=== PATIENT | female | born 1985 | race Caucasian/White ===

== ENCOUNTER 2018-09-11 19:58 | Observation (INO) | payer BC, OTHER ==
[~2018-09-11] VITALS: Ht 147.3 cm; Wt 121.7 kg
--- OUTSIDE RECORDS SUMMARY | 2018-09-11 20:04 | XMS REPORT | Referral Summary ---
Author Author [facility] Organization [facility] Address Unknown Phone Unavailable Care Team Providers Care Estate Planning Attorney Name Role Phone Dieter Goldstein PCP Encounter [facility] [id number] Date(s): 12/30/15 - 12/30/15 [facility] [address] [facility] [address] [place], [place] [address] Discharge Diagnosis: exam Discharge Disposition: 01-Home or Self Care Attending Physician: Bhupendra Nichols MD Admitting Physician: Bhupendra Nichols MD Vital Signs Most recent to 1 oldest [Reference Range]: Blood Pressure 116/70 mmHg [90-140/60-90 mmHg] (12/30/15 9:15 AM) Problem List Condition Effective Dates Status Health Status Informant Acute Active patient pain(Confirmed) Amenorrhea(Confirmed Active ) Anemia Active (disorder)(Confirmed ) Asthma(Confirmed) Active Complex partial Active seizures(Confirmed) Depression(Confirmed Active ) 22 wk SAB(Confirmed) 2005 Active Dizzy(Confirmed) Active Family history of Active open neural tube defect(Confirmed) History of chicken Active pox(Confirmed) H/O Active hypoglycemia(Confirm ed) H/O spina Active bifida(Confirmed) History of Active PROM in previous , currently (Confirmed) Irregular Active menses(Confirmed) Migraine Active headache(Confirmed) Spontaneous Active patient (Confirmed) Obesity Active (disorder)(Confirmed ) 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(Confirm ed)1 (Confirmed) < 2 Resolved (Confirmed) 06/03/05 - 2005 Resolved Relative BMI greater Active than 30(Confirmed) Other Active convulsions(Confirme d) Sinus Active headache(Confirmed) 1Problem added by Discern Expert Allergies, Adverse Reactions, Alerts Substance Reaction Severity Status topiramate burning,itching and closed airwa Active Medications albuterol 2.5 mg/3 mL (0.083%) inhalation solution See Instructions, 1 VIALS INHALATION Q4HR,PRN: NEEDED FOR WHEEZING, # 75 unknown unit, 2 Refill(s), eRx: [facility] [id number], 1 VIALS INHALATION Q4HR,PRN: NEEDED FOR WHEEZING Start Date: 03/10/15 Status: Ordered Mary-D 12 Hour 60 mg-120 mg oral tablet, extended release 1 tabs, Oral, q12hr, 0 Refill(s) Start Date: 04/28/14 Status: Ordered Calcium Carbonate 500MG + D3 (1250 MG) 400 Unit Calcium Carbonate 500MG + D3 (1250 MG) 400 Unit, Take 1 Tablet by oral route every day, 0 Refill(s) Start Date: 04/28/14 Status: Ordered Colace 50 mg oral capsule 50 mg 1 caps, Oral, BID, as needed for constipation, # 60 caps, 0 Refill(s) Start Date: 11/11/15 Status: Ordered ferrous sulfate 325 mg (65 mg elemental iron) oral delayed release tablet 325 mg 1 tabs, Oral, Daily, # 30 tabs, 0 Refill(s) Start Date: 11/14/15 Status: Ordered Fioricet oral tablet 1 tabs, Oral, q4hr, as needed for pain, # 30 tabs, 0 Refill(s), Pharmacy: [facility] [id number] Start Date: 10/05/15 Status: Ordered Flonase 50 mcg/inh nasal spray 2 sprays, Nasal, BID, # 16 g, 11 Refill(s), Pharmacy: [facility] [id number] Start Date: 01/17/15 Status: Ordered folic acid 1 mg oral tablet See Instructions, TAKE TWO TABS TWICE A DAY, # 120 unknown unit, 5 Refill(s), eRx: [facility] [id number], TAKE TWO TABS TWICE A DAY Start Date: 08/22/15 Status: Ordered ibuprofen 800 mg oral tablet 800 mg 1 tabs, Oral, q8hr (scheduled), # 90 tabs, 0 Refill(s) Start Date: 11/14/15 Status: Ordered labetalol 100 mg oral tablet 100 mg 1 tabs, Oral, BID, # 60 tabs, 1 Refill(s), Pharmacy: [facility] [id number], 1 tabs Oral BID Start Date: 11/25/15 Status: Ordered levETIRAcetam 1000 mg oral tablet 1,000 mg 1 tabs, Oral, BID, # 60 tabs, 5 Refill(s), Pharmacy: [facility] [id number], 1 tabs Oral BID,x30 days Start Date: 12/21/15 Stop Date: 06/18/16 Status: Ordered lisinopril Oral, Daily, 0 Refill(s) Start Date: 12/16/15 Status: Ordered metFORMIN 500 mg oral tablet See Instructions, TAKE 1 TABLET (500MG) BY ORAL ROUTE 2 TIMES EVERY DAY WITH MORNING AND EVENING MEALS, # 60 unknown unit, 1 Refill(s), eRx: [facility] [id number], TAKE 1 TABLET (500MG) BY ORAL ROUTE 2 TIMES EVERY DAY WITH MORNING AND EVENING MEALS Start Date: 12/23/15 Status: Ordered One-A-Day Women 1 tabs, Oral, Daily, 0 Refill(s) Start Date: 04/28/14 Status: Ordered OXcarbazepine 600 mg oral tablet 600 mg 1 tabs, Oral, BID, # 60 tabs, 0 Refill(s), other reason (Rx) Start Date: 12/21/15 Stop Date: 01/20/16 Status: Ordered oxyCODONE-acetaminophen 5 mg-325 mg oral tablet 1 tabs, Oral, q6hr, Pain Severe (7-10), Can take 1-2 tabs, # 30 tabs, 0 Refill(s ) Start Date: 11/24/15 Status: Ordered Procardia XL 60 mg oral tablet, extended release 60 mg 1 tabs, Oral, Daily, # 30 tabs, 0 Refill(s), Pharmacy: [facility] [id number], 1 tabs Oral Daily Start Date: 11/17/15 Status: Ordered Pulmicort Flexhaler 180 mcg/inh inhalation powder 1 puffs, Inhalation, BID, 0 Refill(s) Start Date: 04/28/14 Status: Ordered Singulair 10 mg oral tablet 1 tabs, Oral, qPM, # 30 tabs, 11 Refill(s), Pharmacy: [facility] [id number] , 1 tabs Oral qPM Start Date: 01/17/15 Status: Ordered Sprintec 0.25 mg-35 mcg oral tablet 1 tabs, Oral, Daily, # 28 tabs, 11 Refill(s), Pharmacy: [facility] [id number] Start Date: 12/30/15 Status: Ordered Ventolin HFA 90 mcg/inh inhalation aerosol 2 puffs, Inhalation, q4hr, as needed for wheezing, # 18 g, 3 Refill(s), Pharmacy : [facility] [address], 2 puffs Inhalation q4hr,PRN:as needed for wheezing Start Date: 03/10/15 Status: Ordered Vitamin C 100 mg, Oral, Daily, 0 Refill(s) Start Date: 04/28/14 Status: Ordered Results No data available for this section Immunizations Vaccine Date Refusal Reason tetanus/diphth/pertuss (Tdap) adult/adol 09/30/15 influenza virus vaccine, inactivated 09/09/15 influenza virus vaccine, inactivated1 08/26/14 1Result Comment: [09/10/2014] See Scanned Document Procedures Procedure Date Related Diagnosis Body Site delivery only; 11/12/15 Section1 11/12/15 Dilatation and Curettage (Suction)2 12/29/14 wisdom teeth removed 1auto-populated from documented surgical case 2auto-populated from documented surgical case Social History Social History Type Response Smoking Status Never smoker Assessment and Plan No data available for this section
--- OUTSIDE RECORDS SUMMARY | 2018-09-11 20:04 | XMS REPORT | Referral Summary ---
Author Author [facility] Organization [facility] Address Unknown Phone Unavailable Care Team Providers Care Process Control Engineer Name Role Phone Dieter Goldstein PCP Encounter [facility] Date(s): 08/04/15 - 08/04/15 [facility] [address] [place], [place] [address] Discharge Diagnosis: GERD (gastroesophageal reflux disease) Discharge Diagnosis: Chest wall pain Discharge Disposition: -Home or Self Care Attending Physician: Dieter Goldstein MD Admitting Physician: Dieter Goldstein MD Vital Signs Most recent to 1 oldest [Reference Range]: Temperature Oral 37 degC [35.8-37.3 degC] (08/04/15 10:46 AM) Blood Pressure 110/86 mmHg [90-140/60-90 mmHg] (08/04/15 10:46 AM) Problem List Condition Effective Dates Status Health Status Informant Acute Active patient pain(Confirmed) Amenorrhea(Confirmed Active ) Anemia Active (disorder)(Confirmed ) Asthma(Confirmed) Active Complex partial Active seizures(Confirmed) Depression(Confirmed Active ) 22 wk SAB(Confirmed) 2006 Active Dizzy(Confirmed) Active Family history of Active open neural tube defect(Confirmed) History of chicken Active pox(Confirmed) H/O Active hypoglycemia(Confirm ed) H/O spina Active bifida(Confirmed) History of Active PROM in previous , currently (Confirmed) Irregular Active menses(Confirmed) Migraine Active headache(Confirmed) Spontaneous Active patient (Confirmed) Obesity Active (disorder)(Confirmed ) 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(Confirm ed)1 (Confirmed) < 12/29/14 Resolved (Confirmed) 06/03/05 - 2005 Resolved Relative BMI greater Active than 30(Confirmed) Other Active convulsions(Confirme d) Sinus Active headache(Confirmed) 1Problem added by Discern Expert Allergies, Adverse Reactions, Alerts Substance Reaction Severity Status topiramate burning,itching and closed airwa Active Medications albuterol 2.5 mg/3 mL (0.083%) inhalation solution See Instructions, 1 VIALS INHALATION Q4HR,PRN: NEEDED FOR WHEEZING, # 75 unknown unit, 2 Refill(s), eRx: [facility] [id number], 1 VIALS INHALATION Q4HR,PRN: NEEDED FOR WHEEZING [...] pain, # 30 tabs, 0 Refill(s), Pharmacy: [facility] [id number] Start Date: 10/05/15 Status: Ordered Flonase 50 mcg/inh nasal spray 2 sprays, Nasal, BID, # 16 g, 11 Refill(s), Pharmacy: [facility] 12818 Start Date: 01/17/15 Status: Ordered folic acid 1 mg oral tablet See Instructions, TAKE TWO TABS TWICE A DAY, # 120 unknown unit, 5 Refill(s), eRx: [facility] [id number], TAKE TWO TABS TWICE A DAY Start Date: 9/28/15 Status: Ordered ibuprofen 800 mg oral tablet 800 mg 1 tabs, Oral, q8hr (scheduled), # 90 tabs, 0 Refill(s) Start Date: 11/14/15 Status: Ordered labetalol 100 mg oral tablet 100 mg 1 tabs, Oral, BID, # 60 tabs, 1 Refill(s), Pharmacy: [facility] 10626, 1 tabs Oral BID Start Date: 11/25/15 Status: Ordered levETIRAcetam 1000 mg oral tablet 1,000 mg 1 tabs, Oral, BID, # 60 tabs, 5 Refill(s), Pharmacy: [facility] 46136, 1 tabs Oral BID,x30 days Start Date: 12/21/15 Stop Date: 06/18/16 Status: Ordered metFORMIN 500 mg oral tablet See Instructions, TAKE 1 TABLET (500MG) BY ORAL ROUTE 2 TIMES EVERY DAY WITH MORNING AND EVENING MEALS, # 60 unknown unit, 1 Refill(s), eRx: [facility] [id number], TAKE 1 TABLET (500MG) BY ORAL ROUTE 2 TIMES EVERY DAY WITH MORNING AND EVENING MEALS Start Date: 12/23/15 Status: Ordered One-A-Day Women 1 tabs, Oral, Daily, 0 Refill(s) Start Date: 04/28/14 Status: Ordered OXcarbazepine 600 mg oral tablet 600 mg 1 tabs, Oral, BID, # 60 tabs, 11 Refill(s), Pharmacy: [facility] 53499, 1 tabs Oral BID Start Date: 01/13/16 Status: Ordered pantoprazole 40 mg oral delayed release tablet 40 mg 1 tabs, Oral, Daily, Take at least 1 hour after other medications., # 30 tabs, 5 Refill(s), Pharmacy: [facility] 38399, 1 tabs Oral Daily,x30 days,Instr:Take at least 1 hour after other medications. Start Date: 01/20/16 Stop Date: 07/18/16 Status: Ordered Pulmicort Flexhaler 180 mcg/inh inhalation powder 1 puffs, Inhalation, BID, 0 Refill(s) Start Date: 04/28/14 Status: Ordered ranitidine 150 mg oral capsule 150 mg 1 caps, Oral, Bedtime (once a day), # 30 caps, 5 Refill(s), Pharmacy: [facility] [address], 1 caps Oral Bedtime (once a day),x30 days Start Date: 01/20/16 Stop Date: 07/18/16 Status: Ordered Singulair 10 mg oral tablet 10 mg 1 tabs, Oral, qPM, # 30 tabs, 11 Refill(s), Pharmacy: [facility] [address]3457, 1 tabs Oral qPM Start Date: 01/25/16 Status: Ordered Sprintec 0.25 mg-35 mcg oral tablet 1 tabs, Oral, Daily, # 28 tabs, 11 Refill(s), Pharmacy: [facility] 00181 Start Date: 12/30/15 Status: Ordered Ventolin HFA 90 mcg/inh inhalation aerosol 2 puffs, Inhalation, q4hr, as needed for wheezing, # 18 g, 3 Refill(s), Pharmacy : [facility] 37785, 2 puffs Inhalation q4hr,PRN:as needed for wheezing [...] Smoking Status Never smoker Assessment and Plan Extracted from: Title: Office Visit Note Author: Dieter Goldstein MD Date: 08/05/15 Assessment/Plan 1.Chest wall pain Prednisone 20mg po daily x 5 days and rest and apply ice to the sore area prn. Let me know if not improving. 2.GERD (gastroesophageal reflux disease) I recommended zantac 150mg pobid ( category B) to help her reflux and hopefully decrease the amount of TUMS needed in the day. Orders: predniSONE, 20 mg 1 tabs, Oral, Daily, X 5 days, # 5 tabs, 0 Refill(s) , Pharmacy: [facility] [address], 1 tabs Oral Daily,x5 days
--- OUTSIDE RECORDS SUMMARY | 2018-09-11 20:04 | XMS REPORT | Referral Summary ---
Author Author [facility] Organization [facility] Address Unknown Phone Unavailable Care Team Providers Care Area Director Of Home Health Sales Name Role Phone Dieter Goldstein PCP Encounter [facility] [id number] Date(s): 05/19/15 - 05/19/15 [facility] [address] [facility] [address] [place], [place] [address] Discharge Disposition: 01-Home or Self Care Attending Physician: Bhupendra Nichols MD Admitting Physician: Bhupendra Nichols MD Vital Signs No data available for this section Problem List Condition Effective Dates Status Health [...] # 75 unknown unit, 2 Refill(s), eRx: [facility] [id number], 1 VIALS INHALATION Q4HR,PRN: NEEDED FOR WHEEZING [...] pain, # 30 tabs, 0 Refill(s), Pharmacy: [facility] [id number] Start Date: 10/05/15 Status: Ordered Flonase 50 mcg/inh nasal spray 2 sprays, Nasal, BID, # 16 g, 11 Refill(s), Pharmacy: [facility] [id number] Start Date: 01/17/15 Status: Ordered folic acid 1 mg oral tablet See Instructions, TAKE TWO TABS TWICE A DAY, # 120 unknown unit, 5 Refill(s), eRx: [facility] [id number], TAKE TWO TABS TWICE A DAY Start Date: 08/22/15 Status: Ordered ibuprofen 800 mg oral tablet 800 mg 1 tabs, Oral, q8hr (scheduled), # 90 tabs, 0 Refill(s) Start Date: 11/14/15 Status: Ordered Keflex 500 mg oral capsule 500 mg 1 caps, Oral, q8hr, X 14 days, # 42 caps, 0 Refill(s), Pharmacy: [facility] 65278, 1 caps Oral q8hr,x14 days Start Date: 11/17/15 Stop Date: 12/01/15 Status: Ordered labetalol 100 mg oral tablet 100 mg 1 tabs, Oral, BID, # 60 tabs, 1 Refill(s), Pharmacy: [facility] 61547, 1 tabs Oral BID Start Date: 11/25/15 Status: Ordered levETIRAcetam 1000 mg oral tablet 1,000 mg 1 tabs, Oral, BID, # 60 tabs, 5 Refill(s), Pharmacy: [facility] 47897, 1 tabs Oral BID Start Date: 06/29/15 Status: Ordered metFORMIN 500 mg oral tablet See Instructions, TAKE 1 TABLET (500MG) BY ORAL ROUTE 2 TIMES EVERY DAY WITH MORNING AND EVENING MEALS, # 60 unknown unit, eRx: [facility] [id number], TAKE 1 TABLET (500MG) BY ORAL ROUTE 2 TIMES EVERY DAY WITH MORNING AND EVENING MEALS Start Date: 11/28/15 Status: Ordered nystatin 100,000 units/g topical powder 1 jose elias, Topical, TID, X 7 days, # 30 g, 1 Refill(s), Pharmacy: [facility] [id number] Start Date: 11/17/15 Stop Date: 12/01/15 Status: Ordered One-A-Day Women 1 tabs, Oral, Daily, 0 Refill(s) Start Date: 04/28/14 Status: Ordered oxyCODONE-acetaminophen 5 mg-325 mg oral tablet 1 tabs, Oral, q6hr, Pain Severe (7-10), Can take 1-2 tabs, # 30 tabs, 0 Refill(s ) Start Date: 11/24/15 Status: Ordered Procardia XL 60 mg oral tablet, extended release 60 mg 1 tabs, Oral, Daily, # 30 tabs, 0 Refill(s), Pharmacy: [facility] [address]661, 1 tabs Oral Daily Start Date: 11/17/15 Status: Ordered Pulmicort Flexhaler 180 mcg/inh inhalation powder 1 puffs, Inhalation, BID, 0 Refill(s) Start Date: 04/28/14 Status: Ordered Singulair 10 mg oral tablet 1 tabs, Oral, qPM, # 30 tabs, 11 Refill(s), Pharmacy: [facility] [address] , 1 tabs Oral qPM Start Date: 01/17/15 Status: Ordered Ventolin HFA 90 mcg/inh inhalation aerosol 2 puffs, Inhalation, q4hr, as needed for wheezing, # 18 g, 3 Refill(s), Pharmacy : [facility] [address], 2 puffs Inhalation q4hr,PRN:as needed for wheezing [...]
--- OUTSIDE RECORDS SUMMARY | 2018-09-11 20:04 | XMS REPORT | Referral Summary ---
Author Author [facility] Organization [facility] Address Unknown Phone Unavailable Care Team Providers Care Access Services Assistant Name Role Phone Dieter Goldstein PCP Encounter [facility] Date(s): 10/09/17 - 10/09/17 [facility] [address] [place], [place] [address] Discharge Diagnosis: Acute costochondritis Discharge Diagnosis: Hypertension Discharge Diagnosis: Sinus headache Discharge Disposition: 01-Home or Self Care Attending Physician: Rosendo Jones DO Admitting Physician: Rosendo Jones DO Vital Signs Most recent to 1 oldest [Reference Range]: Temperature Oral 37.4 degC [35.8-37.3 degC] *HI* (10/09/17 12:26 PM) Peripheral Pulse 74 bpm Rate [60-100 bpm] (10/09/17 1:25 PM) Heart Rate Monitored 75 bpm [60-100 bpm] (10/09/17 3:15 PM) Respiratory Rate 20 br/min [14-20 br/min] (10/09/17 3:15 PM) Blood Pressure 150/89 mmHg [90-140/60-90 mmHg] *HI* (10/09/17 3:15 PM) SpO2 100 % (10/09/17 12:26 PM) Problem List Condition Effective Dates Status Health Status Informant Moderate persistent Active asthma with exacerbation(Confirm ed) Acute Active patient pain(Confirmed) Allergic Active rhinitis(Confirmed) Amenorrhea(Confirmed Active ) Anemia Active (disorder)(Confirmed ) Asthma(Confirmed) Active Complex partial Active seizures(Confirmed) Depression(Confirmed Active ) 22 wk SAB(Confirmed) 2006 Active Dizzy(Confirmed) Active Essential Active hypertension(Confirm ed) Family history of Active open neural tube defect(Confirmed) Fluid Active imbalance(Confirmed) 1 Generalized anxiety Active disorder(Confirmed) History of chicken Active pox(Confirmed) H/O Active hypoglycemia(Confirm ed) H/O spina Active bifida(Confirmed) History of Resolved PROM in previous , currently (Confirmed) Hyperglycemia(Confir Active patient med) Hypertension(Confirm < 02/12/17 Resolved ed) Irregular Active menses(Confirmed) Migraine Active headache(Confirmed) Spontaneous Active patient (Confirmed) Obesity Active (disorder)(Confirmed ) 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(Confirm ed)2 (Confirmed) < 12/29/14 Resolved (Confirmed) 03/18/15 - 11/12/15 Resolved (Confirmed) 06/03/05 - 2005 Resolved Relative BMI greater < 11/11/15 Resolved than 30(Confirmed) Other Active convulsions(Confirme d) Sinus Active headache(Confirmed) 1Problem added automatically by system based on initiation of Fluid Volume Imbalance Plan of Care 2Problem added by Discern Expert Allergies, Adverse Reactions, Alerts Substance Reaction Severity Status topiramate burning,itching and closed airwa Active Medications albuterol 2.5 mg/3 mL (0.083%) inhalation solution 2.5 mg 3 mL, Inhalation, q6hr, as needed for wheezing, 0 Refill(s) Start Date: 02/12/17 Status: Ordered amLODIPine 10 mg oral tablet See Instructions, TAKE 1 TABLET BY MOUTH DAILY, # 30 tabs, eRx: [facility] [id number] Start Date: 09/24/17 Status: Ordered diazePAM 5 mg oral tablet 5 mg 1 tabs, Oral, BID, as needed for anxiety, # 15 tabs, 0 Refill(s), called to pharmacy (Rx) Start Date: 04/02/17 Status: Ordered escitalopram 10 mg oral tablet See Instructions, TAKE 1 TABLET BY MOUTH DAILY, # 30 tabs, 5 Refill(s), eRx: [facility] [id number] Start Date: 08/12/17 Status: Ordered ferrous sulfate 325 mg (65 mg elemental iron) oral delayed release tablet 325 mg 1 tabs, Oral, Daily, # 30 tabs, 0 Refill(s) Start Date: 02/14/17 Status: Ordered Fioricet 1 tabs, Oral, q4hr, 0 Refill(s) Start Date: 02/12/17 Status: Ordered fluticasone 50 mcg/inh nasal spray See Instructions, INSTILL 2 SPRAYS IN EACH NOSTRIL TWICE DAILY, # 16 mL, eRx: [facility] [id number], INSTILL 2 SPRAYS IN EACH NOSTRIL TWICE DAILY Start Date: 09/09/17 Status: Ordered folic acid 1 mg oral tablet See Instructions, TAKE 2 TABLETS BY MOUTH TWICE DAILY, # 120 tabs, 4 Refill(s), eRx: [facility] [id number], TAKE 2 TABLETS BY MOUTH TWICE DAILY Start Date: 05/02/17 Status: Ordered metFORMIN 500 mg oral tablet 500 mg 1 tabs, Oral, BID, # 60 tabs, 4 Refill(s), Pharmacy: [facility], 1 tabs Oral BID Start Date: 08/26/17 Status: Ordered OXcarbazepine 600 mg oral tablet 600 mg 1 tabs, Oral, BID, # 60 tabs, 11 Refill(s), Pharmacy: [facility], 1 tabs Oral BID Start Date: 12/31/16 Status: Ordered pantoprazole 40 mg oral delayed release tablet See Instructions, TAKE 1 TABLET BY MOUTH ONCE DAILY AT LEAST 1 HOUR AFTER OTHER MEDICATIONS., # 30 tabs, 5 Refill(s), eRx: [facility] [id number], TAKE 1 TABLET BY MOUTH ONCE DAILY AT LEAST 1 HOUR AFTER OTHER MEDICATIONS. Start Date: 06/28/17 Status: Ordered raNITIdine 150 mg oral capsule See Instructions, TAKE 1 CAPSULE BY MOUTH EVERY DAY AT BEDTIME FOR 30 DAYS, # 30 caps, 5 Refill(s), eRx: [facility] [id number], TAKE 1 CAPSULE BY MOUTH EVERY DAY AT BEDTIME FOR 30 DAYS Start Date: 06/28/17 Status: Ordered Singulair 10 mg, Oral, Daily, 0 Refill(s) Start Date: 02/12/17 Status: Ordered Symbicort 160 mcg-4.5 mcg/inh inhalation aerosol 2 puffs, Inhalation, BID, rinse mouth and throat after use, # 1 Each, 11 Refill( s) Start Date: 04/02/17 Stop Date: 03/28/18 Status: Ordered Ventolin HFA 90 mcg/inh inhalation aerosol 2 puffs, Inhalation, q4hr, as needed for wheezing, # 18 g, 6 Refill(s), Pharmacy : [facility] [address], 2 puffs Inhalation q4hr,PRN:as needed for wheezing Start Date: 12/12/16 Status: Ordered Results Hematology Most recent to 1 oldest [Reference Range]: Hgb [12.0-16.0 12.0 gm/dL gm/dL] (10/09/17 1:19 PM) Hct [37.0-47.0 %] 37.1 % (10/09/17 1:19 PM) Chemistry Most recent to 1 oldest [Reference Range]: Sodium Lvl [136-144 130 mEq/L mEq/L] *LOW* (10/09/17 1:20 PM) Potassium Lvl 3.9 mEq/L [3.6-5.1 mEq/L] (10/09/17 1:20 PM) Chloride [99-109 98 mEq/L mEq/L] *LOW* (10/09/17 1:20 PM) CO2 [22-32 mEq/L] 22 mEq/L (10/09/17 1:20 PM) AGAP [3-20 mEq/L] 10 mEq/L (10/09/17 1:20 PM) BUN [4-20 mg/dL] 9 mg/dL (10/09/17 1:20 PM) Glucose Lvl [70-100 81 mg/dL mg/dL] (10/09/17 1:20 PM) Creatinine Lvl 0.58 mg/dL [0.44-1.03 mg/dL] (10/09/17 1:20 PM) eGFR [>60 mL/min] >60 mL/min 1 (10/09/17 1:20 PM) Calcium Lvl 9.2 mg/dL [8.6-10.0 mg/dL] (10/09/17 1:20 PM) U Beta hCG Ql Negative (10/09/17 12:39 PM) 1Result Comment: Multiply eGFR results by 1.21 for race. Urinalysis Most recent to 1 oldest [Reference Range]: UA Color Yellow (10/09/17 12:39 PM) UA Appear Sl Cloudy (10/09/17 12:39 PM) UA pH [5.0-8.0] 5.0 (10/09/17 12:39 PM) UA Leuk Est Negative [Negative] (10/09/17 12:39 PM) UA Nitrite Negative [Negative] (10/09/17 12:39 PM) UA Protein Negative [Negative] (10/09/17 12:39 PM) UA Glucose Negative [Negative] (10/09/17 12:39 PM) UA Ketones Negative [Negative] (10/09/17 12:39 PM) UA Urobilinogen Negative [<1.0] (10/09/17 12:39 PM) UA Bili [Negative] Negative (10/09/17 12:39 PM) UA Blood [Negative] Negative (10/09/17 12:39 PM) UA Spec Grav 1.025 [1.003-1.030] (10/09/17 12:39 PM) Type Venous (10/09/17 1:24 PM) Immunizations Given and Recorded Vaccine Date Status Refusal Reason influenza virus vaccine, inactivated 09/23/17 Given influenza virus vaccine, inactivated 08/20/16 Given influenza virus vaccine, inactivated 09/09/15 Given influenza virus vaccine, inactivated1 08/26/14 Recorded tetanus/diphth/pertuss (Tdap) adult/adol 09/30/15 Given 1Result Comment: [09/10/2014] See Scanned Document Procedures Procedure Date Related Diagnosis Body Site delivery only; 11/12/15 Section1 11/12/15 Dilatation and Curettage (Suction)2 12/29/14 wisdom teeth removed 1auto-populated from documented surgical case 2auto-populated from documented surgical case Social History Social History Type Response Smoking Status Never smoker entered on: 05/24/14 Assessment and Plan No data available for this section
--- OUTSIDE RECORDS SUMMARY | 2018-09-11 20:05 | XMS REPORT | Referral Summary ---
Author Author [facility] Organization [facility] Address Unknown Phone Unavailable Care Team Providers Care Guest Laundry Attendant Name Role Phone Dieter Goldstein PCP Encounter [facility] Date(s): 06/05/16 - 06/05/16 [facility] [address] [place], [place] [address] Discharge Diagnosis: Lightheadedness Discharge Diagnosis: Essential hypertension Discharge Disposition: 01-Home or Self Care Attending Physician: Dieter Goldstein MD Admitting Physician: Dieter Goldstein MD Vital Signs Most recent to 1 oldest [Reference Range]: Blood Pressure 120/70 mmHg [90-140/60-90 mmHg] (06/05/16 9:49 AM) Problem List Condition Effective Dates Status Health Status Informant Acute Active patient pain(Confirmed) Amenorrhea(Confirmed Active ) Anemia Active (disorder)(Confirmed ) Asthma(Confirmed) Active Complex partial Active seizures(Confirmed) Depression(Confirmed Active ) 22 wk SAB(Confirmed) 2005 Active Dizzy(Confirmed) Active Essential Active hypertension(Confirm ed) [...] hypertension(Confirm ed)1 (Confirmed) < 12/29/14 Resolved (Confirmed) 03/18/15 - [...] VIALS INHALATION Q4HR,PRN: NEEDED FOR WHEEZING, # 60 Each , 11 Refill(s), Pharmacy: [facility] [id number], 1 VIALS INHALATION Q4HR, PRN: NEEDED FOR WHEEZING Start Date: 05/22/16 Status: Ordered Mary-D 12 Hour 60 mg-120 mg oral tablet, extended release 1 tabs, Oral, q12hr, 0 Refill(s) Start Date: 04/28/14 Status: Ordered amLODIPine 5 mg oral tablet 5 mg 1 tabs, Oral, Daily, # 30 tabs, 11 Refill(s), Pharmacy: [facility] [id number], 1 tabs Oral Daily,x30 days Start Date: 04/20/16 Stop Date: 04/15/17 Status: Ordered Calcium Carbonate 500MG + D3 (1250 MG) 400 Unit Calcium Carbonate 500MG + D3 (1250 MG) 400 Unit, Take 1 Tablet by oral route every day, 0 Refill(s) Start Date: 04/28/14 Status: Ordered Flonase 50 mcg/inh nasal spray See Instructions, 2 SPRAYS NASAL BID, # 16 g, 5 Refill(s), eRx: [facility] [id number], 2 SPRAYS NASAL BID Start Date: 02/24/16 Status: Ordered folic acid 1 mg oral tablet 2 mg 2 tabs, Oral, BID, X 30 days, # 120 tabs, 11 Refill(s), Pharmacy: [facility] [id number], 2 tabs Oral BID,x30 days Start Date: 04/20/16 Stop Date: 04/15/17 Status: Ordered metFORMIN 500 mg oral tablet See Instructions, TAKE 1 TABLET (500MG) BY ORAL ROUTE 2 TIMES EVERY DAY WITH MORNING AND EVENING MEALS, # 60 unknown unit, 5 Refill(s), eRx: [facility] [id number], TAKE 1 TABLET (500MG) BY ORAL ROUTE 2 TIMES EVERY DAY WITH MORNING AND EVENING MEALS Start Date: 02/24/16 Status: Ordered OXcarbazepine 600 mg oral tablet 600 mg 1 tabs, Oral, BID, # 60 tabs, 11 Refill(s), Pharmacy: [facility] [id number], 1 tabs Oral BID Start Date: 01/13/16 Status: Ordered pantoprazole 40 mg oral delayed release tablet 40 mg 1 tabs, Oral, Daily, Take at least 1 hour after other medications., # 30 tabs, 5 Refill(s), Pharmacy: [facility] [id number], 1 tabs Oral Daily,x30 days,Instr:Take at least 1 hour after other medications. Start Date: 01/20/16 Stop Date: 07/18/16 Status: Ordered Pulmicort Flexhaler 180 mcg/inh inhalation powder 1 puffs, Inhalation, BID, 0 Refill(s) Start Date: 04/28/14 Status: Ordered ranitidine 150 mg oral capsule 150 mg 1 caps, Oral, Bedtime (once a day), # 30 caps, 5 Refill(s), Pharmacy: [facility] [id number], 1 caps Oral Bedtime (once a day),x30 days Start Date: 01/20/16 Stop Date: 07/18/16 Status: Ordered Singulair 10 mg oral tablet 10 mg 1 tabs, Oral, qPM, # 30 tabs, 11 Refill(s), Pharmacy: [facility] [id number], 1 tabs Oral qPM Start Date: 01/25/16 Status: Ordered Sprintec 0.25 mg-35 mcg oral tablet 1 tabs, Oral, Daily, # 28 tabs, 11 Refill(s), Pharmacy: [facility] [id number] Start Date: 12/30/15 Status: Ordered Ventolin HFA 90 mcg/inh inhalation aerosol 2 puffs, Inhalation, q4hr, as needed for wheezing, # 18 g, 3 Refill(s), Pharmacy : [facility] [id number], 2 puffs Inhalation q4hr,PRN:as needed for wheezing [...] smoker Assessment and Plan Extracted from: Title: Ambulatory Patient Education Author: Dieter Goldstein MD Date: 11/09 Family Medicine Hypertension Hypertension, commonly called high blood pressure, is when the force of blood pumping through your arteries is too strong. Your arteries are the blood vessels that carry blood from your heart throughout your body. A blood pressure reading consists of a higher number over a lower number, such as 110/72. The higher number (systolic) is the pressure inside your arteries when your heart pumps. The lower number (diastolic) is the pressure inside your arteries when your heart relaxes. Ideally you want your blood pressure below 120/80. Hypertension forces your heart to work harder to pump blood. Your arteries may become narrow or stiff. Having hypertension puts you at risk for heart disease, stroke, and other problems. RISK FACTORS Some risk factors for high blood pressure are controllable. Others are not. Risk factors you cannot control include: Race. You may be at higher risk if you are . Age. Risk increases with age. Gender. Men are at higher risk than women before age 45 years. After age 65 , women are at higher risk than men. Risk factors you can control include: Not getting enough exercise or physical activity. Being overweight. Getting too much fat, sugar, calories, or salt in your diet. Drinking too much alcohol. SIGNS AND SYMPTOMS Hypertension does not usually cause signs or symptoms. Extremely high blood pressure (hypertensive crisis) may cause headache, anxiety, shortness of breath , and nosebleed. DIAGNOSIS To check if you have hypertension, your health care provider will measure your blood pressure while you are seated, with your arm held at the level of your heart. It should be measured at least twice using the same arm. Certain conditions can cause a difference in blood pressure between your right and left arms. A blood pressure reading that is higher than normal on one occasion does not mean that you need treatment. If it is not clear whether you have high blood pressure, you may be asked to return on a different day to have your blood pressure checked again. Or, you may be asked to monitor your blood pressure at home for 1 or more weeks. TREATMENT Treating high blood pressure includes making lifestyle changes and possibly taking medicine. Living a healthy lifestyle can help lower high blood pressure. You may need to change some of your habits. Lifestyle changes may include: Following the DASH diet. This diet is high in fruits, vegetables, and whole grains. It is low in salt, red meat, and added sugars. Keep your sodium intake below 2,300 mg per day. Getting at least 30 45 minutes of aerobic exercise at least 4 times per week. Losing weight if necessary. Not smoking. Limiting alcoholic beverages. Learning ways to reduce stress. Your health care provider may prescribe medicine if lifestyle changes are not enough to get your blood pressure under control, and if one of the following is true: Your systolic blood pressure is above 150. Your diastolic blood pressure is above 90. You have diabetes, and your systolic blood pressure is over 140 or your diastolic blood pressure is over 85. You have heart disease or have had a stroke or heart attack, and your blood pressure is above 130 over 80, which is written as 130/80. HOME CARE INSTRUCTIONS Have your blood pressure rechecked as directed by your health care provider. Take medicines only as directed by your health care provider. Follow the directions carefully. Blood pressure medicines must be taken as prescribed. The medicine does not work as well when you skip doses. Skipping doses also puts you at risk for problems. Do not smoke. Monitor your blood pressure at home as directed by your health care provider. SEEK MEDICAL CARE IF: You think you are having a reaction to medicines taken. You have recurrent headaches or feel dizzy. You have swelling in your ankles. You have trouble with your vision. SEEK IMMEDIATE MEDICAL CARE IF: You develop a severe headache or confusion. You have unusual weakness, numbness, or feel faint. You have severe chest or abdominal pain. You vomit repeatedly. You have trouble breathing. MAKE SURE YOU: Understand these instructions. Will watch your condition. Will get help right away if you are not doing well or get worse. This information is not intended to replace advice given to you by your health care provider. Make sure you discuss any questions you have with your health care provider. Document Released: 11/11/2006 Document Revised: 12/02/2015 Document Reviewed: ExitCare Patient Information 2016 [employer] [facility]. No follow up information was provided. Extracted from: Title: Office Visit Note Author: Dieter Goldstein MD Date: 06/05/16 Assessment/Plan 1.Essential hypertension Continue amlodipine 2.5mg daily and if you start having more lightheaded episodes with weight loss we can stop this. Recheck appt in 3 months or sooner as needed. Ordered: Office Visit Level 3 Est 88248 2.Lightheadedness Improved and related to orthostatic hypotension. Ordered: Office Visit Level 3 Est 64129
--- OUTSIDE RECORDS SUMMARY | 2018-09-11 20:05 | XMS REPORT | Referral Summary ---
Author Author [facility] Organization [facility] Address Unknown Phone Unavailable Care Team Providers Care Alcohol Law Enforcement Agent Name Role Phone Dieter Goldstein PCP Encounter [facility] Date(s): 04/02/17 - 04/02/17 [facility] [address], [facility] [address] [place], [place] [address] Discharge Diagnosis: Generalized anxiety disorder Discharge Diagnosis: Asthma Discharge Diagnosis: H/O hypoglycemia Discharge Diagnosis: Essential hypertension Discharge Diagnosis: Obesity Discharge Disposition: 01-Home or Self Care Attending Physician: Dieter Goldstein MD Vital Signs Most recent to 1 oldest [Reference Range]: Blood Pressure 130/86 mmHg [90-140/60-90 mmHg] (04/02/17 10:05 AM) Problem List Condition Effective Dates Status [...] Status: Ordered amLODIPine 10 mg oral tablet 10 mg 1 tabs, Oral, Daily, # 30 tabs, 11 Refill(s), Pharmacy: [facility] [id number], 1 tabs Oral Daily,x30 days Start Date: 08/20/16 Stop Date: 08/15/17 Status: Ordered diazePAM 5 mg oral tablet 5 mg 1 tabs, Oral, BID, as needed for anxiety, # 15 tabs, 0 Refill(s), called to pharmacy (Rx) Start Date: 04/02/17 Status: Ordered escitalopram 10 mg oral tablet 10 mg 1 tabs, Oral, Daily, # 30 tabs, 5 Refill(s), Pharmacy: [facility] [id number], 1 tabs Oral Daily,x30 days Start Date: 02/20/17 Stop Date: 08/19/17 Status: Ordered ferrous sulfate 325 mg (65 mg elemental iron) oral delayed release tablet 325 mg 1 tabs, Oral, Daily, # 30 tabs, 0 Refill(s) Start Date: 02/14/17 Status: Ordered Fioricet 1 tabs, Oral, q4hr, 0 Refill(s) Start Date: 02/12/17 Status: Ordered Flonase 50 mcg/inh nasal spray 2 sprays, Nasal, BID, 0 Refill(s) Start Date: 02/12/17 Status: Ordered folic acid 1 mg oral tablet 2 mg 2 tabs, Oral, BID, X 30 days, # 120 tabs, 11 Refill(s), Pharmacy: [facility] [id number], 2 tabs Oral BID,x30 days Start Date: 04/20/16 Stop Date: 04/15/17 Status: Ordered metFORMIN 500 mg oral tablet 500 mg 1 tabs, Oral, BID, X 30 days, # 60 tabs, 11 Refill(s), Pharmacy: [facility] [id number], 1 tabs Oral BID,x30 days Start Date: 08/20/16 Stop Date: 08/15/17 Status: Ordered OXcarbazepine 600 mg oral tablet 600 mg 1 tabs, Oral, BID, # 60 tabs, 11 Refill(s), Pharmacy: [facility] [id number], 1 tabs Oral BID Start Date: 12/31/16 Status: Ordered pantoprazole 40 mg, Oral, Daily, 0 Refill(s) Start Date: 02/12/17 Status: Ordered ranitidine 150 mg, Oral, Bedtime (once a day), 0 Refill(s) Start Date: 02/12/17 Status: Ordered Singulair 10 mg, Oral, Daily, 0 Refill(s) Start Date: 02/12/17 Status: Ordered Sprintec 0.25 mg-35 mcg oral tablet 1 tabs, Oral, Daily, # 28 tabs, 3 Refill(s), Pharmacy: [facility] [id number] Start Date: 12/20/16 Status: Ordered Symbicort 160 mcg-4.5 mcg/inh inhalation aerosol 2 puffs, Inhalation, BID, rinse mouth and throat after use, # 1 Each, 11 Refill( s) Start Date: 04/02/17 Stop Date: 03/28/18 Status: Ordered Ventolin HFA 90 mcg/inh inhalation aerosol 2 puffs, Inhalation, q4hr, as needed for wheezing, # 18 g, 6 Refill(s), Pharmacy : [facility] [id number], 2 puffs Inhalation q4hr,PRN:as needed for wheezing Start Date: 12/12/16 Status: Ordered Results No data available for this section Immunizations Given and Recorded Vaccine Date Status Refusal Reason tetanus/diphth/pertuss (Tdap) adult/adol 09/30/15 Given influenza virus vaccine, inactivated 08/20/16 Given influenza virus vaccine, inactivated 09/09/15 Given influenza virus vaccine, inactivated1 08/26/14 Recorded 1Result Comment: [09/10/2014] See Scanned Document Procedures Procedure Date Related Diagnosis Body Site delivery only; 11/12/15 Section1 11/12/15 Dilatation and Curettage (Suction)2 12/29/14 wisdom teeth removed 1auto-populated from documented surgical case 2auto-populated from documented surgical case Social History Social History Type Response Smoking Status Never smoker Assessment and Plan Extracted from: Title: Office Visit Note Author: Dieter Goldstein MD Date: 04/02/17 Assessment/Plan 1.Generalized anxiety disorder Continue lexapro 10mg daily and valium 5mg po prn. Recheck appt. in 3 months. Ordered: Office Visit Level 4 Est 42328 2.Asthma New rx/sample of symbicort 160/4.5 2 puffs bid and rinse mouth after use given today. Ordered: Office Visit Level 4 Est 60520 3.Essential hypertension Continue current regimen. Low salt diet and weight loss encouraged. Recheck in 3 months. Ordered: Office Visit Level 4 Est 57037 4.H/O hypoglycemia Will refer to efficiency miner for counseling for both hypoglycemia and weight loss. Continue metformin. Ordered: Internal Referral to Nutrition Office Visit Level 4 Est 80966 5.Obesity As above. Recheck appt. in 3 months. Ordered: Internal Referral to Nutrition Office Visit Level 4 Est 65123 Referrals to Other Providers obesity and hypoglycemia Referred by: Dieter Goldstein MD
--- OUTSIDE RECORDS SUMMARY | 2018-09-11 20:05 | XMS REPORT | Referral Summary ---
Author Author [facility] Organization [facility] Address Unknown Phone Unavailable Care Team Providers Care Skid Strapper Name Role Phone Dieter Goldstein PCP Encounter [facility] Date(s): 06/29/15 - 06/29/[address] [facility] [address] [facility] [address] [place], [place] [address] Discharge Diagnosis: Epilepsy Discharge Disposition: 01-Home or Self Care Attending Physician: Jennifer Hull MD Admitting Physician: Jennifer Hull MD Vital Signs Most recent to 1 oldest [Reference Range]: Peripheral Pulse 76 bpm Rate [60-100 bpm] (06/29/15 2:31 PM) Blood Pressure 145/96 mmHg [90-140/60-90 mmHg] *HI* (06/29/15 2:31 PM) Problem List Condition Effective Dates Status Health Status Informant Amenorrhea(Confirmed Active ) Anemia Active (disorder)(Confirmed ) [...] 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 (disorder)(Confirmed ) (Confirmed) < 12/29/14 Resolved (Confirmed) 06/03/05 - 2005 Resolved Other Active convulsions(Confirme d) Sinus Active headache(Confirmed) Allergies, Adverse Reactions, Alerts Substance Reaction Severity Status topiramate burning,itching and closed airwa Active Medications albuterol 2.5 mg/3 mL (0.083%) inhalation solution See Instructions, 1 VIALS INHALATION Q4HR,PRN: NEEDED FOR WHEEZING, # 75 unknown unit, 2 Refill(s), eRx: [facility] [id number], 1 VIALS INHALATION Q4HR,PRN: NEEDED FOR WHEEZING [...] 0 Refill(s) Start Date: 04/28/14 Status: Ordered Fioricet oral tablet 1 tabs, Oral, q4hr, as needed for pain, # 30 tabs, 0 Refill(s), Pharmacy: [facility] [id number] Start Date: 08/21/15 Status: Ordered Flonase 50 mcg/inh nasal spray 2 sprays, Nasal, BID, # 16 g, 11 Refill(s), Pharmacy: [facility] [id number] Start Date: 01/17/15 Status: Ordered folic acid 1 mg oral tablet See Instructions, TAKE TWO TABS TWICE A DAY, # 120 unknown unit, 5 Refill(s), eRx: [facility] [id number], TAKE TWO TABS TWICE A DAY Start Date: 08/22/15 Status: Ordered levETIRAcetam 1000 mg oral tablet 1,000 mg 1 tabs, Oral, BID, # 60 tabs, 5 Refill(s), Pharmacy: [facility] [id number], 1 tabs Oral BID Start Date: 06/29/15 Status: Ordered metFORMIN 500 mg oral tablet See Instructions, TAKE 1 TABLET (500MG) BY ORAL ROUTE 2 TIMES EVERY DAY WITH MORNING AND EVENING MEALS, # 60 unknown unit, eRx: [facility] [id number], TAKE 1 TABLET (500MG) BY ORAL ROUTE 2 TIMES EVERY DAY WITH MORNING AND EVENING MEALS Start Date: 09/21/15 Status: Ordered One-A-Day Women 1 tabs, Oral, Daily, 0 Refill(s) Start Date: 04/28/14 Status: Ordered Pulmicort Flexhaler 180 mcg/inh inhalation powder 1 puffs, Inhalation, BID, 0 Refill(s) Start Date: 04/28/14 Status: Ordered Singulair 10 mg oral tablet 1 tabs, Oral, qPM, # 30 tabs, 11 Refill(s), Pharmacy: [facility] [id number] , 1 tabs Oral qPM Start Date: 01/17/15 Status: Ordered Ventolin HFA 90 mcg/inh inhalation aerosol 2 puffs, Inhalation, q4hr, as needed for wheezing, # 18 g, 3 Refill(s), Pharmacy : [facility] [id number], 2 puffs Inhalation q4hr,PRN:as needed for wheezing [...] Procedures Procedure Date Related Diagnosis Body Site Dilatation and Curettage (Suction)1 12/29/14 wisdom teeth removed 1auto-populated from documented surgical case Social History Social History Type Response Smoking Status Never smoker Assessment and Plan No data available for this section
--- OUTSIDE RECORDS SUMMARY | 2018-09-11 20:05 | XMS REPORT | Referral Summary ---
Author Author [facility] Organization [facility] Address Unknown Phone Unavailable Care Team Providers Care Route Aide Name Role Phone Dieter Goldstein PCP Encounter [facility] Date(s): 06/29/15 - 06/29/[address] [facility] [address] [facility] [[email or web address] [address] [place], [place] [address] Discharge Diagnosis: Epilepsy Discharge Disposition: 01-Home or [...] # 75 unknown unit, 2 Refill(s), eRx: [facility] 10235, 1 VIALS INHALATION Q4HR,PRN: NEEDED FOR WHEEZING [...] pain, # 30 tabs, 0 Refill(s), Pharmacy: [facility] 14485 Start Date: 10/05/15 Status: Ordered Flonase 50 mcg/inh nasal spray 2 sprays, Nasal, BID, # 16 g, 11 Refill(s), Pharmacy: [facility] 18932 Start Date: 01/17/15 Status: Ordered folic acid 1 mg oral tablet See Instructions, TAKE TWO TABS TWICE A DAY, # 120 unknown unit, 5 Refill(s), eRx: [facility] [id number], TAKE TWO TABS TWICE A DAY Start Date: 08/22/15 Status: Ordered ibuprofen 800 mg oral tablet 800 mg 1 tabs, Oral, q8hr (scheduled), # 90 tabs, 0 Refill(s) Start Date: 11/14/15 Status: Ordered labetalol 100 mg oral tablet 100 mg 1 tabs, Oral, BID, # 60 tabs, 1 Refill(s), Pharmacy: [facility] 86784, 1 tabs Oral BID Start Date: 11/25/15 Status: Ordered levETIRAcetam 1000 mg oral tablet 1,000 mg 1 tabs, Oral, BID, # 60 tabs, 5 Refill(s), Pharmacy: [facility] 01366, 1 tabs Oral BID,x30 days Start Date: 12/21/15 Stop Date: 06/18/16 Status: Ordered lisinopril Oral, Daily, 0 Refill(s) Start Date: 12/16/15 Status: Ordered metFORMIN 500 mg oral tablet See Instructions, TAKE 1 TABLET (500MG) BY ORAL ROUTE 2 TIMES EVERY DAY WITH MORNING AND EVENING MEALS, # 60 unknown unit, 1 Refill(s), eRx: [facility] [id number], TAKE 1 TABLET (500MG) BY ORAL ROUTE [...] Daily, # 30 tabs, 0 Refill(s), Pharmacy: [facility] 03574, 1 tabs Oral Daily Start Date: 11/17/15 Status: Ordered Pulmicort Flexhaler 180 mcg/inh inhalation powder 1 puffs, Inhalation, BID, 0 Refill(s) Start Date: 04/28/14 Status: Ordered Singulair 10 mg oral tablet 1 tabs, Oral, qPM, # 30 tabs, 11 Refill(s), Pharmacy: [facility] 43799 , 1 tabs Oral qPM Start Date: 01/17/15 Status: Ordered Sprintec 0.25 mg-35 mcg oral tablet 1 tabs, Oral, Daily, # 28 tabs, 11 Refill(s), Pharmacy: [facility] 34897 Start Date: 12/30/15 Status: Ordered Ventolin HFA 90 mcg/inh inhalation aerosol 2 puffs, Inhalation, q4hr, as needed for wheezing, # 18 g, 3 Refill(s), Pharmacy : [facility] 16822, 2 puffs Inhalation q4hr,PRN:as needed for wheezing [...]
--- OUTSIDE RECORDS SUMMARY | 2018-09-11 20:05 | XMS REPORT | Referral Summary ---
Author Author [facility] Organization [facility] Address Unknown Phone Unavailable Care Team Providers Care Bank Vault Attendant Name Role Phone Dieter Goldstein PCP Encounter [facility] Date(s): 10/23/16 - 10/23/16 [facility] [address] [place], [place] [address] Discharge Diagnosis: Moderate persistent asthma with exacerbation Discharge Diagnosis: Acute bacterial bronchitis Discharge Diagnosis: Cough Discharge Disposition: 01-Home or Self Care Attending Physician: Dieter Goldstein MD Admitting Physician: Dieter Goldstein MD Vital Signs Most recent to 1 oldest [Reference Range]: Temperature Oral 36.7 degC [35.8-37.3 degC] (10/23/16 9:02 AM) Blood Pressure 146/90 mmHg [90-140/60-90 mmHg] *HI* (10/23/16 9:02 AM) Problem List Condition Effective Dates Status [...] Resolved PROM in previous , currently (Confirmed) Irregular [...] # 60 Each , 11 Refill(s), Pharmacy: [facility] [id number], 1 VIALS INHALATION Q4HR, PRN: NEEDED FOR WHEEZING Start Date: 05/22/16 Status: Ordered amLODIPine 10 mg oral tablet 10 mg 1 tabs, Oral, Daily, # 30 tabs, 11 Refill(s), Pharmacy: [facility] [id number], 1 tabs Oral Daily,x30 days Start Date: 08/20/16 Stop Date: 08/15/17 Status: Ordered butalbital/acetaminophen/caffeine 50 mg-325 mg-40 mg oral tablet See Instructions, TAKE 1 TABLET BY MOUTH FOUR TIMES DAILY NEEDED FOR HEADACHE , # 20 tabs, 2 Refill(s), eRx: [facility] [id number], TAKE 1 TABLET BY MOUTH FOUR TIMES DAILY NEEDED FOR HEADACHE Start Date: 09/28/16 Status: Ordered Calcium Carbonate 500MG + D3 (1250 MG) 400 Unit Calcium Carbonate 500MG + D3 (1250 MG) 400 Unit, Take 1 Tablet by oral route every day, 0 Refill(s) Start Date: 04/28/14 Status: Ordered Cheratussin AC 10 mg-100 mg/5 mL oral syrup 10 mL, Oral, q4hr, as needed for cough, # 180 mL, 0 Refill(s), called to pharmacy (Rx) Start Date: 10/23/16 Stop Date: 10/30/16 Status: Ordered Diflucan 150 mg oral tablet 150 mg 1 tabs, Oral, qWeek, # 2 tabs, 0 Refill(s), Pharmacy: [facility] [id number], 1 tabs Oral qWeek Start Date: 10/23/16 Stop Date: 10/31/16 Status: Ordered fluticasone 50 mcg/inh nasal spray See Instructions, INSTILL 2 SPRAYS IN EACH NOSTRIL TWICE DAILY, # 16 mL, 10 Refill(s), eRx: [facility] [id number], INSTILL 2 SPRAYS IN EACH NOSTRIL TWICE DAILY Start Date: 10/22/16 Status: Ordered folic acid 1 mg oral tablet 2 mg 2 tabs, Oral, BID, X 30 days, # 120 tabs, 11 Refill(s), Pharmacy: [facility] [id number], 2 tabs Oral BID,x30 days Start Date: 04/20/16 Stop Date: 04/15/17 Status: Ordered hydrochlorothiazide 25 mg oral tablet 25 mg 1 tabs, Oral, Daily, In AM, # 30 tabs, 11 Refill(s), Pharmacy: [facility] [id number], 1 tabs Oral Daily,Instr:In AM Start Date: 07/20/16 Status: Ordered Levaquin 750 mg oral tablet 750 mg 1 tabs, Oral, q24hr, X 7 days, # 7 tabs, 0 Refill(s), Pharmacy: [facility] [id number], 1 tabs Oral q24hr,x7 days Start Date: 10/23/16 Stop Date: 10/30/16 Status: Ordered metFORMIN 500 mg oral tablet 500 mg 1 tabs, Oral, BID, X 30 days, # 60 tabs, 11 Refill(s), Pharmacy: [facility] [id number], 1 tabs Oral BID,x30 days Start Date: 08/20/16 Stop Date: 08/15/17 Status: Ordered OXcarbazepine 600 mg oral tablet 600 mg 1 tabs, Oral, BID, # 60 tabs, 11 Refill(s), Pharmacy: [facility] [id number], 1 tabs Oral BID Start Date: 01/13/16 Status: Ordered pantoprazole 40 mg oral delayed release tablet See Instructions, TAKE 1 TABLET BY MOUTH ONCE DAILY AT LEAST 1 HOUR AFTER OTHER MEDICATIONS., # 30 tabs, 11 Refill(s), eRx: [facility] [id number], TAKE 1 TABLET BY MOUTH ONCE DAILY AT LEAST 1 HOUR AFTER OTHER MEDICATIONS. Start Date: 07/10/16 Status: Ordered Pulmicort Flexhaler 180 mcg/inh inhalation powder 1 puffs, Inhalation, BID, 0 Refill(s) Start Date: 04/28/14 Status: Ordered ranitidine 150 mg oral capsule See Instructions, TAKE 1 CAPSULE BY MOUTH EVERY DAY AT BEDTIME FOR 30 DAYS, # 30 caps, 11 Refill(s), eRx: [facility] [id number], TAKE 1 CAPSULE BY MOUTH EVERY DAY AT BEDTIME FOR 30 DAYS Start Date: 07/10/16 Status: Ordered Singulair 10 mg oral tablet 10 mg 1 tabs, Oral, qPM, # 30 tabs, 11 Refill(s), Pharmacy: [facility] 80576, 1 tabs Oral qPM Start Date: 01/25/16 Status: Ordered Sprintec 0.25 mg-35 mcg oral tablet 1 tabs, Oral, Daily, # 28 tabs, 11 Refill(s), Pharmacy: [facility] [id number] Start Date: 12/30/15 Status: Ordered Valium 5 mg oral tablet See Instructions, 1 tab tonight and ok to repeat up to TID prn anxiety for a couple of days, # 10 tabs, 0 Refill(s), called to pharmacy (Rx) Start Date: 10/11/16 Status: Ordered Ventolin HFA 90 mcg/inh inhalation aerosol 2 puffs, Inhalation, q4hr, as needed for wheezing, # 18 g, 3 Refill(s), Pharmacy : [facility] [id number], 2 puffs Inhalation q4hr,PRN:as needed for wheezing Start Date: 03/10/15 Status: Ordered Vitamin C 100 mg, Oral, Daily, 0 Refill(s) Start Date: 04/28/14 Status: Ordered Results No data available for this section Immunizations Vaccine Date Refusal Reason tetanus/diphth/pertuss (Tdap) adult/adol 09/30/15 influenza virus vaccine, inactivated 08/20/16 influenza virus vaccine, inactivated 09/09/15 influenza virus [...]
--- OUTSIDE RECORDS SUMMARY | 2018-09-11 20:05 | XMS REPORT | Referral Summary ---
Author Author [facility] Organization [facility] Address Unknown Phone Unavailable Care Team Providers Care Top And Seat Cover Fitter Name Role Phone Dieter Goldstein PCP Encounter [facility] [id number] Date(s): 12/16/15 - 12/16/15 [facility] [address] [facility] [address] [place], [place] [address] Discharge Disposition: 01-Home or Self Care Attending [...] # 75 unknown unit, 2 Refill(s), eRx: [facility] [id number], 1 VIALS INHALATION Q4HR,PRN: NEEDED FOR WHEEZING Start Date: 03/10/15 Status: Ordered Mary-D 12 Hour 60 mg-120 mg oral tablet, extended release 1 tabs, Oral, q12hr, 0 Refill(s) Start Date: 04/28/14 Status: Ordered amoxicillin 500 mg oral tablet 500 mg 1 tabs, Oral, TID, X 10 days, # 30 tabs, 0 Refill(s), Pharmacy: [facility] [id number], 1 tabs Oral TID,x10 days Start Date: 12/07/15 Stop Date: 12/17/15 Status: Ordered Calcium Carbonate 500MG + D3 [...] pain, # 30 tabs, 0 Refill(s), Pharmacy: [facility] 52458 Start Date: 10/05/15 Status: Ordered Flonase 50 mcg/inh nasal spray 2 sprays, Nasal, BID, # 16 g, 11 Refill(s), Pharmacy: [facility] [id number] Start Date: 01/17/15 Status: Ordered folic acid 1 mg oral tablet See Instructions, TAKE TWO TABS TWICE A DAY, # 120 unknown unit, 5 Refill(s), eRx: [facility] [id number], TAKE TWO TABS TWICE A DAY Start Date: 08/22/15 Status: Ordered ibuprofen 800 mg oral tablet 800 mg 1 tabs, Oral, q8hr (scheduled), # 90 tabs, 0 Refill(s) Start Date: 11/14/15 Status: Ordered labetalol 100 mg oral tablet 100 mg 1 tabs, Oral, BID, # 60 tabs, 1 Refill(s), Pharmacy: [facility] 88913, 1 tabs Oral BID Start Date: 11/25/15 Status: Ordered levETIRAcetam 1000 mg oral tablet 1,000 mg 1 tabs, Oral, BID, # 60 tabs, 5 Refill(s), Pharmacy: [facility] 76824, 1 tabs Oral BID Start Date: 06/29/15 Status: Ordered lisinopril Oral, Daily, 0 Refill(s) Start Date: 12/16/15 Status: Ordered metFORMIN 500 mg oral tablet See Instructions, TAKE 1 TABLET (500MG) BY ORAL ROUTE 2 TIMES EVERY DAY WITH MORNING AND EVENING MEALS, # 60 unknown unit, eRx: [facility] [id number], TAKE 1 TABLET (500MG) BY ORAL ROUTE 2 TIMES EVERY DAY WITH MORNING AND EVENING MEALS Start Date: 11/28/15 Status: Ordered One-A-Day Women 1 tabs, Oral, Daily, 0 Refill(s) Start Date: 04/28/14 Status: Ordered oxyCODONE-acetaminophen 5 mg-325 mg oral tablet 1 tabs, Oral, q6hr, Pain Severe (7-10), Can take 1-2 tabs, # 30 tabs, 0 Refill(s ) Start Date: 11/24/15 Status: Ordered Procardia XL 60 mg oral tablet, extended release 60 mg 1 tabs, Oral, Daily, # 30 tabs, 0 Refill(s), Pharmacy: [facility] [id number], 1 tabs Oral Daily Start Date: 11/17/15 Status: Ordered Pulmicort Flexhaler 180 mcg/inh inhalation powder 1 puffs, Inhalation, BID, 0 Refill(s) Start Date: 04/28/14 Status: Ordered Singulair 10 mg oral tablet 1 tabs, Oral, qPM, # 30 tabs, 11 Refill(s), Pharmacy: [facility] 47475 , 1 tabs Oral qPM Start Date: 01/17/15 Status: Ordered Ventolin HFA 90 mcg/inh inhalation aerosol 2 puffs, Inhalation, q4hr, as needed for wheezing, # 18 g, 3 Refill(s), Pharmacy : [facility] 53680, 2 puffs Inhalation q4hr,PRN:as needed for wheezing [...]
--- OUTSIDE RECORDS SUMMARY | 2018-09-11 20:06 | XMS REPORT | Referral Summary ---
Author Author [facility] Organization [facility] Address Unknown Phone Unavailable Care Team Providers Care Psychologist Counseling Name Role Phone Dieter Goldstein PCP Encounter [facility] Date(s): 10/09/16 - 10/09/16 [facility] [address] [place], [place] [address] Discharge Diagnosis: History of asthma Discharge Diagnosis: Tracheitis Discharge Disposition: 01-Home or Self Care Attending Physician: Clark Jacobs MD Vital Signs Most recent to 1 oldest [Reference Range]: Temperature Oral 36.9 degC [35.8-37.3 degC] (10/09/16 8:56 AM) Peripheral Pulse 92 bpm Rate [60-100 bpm] (10/09/16 8:56 AM) Blood Pressure 118/80 mmHg [90-140/60-90 mmHg] (10/09/16 8:56 AM) SpO2 99 % (10/09/16 8:56 AM) Problem List Condition Effective Dates Status Health Status Informant Acute Active patient pain(Confirmed) Allergic Active rhinitis(Confirmed) [...] # 60 Each , 11 Refill(s), Pharmacy: [facility] [id number], 1 VIALS INHALATION Q4HR, PRN: NEEDED FOR WHEEZING Start Date: 05/22/16 Status: Ordered amLODIPine 10 mg oral tablet 10 mg 1 tabs, Oral, Daily, # 30 tabs, 11 Refill(s), Pharmacy: [facility] 07881, 1 tabs Oral Daily,x30 days Start Date: 08/20/16 Stop Date: 08/15/17 Status: Ordered butalbital/acetaminophen/caffeine 50 mg-325 mg-40 mg oral tablet See Instructions, TAKE 1 TABLET BY MOUTH FOUR TIMES DAILY NEEDED FOR HEADACHE , # 20 tabs, 2 Refill(s), eRx: [facility] [id number], TAKE 1 TABLET BY MOUTH FOUR TIMES [...] BID, # 16 g, 5 Refill(s), eRx: [facility] [id number], 2 SPRAYS NASAL BID Start Date: 02/24/16 Status: Ordered folic acid 1 mg oral tablet 2 mg 2 tabs, Oral, BID, X 30 days, # 120 tabs, 11 Refill(s), Pharmacy: [facility] 35700, 2 tabs Oral BID,x30 days Start Date: 04/20/16 Stop Date: 04/15/17 Status: Ordered hydrochlorothiazide 25 mg oral tablet 25 mg 1 tabs, Oral, Daily, In AM, # 30 tabs, 11 Refill(s), Pharmacy: [facility] 22620, 1 tabs Oral Daily,Instr:In AM Start Date: 07/20/16 Status: Ordered metFORMIN 500 mg oral tablet 500 mg 1 tabs, Oral, BID, X 30 days, # 60 tabs, 11 Refill(s), Pharmacy: [facility] 74834, 1 tabs Oral BID,x30 days Start Date: 08/20/16 Stop Date: 08/15/17 Status: Ordered OXcarbazepine 600 mg oral tablet 600 mg 1 tabs, Oral, BID, # 60 tabs, 11 Refill(s), Pharmacy: [facility] 11241, 1 tabs Oral BID Start Date: 01/13/16 Status: Ordered pantoprazole 40 mg oral delayed release tablet See Instructions, TAKE 1 TABLET BY MOUTH ONCE DAILY AT LEAST 1 HOUR AFTER OTHER MEDICATIONS., # 30 tabs, 11 Refill(s), eRx: [facility] 36059, TAKE 1 TABLET BY MOUTH ONCE DAILY AT LEAST 1 HOUR AFTER OTHER MEDICATIONS. Start Date: 07/10/16 Status: Ordered Pulmicort Flexhaler 180 mcg/inh inhalation powder 1 puffs, Inhalation, BID, 0 Refill(s) Start Date: 04/28/14 Status: Ordered ranitidine 150 mg oral capsule See Instructions, TAKE 1 CAPSULE BY MOUTH EVERY DAY AT BEDTIME FOR 30 DAYS, # 30 caps, 11 Refill(s), eRx: [facility] 24210, TAKE 1 CAPSULE BY MOUTH EVERY DAY AT BEDTIME FOR 30 DAYS Start Date: 07/10/16 Status: Ordered Singulair 10 mg oral tablet 10 mg 1 tabs, Oral, qPM, # 30 tabs, 11 Refill(s), Pharmacy: [facility] 15381, 1 tabs Oral qPM Start Date: 01/25/16 Status: Ordered Sprintec 0.25 mg-35 mcg oral tablet 1 tabs, Oral, Daily, # 28 tabs, 11 Refill(s), Pharmacy: [facility] 22706 Start Date: 12/30/15 Status: Ordered Ventolin HFA 90 mcg/inh inhalation aerosol 2 puffs, Inhalation, q4hr, as needed for wheezing, # 18 g, 3 Refill(s), Pharmacy : [facility] 17168, 2 puffs Inhalation q4hr,PRN:as needed for wheezing [...] Extracted from: Title: Office Visit Note Author: Clark Jacobs MD Date: 10/09/16 Assessment/Plan 1.Tracheitis We will treat with Zithromax and Medrol Dosepak. She can use albuterol as needed but this doesn't sound as much like an asthma problem. With use of the steroids I cautioned her about her blood sugars being higher. 2.History of asthma
--- OUTSIDE RECORDS SUMMARY | 2018-09-11 20:06 | XMS REPORT | Referral Summary ---
Author Author [facility] Organization [facility] Address Unknown Phone Unavailable Care Team Providers Care Insurance Producer Name Role Phone Dieter Goldstein PCP Encounter [facility] [id number] Date(s): 11/11/15 - 11/11/15 [facility] [address] [facility] [address] [place], [place] [address] Discharge Diagnosis: Discharge Disposition: 01-Home or Self Care Attending Physician: Bhupendra Nichols MD Admitting Physician: Bhupendra Nichols MD Vital Signs Most recent to 1 oldest [Reference Range]: Blood Pressure 140/74 mmHg [90-140/60-90 mmHg] (11/11/15 9:39 AM) Problem List Condition Effective Dates Status Health Status Informant Acute Active pain(Confirmed) Amenorrhea(Confirmed Active ) Anemia Active (disorder)(Confirmed ) Asthma(Confirmed) Active At risk of pressure Active sore(Confirmed) Complex partial Active seizures(Confirmed) Depression(Confirmed Active ) [...] # 75 unknown unit, 2 Refill(s), eRx: [facility] 43561, 1 VIALS INHALATION Q4HR,PRN: NEEDED FOR WHEEZING [...] 0 Refill(s) Start Date: 11/11/15 Status: Ordered Fioricet oral tablet 1 tabs, Oral, q4hr, as needed for pain, # 30 tabs, 0 Refill(s), Pharmacy: [facility] 91835 Start Date: 10/05/15 Status: Ordered Flonase 50 mcg/inh nasal spray 2 sprays, Nasal, BID, # 16 g, 11 Refill(s), Pharmacy: [facility] 80909 Start Date: 01/17/15 Status: Ordered folic acid 1 mg oral tablet See Instructions, TAKE TWO TABS TWICE A DAY, # 120 unknown unit, 5 Refill(s), eRx: [facility] [id number], TAKE TWO TABS TWICE A DAY Start Date: 08/22/15 Status: Ordered Glucometer (DME) DME Item Test QID DX: GDM #1, See Instructions, # 1 Each, 0 Refill(s), Pharmacy: [facility] 41087, Test QID; DX: GDM; #1, Supply Start Date: 10/28/15 Status: Ordered Glucometer Lancets (DME) DME Item Test QID #100 DX: GDM, See Instructions, # 100 Each, 3 Refill(s), Pharmacy: [facility] 99536, Test QID ; #100; DX: GDM, Supply Start Date: 10/28/15 Status: Ordered Glucometer strips (DME) DME Item Test QID DX: GDM #100, See Instructions, # 100 Each, 3 Refill(s), Pharmacy: [facility] 23106, Test QID ; DX: GDM ; #100, Supply Start Date: 10/28/15 Status: Ordered levETIRAcetam 1000 mg oral tablet 1,000 mg 1 tabs, Oral, BID, # 60 tabs, 5 Refill(s), Pharmacy: [facility] 95335, 1 tabs Oral BID Start Date: 06/29/15 Status: Ordered metFORMIN 500 mg oral tablet See Instructions, TAKE 1 TABLET (500MG) BY ORAL ROUTE 2 TIMES EVERY DAY WITH MORNING AND EVENING MEALS, # 60 unknown unit, eRx: [facility] 61397, TAKE 1 TABLET (500MG) BY ORAL ROUTE 2 TIMES EVERY DAY WITH MORNING AND EVENING MEALS Start Date: 10/17/15 Status: Ordered One-A-Day Women 1 tabs, Oral, Daily, 0 Refill(s) Start Date: 04/28/14 Status: Ordered Pulmicort Flexhaler 180 mcg/inh inhalation powder 1 puffs, Inhalation, BID, 0 Refill(s) Start Date: 04/28/14 Status: Ordered Singulair 10 mg oral tablet 1 tabs, Oral, qPM, # 30 tabs, 11 Refill(s), Pharmacy: [facility] 88790 , 1 tabs Oral qPM Start Date: 01/17/15 Status: Ordered Ventolin HFA 90 mcg/inh inhalation aerosol 2 puffs, Inhalation, q4hr, as needed for wheezing, # 18 g, 3 Refill(s), Pharmacy : [facility] 09952, 2 puffs Inhalation q4hr,PRN:as needed for wheezing [...]
--- OUTSIDE RECORDS SUMMARY | 2018-09-11 20:06 | XMS REPORT | Referral Summary ---
Author Author [facility] Organization [facility] Address Unknown Phone Unavailable Care Team Providers Care Block Bolter Mule Operator Name Role Phone Dieter Goldstein PCP Encounter [facility] Date(s): 12/03/17 - 12/03/17 [facility] [address] [place], [place] [address] Discharge Disposition: Left Without Being Seen Attending Physician: Rosendo Jones DO Admitting Physician: Rosendo Jones DO Vital Signs Most recent to 1 oldest [Reference Range]: Temperature Oral 37.0 degC [35.8-37.3 degC] (12/03/17 4:47 PM) Peripheral Pulse 77 bpm Rate [60-100 bpm] (12/03/17 4:47 PM) Respiratory Rate 18 br/min [14-20 br/min] (12/03/17 4:47 PM) Blood Pressure 172/102 mmHg [90-140/60-90 mmHg] *HI* (12/03/17 4:47 PM) SpO2 99 % (12/03/17 4:47 PM) Problem List Condition Effective Dates Status [...] mg/3 mL (0.083%) inhalation solution See Instructions, INHALE THE CONTENTS OF 1 VIAL PER NEBULIZER EVERY 4 HOURS NEEDED FOR WHEEZING, # 180 mL, 3 Refill(s), eRx: [facility] 25834 Start Date: 10/29/17 Status: Ordered amLODIPine 10 mg oral tablet See Instructions, TAKE 1 TABLET BY MOUTH DAILY, # 30 tabs, 11 Refill(s), eRx: [facility] 75070 Start Date: 11/19/17 Status: Ordered Augmentin 875 mg-125 mg oral tablet 1 tabs, Oral, q12hr, X 10 days, # 20 tabs, 0 Refill(s), Pharmacy: [facility] 39233 Start Date: 11/29/17 Stop Date: 12/09/17 Status: Ordered butalbital/acetaminophen/caffeine 50 mg-325 mg-40 mg oral tablet See Instructions, TAKE 1 TABLET BY MOUTH FOUR TIMES DAILY NEEDED FOR HEADACHE , # 20 tabs, 2 Refill(s), eRx: [facility] 48015 Start Date: 12/02/17 Status: Ordered diazePAM 5 mg oral tablet 5 mg 1 tabs, Oral, BID, as needed for anxiety, # 15 tabs, 0 Refill(s), called to pharmacy (Rx) Start Date: 04/02/17 Status: Ordered escitalopram 10 mg oral tablet See Instructions, TAKE 1 TABLET BY MOUTH DAILY, # 30 tabs, 5 Refill(s), eRx: [facility] 08725 Start Date: 08/12/17 Status: Ordered ferrous sulfate 325 mg (65 mg elemental iron) oral delayed release tablet 325 mg 1 tabs, Oral, Daily, # 30 tabs, 0 Refill(s) Start Date: 02/14/17 Status: Ordered fluticasone 50 mcg/inh nasal spray See Instructions, INSTILL 2 SPRAYS IN EACH NOSTRIL TWICE DAILY, # 16 mL, 11 Refill(s), eRx: [facility] 56161 Start Date: 10/16/17 Status: Ordered folic acid 1 mg oral tablet See Instructions, TAKE 2 TABLETS BY MOUTH TWICE DAILY, # 120 tabs, 4 Refill(s), eRx: [facility] 19937, TAKE 2 TABLETS BY MOUTH TWICE DAILY Start Date: 05/02/17 Status: Ordered metFORMIN 500 mg oral tablet 500 mg 1 tabs, Oral, BID, # 60 tabs, 4 Refill(s), Pharmacy: [facility] 31829, 1 tabs Oral BID Start Date: 08/26/17 Status: Ordered OXcarbazepine 600 mg oral tablet 600 mg 1 tabs, Oral, BID, # 60 tabs, 11 Refill(s), Pharmacy: [facility] 03524, 1 tabs Oral BID Start Date: 12/31/16 Status: Ordered pantoprazole 40 mg oral delayed release tablet See Instructions, TAKE 1 TABLET BY MOUTH ONCE DAILY AT LEAST 1 HOUR AFTER OTHER MEDICATIONS., # 30 tabs, 5 Refill(s), eRx: [facility] 15882, TAKE 1 TABLET BY MOUTH ONCE DAILY AT LEAST 1 HOUR AFTER OTHER MEDICATIONS. Start Date: 06/28/17 Status: Ordered raNITIdine 150 mg oral capsule See Instructions, TAKE 1 CAPSULE BY MOUTH EVERY DAY AT BEDTIME FOR 30 DAYS, # 30 caps, 5 Refill(s), eRx: [facility] 34094, TAKE 1 CAPSULE BY MOUTH EVERY DAY AT BEDTIME FOR 30 DAYS Start Date: 06/28/17 Status: Ordered Singulair 10 mg, Oral, Daily, 0 Refill(s) Start Date: 02/12/17 Status: Ordered Symbicort 160 mcg-4.5 mcg/inh inhalation aerosol 2 puffs, Inhalation, BID, rinse mouth and throat after use, # 1 Each, 11 Refill( s) Start Date: 04/02/17 Stop Date: 03/28/18 Status: Ordered Results No data available for [...]
--- OUTSIDE RECORDS SUMMARY | 2018-09-11 20:06 | XMS REPORT | Referral Summary ---
Author Author [facility] Organization [facility] Address Unknown Phone Unavailable Care Team Providers Care Design And Sales Consultant Name Role Phone Dieter Goldstein PCP Encounter [facility] [id number] Date(s): 09/09/15 - 09/09/15 [facility] [address] [facility] [address] [place], [place] [address] Discharge Diagnosis: Discharge Disposition: 01-Home or Self Care Attending Physician: Bhupendra Nichols MD Admitting Physician: Bhupendra Nichols MD Vital Signs Most recent to 1 oldest [Reference Range]: Blood Pressure 114/82 mmHg [90-140/60-90 mmHg] (09/09/15 11:47 AM) Problem List Condition Effective Dates Status [...] # 75 unknown unit, 2 Refill(s), eRx: [facility] 53915, 1 VIALS INHALATION Q4HR,PRN: NEEDED FOR WHEEZING [...] pain, # 30 tabs, 0 Refill(s), Pharmacy: [facility] [address] Start Date: 08/21/15 Status: Ordered Flonase 50 mcg/inh nasal spray 2 sprays, Nasal, BID, # 16 g, 11 Refill(s), Pharmacy: [facility] [address] Start Date: 01/17/15 Status: Ordered folic acid 1 mg oral tablet See Instructions, TAKE TWO TABS TWICE A DAY, # 120 unknown unit, 5 Refill(s), eRx: [facility] 24231, TAKE TWO TABS TWICE A DAY Start Date: 08/22/15 Status: Ordered levETIRAcetam 1000 mg oral tablet 1,000 mg 1 tabs, Oral, BID, # 60 tabs, 5 Refill(s), Pharmacy: [facility] [address]504, 1 tabs Oral BID Start Date: 06/29/15 Status: Ordered metFORMIN 500 mg oral tablet See Instructions, TAKE 1 TABLET (500MG) BY ORAL ROUTE 2 TIMES EVERY DAY WITH MORNING AND EVENING MEALS, # 60 unknown unit, eRx: [facility] 16418, TAKE 1 TABLET (500MG) BY ORAL ROUTE 2 TIMES EVERY DAY WITH MORNING AND EVENING MEALS Start Date: 08/22/15 Status: Ordered One-A-Day Women 1 tabs, Oral, Daily, 0 Refill(s) Start Date: 04/28/14 Status: Ordered Pulmicort Flexhaler 180 mcg/inh inhalation powder 1 puffs, Inhalation, BID, 0 Refill(s) Start Date: 04/28/14 Status: Ordered Singulair 10 mg oral tablet 1 tabs, Oral, qPM, # 30 tabs, 11 Refill(s), Pharmacy: [facility] 90319 , 1 tabs Oral qPM Start Date: 01/17/15 Status: Ordered Ventolin HFA 90 mcg/inh inhalation aerosol 2 puffs, Inhalation, q4hr, as needed for wheezing, # 18 g, 3 Refill(s), Pharmacy : [facility] [address]5915, 2 puffs Inhalation q4hr,PRN:as needed for wheezing Start Date: 03/10/15 Status: Ordered Vitamin C 100 mg, Oral, Daily, 0 Refill(s) Start Date: 04/28/14 Status: Ordered Results No data available for this section Immunizations Vaccine Date Refusal Reason influenza virus vaccine, inactivated 09/09/15 influenza virus vaccine, inactivated1 08/26/14 1Result Comment: [09/10/2014] See Scanned Document Procedures Procedure Date Related Diagnosis Body Site Dilatation and Curettage (Suction)1 12/29/14 wisdom teeth removed 1auto-populated from documented surgical case Social History Social History Type Response Smoking Status Never smoker Assessment and Plan No data available for this section
--- OUTSIDE RECORDS SUMMARY | 2018-09-11 20:06 | XMS REPORT | Referral Summary ---
Author Author [facility] Organization [facility] Address Unknown Phone Unavailable Care Team Providers Care Center Director Lead Teacher Name Role Phone Dieter Goldstein PCP Encounter [facility] [id number] Date(s): 11/24/15 - 11/24/15 [facility] [address] [facility] [address] [place], [place] [address] [place] Discharge Disposition: 01-Home or Self Care Attending [...] # 75 unknown unit, 2 Refill(s), eRx: [facility] [id number], 1 VIALS INHALATION Q4HR,PRN: NEEDED FOR WHEEZING [...] pain, # 30 tabs, 0 Refill(s), Pharmacy: [facility] [id number] Start Date: 10/05/15 Status: Ordered Flonase 50 mcg/inh nasal spray 2 sprays, Nasal, BID, # 16 g, 11 Refill(s), Pharmacy: [facility] [id number] Start Date: 01/17/15 Status: Ordered folic acid 1 mg oral tablet See Instructions, TAKE TWO TABS TWICE A DAY, # 120 unknown unit, 5 Refill(s), eRx: [facility] [id number], TAKE TWO TABS TWICE A DAY Start Date: 08/22/15 Status: Ordered ibuprofen 800 mg oral tablet 800 mg 1 tabs, Oral, q8hr (scheduled), # 90 tabs, 0 Refill(s) Start Date: 11/14/15 Status: Ordered Keflex 500 mg oral capsule 500 mg 1 caps, Oral, q8hr, X 14 days, # 42 caps, 0 Refill(s), Pharmacy: [facility] [id number], 1 caps Oral q8hr,x14 days Start Date: 11/17/15 Stop Date: 12/01/15 Status: Ordered levETIRAcetam 1000 mg oral tablet 1,000 mg 1 tabs, Oral, BID, # 60 tabs, 5 Refill(s), Pharmacy: [facility] 31196, 1 tabs Oral BID Start Date: 06/29/15 Status: Ordered metFORMIN 500 mg oral tablet See Instructions, TAKE 1 TABLET (500MG) BY ORAL ROUTE 2 TIMES EVERY DAY WITH MORNING AND EVENING MEALS, # 60 unknown unit, eRx: [facility] [id number], TAKE 1 TABLET (500MG) BY ORAL ROUTE 2 TIMES EVERY DAY WITH MORNING AND EVENING MEALS Start Date: 10/17/15 Status: Ordered nystatin 100,000 units/g topical powder 1 jose elias, Topical, TID, X 7 days, # 30 g, 1 Refill(s), Pharmacy: [facility] [id number] Start Date: 11/17/15 Stop Date: 12/01/15 Status: [...] Daily, # 30 tabs, 0 Refill(s), Pharmacy: [facility] [id number], 1 tabs Oral Daily Start Date: 11/17/15 Status: Ordered Pulmicort Flexhaler 180 mcg/inh inhalation powder 1 puffs, Inhalation, BID, 0 Refill(s) Start Date: 04/28/14 Status: Ordered Singulair 10 mg oral tablet 1 tabs, Oral, qPM, # 30 tabs, 11 Refill(s), Pharmacy: [facility] 25169 , 1 tabs Oral qPM Start Date: 01/17/15 Status: Ordered Ventolin HFA 90 mcg/inh inhalation aerosol 2 puffs, Inhalation, q4hr, as needed for wheezing, # 18 g, 3 Refill(s), Pharmacy : [facility] [id number], 2 puffs Inhalation q4hr,PRN:as needed for wheezing [...]
--- OUTSIDE RECORDS SUMMARY | 2018-09-11 20:06 | XMS REPORT | Referral Summary ---
Author Author [facility] Organization [facility] Address Unknown Phone Unavailable Care Team Providers Care Relay Repairer Name Role Phone Dieter Goldstein PCP Encounter [facility] [id number] Date(s): 05/29/18 - 05/29/18 [facility] [address], [facility] [address] [place] [address]- Discharge Disposition: 01-Home or Self Care Attending Physician: Lucrecia Oliva Vital Signs No data available for this section Problem List Condition Effective Dates Status Health Status Informant Moderate persistent Active asthma with exacerbation(Confirm ed) Acute Active patient pain(Confirmed) Allergic Active rhinitis(Confirmed) Amenorrhea(Confirmed Active ) Anemia Active (disorder)(Confirmed ) Asthma(Confirmed) Active Complex partial Active seizures(Confirmed) Depression(Confirmed Active ) 22 wk SAB(Confirmed) 2005 Active Dizzy(Confirmed) < 08/23/14 Resolved Essential Active hypertension(Confirm ed) Family history of [...] topiramate burning,itching and closed airwa Active Medications amLODIPine 10 mg oral tablet See Instructions, TAKE 1 TABLET BY MOUTH DAILY, # 30 tabs, 11 Refill(s), eRx: [facility] [id number] Start Date: 11/19/17 Status: Ordered butalbital/acetaminophen/caffeine 50 mg-325 mg-40 mg oral tablet See Instructions, TAKE 1 TABLET BY MOUTH FOUR TIMES DAILY NEEDED FOR HEADACHE , # 20 tabs, 3 Refill(s) Start Date: 05/13/18 Status: Ordered diazePAM 5 mg oral tablet 5 mg 1 tabs, Oral, BID, as needed for anxiety, # 15 tabs, 0 Refill(s), called to pharmacy (Rx) Start Date: 04/02/17 Status: Ordered escitalopram 10 mg oral tablet See Instructions, TAKE 1 TABLET BY MOUTH DAILY, # 30 tabs, 11 Refill(s), called to pharmacy (Rx) Start Date: 02/10/18 Status: Ordered ferrous sulfate 325 mg (65 mg elemental iron) oral delayed release tablet 325 mg 1 tabs, Oral, Daily, # 30 tabs, 0 Refill(s) Start Date: 02/14/17 Status: Ordered fluticasone 50 mcg/inh nasal spray See Instructions, INSTILL 2 SPRAYS IN EACH NOSTRIL TWICE DAILY, # 16 mL, 11 Refill(s), eRx: [facility] [id number] Start Date: 10/16/17 Status: Ordered folic acid 1 mg oral tablet See Instructions, TAKE 2 TABLETS BY MOUTH TWICE DAILY, # 120 tabs, 4 Refill(s), eRx: [facility] [id number], TAKE 2 TABLETS BY MOUTH TWICE DAILY Start Date: 05/02/17 Status: Ordered metFORMIN 500 mg oral tablet See Instructions, TAKE 1 TABLET BY MOUTH TWICE DAILY, # 60 tabs, 5 Refill(s), eRx: [facility] [id number] Start Date: 02/07/18 Status: Ordered montelukast 10 mg oral tablet See Instructions, TAKE 1 TABLET BY MOUTH EVERY EVENING, # 30 tabs, 5 Refill(s), eRx: [facility] [id number], TAKE 1 TABLET BY MOUTH EVERY EVENING Start Date: 12/12/17 Status: Ordered Oxtellar XR 600 mg oral tablet, extended release 1,200 mg 2 tabs, Oral, Daily, # 60 tabs, 11 Refill(s), Pharmacy: [facility] [id number], 2 tabs Oral Daily Start Date: 04/29/18 Status: Ordered pantoprazole 40 mg oral delayed release tablet See Instructions, TAKE 1 TABLET BY MOUTH ONCE DAILY AT LEAST 1 HOUR AFTER OTHER MEDICATIONS., # 30 tabs, 6 Refill(s), eRx: [facility] [id number] Start Date: 01/29/18 Status: Ordered raNITIdine 150 mg oral capsule See Instructions, TAKE 1 CAPSULE BY MOUTH EVERY DAY AT BEDTIME FOR 30 DAYS, # 30 caps, 4 Refill(s), eRx: [facility] [id number] Start Date: 02/28/18 Status: Ordered Symbicort 160 mcg-4.5 mcg/inh inhalation aerosol 2 puffs, Inhalation, BID, rinse mouth and throat after use, # 1 Each, 11 Refill( s) Start Date: 04/02/17 Stop Date: 03/28/18 Status: Ordered Ventolin HFA 90 mcg/inh inhalation aerosol See Instructions, INHALE 2 PUFFS BY MOUTH EVERY 4 HOURS NEEDED FOR WHEEZING, # 18 g, 5 Refill(s), eRx: [facility] [id number] Start Date: 01/28/18 Status: Ordered Results Chemistry Most recent to 1 oldest [Reference Range]: Sodium Lvl [135-144 138 mEq/L mEq/L] (05/29/18 12:22 PM) Potassium Lvl 4.7 mEq/L [3.5-5.2 mEq/L] (05/29/18 12:22 PM) Chloride [99-111 104 mEq/L mEq/L] (05/29/18 12:22 PM) CO2 [22-31 mEq/L] 25 mEq/L (05/29/18 12:22 PM) AGAP [3-20 mEq/L] 9 mEq/L (05/29/18 12:22 PM) BUN [7-19 mg/dL] 10 mg/dL (05/29/18 12:22 PM) Glucose Lvl [70-99 101 mg/dL mg/dL] *HI* (05/29/18 12:22 PM) Creatinine Lvl 0.70 mg/dL [0.57-1.11 mg/dL] (05/29/18 12:22 PM) eGFR [>60 mL/min] >60 mL/min 1 (05/29/18 12:22 PM) Calcium Lvl 9.3 mg/dL [8.4-10.2 mg/dL] (05/29/18 12:22 PM) 1Result Comment: Multiply eGFR results by 1.21 for race. Immunizations Given and Recorded Vaccine Date Status Refusal Reason influenza virus vaccine, inactivated 09/23/17 Given influenza virus vaccine, inactivated 08/20/16 Given influenza virus vaccine, inactivated 09/09/15 Given influenza virus vaccine, inactivated1 08/26/14 Recorded tetanus/diphth/pertuss (Tdap) adult/adol 09/30/15 Given 1Result Comment: [09/10/2014] See Scanned Document Procedures Procedure Date Related Diagnosis Body Site Status Collection of venous blood by venipuncture 05/29/18 Completed delivery only; 11/12/15 Completed Section1 11/12/15 Completed Dilatation and Curettage (Suction)2 12/29/14 Completed wisdom teeth removed Completed 1auto-populated from documented surgical case 2auto-populated from documented surgical case Social History Social History Type Response Smoking Status Never smoker entered on: 05/24/14 Assessment and Plan No data available for this section
--- OUTSIDE RECORDS SUMMARY | 2018-09-11 20:07 | XMS REPORT | Referral Summary ---
Author Author [facility] Organization [facility] Address Unknown Phone Unavailable Care Team Providers Care Reconstructive Surgeon Name Role Phone Dieter Goldstein PCP Encounter [facility] [id number] Date(s): 09/09/15 - 09/09/15 [facility] [address] [facility] [address] [place], [place] [address] Discharge Diagnosis: Discharge Disposition: 01-Home or Self [...] hypertension(Confirm ed)1 (Confirmed) < 2 Resolved (Confirmed) 03/18/15 - 11/12/15 Resolved (Confirmed) [...] # 75 unknown unit, 2 Refill(s), eRx: [facility] [id number], 1 VIALS INHALATION Q4HR,PRN: NEEDED FOR WHEEZING [...] BID, # 16 g, 5 Refill(s), eRx: [facility] [id number], 2 SPRAYS NASAL BID Start Date: 02/24/16 Status: Ordered folic acid 1 mg oral tablet See Instructions, TAKE TWO TABS TWICE A DAY, # 120 unknown unit, eRx: [facility] [id number], TAKE TWO TABS TWICE A DAY Start Date: 02/24/16 Status: Ordered lisinopril 5 mg oral tablet 5 mg 1 tabs, Oral, Daily, # 30 tabs, 11 Refill(s), Pharmacy: [facility] [id number], 1 tabs Oral Daily,x30 days Start Date: 03/20/16 Stop Date: 03/15/17 Status: Ordered metFORMIN 500 mg oral tablet See Instructions, TAKE 1 TABLET (500MG) BY ORAL ROUTE 2 TIMES EVERY DAY WITH MORNING AND EVENING MEALS, # 60 unknown unit, 5 Refill(s), eRx: [facility] [id number], TAKE 1 TABLET (500MG) BY ORAL ROUTE 2 TIMES EVERY DAY WITH MORNING AND EVENING MEALS Start Date: 02/24/16 Status: Ordered OXcarbazepine 600 mg oral tablet 600 mg 1 tabs, Oral, BID, # 60 tabs, 11 Refill(s), Pharmacy: [facility] [id number], 1 tabs Oral BID Start Date: 01/13/16 Status: Ordered pantoprazole 40 mg oral delayed release tablet 40 mg 1 tabs, Oral, Daily, Take at least 1 hour after other medications., # 30 tabs, 5 Refill(s), Pharmacy: [facility] 94740, 1 tabs Oral Daily,x30 days,Instr:Take at least 1 hour after other medications. Start Date: 01/20/16 Stop Date: 07/18/16 Status: Ordered Pulmicort Flexhaler 180 mcg/inh inhalation powder 1 puffs, Inhalation, BID, 0 Refill(s) Start Date: 04/28/14 Status: Ordered ranitidine 150 mg oral capsule 150 mg 1 caps, Oral, Bedtime (once a day), # 30 caps, 5 Refill(s), Pharmacy: [facility] 73041, 1 caps Oral Bedtime (once a day),x30 days Start Date: 01/20/16 Stop Date: 07/18/16 Status: Ordered Singulair 10 mg oral tablet 10 mg 1 tabs, Oral, qPM, # 30 tabs, 11 Refill(s), Pharmacy: [facility] 30970, 1 tabs Oral qPM Start Date: 01/25/16 Status: Ordered Sprintec 0.25 mg-35 mcg oral tablet 1 tabs, Oral, Daily, # 28 tabs, 11 Refill(s), Pharmacy: [facility] 99901 Start Date: 12/30/15 Status: Ordered Ventolin HFA 90 mcg/inh inhalation aerosol 2 puffs, Inhalation, q4hr, as needed for wheezing, # 18 g, 3 Refill(s), Pharmacy : [facility] 13284, 2 puffs Inhalation q4hr,PRN:as needed for wheezing [...]
--- OUTSIDE RECORDS SUMMARY | 2018-09-11 20:07 | XMS REPORT | Referral Summary ---
Author Author [facility] Organization [facility] Address Unknown Phone Unavailable Care Team Providers Care Sizing End Bander Name Role Phone Dieter Goldstein PCP Encounter [facility] [id number] Date(s): 05/29/18 - 05/29/18 [facility] [address], [facility] [address] [place], [place] [address] Discharge Disposition: 01-Home or Self Care Attending Physician: Dieter Goldstein MD Admitting Physician: Dieter Goldstein MD Vital Signs No data available for [...] DAILY, # 30 tabs, 11 Refill(s), eRx: [facility] [id number] Start Date: 11/19/17 Status: Ordered butalbital/acetaminophen/caffeine 50 [...] DAILY, # 16 mL, 11 Refill(s), eRx: [facility] [id number] Start Date: 10/16/17 Status: Ordered folic acid 1 mg oral tablet See Instructions, TAKE 2 TABLETS BY MOUTH TWICE DAILY, # 120 tabs, 4 Refill(s), eRx: [facility] [id number], TAKE 2 TABLETS BY MOUTH TWICE DAILY Start Date: 05/02/17 Status: Ordered metFORMIN 500 mg oral tablet See Instructions, TAKE 1 TABLET BY MOUTH TWICE DAILY, # 60 tabs, 5 Refill(s), eRx: [facility] [id number] Start Date: 02/07/18 Status: Ordered montelukast 10 mg oral tablet See Instructions, TAKE 1 TABLET BY MOUTH EVERY EVENING, # 30 tabs, 5 Refill(s), eRx: [facility] [id number], TAKE 1 TABLET BY MOUTH EVERY EVENING Start Date: 12/12/17 Status: Ordered Oxtellar XR 600 mg oral tablet, extended release 1,200 mg 2 tabs, Oral, Daily, # 60 tabs, 11 Refill(s), Pharmacy: [facility] 97615, 2 tabs Oral Daily Start Date: 04/29/18 Status: Ordered pantoprazole 40 mg oral delayed release tablet See Instructions, TAKE 1 TABLET BY MOUTH ONCE DAILY AT LEAST 1 HOUR AFTER OTHER MEDICATIONS., # 30 tabs, 6 Refill(s), eRx: [facility] 17164 Start Date: 01/29/18 Status: Ordered raNITIdine 150 mg oral capsule See Instructions, TAKE 1 CAPSULE BY MOUTH EVERY DAY AT BEDTIME FOR 30 DAYS, # 30 caps, 4 Refill(s), eRx: [facility] 16145 Start Date: 02/28/18 Status: Ordered Symbicort 160 mcg-4.5 mcg/inh inhalation aerosol 2 puffs, Inhalation, BID, rinse mouth and throat after use, # 1 Each, 11 Refill( s) Start Date: 04/02/17 Stop Date: 03/28/18 Status: Ordered Ventolin HFA 90 mcg/inh inhalation aerosol See Instructions, INHALE 2 PUFFS BY MOUTH EVERY 4 HOURS NEEDED FOR WHEEZING, # 18 g, 5 Refill(s), eRx: [facility] 14733 Start Date: 01/28/18 Status: Ordered Results No data available for this section Immunizations Given and Recorded Vaccine Date Status Refusal Reason influenza virus vaccine, inactivated 09/23/17 Given influenza virus vaccine, inactivated 08/20/16 Given influenza virus vaccine, inactivated 09/09/15 Given influenza virus vaccine, inactivated1 08/26/14 Recorded tetanus/diphth/pertuss (Tdap) adult/adol 09/30/15 Given 1Result Comment: [09/10/2014] See Scanned Document Procedures Procedure Date Related Diagnosis Body Site Status delivery only; 11/12/15 Completed Section1 11/12/15 Completed Dilatation and Curettage (Suction)2 12/29/14 Completed wisdom teeth removed Completed 1auto-populated from documented surgical case 2auto-populated from documented surgical case Social History Social History Type Response Smoking Status Never smoker entered on: 05/24/14 Assessment and Plan No data available for this section
--- OUTSIDE RECORDS SUMMARY | 2018-09-11 20:07 | XMS REPORT | Referral Summary ---
Author Author [facility] Organization [facility] Address Unknown Phone Unavailable Care Team Providers Care Map Drafter Name Role Phone Dieter Goldstein PCP Encounter [facility] [id number] Date(s): 09/23/17 - 09/23/17 [facility] [address], [facility] [address] [place], [place] [address] Discharge Diagnosis: Right lateral epicondylitis Discharge Diagnosis: Acute maxillary sinusitis Discharge Diagnosis: Influenza vaccine needed Discharge Disposition: 01-Home or Self Care Attending Physician: Dieter Goldstein MD Admitting Physician: Dieter Goldstein MD Vital Signs Most recent to 1 oldest [Reference Range]: Blood Pressure 128/70 mmHg [90-140/60-90 mmHg] (09/23/17 9:50 AM) Problem List Condition Effective Dates Status [...] Daily, # 30 tabs, 11 Refill(s), Pharmacy: [facility] [id number], 1 tabs Oral Daily,x30 days Start Date: 08/20/16 Stop Date: 08/15/17 Status: Ordered Augmentin 875 mg-125 mg oral tablet 1 tabs, Oral, q12hr, X 10 days, # 20 tabs, 0 Refill(s), Pharmacy: [facility] [id number] Start Date: 09/23/17 Stop Date: 10/03/17 Status: Ordered diazePAM 5 mg oral tablet 5 mg 1 tabs, Oral, BID, as needed for anxiety, # 15 tabs, 0 Refill(s), called to pharmacy (Rx) Start Date: 04/02/17 Status: Ordered escitalopram 10 mg oral tablet See Instructions, TAKE 1 TABLET BY MOUTH DAILY, # 30 tabs, 5 Refill(s), eRx: [facility] [id number] Start Date: 08/12/17 Status: Ordered ferrous sulfate [...] NOSTRIL TWICE DAILY, # 16 mL, eRx: [facility] [id number], INSTILL 2 SPRAYS IN EACH NOSTRIL TWICE DAILY Start Date: 09/09/17 Status: Ordered folic acid 1 mg oral tablet See Instructions, TAKE 2 TABLETS BY MOUTH TWICE DAILY, # 120 tabs, 4 Refill(s), eRx: [facility] [id number], TAKE 2 TABLETS BY MOUTH TWICE DAILY Start Date: 05/02/17 Status: Ordered metFORMIN 500 mg oral tablet 500 mg 1 tabs, Oral, BID, # 60 tabs, 4 Refill(s), Pharmacy: [facility] [id number], 1 tabs Oral BID Start Date: 08/26/17 Status: Ordered OXcarbazepine 600 mg oral tablet 600 mg 1 tabs, Oral, BID, # 60 tabs, 11 Refill(s), Pharmacy: [facility] [id number], 1 tabs Oral BID Start Date: 12/31/16 Status: Ordered pantoprazole 40 mg oral delayed release tablet See Instructions, TAKE 1 TABLET BY MOUTH ONCE DAILY AT LEAST 1 HOUR AFTER OTHER MEDICATIONS., # 30 tabs, 5 Refill(s), eRx: [facility] [id number], TAKE 1 TABLET BY MOUTH ONCE DAILY AT LEAST 1 HOUR AFTER OTHER MEDICATIONS. Start Date: 06/28/17 Status: Ordered raNITIdine 150 mg oral capsule See Instructions, TAKE 1 CAPSULE BY MOUTH EVERY DAY AT BEDTIME FOR 30 DAYS, # 30 caps, 5 Refill(s), eRx: [facility] 59997, TAKE 1 CAPSULE BY MOUTH EVERY DAY [...] # 18 g, 6 Refill(s), Pharmacy : [facility] 83937, 2 puffs Inhalation q4hr,PRN:as needed for wheezing [...]
--- OUTSIDE RECORDS SUMMARY | 2018-09-11 20:07 | XMS REPORT | Referral Summary ---
Author Author [facility] Organization [facility] Address Unknown Phone Unavailable Care Team Providers Care Prefabricated Houses Trimmer Name Role Phone Dieter Goldstein PCP Encounter [facility] [id number] Date(s): 12/19/17 - 12/19/17 [facility] [address], [facility] [address] [place], [place] [address] Discharge Disposition: 01-Home or Self [...] WHEEZING, # 180 mL, 3 Refill(s), eRx: [facility] [id number] Start Date: 10/29/17 Status: Ordered amLODIPine 10 mg oral tablet See Instructions, TAKE 1 TABLET BY MOUTH DAILY, # 30 tabs, 11 Refill(s), eRx: [facility] [id number] Start Date: 11/19/17 Status: Ordered butalbital/acetaminophen/caffeine 50 mg-325 mg-40 mg oral tablet See Instructions, TAKE 1 TABLET BY MOUTH FOUR TIMES DAILY NEEDED FOR HEADACHE , # 20 tabs, 2 Refill(s), eRx: [facility] [id number] Start Date: 12/02/17 Status: Ordered diazePAM 5 mg oral tablet 5 mg 1 tabs, Oral, BID, as needed for anxiety, # 15 tabs, 0 Refill(s), called to pharmacy (Rx) Start Date: 04/02/17 Status: Ordered escitalopram 10 mg oral tablet See Instructions, TAKE 1 TABLET BY MOUTH DAILY, # 30 tabs, 5 Refill(s), eRx: [facility] [id number] Start Date: 08/12/17 Status: Ordered ferrous sulfate 325 mg (65 mg elemental iron) oral delayed release tablet 325 mg 1 tabs, Oral, Daily, # 30 tabs, 0 Refill(s) Start Date: 02/14/17 Status: Ordered fluticasone 50 mcg/inh nasal spray See Instructions, INSTILL 2 SPRAYS IN EACH NOSTRIL TWICE DAILY, # 16 mL, 11 Refill(s), eRx: [facility] [id number] Start Date: 10/16/17 Status: Ordered folic acid 1 mg oral tablet See Instructions, TAKE 2 TABLETS BY MOUTH TWICE DAILY, # 120 tabs, 4 Refill(s), eRx: [facility] [id number], TAKE 2 TABLETS BY MOUTH TWICE DAILY Start Date: 05/02/17 Status: Ordered metFORMIN 500 mg oral tablet 500 mg 1 tabs, Oral, BID, # 60 tabs, 4 Refill(s), Pharmacy: [facility] [id number], 1 tabs Oral BID Start Date: 08/26/17 Status: Ordered montelukast 10 mg oral tablet See Instructions, TAKE 1 TABLET BY MOUTH EVERY EVENING, # 30 tabs, 5 Refill(s), eRx: [facility] [id number], TAKE 1 TABLET BY MOUTH EVERY EVENING Start Date: 12/12/17 Status: Ordered OXcarbazepine 600 mg oral tablet 600 mg 1 tabs, Oral, BID, # 60 tabs, 11 Refill(s), Pharmacy: [facility] 92991, 1 tabs Oral BID Start Date: 12/31/16 Status: Ordered pantoprazole 40 mg oral delayed release tablet See Instructions, TAKE 1 TABLET BY MOUTH ONCE DAILY AT LEAST 1 HOUR AFTER OTHER MEDICATIONS., # 30 tabs, 5 Refill(s), eRx: [facility] [id number], TAKE 1 TABLET BY MOUTH ONCE DAILY AT LEAST 1 HOUR AFTER OTHER MEDICATIONS. Start Date: 06/28/17 Status: Ordered raNITIdine 150 mg oral capsule See Instructions, TAKE 1 CAPSULE BY MOUTH EVERY DAY AT BEDTIME FOR 30 DAYS, # 30 caps, 5 Refill(s), eRx: [facility] [id number], TAKE 1 CAPSULE BY MOUTH EVERY DAY AT BEDTIME FOR 30 DAYS Start Date: 06/28/17 Status: Ordered Symbicort 160 mcg-4.5 mcg/inh inhalation aerosol 2 puffs, Inhalation, BID, rinse mouth and throat after use, # 1 Each, 11 Refill( s) Start Date: 04/02/17 Stop Date: 03/28/18 Status: Ordered Results Chemistry Most recent to 1 oldest [Reference Range]: Sodium Lvl [135-144 130 mEq/L mEq/L] *LOW* (12/19/17 8:29 AM) Potassium Lvl 4.4 mEq/L [3.5-5.2 mEq/L] (12/19/17 8:29 AM) Chloride [99-111 98 mEq/L mEq/L] *LOW* (12/19/17 8:29 AM) CO2 [22-31 mEq/L] 23 mEq/L (12/19/17 8:29 AM) AGAP [3-20 mEq/L] 9 mEq/L (12/19/17 8:29 AM) BUN [7-19 mg/dL] 9 mg/dL (12/19/17 8:29 AM) Glucose Lvl [70-99 84 mg/dL mg/dL] (12/19/17 8:29 AM) Creatinine Lvl 0.66 mg/dL [0.57-1.11 mg/dL] (12/19/17 8:29 AM) eGFR [>60 mL/min] >60 mL/min 1 (12/19/17 8:29 AM) Calcium Lvl 9.3 mg/dL [8.4-10.2 mg/dL] (12/19/17 8:29 AM) 1Result Comment: Multiply eGFR results by 1.21 for race. Immunizations Given and Recorded Vaccine Date Status Refusal Reason influenza virus vaccine, inactivated 09/23/17 Given influenza virus vaccine, inactivated 08/20/16 Given influenza virus vaccine, inactivated 09/09/15 Given influenza virus vaccine, inactivated1 08/26/14 Recorded tetanus/diphth/pertuss (Tdap) adult/adol 09/30/15 Given 1Result Comment: [09/10/2014] See Scanned Document Procedures Procedure Date Related Diagnosis Body Site Collection of venous blood by venipuncture 12/19/17 delivery only; 11/12/15 Section1 11/12/15 Dilatation and Curettage (Suction)2 12/29/14 wisdom teeth removed 1auto-populated from documented surgical case 2auto-populated from documented surgical case Social History Social History Type Response Smoking Status Never smoker entered on: 05/24/14 Assessment and Plan No data available for this section
--- OUTSIDE RECORDS SUMMARY | 2018-09-11 20:08 | XMS REPORT | Referral Summary ---
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 Name Role Phone Dieter Goldstein PCP Encounter [facility] Date(s): 08/22/16 - 08/22/[address] [facility] [address] [facility] [address], [place] [address] Discharge Diagnosis: Epilepsy, partial Discharge Disposition: 01-Home or Self Care Attending Physician: Chau August II, APRN Admitting Physician: Chau August II, APRN Referring Physician: Chau August II, APRN Vital Signs Most recent to 1 oldest [Reference Range]: Peripheral Pulse 88 bpm Rate [60-100 bpm] (08/22/16 9:25 AM) Blood Pressure 126/89 mmHg [90-140/60-90 mmHg] (08/22/16 9:25 AM) Problem List Condition Effective Dates Status [...] # 60 Each , 11 Refill(s), Pharmacy: [facility] [id number], 1 VIALS INHALATION Q4HR, PRN: NEEDED FOR WHEEZING Start Date: 05/22/16 Status: Ordered amLODIPine 10 mg oral tablet 10 mg 1 tabs, Oral, Daily, # 30 tabs, 11 Refill(s), Pharmacy: [facility] [id number], 1 tabs Oral Daily,x30 days Start Date: 08/20/16 Stop Date: 08/15/17 Status: Ordered Calcium Carbonate 500MG + D3 (1250 MG) 400 Unit Calcium Carbonate 500MG + D3 (1250 MG) 400 Unit, Take 1 Tablet by oral route every day, 0 Refill(s) Start Date: 04/28/14 Status: Ordered Fioricet oral tablet See Instructions, 1 tab po QID prn Headache, # 20 tabs, 2 Refill(s), called to pharmacy (Rx) Start Date: 08/20/16 Status: Ordered Flonase 50 mcg/inh nasal spray See Instructions, 2 SPRAYS NASAL BID, # 16 g, 5 Refill(s), eRx: [facility] [id number], 2 SPRAYS NASAL BID Start Date: 02/24/16 Status: Ordered folic acid 1 mg oral tablet 2 mg 2 tabs, Oral, BID, X 30 days, # 120 tabs, 11 Refill(s), Pharmacy: [facility] [id number], 2 tabs Oral BID,x30 days Start Date: 04/20/16 Stop Date: 04/15/17 Status: Ordered hydrochlorothiazide 25 mg oral tablet 25 mg 1 tabs, Oral, Daily, In AM, # 30 tabs, 11 Refill(s), Pharmacy: [facility] [id number], 1 tabs Oral Daily,Instr:In AM Start Date: 07/20/16 Status: Ordered metFORMIN 500 mg oral tablet 500 mg 1 tabs, Oral, BID, X 30 days, # 60 tabs, 11 Refill(s), Pharmacy: [facility] [id number], 1 tabs Oral BID,x30 days Start Date: 08/20/16 Stop Date: 08/15/17 Status: Ordered OXcarbazepine 600 mg oral tablet 600 mg 1 tabs, Oral, BID, # 60 tabs, 11 Refill(s), Pharmacy: [facility] [id number], 1 tabs Oral BID Start Date: 01/13/16 Status: Ordered pantoprazole 40 mg oral delayed release tablet See Instructions, TAKE 1 TABLET BY MOUTH ONCE DAILY AT LEAST 1 HOUR AFTER OTHER MEDICATIONS., # 30 tabs, 11 Refill(s), eRx: [facility] [id number], TAKE 1 TABLET BY MOUTH ONCE DAILY AT LEAST 1 HOUR AFTER OTHER MEDICATIONS. Start Date: 07/10/16 Status: Ordered Pulmicort Flexhaler 180 mcg/inh inhalation powder 1 puffs, Inhalation, BID, 0 Refill(s) Start Date: 04/28/14 Status: Ordered ranitidine 150 mg oral capsule See Instructions, TAKE 1 CAPSULE BY MOUTH EVERY DAY AT BEDTIME FOR 30 DAYS, # 30 caps, 11 Refill(s), eRx: [facility] [id number], TAKE 1 CAPSULE BY MOUTH EVERY DAY AT BEDTIME FOR 30 DAYS Start Date: 07/10/16 Status: Ordered Singulair 10 mg oral tablet 10 mg 1 tabs, Oral, qPM, # 30 tabs, 11 Refill(s), Pharmacy: [facility] [id number], 1 tabs Oral qPM Start Date: 01/25/16 Status: Ordered Sprintec 0.25 mg-35 mcg oral tablet 1 tabs, Oral, Daily, # 28 tabs, 11 Refill(s), Pharmacy: [facility] [id number] Start Date: 12/30/15 Status: Ordered Ventolin HFA 90 mcg/inh inhalation aerosol 2 puffs, Inhalation, q4hr, as needed for wheezing, # 18 g, 3 Refill(s), Pharmacy : [facility] [id number], 2 puffs Inhalation q4hr,PRN:as needed for wheezing [...] Extracted from: Title: Ambulatory Patient Education Author: Chau August II COIL FORMER Date : 08/22/16 Family Medicine Epilepsy Epilepsy is a disorder in which a person has repeated seizures over time. A seizure is a release of abnormal electrical activity in the brain. Seizures can cause a change in attention, behavior, or the ability to remain awake and alert (altered mental status). Seizures often involve uncontrollable shaking ( convulsions). Most people with epilepsy lead normal lives. However, people with epilepsy are at an increased risk of falls, accidents, and injuries. Therefore, it is important to begin treatment right away. CAUSES Epilepsy has many possible causes. Anything that disturbs the normal pattern of brain cell activity can lead to seizures. This may include: Head injury. trauma. High fever as a child. Stroke. Bleeding into or around the brain. Certain drugs. Prolonged low oxygen, such as what occurs after CPR efforts. Abnormal brain development. Certain illnesses, such as meningitis, encephalitis (brain infection), malaria, and other infections. An imbalance of nerve signaling chemicals (neurotransmitters). SIGNS AND SYMPTOMS The symptoms of a seizure can vary greatly from one person to another. Right before a seizure, you may have a warning (aura) that a seizure is about to occur. An aura may include the following symptoms: Fear or anxiety. Nausea. Feeling like the room is spinning (vertigo). Vision changes, such as seeing flashing lights or spots. Common symptoms during a seizure include: Abnormal sensations, such as an abnormal smell or a bitter taste in the mouth. Sudden, general body stiffness. Convulsions that involve rhythmic jerking of the face, arm, or leg on one or both sides. Sudden change in consciousness. Appearing to be awake but not responding. Appearing to be asleep but cannot be awakened. Grimacing, chewing, lip smacking, drooling, tongue biting, or loss of bowel or bladder control. After a seizure, you may feel sleepy for a while. DIAGNOSIS Your health care provider will ask about your symptoms and take a medical history. Descriptions from any witnesses to your seizures will be very helpful in the diagnosis. A physical exam, including a detailed neurological exam, is necessary. Various tests may be done, such as: An electroencephalogram (EEG). This is a painless test of your brain waves. In this test, a diagram is created of your brain waves. These diagrams can be interpreted by a specialist. An MRI of the brain. A CT scan of the brain. A spinal tap (lumbar puncture, LP). Blood tests to check for signs of infection or abnormal blood chemistry. TREATMENT There is no cure for epilepsy, but it is generally treatable. Once epilepsy is diagnosed, it is important to begin treatment as soon as possible. For most people with epilepsy, seizures can be controlled with medicines. The following may also be used: A pacemaker for the brain (vagus nerve stimulator) can be used for people with seizures that are not well controlled by medicine. Surgery on the brain. For some people, epilepsy eventually goes away. HOME CARE INSTRUCTIONS Follow your health care provider's recommendations on driving and safety in normal activities. Get enough rest. Lack of sleep can cause seizures. Only take ieam-yuj-npfmexj or prescription medicines as directed by your health care provider. Take any prescribed medicine exactly as directed. Avoid any known triggers of your seizures. Keep a seizure diary. Record what you recall about any seizure, especially any possible trigger. Make sure the people you live and work with know that you are prone to seizures. They should receive instructions on how to help you. In general, a witness to a seizure should: Cushion your head and body. Turn you on your side. Avoid unnecessarily restraining you. Not place anything inside your mouth. Call for emergency medical help if there is any question about what has occurred. Follow up with your health care provider as directed. You may need regular blood tests to monitor the levels of your medicine. SEEK MEDICAL CARE IF: You develop signs of infection or other illness. This might increase the risk of a seizure. You seem to be having more frequent seizures. Your seizure pattern is changing. SEEK IMMEDIATE MEDICAL CARE IF: You have a seizure that does not stop after a few moments. You have a seizure that causes any difficulty in breathing. You have a seizure that results in a very severe headache. You have a seizure that leaves you with the inability to speak or use a part of your body. This information is not intended to replace advice given to you by your health care provider. Make sure you discuss any questions you have with your health care provider. Document Released: 11/11/2006 Document Revised: 09/01/2014 Document Reviewed: [facility] Patient Information 2016 [employer]. No follow up information was provided. Extracted from: Title: Epilepsy follow-up Author: Chau August II, APRN Date: 08/22/16 Assessment/Plan Localization-related epilepsy 1. Made no changes to her current antiepilepticmedication regimen. She remains on [id number] mg twice a day. 2. Scheduled to return to the clinic in9 monthsfor follow-up evaluation. She is in agreement with this plan.
--- OUTSIDE RECORDS SUMMARY | 2018-09-11 20:08 | XMS REPORT | Referral Summary ---
Author Author [facility] Organization [facility] Address Unknown Phone Unavailable Care Team Providers Care Spoilage Worker Name Role Phone Dieter Goldstein PCP Encounter [facility] [id number] Date(s): 10/01/17 - 10/01/17 [facility] [address] [place], [place] [address] Discharge Diagnosis: Aphthous ulcer Discharge Diagnosis: Sinusitis Discharge Disposition: -Home or Self Care Attending Physician: Dieter Goldstein MD Vital Signs Most recent to 1 oldest [Reference Range]: Temperature Oral 36.9 degC [35.8-37.3 degC] (10/01/17 11:05 AM) Peripheral Pulse 78 bpm Rate [60-100 bpm] (10/01/17 11:05 AM) Blood Pressure 126/84 mmHg [90-140/60-90 mmHg] (10/01/17 11:05 AM) SpO2 99 % (10/01/17 11:05 AM) Problem List Condition Effective Dates Status [...] BY MOUTH DAILY, # 30 tabs, eRx: [facility] [id number] Start Date: 09/24/17 Status: Ordered Augmentin 875 mg-125 mg oral tablet 1 tabs, Oral, q12hr, X 10 days, # 20 tabs, 0 Refill(s), Pharmacy: [facility] [id number] Start Date: 09/23/17 Stop Date: 10/03/17 Status: Ordered diazePAM 5 mg oral tablet 5 mg 1 tabs, Oral, BID, as needed for anxiety, # 15 tabs, 0 Refill(s), called to pharmacy (Rx) Start Date: 04/02/17 Status: Ordered escitalopram 10 mg oral tablet See Instructions, TAKE 1 TABLET BY MOUTH DAILY, # 30 tabs, 5 Refill(s), eRx: [facility] [id number] Start Date: 08/12/17 Status: Ordered ferrous sulfate [...] NOSTRIL TWICE DAILY, # 16 mL, eRx: [facility] [id number], INSTILL 2 SPRAYS IN EACH NOSTRIL TWICE DAILY Start Date: 09/09/17 Status: Ordered folic acid 1 mg oral tablet See Instructions, TAKE 2 TABLETS BY MOUTH TWICE DAILY, # 120 tabs, 4 Refill(s), eRx: [facility] [id number], TAKE 2 TABLETS BY MOUTH TWICE DAILY Start Date: 05/02/17 Status: Ordered metFORMIN 500 mg oral tablet 500 mg 1 tabs, Oral, BID, # 60 tabs, 4 Refill(s), Pharmacy: [facility] [id number], 1 tabs Oral BID Start Date: 08/26/17 Status: Ordered OXcarbazepine 600 mg oral tablet 600 mg 1 tabs, Oral, BID, # 60 tabs, 11 Refill(s), Pharmacy: [facility] [id number], 1 tabs Oral BID Start Date: 12/31/16 Status: Ordered pantoprazole 40 mg oral delayed release tablet See Instructions, TAKE 1 TABLET BY MOUTH ONCE DAILY AT LEAST 1 HOUR AFTER OTHER MEDICATIONS., # 30 tabs, 5 Refill(s), eRx: [facility] [id number], TAKE 1 TABLET BY MOUTH ONCE DAILY AT LEAST 1 HOUR AFTER OTHER MEDICATIONS. Start Date: 06/28/17 Status: Ordered raNITIdine 150 mg oral capsule See Instructions, TAKE 1 CAPSULE BY MOUTH EVERY DAY AT BEDTIME FOR 30 DAYS, # 30 caps, 5 Refill(s), eRx: [facility] [id number], TAKE 1 CAPSULE BY MOUTH EVERY DAY [...] # 18 g, 6 Refill(s), Pharmacy : [facility] [id number], 2 puffs Inhalation q4hr,PRN:as needed for wheezing [...]
--- OUTSIDE RECORDS SUMMARY | 2018-09-11 20:08 | XMS REPORT | Referral Summary ---
Author Author [facility] Organization [facility] Address Unknown Phone Unavailable Care Team Providers Care Nutrition Representative Name Role Phone Dieter Goldstein PCP Encounter [facility] Date(s): 02/28/16 - 02/28/16 [facility] [address] [place], [place] [address] Discharge Diagnosis: Esophageal reflux Discharge Disposition: 01-Home or Self Care Attending Physician: Reginaldo Wolf MD Admitting Physician: Reginaldo Wolf MD Vital Signs Most recent to 1 oldest [Reference Range]: Peripheral Pulse 89 bpm Rate [60-100 bpm] (02/28/16 8:21 AM) Blood Pressure 134/84 mmHg [90-140/60-90 mmHg] (02/28/16 8:21 AM) Problem List Condition Effective Dates Status [...] # 75 unknown unit, 2 Refill(s), eRx: [facility] [id number], 1 VIALS INHALATION Q4HR,PRN: NEEDED FOR WHEEZING [...] BID, # 16 g, 5 Refill(s), eRx: [facility] [id number], 2 SPRAYS NASAL BID Start Date: 02/24/16 Status: Ordered folic acid 1 mg oral tablet See Instructions, TAKE TWO TABS TWICE A DAY, # 120 unknown unit, eRx: [facility] [id number], TAKE TWO TABS TWICE A DAY Start Date: 02/24/16 Status: Ordered metFORMIN 500 mg oral tablet See Instructions, TAKE 1 TABLET (500MG) BY ORAL ROUTE 2 TIMES EVERY DAY WITH MORNING AND EVENING MEALS, # 60 unknown unit, 5 Refill(s), eRx: [facility] [id number], TAKE 1 TABLET (500MG) BY ORAL ROUTE 2 TIMES EVERY DAY WITH MORNING AND EVENING MEALS Start Date: 02/24/16 Status: Ordered OXcarbazepine 600 mg oral tablet 600 mg 1 tabs, Oral, BID, # 60 tabs, 11 Refill(s), Pharmacy: [facility] 66868, 1 tabs Oral BID Start Date: 01/13/16 Status: Ordered pantoprazole 40 mg oral delayed release tablet 40 mg 1 tabs, Oral, Daily, Take at least 1 hour after other medications., # 30 tabs, 5 Refill(s), Pharmacy: [facility] [id number], 1 tabs Oral Daily,x30 days,Instr:Take at least 1 hour after other medications. Start Date: 01/20/16 Stop Date: 07/18/16 Status: Ordered Pulmicort Flexhaler 180 mcg/inh inhalation powder 1 puffs, Inhalation, BID, 0 Refill(s) Start Date: 04/28/14 Status: Ordered ranitidine 150 mg oral capsule 150 mg 1 caps, Oral, Bedtime (once a day), # 30 caps, 5 Refill(s), Pharmacy: [facility] [id number], 1 caps Oral Bedtime (once a day),x30 days Start Date: 01/20/16 Stop Date: 07/18/16 Status: Ordered Singulair 10 mg oral tablet 10 mg 1 tabs, Oral, qPM, # 30 tabs, 11 Refill(s), Pharmacy: [facility] 70247, 1 tabs Oral qPM Start Date: 01/25/16 Status: Ordered Sprintec 0.25 mg-35 mcg oral tablet 1 tabs, Oral, Daily, # 28 tabs, 11 Refill(s), Pharmacy: [facility] 30712 Start Date: 12/30/15 Status: Ordered Ventolin HFA 90 mcg/inh inhalation aerosol 2 puffs, Inhalation, q4hr, as needed for wheezing, # 18 g, 3 Refill(s), Pharmacy : [facility] 69759, 2 puffs Inhalation q4hr,PRN:as needed for wheezing [...] smoker Assessment and Plan Extracted from: Title: GI Office Visit Note Author: Reginaldo Wolf MD Date: 02/28/16 Assessment/Plan Impression:Esophageal reflux Plan:I discussed the problems in general of reflux with the patient. I don' t think further testing needs to be done at this time given her good response to the medications. I did discuss with that if she's having trouble at night and she can elevate the head of her bed as well as avoiding eating late. I also discussed with her thatweight lossat times is very helpfulwith reflux as well.I don't think at this time thatendoscopy wouldchange therapy. If over time kiara paiz could start to cut down on the medications and first stop the ranitidine at night and see if just the Protonix during the day would be enoughbut we did discuss thatreflux tends to lovely chronic condition and she may need to remain on this medication long- term. We discussed the potential long-term problems with the proton pump inhibitorsand a question of whether there is an increased risk of osteoporosis. If she does remain on the medication long-term may be helpful to takesome calcium citrate on a regular basis as well. She will call if she has further problems.
--- OUTSIDE RECORDS SUMMARY | 2018-09-11 20:09 | XMS REPORT | Referral Summary ---
Author Author [facility] Organization [facility] Address Unknown Phone Unavailable Care Team Providers Care Ornamenter Hand Name Role Phone Dieter Goldstein PCP No PCP, [facility] PCP Encounter [facility] [id number] Date(s): 01/17/18 - 01/17/18 [facility] [address], [facility] [address] [place], [place] [address] Discharge Disposition: 01-Home or Self [...] ) 22 wk SAB(Confirmed) 2006 Active Dizzy(Confirmed) < 08/23/14 Resolved Essential Active [...] DAILY, # 30 tabs, 11 Refill(s), eRx: [facility] [id number] Start Date: 11/19/17 Status: Ordered Augmentin 875 mg-125 mg oral tablet 1 tabs, Oral, q12hr, X 10 days, # 20 tabs, 0 Refill(s), Pharmacy: [facility] [id number] Start Date: 01/13/18 Stop Date: 01/23/18 Status: Ordered butalbital/acetaminophen/caffeine 50 mg-325 mg-40 mg oral tablet See Instructions, TAKE 1 TABLET BY MOUTH FOUR TIMES DAILY NEEDED FOR HEADACHE , # 20 tabs, 2 Refill(s), eRx: [facility] [id number] Start Date: 12/02/17 Status: Ordered diazePAM 5 mg oral tablet 5 mg 1 tabs, Oral, BID, as needed for anxiety, # 15 tabs, 0 Refill(s), called to pharmacy (Rx) Start Date: 04/02/17 Status: Ordered escitalopram 10 mg oral tablet See Instructions, TAKE 1 TABLET BY MOUTH DAILY, # 30 tabs, 5 Refill(s), eRx: [facility] [id number] Start Date: 08/12/17 Status: Ordered ferrous sulfate 325 mg (65 mg elemental iron) oral delayed release tablet 325 mg 1 tabs, Oral, Daily, # 30 tabs, 0 Refill(s) Start Date: 02/14/17 Status: Ordered fluticasone 50 mcg/inh nasal spray See Instructions, INSTILL 2 SPRAYS IN EACH NOSTRIL TWICE DAILY, # 16 mL, 11 Refill(s), eRx: [facility] [id number] Start Date: 10/16/17 Status: Ordered folic acid 1 mg oral tablet See Instructions, TAKE 2 TABLETS BY MOUTH TWICE DAILY, # 120 tabs, 4 Refill(s), eRx: [facility] [id number], TAKE 2 TABLETS BY MOUTH TWICE DAILY Start Date: 05/02/17 Status: Ordered metFORMIN 500 mg oral tablet See Instructions, TAKE 1 TABLET BY MOUTH TWICE DAILY, # 60 tabs, 4 Refill(s), eRx: [facility] [id number] Start Date: 01/08/18 Status: Ordered montelukast 10 mg oral tablet See Instructions, TAKE 1 TABLET BY MOUTH EVERY EVENING, # 30 tabs, 5 Refill(s), eRx: [facility] [id number], TAKE 1 TABLET BY MOUTH EVERY EVENING Start Date: 12/12/17 Status: Ordered OXcarbazepine 600 mg oral tablet 600 mg 1 tabs, Oral, BID, # 60 tabs, 0 Refill(s), Pharmacy: [facility] [id number], 1 tabs Oral BID Start Date: 12/20/17 Status: Ordered pantoprazole 40 mg oral delayed release tablet See Instructions, TAKE 1 TABLET BY MOUTH ONCE DAILY AT LEAST 1 HOUR AFTER OTHER MEDICATIONS., # 30 tabs, eRx: [facility] [id number] Start Date: 12/30/17 Status: Ordered raNITIdine 150 mg oral capsule See Instructions, TAKE 1 CAPSULE BY MOUTH EVERY DAY AT BEDTIME FOR 30 DAYS, # 30 caps, 5 Refill(s), eRx: [facility] [id number], TAKE 1 CAPSULE BY MOUTH EVERY DAY [...] HOURS NEEDED FOR WHEEZING, # 18 g, eRx: [facility] [id number] Start Date: 12/30/17 Status: Ordered Results No data available for [...]
--- OUTSIDE RECORDS SUMMARY | 2018-09-11 20:09 | XMS REPORT | Referral Summary ---
Author Author [facility] Organization [facility] Address Unknown Phone Unavailable Care Team Providers Care Pe Teacher Name Role Phone Dieter Goldstein PCP Encounter [facility] Date(s): 03/20/16 - 03/20/16 [facility] [address] [place], [place] [address] Discharge Diagnosis: Hypoglycemia Discharge Diagnosis: Complex partial seizures Discharge Diagnosis: Hypertension Discharge Disposition: -Home or Self Care Attending Physician: Dieter Goldstein MD Vital Signs Most recent to 1 oldest [Reference Range]: Peripheral Pulse 103 bpm Rate [60-100 bpm] *HI* (03/20/16 9:50 AM) Blood Pressure 154/94 mmHg [90-140/60-90 mmHg] *HI* (03/20/16 9:50 AM) SpO2 99 % (03/20/16 9:50 AM) Problem List Condition Effective Dates [...] hypertension(Confirm ed)1 (Confirmed) < 12/29/14 Resolved (Confirmed) 4/24/15 - 11/12/15 Resolved (Confirmed) 06/03/05 - 2005 [...] # 75 unknown unit, 2 Refill(s), eRx: [facility] [id number], 1 VIALS INHALATION Q4HR,PRN: NEEDED FOR WHEEZING [...] BID, # 16 g, 5 Refill(s), eRx: [facility] [id number], 2 SPRAYS NASAL BID Start Date: 02/24/16 Status: Ordered folic acid 1 mg oral tablet See Instructions, TAKE TWO TABS TWICE A DAY, # 120 unknown unit, eRx: [facility] [id number], TAKE TWO TABS TWICE A DAY Start Date: 02/24/16 Status: Ordered lisinopril 5 mg oral tablet 5 mg 1 tabs, Oral, Daily, # 30 tabs, 11 Refill(s), Pharmacy: [facility] [id number], 1 tabs Oral Daily,x30 days Start Date: 03/20/16 Stop Date: 03/15/17 Status: Ordered metFORMIN 500 mg oral tablet See Instructions, TAKE 1 TABLET (500MG) BY ORAL ROUTE 2 TIMES EVERY DAY WITH MORNING AND EVENING MEALS, # 60 unknown unit, 5 Refill(s), eRx: [facility] [id number], TAKE 1 TABLET (500MG) BY ORAL ROUTE 2 TIMES EVERY DAY WITH MORNING AND EVENING MEALS Start Date: 02/24/16 Status: Ordered OXcarbazepine 600 mg oral tablet 600 mg 1 tabs, Oral, BID, # 60 tabs, 11 Refill(s), [facility], 1 tabs Oral BID Start Date: 01/13/16 Status: Ordered pantoprazole 40 mg oral delayed release tablet 40 mg 1 tabs, Oral, Daily, Take at least 1 hour after other medications., # 30 tabs, 5 Refill(s), Pharmacy: [facility], 1 tabs Oral Daily,x30 days,Instr:Take at least 1 hour after other medications. Start Date: 01/20/16 Stop Date: 07/18/16 Status: Ordered Pulmicort Flexhaler 180 mcg/inh inhalation powder 1 puffs, Inhalation, BID, 0 Refill(s) Start Date: 04/28/14 Status: Ordered ranitidine 150 mg oral capsule 150 mg 1 caps, Oral, Bedtime (once a day), # 30 caps, 5 Refill(s), Pharmacy: [facility] 68218, 1 caps Oral Bedtime (once a day),x30 days Start Date: 01/20/16 Stop Date: 07/18/16 Status: Ordered Singulair 10 mg oral tablet 10 mg 1 tabs, Oral, qPM, # 30 tabs, 11 Refill(s), Pharmacy: [facility] 10778, 1 tabs Oral qPM Start Date: 01/25/16 Status: Ordered Sprintec 0.25 mg-35 mcg oral tablet 1 tabs, Oral, Daily, # 28 tabs, 11 Refill(s), Pharmacy: [facility] [id number] Start Date: 12/30/15 Status: Ordered Ventolin HFA 90 mcg/inh inhalation aerosol 2 puffs, Inhalation, q4hr, as needed for wheezing, # 18 g, 3 Refill(s), Pharmacy : [facility] 41420, 2 puffs Inhalation q4hr,PRN:as needed for wheezing Start Date: 03/10/15 Status: Ordered Vitamin C 100 mg, Oral, Daily, 0 Refill(s) Start Date: 04/28/14 Status: Ordered Results Hematology Most recent to 1 oldest [Reference Range]: WBC [4.8-10.8 8.2 10*3/uL 10*3/uL] (03/20/16 10:32 AM) RBC [4.00-5.20] 5.61 *HI* (03/20/16 10:32 AM) Hgb [12.0-16.0 12.0 gm/dL gm/dL] (03/20/16 10:32 AM) Hct [37.0-47.0 %] 37.2 % (03/20/16 10:32 AM) MCV [82.0-99.0 fL] 66.3 fL *LOW* (03/20/16 10:32 AM) MCH [27.0-32.0 pg] 21.4 pg *LOW* (03/20/16 10:32 AM) MCHC [32.0-36.0 32.3 gm/dL gm/dL] (03/20/16 10:32 AM) RDW [11.5-14.5 %] 14.9 % *HI* (03/20/16 10:32 AM) Platelet [150-400 426 10*3/uL 10*3/uL] *HI* (03/20/16 10:32 AM) MPV [8.8-14.8 fL] 10.0 fL (03/20/16 10:32 AM) Neutrophils [51-75 87 % %] *HI* (03/20/16 10:32 AM) Band Man [0-8 %] 1 % (03/20/16 10:32 AM) Lymphocytes [20-46 9 % %] *LOW* (03/20/16 10:32 AM) Monocytes [4-11 %] 2 % *LOW* (03/20/16 10:32 AM) Eosinophils [0-4 %] 1 % (03/20/16 10:32 AM) Basophils [0-2 %] 0 % (03/20/16 10:32 AM) Neutro Absolute 7.22 10*3 [1.90-7.00 10*3] *HI* (03/20/16 10:32 AM) Lymph Absolute 0.74 10*3 [0.80-3.30 10*3] *LOW* (03/20/16 10:32 AM) [place] Absolute 0.16 10*3 [0.30-1.00 10*3] *LOW* (03/20/16 10:32 AM) Eos Absolute 0.08 10*3 [0.00-0.50 10*3] (03/20/16 10:32 AM) Baso Absolute 0.00 10*3 [0.00-0.20 10*3] (03/20/16 10:32 AM) Microcyte Present *ABN* (03/20/16 10:32 AM) Differential Manual *ABN* (03/20/16 10:32 AM) Chemistry Most recent to 1 oldest [Reference Range]: Sodium Lvl [135-144 131 mEq/L mEq/L] *LOW* (03/20/16 10:32 AM) Potassium Lvl 4.0 mEq/L [3.5-5.2 mEq/L] (03/20/16:32 AM) Chloride [99-111 98 mEq/L mEq/L] *LOW* (03/20/16:32 AM) CO2 [22-31 mEq/L] 27 mEq/L (03/20/16 10:32 AM) AGAP [3-20] 6 (03/20/16 10:32 AM) BUN [7-19 mg/dL] 12 mg/dL (03/20/16 10:32 AM) Glucose Lvl [70-99 91 mg/dL mg/dL] (03/20/16 10:32 AM) Creatinine Lvl 0.70 mg/dL [0.57-1.11 mg/dL] (03/20/16 10:32 AM) eGFR [>60 mL/min] >60 mL/min 1 (03/20/16 10:32 AM) Calcium Lvl 9.0 mg/dL [8.9-10.5 mg/dL] (03/20/16 10:32 AM) Albumin Lvl [3.5-5.0 4.4 gm/dL gm/dL] (03/20/16 10:32 AM) Total Protein 6.6 gm/dL [6.4-8.3 gm/dL] (03/20/16 10:32 AM) Globulin [1.8-4.0 2.2 gm/dL gm/dL] (03/20/16 10:32 AM) ALT [0-55 U/L] 25 U/L (03/20/16 10:32 AM) AST [5-34 U/L] 17 U/L (03/20/16 10:32 AM) Alk Phos [40-150 75 U/L U/L] (03/20/16 10:32 AM) Bili Total [0.2-1.2 0.4 mg/dL mg/dL] (03/20/16 10:32 AM) TSH with Reflex Free 0.94 T4 [0.35-4.94] (03/20/16 10:32 AM) Hgb A1c [4.1-5.6 %] 5.3 % (03/20/16 10:32 AM) eAvg Glucose 105.4 mg/dL (03/20/16 10:32 AM) 1Result Comment: Multiply eGFR results by 1.21 for race. Immunizations Vaccine Date Refusal Reason tetanus/diphth/pertuss (Tdap) adult/adol 09/30/15 influenza virus vaccine, inactivated 09/09/15 influenza virus vaccine, inactivated1 08/26/14 1Result Comment: [09/10/2014] See Scanned Document Procedures Procedure Date Related Diagnosis Body Site Collection of venous blood by venipuncture 03/20/16 delivery only; 11/12/15 Section1 11/12/15 Dilatation and Curettage (Suction)2 12/29/14 wisdom teeth removed 1auto-populated from documented surgical case 2auto-populated from documented surgical case Social History Social History Type Response Smoking Status Never smoker Assessment and Plan Extracted from: Title: Ambulatory Patient Education Author: Dieter Goldstein MD Date: Family Medicine Hypoglycemia Hypoglycemia occurs when the glucose in your blood is too low. Glucose is a type of sugar that is your body's main energy source. Hormones, such as insulin and glucagon, control the level of glucose in the blood. Insulin lowers blood glucose and glucagon increases blood glucose. Having too much insulin in your blood stream, or not eating enough food containing sugar, can result in hypoglycemia. Hypoglycemia can happen to people with or without diabetes. It can develop quickly and can be a medical emergency. CAUSES Missing or delaying meals. Not eating enough carbohydrates at meals. Taking too much diabetes medicine. Not timing your oral diabetes medicine or insulin doses with meals, snacks , and exercise. Nausea and vomiting. Certain medicines. Severe illnesses, such as hepatitis, kidney disorders, and certain eating disorders. Increased activity or exercise without eating something extra or adjusting medicines. Drinking too much alcohol. A nerve disorder that affects body functions like your heart rate, blood pressure, and digestion (autonomic neuropathy). A condition where the stomach muscles do not function properly ( gastroparesis). Therefore, medicines and food may not absorb properly. Rarely, a tumor of the pancreas can produce too much insulin. SYMPTOMS Hunger. Sweating (diaphoresis). Change in body temperature. Shakiness. Headache. Anxiety. Lightheadedness. Irritability. Difficulty concentrating. Dry mouth. Tingling or numbness in the hands or feet. Restless sleep or sleep disturbances. Altered speech and coordination. Change in mental status. Seizures or prolonged convulsions. Combativeness. Drowsiness (lethargic). Weakness. Increased heart rate or palpitations. Confusion. Pale, cervantes skin color. Blurred or double vision. Fainting. DIAGNOSIS A physical exam and medical history will be performed. Your caregiver may make a diagnosis based on your symptoms. Blood tests and other lab tests may be performed to confirm a diagnosis. Once the diagnosis is made, your caregiver will see if your signs and symptoms go away once your blood glucose is raised. TREATMENT Usually, you can easily treat your hypoglycemia when you notice symptoms. Check your blood glucose. If it is less than 70 mg/dl, take one of the followin 4 glucose tablets. cup juice. cup regular soda. 1 cup skim milk. 1 tube of glucose gel. 5 6 hard candies. Avoid high-fat drinks or food that may delay a rise in blood glucose levels. Do not take more than the recommended amount of sugary foods, drinks, gel, or tablets. Doing so will cause your blood glucose to go too high. Wait 10 15 minutes and recheck your blood glucose. If it is still less than 70 mg/dl or below your target range, repeat treatment. Eat a snack if it is more than 1 hour until your next meal. There may be a time when your blood glucose may go so low that you are unable to treat yourself at home when you start to notice symptoms. You may need someone to help you. You may even faint or be unable to swallow. If you cannot treat yourself, someone will need to bring you to the hospital. HOME CARE INSTRUCTIONS If you have diabetes, follow your diabetes management plan by: Taking your medicines as directed. Following your exercise plan. Following your meal plan. Do not skip meals. Eat on time. Testing your blood glucose regularly. Check your blood glucose before and after exercise. If you exercise longer or different than usual, be sure to check blood glucose more frequently. Wearing your medical alert jewelry that says you have diabetes. Identify the cause of your hypoglycemia. Then, develop ways to prevent the recurrence of hypoglycemia. Do not take a hot bath or shower right after an insulin shot. Always carry treatment with you. Glucose tablets are the easiest to carry. If you are going to drink alcohol, drink it only with meals. Tell friends or family members ways to keep you safe during a seizure. This may include removing hard or sharp objects from the area or turning you on your side. Maintain a healthy weight. SEEK MEDICAL CARE IF: You are having problems keeping your blood glucose in your target range. You are having frequent episodes of hypoglycemia. You feel you might be having side effects from your medicines. You are not sure why your blood glucose is dropping so low. You notice a change in vision or a new problem with your vision. SEEK IMMEDIATE MEDICAL CARE IF: Confusion develops. A change in mental status occurs. The inability to swallow develops. Fainting occurs. This information is not intended to replace advice given to you by your health care provider. Make sure you discuss any questions you have with your health care provider. Document Released: 11/11/2006 Document Revised: 11/16/2014 Document Reviewed: Exit[employer] Patient Information 2015 [employer]. No follow up information was provided.
--- OUTSIDE RECORDS SUMMARY | 2018-09-11 20:09 | XMS REPORT | Referral Summary ---
Author Author [facility] Organization [facility] Address Unknown Phone Unavailable Care Team Providers Care Site Director Name Role Phone Dieter Goldstein PCP Encounter [facility] [id number] Date(s): 04/21/15 - 04/21/15 [facility] [address] [facility] [address] [place], [place] [address] Discharge Diagnosis: with uncertain viability Discharge Disposition: 01-Home or Self Care Attending Physician: Bhupendra Nichols MD Admitting Physician: Bhupendra Nichols MD Referring Physician: Bhupendra Nichols MD Vital Signs No [...] # 75 unknown unit, 2 Refill(s), eRx: [facility] [id number], 1 VIALS INHALATION Q4HR,PRN: NEEDED FOR WHEEZING [...] pain, # 30 tabs, 0 Refill(s), Pharmacy: [facility] [id number] Start Date: 10/05/15 Status: Ordered Flonase 50 mcg/inh nasal spray 2 sprays, Nasal, BID, # 16 g, 11 Refill(s), Pharmacy: [facility] 67585 Start Date: 01/17/15 Status: Ordered folic acid 1 mg oral tablet See Instructions, TAKE TWO TABS TWICE A DAY, # 120 unknown unit, 5 Refill(s), eRx: [facility] [id number], TAKE TWO TABS TWICE A DAY Start Date: 08/22/15 Status: Ordered Glucometer (DME) DME Item Test QID DX: GDM #1, See Instructions, # 1 Each, 0 Refill(s), Pharmacy: [facility], Test QID; DX: GDM; #1, Supply Start Date: 10/28/15 Status: Ordered Glucometer Lancets (DME) DME Item Test QID #100 DX: GDM, See Instructions, # 100 Each, 3 Refill(s), Pharmacy: [facility], Test QID ; #100; DX: GDM, Supply Start Date: 10/28/15 Status: Ordered Glucometer strips (DME) DME Item Test QID DX: GDM #100, See Instructions, # 100 Each, 3 Refill(s), Pharmacy: [facility] 27135, Test QID ; DX: GDM ; #100, Supply Start Date: 10/28/15 Status: Ordered levETIRAcetam 1000 mg oral tablet 1,000 mg 1 tabs, Oral, BID, # 60 tabs, 5 Refill(s), Pharmacy: [facility] 53256, 1 tabs Oral BID Start Date: 06/29/15 Status: Ordered metFORMIN 500 mg oral tablet See Instructions, TAKE 1 TABLET (500MG) BY ORAL ROUTE 2 TIMES EVERY DAY WITH MORNING AND EVENING MEALS, # 60 unknown unit, eRx: [facility] 36990, TAKE 1 TABLET (500MG) BY ORAL ROUTE [...] qPM, # 30 tabs, 11 Refill(s), Pharmacy: [facility] 11591 , 1 tabs Oral qPM Start Date: 01/17/15 Status: Ordered Ventolin HFA 90 mcg/inh inhalation aerosol 2 puffs, Inhalation, q4hr, as needed for wheezing, # 18 g, 3 Refill(s), Pharmacy : [facility] 17347, 2 puffs Inhalation q4hr,PRN:as needed for wheezing Start Date: 03/10/15 Status: Ordered Vitamin C 100 mg, Oral, Daily, 0 Refill(s) Start Date: 04/28/14 Status: Ordered Results Chemistry Most recent to 1 oldest [Reference Range]: Beta hCG Qnt 1043 mIU/mL 1 (04/21/15 9:15 AM) 1Result Comment: Normal Ranges for Quantitative HCG are as follows: Gestation Weeks 95% Range 1 - 10 1 - 417,430 11 - 15 16,996 - 247,465 16 - 22 6,860 - 50,239 23 - 40 1,583 - 65,911 Immunizations Vaccine Date Refusal Reason tetanus/diphth/pertuss (Tdap) [...]
--- OUTSIDE RECORDS SUMMARY | 2018-09-11 20:09 | XMS REPORT | Referral Summary ---
Author Author [facility] Organization [facility] Address Unknown Phone Unavailable Care Team Providers Care Environmental Maintenance Worker Name Role Phone Dieter Goldstein PCP Encounter [facility] [id number] Date(s): 12/23/15 - 12/23/15 [facility] [address] [facility] [address] [place], [place] [address] Discharge Disposition: 01-Home or Self Care [...] # 75 unknown unit, 2 Refill(s), eRx: [facility] [id number], 1 VIALS INHALATION Q4HR,PRN: NEEDED FOR WHEEZING [...] pain, # 30 tabs, 0 Refill(s), Pharmacy: [facility] 60573 Start Date: 10/05/15 Status: Ordered Flonase 50 mcg/inh nasal spray 2 sprays, Nasal, BID, # 16 g, 11 Refill(s), Pharmacy: [facility] 70124 Start Date: 01/17/15 Status: Ordered folic acid 1 mg oral tablet See Instructions, TAKE TWO TABS TWICE A DAY, # 120 unknown unit, 5 Refill(s), eRx: [facility] [id number], TAKE TWO TABS TWICE A DAY Start Date: 08/22/15 Status: Ordered ibuprofen 800 mg oral tablet 800 mg 1 tabs, Oral, q8hr (scheduled), # 90 tabs, 0 Refill(s) Start Date: 11/14/15 Status: Ordered labetalol 100 mg oral tablet 100 mg 1 tabs, Oral, BID, # 60 tabs, 1 Refill(s), Pharmacy: [facility] 27291, 1 tabs Oral BID Start Date: 11/25/15 Status: Ordered levETIRAcetam 1000 mg oral tablet 1,000 mg 1 tabs, Oral, BID, # 60 tabs, 5 Refill(s), Pharmacy: [facility] 51934, 1 tabs Oral BID,x30 days Start Date: 12/21/15 Stop Date: 06/18/16 Status: Ordered lisinopril Oral, Daily, 0 Refill(s) Start Date: 12/16/15 Status: Ordered metFORMIN 500 mg oral tablet See Instructions, TAKE 1 TABLET (500MG) BY ORAL ROUTE 2 TIMES EVERY DAY WITH MORNING AND EVENING MEALS, # 60 unknown unit, 1 Refill(s), eRx: [facility] [id number], TAKE 1 TABLET (500MG) BY ORAL ROUTE [...] Daily, # 30 tabs, 0 Refill(s), Pharmacy: [facility] 55836, 1 tabs Oral Daily Start Date: 11/17/15 Status: Ordered Pulmicort Flexhaler 180 mcg/inh inhalation powder 1 puffs, Inhalation, BID, 0 Refill(s) Start Date: 04/28/14 Status: Ordered Singulair 10 mg oral tablet 1 tabs, Oral, qPM, # 30 tabs, 11 Refill(s), Pharmacy: [facility] 40927 , 1 tabs Oral qPM Start Date: 01/17/15 Status: Ordered Ventolin HFA 90 mcg/inh inhalation aerosol 2 puffs, Inhalation, q4hr, as needed for wheezing, # 18 g, 3 Refill(s), Pharmacy : [facility] 656[facility], 2 puffs Inhalation q4hr,PRN:as needed for wheezing [...]
--- OUTSIDE RECORDS SUMMARY | 2018-09-11 20:09 | XMS REPORT | Referral Summary ---
Author Author [facility] Organization [facility] Address Unknown Phone Unavailable Care Team Providers Care Android Framework Developer Name Role Phone Dieter Goldstein PCP Encounter Date(s): 06/16/15 - 06/16/15 [facility] [address] [facility] [address] [place], [place] [address] Discharge Disposition: 01-Home or Self Care Attending Physician: Bhupendra Nichols MD Admitting Physician: Bhupendra Nichols MD Vital Signs Most recent to 1 oldest [Reference Range]: Blood Pressure 128/60 mmHg [90-140/60-90 mmHg] (06/16/15 11:14 AM) Problem List Condition Effective Dates Status [...] -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(Confirm ed)1 (Confirmed) < 2/4/15 Resolved (Confirmed) 06/03/05 - 2005 Resolved Relative BMI greater Active than 30(Confirmed) Other Active convulsions(Confirme d) Sinus Active headache(Confirmed) 1Problem added by Discern Expert Allergies, Adverse Reactions, Alerts Substance Reaction Severity Status topiramate burning,itching and closed airwa Active Medications albuterol 2.5 mg/3 mL (0.083%) inhalation solution See Instructions, 1 VIALS INHALATION Q4HR,PRN: NEEDED FOR WHEEZING, # 75 unknown unit, 2 Refill(s), eRx: [facility] [id number], 1 VIALS INHALATION Q4HR,PRN: NEEDED FOR WHEEZING [...] pain, # 30 tabs, 0 Refill(s), Pharmacy: [facility] 92107 Start Date: 10/05/15 Status: Ordered Flonase 50 mcg/inh nasal spray 2 sprays, Nasal, BID, # 16 g, 11 Refill(s), Pharmacy: [facility] 56513 Start Date: 01/17/15 Status: Ordered folic acid 1 mg oral tablet See Instructions, TAKE TWO TABS TWICE A DAY, # 120 unknown unit, 5 Refill(s), eRx: [facility] [id number], TAKE TWO TABS TWICE A DAY Start Date: 08/22/15 Status: Ordered ibuprofen 800 mg oral tablet 800 mg 1 tabs, Oral, q8hr (scheduled), # 90 tabs, 0 Refill(s) Start Date: 11/14/15 Status: Ordered labetalol 100 mg oral tablet 100 mg 1 tabs, Oral, BID, # 60 tabs, 1 Refill(s), Pharmacy: [facility] 98549, 1 tabs Oral BID Start Date: 11/25/15 Status: Ordered levETIRAcetam 1000 mg oral tablet 1,000 mg 1 tabs, Oral, BID, # 60 tabs, 5 Refill(s), Pharmacy: [facility] 76548, 1 tabs Oral BID,x30 days Start Date: 12/21/15 Stop Date: 06/18/16 Status: Ordered lisinopril Oral, Daily, 0 Refill(s) Start Date: 12/16/15 Status: Ordered metFORMIN 500 mg oral tablet See Instructions, TAKE 1 TABLET (500MG) BY ORAL ROUTE 2 TIMES EVERY DAY WITH MORNING AND EVENING MEALS, # 60 unknown unit, 1 Refill(s), eRx: [facility] [id number], TAKE 1 TABLET (500MG) BY ORAL ROUTE [...] Daily, # 30 tabs, 0 Refill(s), Pharmacy: [facility] 05546, 1 tabs Oral Daily Start Date: 11/17/15 Status: Ordered Pulmicort Flexhaler 180 mcg/inh inhalation powder 1 puffs, Inhalation, BID, 0 Refill(s) Start Date: 04/28/14 Status: Ordered Singulair 10 mg oral tablet 1 tabs, Oral, qPM, # 30 tabs, 11 Refill(s), Pharmacy: [facility] 23662 , 1 tabs Oral qPM Start Date: 01/17/15 Status: Ordered Ventolin HFA 90 mcg/inh inhalation aerosol 2 puffs, Inhalation, q4hr, as needed for wheezing, # 18 g, 3 Refill(s), Pharmacy : [facility] 18349, 2 puffs Inhalation q4hr,PRN:as needed for wheezing Start Date: 03/10/15 Status: Ordered Vitamin C 100 mg, Oral, Daily, 0 Refill(s) Start Date: 04/28/14 Status: Ordered Results Hematology Most recent to 1 oldest [Reference Range]: WBC [4.8-10.8 8.5 10*3/uL 10*3/uL] (06/16/15 11:31 AM) RBC [4.00-5.20 4.87 10*6/uL 10*6/uL] (06/16/15 11:31 AM) Hgb [12.0-16.0 10.8 gm/dL gm/dL] *LOW* (06/16/15 11:31 AM) Hct [37.0-47.0 %] 33.4 % *LOW* (06/16/15 11:31 AM) MCV [82.0-99.0 fL] 68.6 fL *LOW* (06/16/15 11:31 AM) MCH [27.0-32.0 pg] 22.2 pg *LOW* (06/16/15 11:31 AM) MCHC [32.0-36.0 32.3 gm/dL gm/dL] (06/16/15 11:31 AM) RDW [11.5-14.5 %] 14.7 % *HI* (06/16/15 11:31 AM) Platelet [150-400 355 10*3/uL 10*3/uL] (06/16/15 11:31 AM) MPV [8.8-14.8 fL] 11.5 fL (06/16/15 11:31 AM) Immature 0.1 % Granulocytes (06/16/15 11:31 AM) [0.0-1.0 %] Neutrophils [51-75 69 % %] (06/16/15 11:31 AM) Lymphocytes [20-46 22 % %] (06/16/15 1131 AM) Monocytes [4-11 %] 9 % (06/16/15 AM) Eosinophils [0-4 %] 0 % (06/16/15 AM) Basophils [0-2 %] 0 % (06/16/15 1131 AM) Neutro Absolute 5.82 10*3 [1.90-7.00 10*3] (06/16/15:31 AM) Lymph Absolute 1.87 10*3 [0.80-3.30 10*3] (06/16/15 11:31 AM) [place] Absolute 0.75 10*3 [0.30-1.00 10*3] (06/16/15 11:31 AM) Eos Absolute 0.03 10*3 [0.00-0.50 10*3] (06/16/15 11:31 AM) Baso Absolute 0.02 10*3 [0.00-0.20 10*3] (06/16/15:31 AM) Microcyte Present *ABN* (06/16/15:31 AM) Differential Scanned Slide (06/16/15 AM) Chemistry Most recent to 1 oldest [Reference Range]: Hep Bs Ag Negative (06/16/15:31 AM) HIV 1 and 2 Abs Negative (06/16/15:31 AM) Urinalysis Most recent to 1 oldest [Reference Range]: UA Color Yellow (06/16/15:31 AM) UA Appear Cloudy *ABN* (06/16/15:31 AM) UA pH [5.0-8.0] 6.5 (06/16/15 11:31 AM) UA Leuk Est Negative [Negative] (06/16/15:31 AM) UA Nitrite Negative [Negative] (06/16/15:31 AM) UA Protein Negative [Negative] (06/16/15 11:31 AM) UA Glucose Negative [Negative] (06/16/15 11:31 AM) UA Ketones Negative [Negative] (06/16/15 11:31 AM) UA Urobilinogen 0.2 mg/dL [<1.0 mg/dL] (7/23/15 11:31 AM) UA Bili [Negative] Negative (06/16/15 11:31 AM) UA Blood [Negative] Negative (06/16/15 11:31 AM) UA Spec Grav 1.016 [1.003-1.030] (06/16/15 11:31 AM) Type Clean Catch (06/16/15 11:31 AM) UA WBC [0-4] 0-2 (06/16/15 11:31 AM) UA RBC [0-4] 0-4 (06/16/15 11:31 AM) Epithelial Cells 2-5 (06/16/15 11:31 AM) UA Bacteria Rare (06/16/15 11:31 AM) UA Hyal Cast [0-3] 4-6 *ABN* (06/16/15 11:31 AM) Blood Bank Results Most recent to 1 oldest [Reference Range]: ABO/Rh A POS (06/16/15 11:31 AM) Antibody Screen Tube NEG (06/16/15 11:31 AM) Microbiology Reports TEST: Urine Culture STATUS: Auth (Verified) BODY SITE: SOURCE: Urine, Clean Catch COLLECTED DATE/TIME: 06/16/15 11:31 AM Urine Culture Normal urogenital/skin randi present TEST: Affirm Vaginitis Panel STATUS: Auth (Verified) BODY SITE: SOURCE: Cervix/Vaginal COLLECTED DATE/TIME: 06/16/15 11:31 AM Affirm Vaginitis Panel Negative for Trichomonas vaginalis Negative for Maria Esther species Negative for Gardnerella vaginalis Immunizations Vaccine Date Refusal Reason tetanus/diphth/pertuss (Tdap) [...]
--- OUTSIDE RECORDS SUMMARY | 2018-09-11 20:10 | XMS REPORT | Referral Summary ---
Author Author [facility] Organization [facility] Address Unknown Phone Unavailable Care Team Providers Care Supervisor Rubber Covering Name Role Phone Dieter Goldstein PCP Encounter [facility] [id number] Date(s): 08/12/15 - 08/12/15 [facility] [address] [facility] [address] [place], [place] [address] Discharge Disposition: 01-Home or Self Care Attending Physician: Bhupendra Nichols MD Admitting Physician: Bhupendra Nichols MD Vital Signs Most recent to 1 oldest [Reference Range]: Blood Pressure 138/76 mmHg [90-140/60-90 mmHg] (08/12/15 9:17 AM) Problem List Condition Effective Dates Status [...] -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(Confirm ed)1 (Confirmed) < 2/415 Resolved (Confirmed) 06/03/05 - 2005 Resolved Relative BMI greater Active than 30(Confirmed) Other Active convulsions(Confirme d) Sinus Active headache(Confirmed) 1Problem added by Discern Expert Allergies, Adverse Reactions, Alerts Substance Reaction Severity Status topiramate burning,itching and closed airwa Active Medications albuterol 2.5 mg/3 mL (0.083%) inhalation solution See Instructions, 1 VIALS INHALATION Q4HR,PRN: NEEDED FOR WHEEZING, # 75 unknown unit, 2 Refill(s), eRx: [email or web address] [id number], 1 VIALS INHALATION Q4HR,PRN: NEEDED FOR WHEEZING [...] pain, # 30 tabs, 0 Refill(s), Pharmacy: [email or web address] [id number] Start Date: 10/05/15 Status: Ordered Flonase 50 mcg/inh nasal spray 2 sprays, Nasal, BID, # 16 g, 11 Refill(s), Pharmacy: [email or web address] 17865 Start Date: 01/17/15 Status: Ordered folic acid 1 mg oral tablet See Instructions, TAKE TWO TABS TWICE A DAY, # 120 unknown unit, 5 Refill(s), eRx: [email or web address] [id number], TAKE TWO TABS TWICE A DAY Start Date: 08/22/15 Status: Ordered ibuprofen 800 mg oral tablet 800 mg 1 tabs, Oral, q8hr (scheduled), # 90 tabs, 0 Refill(s) Start Date: 11/14/15 Status: Ordered labetalol 100 mg oral tablet 100 mg 1 tabs, Oral, BID, # 60 tabs, 1 Refill(s), Pharmacy: [email or web address] 52722, 1 tabs Oral BID Start Date: 11/25/15 Status: Ordered metFORMIN 500 mg oral tablet See Instructions, TAKE 1 TABLET (500MG) BY ORAL ROUTE 2 TIMES EVERY DAY WITH MORNING AND EVENING MEALS, # 60 unknown unit, 1 Refill(s), eRx: [email or web address] [id number], TAKE 1 TABLET (500MG) BY ORAL ROUTE 2 TIMES EVERY DAY WITH MORNING AND EVENING MEALS Start Date: 12/23/15 Status: Ordered One-A-Day Women 1 tabs, Oral, Daily, 0 Refill(s) Start Date: 04/28/14 Status: Ordered OXcarbazepine 600 mg oral tablet 600 mg 1 tabs, Oral, BID, # 60 tabs, 11 Refill(s), Pharmacy: [email or web address] [id number], 1 tabs Oral BID Start Date: 01/13/16 Status: Ordered pantoprazole 40 mg oral delayed release tablet 40 mg 1 tabs, Oral, Daily, Take at least 1 hour after other medications., # 30 tabs, 5 Refill(s), Pharmacy: [email or web address] 22821, 1 tabs Oral Daily,x30 days,Instr:Take at least 1 hour after other medications. Start Date: 01/20/16 Stop Date: 07/18/16 Status: Ordered Pulmicort Flexhaler 180 mcg/inh inhalation powder 1 puffs, Inhalation, BID, 0 Refill(s) Start Date: 04/28/14 Status: Ordered ranitidine 150 mg oral capsule 150 mg 1 caps, Oral, Bedtime (once a day), # 30 caps, 5 Refill(s), Pharmacy: [email or web address] 46608, 1 caps Oral Bedtime (once a day),x30 days Start Date: 01/20/16 Stop Date: 07/18/16 Status: Ordered Singulair 10 mg oral tablet 10 mg 1 tabs, Oral, qPM, # 30 tabs, 11 Refill(s), Pharmacy: [email or web address] [id number], 1 tabs Oral qPM Start Date: 01/25/16 Status: Ordered Sprintec 0.25 mg-35 mcg oral tablet 1 tabs, Oral, Daily, # 28 tabs, 11 Refill(s), Pharmacy: [email or web address] 75171 Start Date: 12/30/15 Status: Ordered Ventolin HFA 90 mcg/inh inhalation aerosol 2 puffs, Inhalation, q4hr, as needed for wheezing, # 18 g, 3 Refill(s), Pharmacy : [email or web address] [id number], 2 puffs Inhalation q4hr,PRN:as needed for wheezing [...]
--- OUTSIDE RECORDS SUMMARY | 2018-09-11 20:10 | XMS REPORT | Referral Summary ---
Author Author [facility] Organization [facility] Address Unknown Phone Unavailable Care Team Providers Care Scalehouse Attendant Name Role Phone Dieter Goldstein PCP Encounter Date(s): 09/30/15 - 09/30/15 [facility] [address] [facility] [address] [place], [place] [address] Discharge Diagnosis: Supervision of normal subsequent Discharge Disposition: 01-Home or Self Care Attending Physician: Margret Cornell PA-C Admitting Physician: Margret Cornell PA-C Referring Physician: Bhupendra Nichols MD Vital Signs Most recent to 1 oldest [Reference Range]: Blood Pressure 122/70 mmHg [90-140/60-90 mmHg] (09/30/15 2:07 PM) Problem List Condition Effective Dates Status [...] # 75 unknown unit, 2 Refill(s), eRx: [id number] [id number], 1 VIALS INHALATION Q4HR,PRN: NEEDED FOR WHEEZING [...] pain, # 30 tabs, 0 Refill(s), Pharmacy: [id number] 99943 Start Date: 08/21/15 Status: Ordered Flonase 50 mcg/inh nasal spray 2 sprays, Nasal, BID, # 16 g, 11 Refill(s), Pharmacy: [id number] [id number] Start Date: 01/17/15 Status: Ordered folic acid 1 mg oral tablet See Instructions, TAKE TWO TABS TWICE A DAY, # 120 unknown unit, 5 Refill(s), eRx: [facility] [id number], TAKE TWO TABS TWICE A DAY Start Date: 08/22/15 Status: Ordered levETIRAcetam 1000 mg oral tablet 1,000 mg 1 tabs, Oral, BID, # 60 tabs, 5 Refill(s), Pharmacy: [facility] 04671, 1 tabs Oral BID Start Date: 06/29/15 Status: Ordered metFORMIN 500 mg oral tablet See Instructions, TAKE 1 TABLET (500MG) BY ORAL ROUTE 2 TIMES EVERY DAY WITH MORNING AND EVENING MEALS, # 60 unknown unit, eRx: [facility] 88808, TAKE 1 TABLET (500MG) BY ORAL ROUTE [...] qPM, # 30 tabs, 11 Refill(s), Pharmacy: [facility] 15000 , 1 tabs Oral qPM Start Date: 01/17/15 Status: Ordered Ventolin HFA 90 mcg/inh inhalation aerosol 2 puffs, Inhalation, q4hr, as needed for wheezing, # 18 g, 3 Refill(s), Pharmacy : [facility] 83872, 2 puffs Inhalation q4hr,PRN:as needed for wheezing Start Date: 03/10/15 Status: Ordered Vitamin C 100 mg, Oral, Daily, 0 Refill(s) Start Date: 04/28/14 Status: Ordered Results Hematology Most recent to 1 oldest [Reference Range]: Hgb [12.0-16.0 10.3 gm/dL gm/dL] *LOW* (09/30/15 3:13 PM) Hct [37.0-47.0 %] 30.9 % *LOW* (09/30/15 3:13 PM) Chemistry Most recent to 1 oldest [Reference Range]: Gluc 1 hour 136 mg/dL 1 [70-140 mg/dL] (09/30/15 3:13 PM) 1Result Comment: An initial one hour screen resulting in a glucose of >140 mg/dL identifies around 80% of women with GDM. The yield is increased to 90% by using a cutoff of >130 mg/dL. Diagnosis of GDM is based on a 100 gram, 3 hour oral glucose tolerance test. Blood Bank Results Most recent to 1 oldest [Reference Range]: Antibody Screen Tube NEG (09/30/15 3:13 PM) Immunizations Vaccine Date Refusal Reason tetanus/diphth/pertuss (Tdap) [...]
--- OUTSIDE RECORDS SUMMARY | 2018-09-11 20:10 | XMS REPORT | Referral Summary ---
Author Author [facility] Organization [facility] Address Unknown Phone Unavailable Care Team Providers Care Senior Data Developer Name Role Phone Dieter Goldstein PCP Encounter [facility] Date(s): 06/23/15 - 06/23/15 [facility] [address] [place], [place] [address] Discharge Diagnosis: Tonsillitis Discharge Disposition: 01-Home or Self Care Attending Physician: Dieter Goldstein MD Admitting Physician: Dieter Goldstein MD Vital Signs Most recent to 1 oldest [Reference Range]: Temperature Oral 37.1 degC [35.8-37.3 degC] (06/23/15 8:39 AM) Blood Pressure 140/98 mmHg [90-140/60-90 mmHg] (06/23/15 8:39 AM) Problem List Condition Effective Dates Status [...] # 75 unknown unit, 2 Refill(s), eRx: [facility] 04403, 1 VIALS INHALATION Q4HR,PRN: NEEDED FOR WHEEZING [...] pain, # 30 tabs, 0 Refill(s), Pharmacy: [facility] 41333 Start Date: 10/05/15 Status: Ordered Flonase 50 mcg/inh nasal spray 2 sprays, Nasal, BID, # 16 g, 11 Refill(s), Pharmacy: [facility] 33774 Start Date: 01/17/15 Status: Ordered folic acid 1 mg oral tablet See Instructions, TAKE TWO TABS TWICE A DAY, # 120 unknown unit, 5 Refill(s), eRx: [facility] 90063, TAKE TWO TABS TWICE A DAY Start Date: 08/22/15 Status: Ordered ibuprofen 800 mg oral tablet 800 mg 1 tabs, Oral, q8hr (scheduled), # 90 tabs, 0 Refill(s) Start Date: 11/14/15 Status: Ordered labetalol 100 mg oral tablet 100 mg 1 tabs, Oral, BID, # 60 tabs, 1 Refill(s), Pharmacy: [facility] 88578, 1 tabs Oral BID Start Date: 11/25/15 Status: Ordered levETIRAcetam 1000 mg oral tablet 1,000 mg 1 tabs, Oral, BID, # 60 tabs, 5 Refill(s), Pharmacy: [facility] 25823, 1 tabs Oral BID,x30 days Start Date: 12/21/15 Stop Date: 06/18/16 Status: Ordered lisinopril Oral, Daily, 0 Refill(s) Start Date: 12/16/15 Status: Ordered metFORMIN 500 mg oral tablet See Instructions, TAKE 1 TABLET (500MG) BY ORAL ROUTE 2 TIMES EVERY DAY WITH MORNING AND EVENING MEALS, # 60 unknown unit, 1 Refill(s), eRx: [facility] [id number], TAKE 1 TABLET (500MG) BY ORAL ROUTE [...] Daily, # 30 tabs, 0 Refill(s), Pharmacy: [facility] 18861, 1 tabs Oral Daily Start Date: 11/17/15 Status: Ordered Pulmicort Flexhaler 180 mcg/inh inhalation powder 1 puffs, Inhalation, BID, 0 Refill(s) Start Date: 04/28/14 Status: Ordered Singulair 10 mg oral tablet 1 tabs, Oral, qPM, # 30 tabs, 11 Refill(s), Pharmacy: [facility] 19780 , 1 tabs Oral qPM Start Date: 01/17/15 Status: Ordered Sprintec 0.25 mg-35 mcg oral tablet 1 tabs, Oral, Daily, # 28 tabs, 11 Refill(s), Pharmacy: [facility] 41691 Start Date: 12/30/15 Status: Ordered Ventolin HFA 90 mcg/inh inhalation aerosol 2 puffs, Inhalation, q4hr, as needed for wheezing, # 18 g, 3 Refill(s), Pharmacy : [facility] 23215, 2 puffs Inhalation q4hr,PRN:as needed for wheezing [...] Visit Note Author: Dieter Goldstein MD Date: 06/23/15 Assessment/Plan 1.Tonsillitis Continue zpack until gone. Symptomatic treatment with tylenol prn fever or ST. Note written for off work yesterday and today and tomorrow. Rest and drink plenty of fluids and let me know if not improving. Ordered: Office Visit Level 3 Est 99189
--- OUTSIDE RECORDS SUMMARY | 2018-09-11 20:10 | XMS REPORT | Referral Summary ---
Author Author [facility] Organization [facility] Address Unknown Phone Unavailable Care Team Providers Care Outdoor Emergency Care Technician Name Role Phone Dieter Goldstein PCP Encounter [facility] [id number] Date(s): 10/28/15 - 10/28/15 [facility] [address] [facility] [address] [place], [place] [address] Discharge Diagnosis: Discharge Disposition: 01-Home or Self Care Attending Physician: Bhupendra Nichols MD Admitting Physician: Bhupendra Nichols MD Vital Signs Most recent to 1 oldest [Reference Range]: Blood Pressure 132/74 mmHg [90-140/60-90 mmHg] (10/28/15 9:28 AM) Problem List Condition Effective Dates Status [...] # 75 unknown unit, 2 Refill(s), eRx: [facility] 60930, 1 VIALS INHALATION Q4HR,PRN: NEEDED FOR WHEEZING [...] pain, # 30 tabs, 0 Refill(s), Pharmacy: [facility] 57010 Start Date: 10/05/15 Status: Ordered Flonase 50 mcg/inh nasal spray 2 sprays, Nasal, BID, # 16 g, 11 Refill(s), Pharmacy: [facility] 72549 Start Date: 01/17/15 Status: Ordered folic acid 1 mg oral tablet See Instructions, TAKE TWO TABS TWICE A DAY, # 120 unknown unit, 5 Refill(s), eRx: [facility] 25481, TAKE TWO TABS TWICE A DAY Start Date: 08/22/15 Status: Ordered Glucometer (DME) DME Item Test QID DX: GDM #1, See Instructions, # 1 Each, 0 Refill(s), Pharmacy: [facility] 40547, Test QID; DX: GDM; #1, Supply Start Date: 10/28/15 Status: Ordered Glucometer Lancets (DME) DME Item Test QID #100 DX: GDM, See Instructions, # 100 Each, 3 Refill(s), Pharmacy: [facility] 80068, Test QID ; #100; DX: GDM, Supply Start Date: 10/28/15 Status: Ordered Glucometer strips (DME) DME Item Test QID DX: GDM #100, See Instructions, # 100 Each, 3 Refill(s), Pharmacy: [facility] 95747, Test QID ; DX: GDM ; #100, Supply Start Date: 10/28/15 Status: Ordered levETIRAcetam 1000 mg oral tablet 1,000 mg 1 tabs, Oral, BID, # 60 tabs, 5 Refill(s), Pharmacy: [facility] 33150, 1 tabs Oral BID Start Date: 06/29/15 Status: Ordered metFORMIN 500 mg oral tablet See Instructions, TAKE 1 TABLET (500MG) BY ORAL ROUTE 2 TIMES EVERY DAY WITH MORNING AND EVENING MEALS, # 60 unknown unit, eRx: [facility] 79471, TAKE 1 TABLET (500MG) BY ORAL ROUTE [...] qPM, # 30 tabs, 11 Refill(s), Pharmacy: [facility] 22048 , 1 tabs Oral qPM Start Date: 01/17/15 Status: Ordered Ventolin HFA 90 mcg/inh inhalation aerosol 2 puffs, Inhalation, q4hr, as needed for wheezing, # 18 g, 3 Refill(s), Pharmacy : [facility] 97388, 2 puffs Inhalation q4hr,PRN:as needed for wheezing [...]
--- OUTSIDE RECORDS SUMMARY | 2018-09-11 20:10 | XMS REPORT | Referral Summary ---
Author Author [facility] Organization [facility] Address Unknown Phone Unavailable Care Team Providers Care Certified Alcohol Counselor Name Role Phone Dieter Goldstein PCP Encounter [facility] [id number] Date(s): 12/09/15 - 12/09/15 [facility] [address] [facility] [address] [place], [place] [address] Discharge Disposition: 01-Home or Self [...] # 75 unknown unit, 2 Refill(s), eRx: [facility] 72901, 1 VIALS INHALATION Q4HR,PRN: NEEDED FOR WHEEZING Start Date: 03/10/15 Status: Ordered Mary-D 12 Hour 60 mg-120 mg oral tablet, extended release 1 tabs, Oral, q12hr, 0 Refill(s) Start Date: 04/28/14 Status: Ordered amoxicillin 500 mg oral tablet 500 mg 1 tabs, Oral, TID, X 10 days, # 30 tabs, 0 Refill(s), Pharmacy: [facility] 48336, 1 tabs Oral TID,x10 days Start Date: [...] pain, # 30 tabs, 0 Refill(s), Pharmacy: [facility] 65922 Start Date: 10/05/15 Status: Ordered Flonase 50 mcg/inh nasal spray 2 sprays, Nasal, BID, # 16 g, 11 Refill(s), Pharmacy: [facility] 45254 Start Date: 01/17/15 Status: Ordered folic acid 1 mg oral tablet See Instructions, TAKE TWO TABS TWICE A DAY, # 120 unknown unit, 5 Refill(s), eRx: [facility] 24642, TAKE TWO TABS TWICE A DAY Start Date: 08/22/15 Status: Ordered ibuprofen 800 mg oral tablet 800 mg 1 tabs, Oral, q8hr (scheduled), # 90 tabs, 0 Refill(s) Start Date: 11/14/15 Status: Ordered labetalol 100 mg oral tablet 100 mg 1 tabs, Oral, BID, # 60 tabs, 1 Refill(s), Pharmacy: [facility] 94145, 1 tabs Oral BID Start Date: 11/25/15 Status: Ordered levETIRAcetam 1000 mg oral tablet 1,000 mg 1 tabs, Oral, BID, # 60 tabs, 5 Refill(s), Pharmacy: [facility] 58788, 1 tabs Oral BID Start Date: 06/29/15 Status: Ordered metFORMIN 500 mg oral tablet See Instructions, TAKE 1 TABLET (500MG) BY ORAL ROUTE 2 TIMES EVERY DAY WITH MORNING AND EVENING MEALS, # 60 unknown unit, eRx: [facility] 89219, TAKE 1 TABLET (500MG) BY ORAL ROUTE [...] Daily, # 30 tabs, 0 Refill(s), Pharmacy: [facility] 63556, 1 tabs Oral Daily Start Date: 11/17/15 Status: Ordered Pulmicort Flexhaler 180 mcg/inh inhalation powder 1 puffs, Inhalation, BID, 0 Refill(s) Start Date: 04/28/14 Status: Ordered Singulair 10 mg oral tablet 1 tabs, Oral, qPM, # 30 tabs, 11 Refill(s), Pharmacy: [facility] 16611 , 1 tabs Oral qPM Start Date: 01/17/15 Status: Ordered Ventolin HFA 90 mcg/inh inhalation aerosol 2 puffs, Inhalation, q4hr, as needed for wheezing, # 18 g, 3 Refill(s), Pharmacy : [facility] [address]00, 2 puffs Inhalation q4hr,PRN:as needed for wheezing [...] smoker Assessment and Plan Extracted from: Title: nurse note Author: Stephanie Moy MA Date: 12/09/15 Pt presented today for an incision check. Incision is well healed. New packing was added and patient is continuing with home health BID. Pt instructed on wound hygiene. Will f/u in 1 wk, sooner if needed. Stephanie Moy MA Extracted from: Title: nurse note Author: Stephanie Moy MA Date: 12/02/15 Pt presented today for an incision check. Incision is well healed. New packing was added and patient is continuing with home health BID. Pt instructed on wound hygiene. Will f/u in 1 wk, sooner if needed. Stephanie Moy MA
--- OUTSIDE RECORDS SUMMARY | 2018-09-11 20:11 | XMS REPORT | Referral Summary ---
Author Author [facility] Organization [facility] Address Unknown Phone Unavailable Care Team Providers Care Horticultural Farmer Name Role Phone Dieter Goldstein PCP Encounter [facility] Date(s): 04/04/17 - 04/04/17 [facility] [address] [facility] [address] [place], [place] [address] Discharge Disposition: 01-Home or Self Care Attending Physician: Bhupendra Nichols MD Admitting Physician: Bhupendra Nichols MD Vital Signs Most recent to 1 oldest [Reference Range]: Blood Pressure 148/92 mmHg [90-140/60-90 mmHg] *HI* (04/04/17 3:55 PM) Problem List Condition Effective Dates Status [...] Daily, # 30 tabs, 11 Refill(s), Pharmacy: [facility] 94167, 1 tabs Oral Daily,x30 days Start Date: 08/20/16 Stop Date: 08/15/17 Status: Ordered diazePAM 5 mg oral tablet 5 mg 1 tabs, Oral, BID, as needed for anxiety, # 15 tabs, 0 Refill(s), called to pharmacy (Rx) Start Date: 04/02/17 Status: Ordered escitalopram 10 mg oral tablet 10 mg 1 tabs, Oral, Daily, # 30 tabs, 5 Refill(s), Pharmacy: [facility] [id number], 1 tabs Oral Daily,x30 days Start Date: [...] days, # 120 tabs, 11 Refill(s), Pharmacy: [facility] 81506, 2 tabs Oral BID,x30 days Start Date: 04/20/16 Stop Date: 04/15/17 Status: Ordered metFORMIN 500 mg oral tablet 500 mg 1 tabs, Oral, BID, X 30 days, # 60 tabs, 11 Refill(s), Pharmacy: [facility] 67673, 1 tabs Oral BID,x30 days Start Date: 08/20/16 Stop Date: 08/15/17 Status: Ordered OXcarbazepine 600 mg oral tablet 600 mg 1 tabs, Oral, BID, # 60 tabs, 11 Refill(s), Pharmacy: [facility] 37377, 1 tabs Oral BID Start Date: 12/31/16 [...] Daily, # 28 tabs, 3 Refill(s), Pharmacy: [facility] 21252 Start Date: 12/20/16 Status: Ordered Symbicort 160 mcg-4.5 mcg/inh inhalation aerosol 2 puffs, Inhalation, BID, rinse mouth and throat after use, # 1 Each, 11 Refill( s) Start Date: 04/02/17 Stop Date: 03/28/18 Status: Ordered Ventolin HFA 90 mcg/inh inhalation aerosol 2 puffs, Inhalation, q4hr, as needed for wheezing, # 18 g, 6 Refill(s), Pharmacy : [facility] 06535, 2 puffs Inhalation q4hr,PRN:as needed for wheezing [...]
--- OUTSIDE RECORDS SUMMARY | 2018-09-11 20:11 | XMS REPORT | Referral Summary ---
Author Author [facility] Organization [facility] Address Unknown Phone Unavailable Care Team Providers Care Brass Cleaner Name Role Phone Dieter Goldstein PCP Encounter Date(s): 04/12/17 - 04/12/17 [facility] [address] [facility] [address] [place], [place] [address] Discharge Disposition: 01-Home or Self Care Attending Physician: Soraya Guido APRN Admitting Physician: Soraya Guido APRN Referring Physician: Bhupendra Nichols MD Vital Signs Most recent to 1 oldest [Reference Range]: Blood Pressure 124/76 mmHg [90-140/60-90 mmHg] (04/12/17 1:36 PM) Problem List Condition Effective Dates Status [...] Daily, # 30 tabs, 11 Refill(s), Pharmacy: [facility] [id number], 1 tabs Oral Daily,x30 days Start Date: 08/20/16 Stop Date: 08/15/17 Status: Ordered diazePAM 5 mg oral tablet 5 mg 1 tabs, Oral, BID, as needed for anxiety, # 15 tabs, 0 Refill(s), called to pharmacy (Rx) Start Date: 04/02/17 Status: Ordered escitalopram 10 mg oral tablet 10 mg 1 tabs, Oral, Daily, # 30 tabs, 5 Refill(s), Pharmacy: [facility] [id number], 1 tabs Oral Daily,x30 days Start Date: [...] days, # 120 tabs, 11 Refill(s), Pharmacy: [facility] [id number], 2 tabs Oral BID,x30 days Start Date: 04/20/16 Stop Date: 04/15/17 Status: Ordered metFORMIN 500 mg oral tablet 500 mg 1 tabs, Oral, BID, X 30 days, # 60 tabs, 11 Refill(s), Pharmacy: [facility] [id number], 1 tabs Oral BID,x30 days Start Date: 08/20/16 Stop Date: 08/15/17 Status: Ordered OXcarbazepine 600 mg oral tablet 600 mg 1 tabs, Oral, BID, # 60 tabs, 11 Refill(s), Pharmacy: [facility] [id number], 1 tabs Oral BID Start Date: 12/31/16 [...] Daily, # 28 tabs, 3 Refill(s), Pharmacy: [facility] [id number] Start Date: 12/20/16 Status: Ordered Symbicort 160 mcg-4.5 mcg/inh inhalation aerosol 2 puffs, Inhalation, BID, rinse mouth and throat after use, # 1 Each, 11 Refill( s) Start Date: 04/02/17 Stop Date: 03/28/18 Status: Ordered Ventolin HFA 90 mcg/inh inhalation aerosol 2 puffs, Inhalation, q4hr, as needed for wheezing, # 18 g, 6 Refill(s), Pharmacy : [facility] [id number], 2 puffs Inhalation q4hr,PRN:as needed for wheezing [...] Extracted from: Title: Ambulatory Patient Education Author: Odilia Arthur Date: 04/12/17 Obstetrics and Gynecology Natural Family Planning Natural Family Planning (NFP) is a type of control without using any form of contraception. Women who use NFP should not have sexual intercourse when the ovary produces an egg (ovulation) during the menstrual cycle. The NFP method is safe and can prevent . It is 75% effective when practiced right. The man needs to also understand this method of control and the woman needs to be aware of how her body functions during her menstrual cycle. NFP can also be used as a method of getting . HOW THE NFP METHOD WORKS A woman's menstrual period usually happens every 28 30 days (it can vary from 23 35 days). Ovulation happens 12 14 days before the start of the next menstrual period (the fertile period). The egg is fertile for 24 hours and the sperm can live for 3 days or more. If there is sexual intercourse at this time, can occur. THERE ARE MANY TYPES OF NFP METHODS USED TO PREVENT The basal body temperature method. Often times, there is a slight increase of body temperature when a woman ovulates. Take your temperature every morning before getting out of bed. Write the temperature on a chart. An increase in the temperature shows ovulation has happened. Do not have sexual intercourse from the menstrual period up to three days after the increase in the temperature. Note that the body temperature may increase as a result of fever, restless sleep , and working schedules. The ovulation cervical mucus method. During the menstrual cycle, the cervical mucus changes from dry and sticky to wet and slippery. Check the mucus of the vagina every day to look for these changes. Just before ovulation, the mucus becomes wet and slippery. On the last day of wetness, ovulation happens. To avoid getting , sexual intercourse is safe for about 10 days after the menstrual period and on the dry mucus days. Do not have sexual intercourse when the mucus starts to show up and not until 4 days after the wet and slippery mucus goes away. Sexual intercourse after the 4 days have passed until the menstrual period starts is a safe time. Note that the mucus from the vagina can increase because of a vaginal or cervical infection, lubricants, some medicines , and sexual excitement. The symptothermal method. This method uses both the temperature and the ovulation methods. Combine the two methods above to prevent . The calendar method. Record your menstrual periods and length of the cycles for 6 months. This is helpful when the menstrual cycle varies in the length of the cycle. The length of a menstrual cycle is from day 1 of the present menstrual period to day 1 of the next menstrual period. Then, find your fertile days of the month and do not have sexual intercourse during that time. You may need help from your health care provider to find out your fertile days. There are some signs of ovulation that may be helpful when trying to find the time of ovulation. This includes vaginal spotting or abdominal cramps during the middle of your menstrual cycle. Not all women have these symptoms. YOU SHOULD NOT USE NFP IF: You have very irregular menstrual periods and may skip months. You have abnormal bleeding. You have a vaginal or cervical infection. You are on medicines that can affect the vaginal mucus or body temperature. These medicines include antibiotics, thyroid medicines, and antihistamines ( cold and allergy medicine). This information is not intended to replace advice given to you by your health care provider. Make sure you discuss any questions you have with your health care provider. Document Released: 04/29/2009 Document Revised: 11/16/2014 Document Reviewed: [employer] Patient Education 2016 [employer] No follow up information was provided.
--- OUTSIDE RECORDS SUMMARY | 2018-09-11 20:11 | XMS REPORT | Referral Summary ---
Author Author [facility] Organization [facility] Address Unknown Phone Unavailable Care Team Providers Care Soup Mixer Name Role Phone Dieter Goldstein PCP Encounter [facility] Date(s): 06/29/15 - 06/29/[address] [facility] [address] [facility] [address] [place], [place] [address] Discharge Diagnosis: Epilepsy Discharge Disposition: 01-Home or [...] # 75 unknown unit, 2 Refill(s), eRx: [facility] [id number], 1 VIALS INHALATION Q4HR,PRN: NEEDED FOR WHEEZING [...] pain, # 30 tabs, 0 Refill(s), Pharmacy: [facility] [id number] Start Date: 08/21/15 Status: Ordered Flonase 50 mcg/inh nasal spray 2 sprays, Nasal, BID, # 16 g, 11 Refill(s), Pharmacy: [facility] 13767 Start Date: 01/17/15 Status: Ordered folic acid 1 mg oral tablet See Instructions, TAKE TWO TABS TWICE A DAY, # 120 unknown unit, 5 Refill(s), eRx: [facility] [id number], TAKE TWO TABS TWICE A DAY Start Date: 08/22/15 Status: Ordered levETIRAcetam 1000 mg oral tablet 1,000 mg 1 tabs, Oral, BID, # 60 tabs, 5 Refill(s), Pharmacy: [facility] 87519, 1 tabs Oral BID Start Date: 06/29/15 Status: Ordered metFORMIN 500 mg oral tablet See Instructions, TAKE 1 TABLET (500MG) BY ORAL ROUTE 2 TIMES EVERY DAY WITH MORNING AND EVENING MEALS, # 60 unknown unit, eRx: [facility] [id number], TAKE 1 TABLET (500MG) BY ORAL ROUTE [...] qPM, # 30 tabs, 11 Refill(s), Pharmacy: [facility] [id number] , 1 tabs Oral qPM Start Date: 01/17/15 Status: Ordered Ventolin HFA 90 mcg/inh inhalation aerosol 2 puffs, Inhalation, q4hr, as needed for wheezing, # 18 g, 3 Refill(s), Pharmacy : [facility] [id number], 2 puffs Inhalation q4hr,PRN:as needed for wheezing [...]
--- OUTSIDE RECORDS SUMMARY | 2018-09-11 20:11 | XMS REPORT | Referral Summary ---
Author Author [facility] Organization [facility] Address Unknown Phone Unavailable Care Team Providers Care Mixing Tumbler Operator Name Role Phone Dieter Goldstein PCP Encounter [facility] Date(s): 01/20/16 - 01/20/16 [facility] [address] [place], [place] [address] Discharge Diagnosis: Viral URI with cough Discharge Diagnosis: GERD (gastroesophageal reflux disease) Discharge Disposition: 01-Home or Self Care Attending Physician: Dieter Goldstein MD Admitting Physician: Dieter Goldstein MD Vital Signs Most recent to 1 oldest [Reference Range]: Temperature Oral 36.7 degC [35.8-37.3 degC] (01/20/16 10:34 AM) Blood Pressure 118/66 mmHg [90-140/60-90 mmHg] (01/20/16 10:34 AM) Problem List Condition Effective Dates Status [...] hypertension(Confirm ed)1 (Confirmed) < 12/29/14 Resolved (Confirmed) 7/10/05 - 2005 Resolved Relative BMI greater Active than 30(Confirmed) Other Active convulsions(Confirme d) Sinus Active headache(Confirmed) 1Problem added by Discern Expert Allergies, Adverse Reactions, Alerts Substance Reaction Severity Status topiramate burning,itching and closed airwa Active Medications albuterol 2.5 mg/3 mL (0.083%) inhalation solution See Instructions, 1 VIALS INHALATION Q4HR,PRN: NEEDED FOR WHEEZING, # 75 unknown unit, 2 Refill(s), eRx: [facility] [id number], 1 VIALS INHALATION Q4HR,PRN: NEEDED FOR WHEEZING [...] pain, # 30 tabs, 0 Refill(s), Pharmacy: [facility] [id number] Start Date: 10/05/15 Status: Ordered Flonase 50 mcg/inh nasal spray 2 sprays, Nasal, BID, # 16 g, 11 Refill(s), Pharmacy: [facility] [id number] Start Date: 01/17/15 Status: Ordered folic acid 1 mg oral tablet See Instructions, TAKE TWO TABS TWICE A DAY, # 120 unknown unit, 5 Refill(s), eRx: [facility] [id number], TAKE TWO TABS TWICE A DAY Start Date: 08/22/15 Status: Ordered ibuprofen 800 mg oral tablet 800 mg 1 tabs, Oral, q8hr (scheduled), # 90 tabs, 0 Refill(s) Start Date: 11/14/15 Status: Ordered labetalol 100 mg oral tablet 100 mg 1 tabs, Oral, BID, # 60 tabs, 1 Refill(s), Pharmacy: [facility] [id number], 1 tabs Oral BID Start Date: 11/25/15 Status: Ordered levETIRAcetam 1000 mg oral tablet 1,000 mg 1 tabs, Oral, BID, # 60 tabs, 5 Refill(s), Pharmacy: [facility] [id number], 1 tabs Oral BID,x30 days Start Date: 12/21/15 Stop Date: 06/18/16 Status: Ordered metFORMIN 500 mg oral tablet See Instructions, TAKE 1 TABLET (500MG) BY ORAL ROUTE 2 TIMES EVERY DAY WITH MORNING AND EVENING MEALS, # 60 unknown unit, 1 Refill(s), eRx: [facility] [id number], TAKE 1 TABLET (500MG) BY ORAL ROUTE 2 TIMES EVERY DAY WITH MORNING AND EVENING MEALS Start Date: 12/23/15 Status: Ordered One-A-Day Women 1 tabs, Oral, Daily, 0 Refill(s) Start Date: 04/28/14 Status: Ordered OXcarbazepine 600 mg oral tablet 600 mg 1 tabs, Oral, BID, # 60 tabs, 11 Refill(s), Pharmacy: [facility] [id number], 1 tabs Oral BID Start Date: 01/13/16 Status: Ordered pantoprazole 40 mg oral delayed release tablet 40 mg 1 tabs, Oral, Daily, Take at least 1 hour after other medications., # 30 tabs, 5 Refill(s), Pharmacy: [facility] [id number], 1 tabs Oral Daily,x30 days,Instr:Take at least 1 hour after other medications. Start Date: 01/20/16 Stop Date: 07/18/16 Status: Ordered Pulmicort Flexhaler 180 mcg/inh inhalation powder 1 puffs, Inhalation, BID, 0 Refill(s) Start Date: 04/28/14 Status: Ordered ranitidine 150 mg oral capsule 150 mg 1 caps, Oral, Bedtime (once a day), # 30 caps, 5 Refill(s), Pharmacy: [facility] [id number], 1 caps Oral Bedtime (once a day),x30 days Start Date: 01/20/16 Stop Date: 07/18/16 Status: Ordered Singulair 10 mg oral tablet 1 tabs, Oral, qPM, # 30 tabs, 11 Refill(s), Pharmacy: [facility] [id number] , 1 tabs Oral qPM Start Date: 01/17/15 Status: Ordered Sprintec 0.25 mg-35 mcg oral tablet 1 tabs, Oral, Daily, # 28 tabs, 11 Refill(s), Pharmacy: [facility] [id number] Start Date: 12/30/15 Status: Ordered Ventolin HFA 90 mcg/inh inhalation aerosol 2 puffs, Inhalation, q4hr, as needed for wheezing, # 18 g, 3 Refill(s), Pharmacy : [facility] [id number], 2 puffs Inhalation q4hr,PRN:as needed for wheezing [...] Site Collection of venous blood by venipuncture 01/20/16 delivery only; 11/12/15 Section1 11/12/15 Dilatation and Curettage (Suction)2 12/29/14 wisdom teeth removed 1auto-populated from documented surgical case 2auto-populated from documented surgical case Social History Social History Type Response Smoking Status Never smoker Assessment and Plan Referrals to Other Providers GERD, referred to: Reginaldo Wolf MD Referred by: Dieter Goldstein MD
--- OUTSIDE RECORDS SUMMARY | 2018-09-11 20:11 | XMS REPORT | Referral Summary ---
Author Author [facility] Organization [facility] Address Unknown Phone Unavailable Care Team Providers Care Community Health Nurse Staff Name Role Phone Dieter Goldstein PCP Encounter [facility] [id number] Date(s): 05/02/15 - 05/02/15 [facility] [address] [facility] [address] [place], [place] [address] Discharge Diagnosis: Discharge Disposition: 01-Home or Self Care Attending Physician: Bhupendra Nichols MD Admitting Physician: Bhupendra Nichols MD Referring Physician: Bhupendra Nichols MD Vital Signs Most recent to 1 oldest [Reference Range]: Blood Pressure 128/76 mmHg [90-140/60-90 mmHg] (05/02/15 4:04 PM) Problem List Condition Effective Dates Status [...] # 75 unknown unit, 2 Refill(s), eRx: [facility] [id number], 1 VIALS INHALATION Q4HR,PRN: NEEDED FOR WHEEZING [...] pain, # 30 tabs, 0 Refill(s), Pharmacy: [facility] 34946 Start Date: 10/05/15 Status: Ordered Flonase 50 mcg/inh nasal spray 2 sprays, Nasal, BID, # 16 g, 11 Refill(s), Pharmacy: [facility] 12775 Start Date: 01/17/15 Status: Ordered folic acid 1 mg oral tablet See Instructions, TAKE TWO TABS TWICE A DAY, # 120 unknown unit, 5 Refill(s), eRx: [facility] [id number], TAKE TWO TABS TWICE A DAY Start Date: 08/22/15 Status: Ordered Glucometer (DME) DME Item Test QID DX: GDM #1, See Instructions, # 1 Each, 0 Refill(s), Pharmacy: [facility] 67491, Test QID; DX: GDM; #1, Supply Start Date: 10/28/15 Status: Ordered Glucometer Lancets (DME) DME Item Test QID #100 DX: GDM, See Instructions, # 100 Each, 3 Refill(s), Pharmacy: [facility] 42414, Test QID ; #100; DX: GDM, Supply Start Date: 10/28/15 Status: Ordered Glucometer strips (DME) DME Item Test QID DX: GDM #100, See Instructions, # 100 Each, 3 Refill(s), Pharmacy: [facility] 25600, Test QID ; DX: GDM ; #100, Supply Start Date: 10/28/15 Status: Ordered levETIRAcetam 1000 mg oral tablet 1,000 mg 1 tabs, Oral, BID, # 60 tabs, 5 Refill(s), Pharmacy: [facility] 56148, 1 tabs Oral BID Start Date: 06/29/15 Status: Ordered metFORMIN 500 mg oral tablet See Instructions, TAKE 1 TABLET (500MG) BY ORAL ROUTE 2 TIMES EVERY DAY WITH MORNING AND EVENING MEALS, # 60 unknown unit, eRx: [facility] [id number], TAKE 1 TABLET (500MG) BY ORAL ROUTE [...] qPM, # 30 tabs, 11 Refill(s), Pharmacy: [facility] 17428 , 1 tabs Oral qPM Start Date: 01/17/15 Status: Ordered Ventolin HFA 90 mcg/inh inhalation aerosol 2 puffs, Inhalation, q4hr, as needed for wheezing, # 18 g, 3 Refill(s), Pharmacy : [facility] 70275, 2 puffs Inhalation q4hr,PRN:as needed for wheezing [...]
--- OUTSIDE RECORDS SUMMARY | 2018-09-11 20:11 | XMS REPORT | Referral Summary ---
Author Author [facility] Organization [facility] Address Unknown Phone Unavailable Care Team Providers Care Food Products Sales Representative Name Role Phone Dieter Goldstein PCP Encounter [facility] Date(s): 04/26/17 - 04/26/17 [facility] [address] [place], [place] [address] Discharge Disposition: 01-Home or Self Care Attending Physician: Bhupendra Nichols MD Vital Signs No [...] - 2005 Resolved Relative BMI greater < 1215 Resolved than 30(Confirmed) Other Active convulsions(Confirme d) [...] Daily, # 30 tabs, 11 Refill(s), Pharmacy: [facility] 62952, 1 tabs Oral Daily,x30 days Start Date: 08/20/16 Stop Date: 08/15/17 Status: Ordered diazePAM 5 mg oral tablet 5 mg 1 tabs, Oral, BID, as needed for anxiety, # 15 tabs, 0 Refill(s), called to pharmacy (Rx) Start Date: 04/02/17 Status: Ordered escitalopram 10 mg oral tablet 10 mg 1 tabs, Oral, Daily, # 30 tabs, 5 Refill(s), Pharmacy: [facility] 81512, 1 tabs Oral Daily,x30 days Start Date: [...] 0 Refill(s) Start Date: 02/12/17 Status: Ordered metFORMIN 500 mg oral tablet 500 mg 1 tabs, Oral, BID, X 30 days, # 60 tabs, 11 Refill(s), Pharmacy: [facility] [id number], 1 tabs Oral BID,x30 days Start Date: 08/20/16 Stop Date: 08/15/17 Status: Ordered OXcarbazepine 600 mg oral tablet 600 mg 1 tabs, Oral, BID, # 60 tabs, 11 Refill(s), Pharmacy: [facility] [id number], 1 tabs Oral BID Start Date: 12/31/16 [...] Daily, # 28 tabs, 3 Refill(s), Pharmacy: [facility] [id number] Start Date: 12/20/16 Status: Ordered Symbicort 160 mcg-4.5 mcg/inh inhalation aerosol 2 puffs, Inhalation, BID, rinse mouth and throat after use, # 1 Each, 11 Refill( s) Start Date: 04/02/17 Stop Date: 03/28/18 Status: Ordered Ventolin HFA 90 mcg/inh inhalation aerosol 2 puffs, Inhalation, q4hr, as needed for wheezing, # 18 g, 6 Refill(s), Pharmacy : [facility] [id number], 2 puffs Inhalation q4hr,PRN:as needed for wheezing Start Date: 12/12/16 Status: Ordered Results Chemistry Most recent to 1 oldest [Reference Range]: Chol [0-199 mg/dL] 238 mg/dL *HI* (04/26/17 10:32 AM) Trig [0-149 mg/dL] 136 mg/dL (04/26/17 10:32 AM) HDL [40-84 mg/dL] 76 mg/dL (04/26/17 10:32 AM) LDL [0-130 mg/dL] 135 mg/dL *HI* (04/26/17 10:32 AM) VLDL Cholesterol 27 mg/dL [0-28 mg/dL] (04/26/17 10:32 AM) Cardiac Risk 3.1 [0.0-5.0] (04/26/17 10:32 AM) Immunizations Given and Recorded Vaccine Date Status Refusal Reason tetanus/diphth/pertuss (Tdap) adult/adol 09/30/15 Given influenza virus vaccine, inactivated 08/20/16 Given influenza virus vaccine, inactivated 09/09/15 Given influenza virus vaccine, inactivated1 08/26/14 Recorded 1Result Comment: [09/10/2014] See Scanned Document Procedures Procedure Date Related Diagnosis Body Site Collection of venous blood by venipuncture 04/26/17 delivery only; 11/12/15 Section1 11/12/15 Dilatation and Curettage (Suction)2 12/29/14 wisdom teeth removed 1auto-populated from documented surgical case 2auto-populated from documented surgical case Social History Social History Type Response Smoking Status Never smoker Assessment and Plan No data available for this section
--- OUTSIDE RECORDS SUMMARY | 2018-09-11 20:12 | XMS REPORT | Referral Summary ---
Author Author [facility] Organization [facility] Address Unknown Phone Unavailable Care Team Providers Care Professor Of Oceanography Name Role Phone Dieter Goldstein PCP Encounter [facility] Date(s): 02/20/17 - 02/20/17 [facility] [address] [place], [place] [address] Discharge Diagnosis: Complex partial seizures Discharge Diagnosis: Generalized anxiety disorder Discharge Diagnosis: Asthma Discharge Diagnosis: Hyponatremia Discharge Diagnosis: Essential hypertension Discharge Disposition: 01-Home or Self Care Attending Physician: Dieter Goldstein MD Vital Signs Most recent to 1 oldest [Reference Range]: Peripheral Pulse 59 bpm Rate [60-100 bpm] *LOW* (02/20/17 3:15 PM) Blood Pressure 120/90 mmHg [90-140/60-90 mmHg] (02/20/17 3:15 PM) SpO2 99 % (02/20/17 3:15 PM) Problem List Condition Effective Dates Status [...] -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(Confirm ed)2 (Confirmed) < 2 Resolved (Confirmed) 03/18/15 - [...] Daily, # 30 tabs, 11 Refill(s), Pharmacy: [email or web address] [id number], 1 tabs Oral Daily,x30 days Start Date: 08/20/16 Stop Date: 08/15/17 Status: Ordered Benadryl 25 mg, Oral, Bedtime (once a day), 0 Refill(s) Start Date: 02/12/17 Status: Ordered diazepam 5 mg, Oral, q4hr, as needed for anxiety, 0 Refill(s) Start Date: 02/12/17 Status: Ordered diazePAM 5 mg oral tablet 5 mg 1 tabs, Oral, BID, as needed for anxiety, # 15 tabs, 0 Refill(s), called to pharmacy (Rx) Start Date: 02/20/17 Status: Ordered escitalopram 10 mg oral tablet 10 mg 1 tabs, Oral, Daily, # 30 tabs, 5 Refill(s), Pharmacy: [email or web address] [id number], 1 tabs Oral Daily,x30 days Start Date: [...] days, # 120 tabs, 11 Refill(s), Pharmacy: [email or web address] [id number], 2 tabs Oral BID,x30 days Start Date: 04/20/16 Stop Date: 04/15/17 Status: Ordered metFORMIN 500 mg oral tablet 500 mg 1 tabs, Oral, BID, X 30 days, # 60 tabs, 11 Refill(s), Pharmacy: [email or web address] [id number], 1 tabs Oral BID,x30 days Start Date: 08/20/16 Stop Date: 08/15/17 Status: Ordered OXcarbazepine 600 mg oral tablet 600 mg 1 tabs, Oral, BID, # 60 tabs, 11 Refill(s), Pharmacy: [email or web address] [id number], 1 tabs Oral BID Start Date: 12/31/16 [...] Daily, # 28 tabs, 3 Refill(s), Pharmacy: [email or web address] [id number] Start Date: 12/20/16 Status: Ordered Ventolin HFA 90 mcg/inh inhalation aerosol 2 puffs, Inhalation, q4hr, as needed for wheezing, # 18 g, 6 Refill(s), Pharmacy : [email or web address] [id number], 2 puffs Inhalation q4hr,PRN:as needed for wheezing Start Date: 12/12/16 Status: Ordered Vitamin C 100 mg, Oral, Daily, as needed, 0 Refill(s) Start Date: 04/28/14 Status: Ordered Results Hematology Most recent to 1 oldest [Reference Range]: WBC [4.8-10.8 9.7 10*3/uL 10*3/uL] (02/20/17 4:04 PM) RBC [4.00-5.20] 4.71 (02/20/17 4:04 PM) Hgb [12.0-16.0 10.3 gm/dL gm/dL] *LOW* (02/20/17 4:04 PM) Hct [37.0-47.0 %] 32.0 % *LOW* (02/20/17 4:04 PM) MCV [82.0-99.0 fL] 67.9 fL *LOW* (02/20/17 4:04 PM) MCH [27.0-32.0 pg] 21.9 pg *LOW* (02/20/17 4:04 PM) MCHC [32.0-36.0 32.2 gm/dL gm/dL] (02/20/17 4:04 PM) RDW [11.5-14.5 %] 14.7 % *HI* (02/20/17 4:04 PM) Platelet [150-400 400 10*3/uL 10*3/uL] (02/20/17 4:04 PM) MPV [8.8-14.8 fL] 9.9 fL (02/20/17 4:04 PM) Immature 0.3 % Granulocytes (02/20/17 4:04 PM) [0.0-1.0 %] Neutrophils [51-75 64 % %] (02/20/17 4:04 PM) Lymphocytes [20-46 27 % %] (02/20/17 4:04 PM) Monocytes [4-11 %] 8 % (02/20/17 4:04 PM) Eosinophils [0-4 %] 0 % (02/20/17 4:04 PM) Basophils [0-2 %] 0 % (02/20/17 4:04 PM) Neutro Absolute 6.24 [1.90-7.00] (02/20/17 4:04 PM) Lymph Absolute 2.59 [0.80-3.30] (02/20/17 4:04 PM) [place] Absolute 0.81 [0.30-1.00] (02/20/17 4:04 PM) Eos Absolute 0.04 [0.00-0.50] (02/20/17 4:04 PM) Baso Absolute 0.03 [0.00-0.20] (02/20/17 4:04 PM) Chemistry Most recent to 1 oldest [Reference Range]: Sodium Lvl [135-144 135 mEq/L mEq/L] (02/20/17 4:04 PM) Potassium Lvl 3.5 mEq/L [3.5-5.2 mEq/L] (02/20/17 4:04 PM) Chloride [99-111 102 mEq/L mEq/L] (02/20/17 4:04 PM) CO2 [22-31 mEq/L] 21 mEq/L *LOW* (02/20/17 4:04 PM) AGAP [3-20] 12 (02/20/17 4:04 PM) BUN [7-19 mg/dL] 8 mg/dL (02/20/17 4:04 PM) Glucose Lvl [70-99 109 mg/dL mg/dL] *HI* (02/20/17 4:04 PM) Creatinine Lvl 0.72 mg/dL [0.57-1.11 mg/dL] (02/20/17 4:04 PM) eGFR [>60 mL/min] >60 mL/min 1 (02/20/17 4:04 PM) Calcium Lvl 8.9 mg/dL [8.4-10.2 mg/dL] (02/20/17 4:04 PM) Albumin Lvl [3.5-5.0 4.4 gm/dL gm/dL] (02/20/17 4:04 PM) Total Protein 6.8 gm/dL [6.1-7.7 gm/dL] (02/20/17 4:04 PM) Globulin [1.8-4.0 2.4 gm/dL gm/dL] (02/20/17 4:04 PM) ALT [0-55 U/L] 28 U/L (02/20/17 4:04 PM) AST [5-34 U/L] 14 U/L (02/20/17 4:04 PM) Alk Phos [40-150 62 U/L U/L] (02/20/17 4:04 PM) Bili Total [0.2-1.2 0.2 mg/dL mg/dL] (02/20/17 4:04 PM) 1Result Comment: Multiply eGFR results by 1.21 for race. Immunizations Given and Recorded Vaccine Date Status Refusal Reason tetanus/diphth/pertuss (Tdap) adult/adol 09/30/15 Given influenza virus vaccine, inactivated 08/20/16 Given influenza virus vaccine, inactivated 09/09/15 Given influenza virus vaccine, inactivated1 08/26/14 Recorded 1Result Comment: [09/10/2014] See Scanned Document Procedures Procedure Date Related Diagnosis Body Site Collection of venous blood by venipuncture 02/20/17 delivery only; 11/12/15 Section1 11/12/15 Dilatation and Curettage (Suction)2 12/29/14 wisdom teeth removed 1auto-populated from documented surgical case 2auto-populated from documented surgical case Social History Social History Type Response Smoking Status Never smoker Assessment and Plan No data available for this section
--- OUTSIDE RECORDS SUMMARY | 2018-09-11 20:12 | XMS REPORT | Referral Summary ---
Author Author [facility] Organization [facility] Address Unknown Phone Unavailable Care Team Providers Care Pharmacy Sales Assistant Name Role Phone Dieter Goldstein PCP Encounter [facility] [id number] Date(s): 10/14/15 - 10/14/15 [facility] [address] [facility] [address] [place], [place] [address] Discharge Diagnosis: Supervision of normal Discharge Disposition: 01-Home or Self Care Attending Physician: Margret Cornell PA-C Admitting Physician: Margret Cornell PA-C Vital Signs Most recent to 1 oldest [Reference Range]: Blood Pressure 128/80 mmHg [90-140/60-90 mmHg] (10/14/15 9:33 AM) Problem List Condition Effective Dates Status [...] # 75 unknown unit, 2 Refill(s), eRx: [facility] [id number], 1 VIALS INHALATION Q4HR,PRN: NEEDED FOR WHEEZING [...] pain, # 30 tabs, 0 Refill(s), Pharmacy: [facility] [id number] Start Date: 10/05/15 Status: Ordered Flonase 50 mcg/inh nasal spray 2 sprays, Nasal, BID, # 16 g, 11 Refill(s), Pharmacy: [facility] [id number] Start Date: 01/17/15 Status: Ordered folic acid 1 mg oral tablet See Instructions, TAKE TWO TABS TWICE A DAY, # 120 unknown unit, 5 Refill(s), eRx: [facility] [id number], TAKE TWO TABS TWICE A DAY Start Date: 08/22/15 Status: Ordered levETIRAcetam 1000 mg oral tablet 1,000 mg 1 tabs, Oral, BID, # 60 tabs, 5 Refill(s), Pharmacy: [facility] 77590, 1 tabs Oral BID Start Date: 06/29/15 Status: Ordered metFORMIN 500 mg oral tablet See Instructions, TAKE 1 TABLET (500MG) BY ORAL ROUTE 2 TIMES EVERY DAY WITH MORNING AND EVENING MEALS, # 60 unknown unit, eRx: [facility] [id number], TAKE 1 TABLET (500MG) BY ORAL ROUTE [...] qPM, # 30 tabs, 11 Refill(s), Pharmacy: [facility] [id number] , 1 tabs Oral qPM Start Date: 01/17/15 Status: Ordered Ventolin HFA 90 mcg/inh inhalation aerosol 2 puffs, Inhalation, q4hr, as needed for wheezing, # 18 g, 3 Refill(s), Pharmacy : [facility] 68182, 2 puffs Inhalation q4hr,PRN:as needed for wheezing [...]
--- OUTSIDE RECORDS SUMMARY | 2018-09-11 20:12 | XMS REPORT | Referral Summary ---
Author Author [facility] Organization [facility] Address Unknown Phone Unavailable Care Team Providers Care Mailroom Coordinator Name Role Phone Dieter Goldstein PCP Encounter [facility] [id number] Date(s): 12/09/15 - 12/09/15 [facility] [address] [facility] [address] [place], [place] [address] Discharge Disposition: 01-Home or Self Care Attending [...] # 75 unknown unit, 2 Refill(s), eRx: [facility] [id number], 1 VIALS INHALATION Q4HR,PRN: NEEDED FOR WHEEZING Start Date: 03/10/15 Status: Ordered Mary-D 12 Hour 60 mg-120 mg oral tablet, extended release 1 tabs, Oral, q12hr, 0 Refill(s) Start Date: 04/28/14 Status: Ordered amoxicillin 500 mg oral tablet 500 mg 1 tabs, Oral, TID, X 10 days, # 30 tabs, 0 Refill(s), Pharmacy: [facility] [id number], 1 tabs Oral TID,x10 days Start Date: [...] pain, # 30 tabs, 0 Refill(s), Pharmacy: [facility] 92201 Start Date: 10/05/15 Status: Ordered Flonase 50 mcg/inh nasal spray 2 sprays, Nasal, BID, # 16 g, 11 Refill(s), Pharmacy: [facility] [id number] Start Date: 01/17/15 Status: Ordered folic acid 1 mg oral tablet See Instructions, TAKE TWO TABS TWICE A DAY, # 120 unknown unit, 5 Refill(s), eRx: [facility] [id number], TAKE TWO TABS TWICE A DAY Start Date: 08/22/15 Status: Ordered ibuprofen 800 mg oral tablet 800 mg 1 tabs, Oral, q8hr (scheduled), # 90 tabs, 0 Refill(s) Start Date: 11/14/15 Status: Ordered labetalol 100 mg oral tablet 100 mg 1 tabs, Oral, BID, # 60 tabs, 1 Refill(s), Pharmacy: [facility] 94197, 1 tabs Oral BID Start Date: 11/25/15 Status: Ordered levETIRAcetam 1000 mg oral tablet 1,000 mg 1 tabs, Oral, BID, # 60 tabs, 5 Refill(s), Pharmacy: [facility] 16685, 1 tabs Oral BID Start Date: 06/29/15 Status: Ordered metFORMIN 500 mg oral tablet See Instructions, TAKE 1 TABLET (500MG) BY ORAL ROUTE 2 TIMES EVERY DAY WITH MORNING AND EVENING MEALS, # 60 unknown unit, eRx: [facility] [id number], TAKE 1 TABLET (500MG) BY ORAL ROUTE [...] Daily, # 30 tabs, 0 Refill(s), Pharmacy: [facility] 43258, 1 tabs Oral Daily Start Date: 11/17/15 Status: Ordered Pulmicort Flexhaler 180 mcg/inh inhalation powder 1 puffs, Inhalation, BID, 0 Refill(s) Start Date: 04/28/14 Status: Ordered Singulair 10 mg oral tablet 1 tabs, Oral, qPM, # 30 tabs, 11 Refill(s), Pharmacy: [facility] 06366 , 1 tabs Oral qPM Start Date: 01/17/15 Status: Ordered Ventolin HFA 90 mcg/inh inhalation aerosol 2 puffs, Inhalation, q4hr, as needed for wheezing, # 18 g, 3 Refill(s), Pharmacy : [facility] [id number], 2 puffs Inhalation q4hr,PRN:as needed for wheezing [...]
--- OUTSIDE RECORDS SUMMARY | 2018-09-11 20:12 | XMS REPORT | Referral Summary ---
Author Author [facility] Organization [facility] Address Unknown Phone Unavailable Care Team Providers Care Sheriff'S Sergeant Name Role Phone Dieter Goldstein PCP Encounter [facility] Date(s): 12/21/15 - 12/21/[address] [facility] [address] [facility] [address] [place], [place] [address] Discharge Diagnosis: Part epil w imp consc w/o intr epil Discharge Disposition: 01-Home or Self Care Attending Physician: Chau August APRN Admitting Physician: Chau August APRN Vital Signs Most recent to 1 oldest [Reference Range]: Peripheral Pulse 78 bpm Rate [60-100 bpm] (12/21/15 1:29 PM) Blood Pressure 120/80 mmHg [90-140/60-90 mmHg] (12/21/15 1:29 PM) Problem List Condition Effective Dates Status [...] # 75 unknown unit, 2 Refill(s), eRx: [facility] [id number], 1 VIALS INHALATION Q4HR,PRN: NEEDED FOR WHEEZING [...] pain, # 30 tabs, 0 Refill(s), Pharmacy: [facility] 16432 Start Date: 10/05/15 Status: Ordered Flonase 50 mcg/inh nasal spray 2 sprays, Nasal, BID, # 16 g, 11 Refill(s), Pharmacy: [facility] [id number] Start Date: 01/17/15 Status: Ordered folic acid 1 mg oral tablet See Instructions, TAKE TWO TABS TWICE A DAY, # 120 unknown unit, 5 Refill(s), eRx: [facility] [id number], TAKE TWO TABS TWICE A DAY Start Date: 08/22/15 Status: Ordered ibuprofen 800 mg oral tablet 800 mg 1 tabs, Oral, q8hr (scheduled), # 90 tabs, 0 Refill(s) Start Date: 11/14/15 Status: Ordered labetalol 100 mg oral tablet 100 mg 1 tabs, Oral, BID, # 60 tabs, 1 Refill(s), Pharmacy: [facility] [id number], 1 tabs Oral BID Start Date: 11/25/15 Status: Ordered levETIRAcetam 1000 mg oral tablet 1,000 mg 1 tabs, Oral, BID, # 60 tabs, 5 Refill(s), Pharmacy: [facility] 76720, 1 tabs Oral BID,x30 days Start Date: 12/21/15 Stop Date: 06/18/16 Status: Ordered lisinopril Oral, Daily, 0 Refill(s) Start Date: 12/16/15 Status: Ordered metFORMIN 500 mg oral tablet See Instructions, TAKE 1 TABLET (500MG) BY ORAL ROUTE 2 TIMES EVERY DAY WITH MORNING AND EVENING MEALS, # 60 unknown unit, eRx: [facility] [id number], TAKE 1 TABLET (500MG) BY ORAL ROUTE [...] Daily, # 30 tabs, 0 Refill(s), Pharmacy: [facility] 93266, 1 tabs Oral Daily Start Date: 11/17/15 Status: Ordered Pulmicort Flexhaler 180 mcg/inh inhalation powder 1 puffs, Inhalation, BID, 0 Refill(s) Start Date: 04/28/14 Status: Ordered Singulair 10 mg oral tablet 1 tabs, Oral, qPM, # 30 tabs, 11 Refill(s), Pharmacy: [facility] 49194 , 1 tabs Oral qPM Start Date: 01/17/15 Status: Ordered Ventolin HFA 90 mcg/inh inhalation aerosol 2 puffs, Inhalation, q4hr, as needed for wheezing, # 18 g, 3 Refill(s), Pharmacy : [facility] 95957, 2 puffs Inhalation q4hr,PRN:as needed for wheezing [...] smoker Assessment and Plan Extracted from: Title: Epilepsy follow-up Author: Chau August II SANITATION MANAGER Date: 12/21/15 Assessment/Plan Focal epilepsy 1. Start [id number] mgtwice a day and titrate up to 600 mg twice a day. Prescription and written instructions were provided to the patient. After she is onrecommended dose of Trileptal then we will begin tapering her off of the Keppra. 2. Scheduled to return to the clinic in 2 months for follow-up evaluation. This was a clinic visit of50 minuteswith greater than 50 percent of the time spent covering the following topics:Previous and current antiepileptic medication regimen. Review ofseveral medications that would replace the Keppra,instructions forthenew medication,discussion about medication and . All of her questions were addressed at this time. She is in agreement with this plan. I discussed the patient with the preceptor. The preceptor also was present for the ch portion of the encounter.
--- OUTSIDE RECORDS SUMMARY | 2018-09-11 20:12 | XMS REPORT | Referral Summary ---
Author Author [facility] Organization [facility] Address Unknown Phone Unavailable Care Team Providers Care Raisin Washer Name Role Phone Dieter Goldstein PCP Encounter [facility] [id number] Date(s): 07/15/15 - 07/15/15 [facility] [address] [facility] [address] [place], [place] [address] Discharge Diagnosis: Discharge Disposition: 01-Home or Self Care Attending Physician: Bhupendra Nichols MD Admitting Physician: Bhupendra Nichols MD Vital Signs Most recent to 1 oldest [Reference Range]: Blood Pressure 128/74 mmHg [90-140/60-90 mmHg] (07/15/15 8:46 AM) Problem List Condition Effective Dates Status [...] -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(Confirm ed)1 (Confirmed) < 2/03/09 Resolved (Confirmed) 06/03/05 - 2005 Resolved Relative BMI greater Active than 30(Confirmed) Other Active convulsions(Confirme d) Sinus Active headache(Confirmed) 1Problem added by Discern Expert Allergies, Adverse Reactions, Alerts Substance Reaction Severity Status topiramate burning,itching and closed airwa Active Medications albuterol 2.5 mg/3 mL (0.083%) inhalation solution See Instructions, 1 VIALS INHALATION Q4HR,PRN: NEEDED FOR WHEEZING, # 75 unknown unit, 2 Refill(s), eRx: [facility] [id number], 1 VIALS INHALATION Q4HR,PRN: NEEDED FOR WHEEZING Start Date: 03/10/15 Status: Ordered Mray-D 12 Hour 60 mg-120 mg oral tablet, [...] pain, # 30 tabs, 0 Refill(s), Pharmacy: [facility] [id number] Start Date: 10/05/15 Status: Ordered Flonase 50 mcg/inh nasal spray 2 sprays, Nasal, BID, # 16 g, 11 Refill(s), Pharmacy: [facility] [id number] Start Date: 01/17/15 Status: Ordered folic acid 1 mg oral tablet See Instructions, TAKE TWO TABS TWICE A DAY, # 120 unknown unit, 5 Refill(s), eRx: [facility] [id number], TAKE TWO TABS TWICE A DAY Start Date: 08/22/15 Status: Ordered ibuprofen 800 mg oral tablet 800 mg 1 tabs, Oral, q8hr (scheduled), # 90 tabs, 0 Refill(s) Start Date: 11/14/15 Status: Ordered labetalol 100 mg oral tablet 100 mg 1 tabs, Oral, BID, # 60 tabs, 1 Refill(s), Pharmacy: [facility] [id number], 1 tabs Oral BID Start Date: 11/25/15 Status: Ordered levETIRAcetam 1000 mg oral tablet 1,000 mg 1 tabs, Oral, BID, # 60 tabs, 5 Refill(s), Pharmacy: [facility] [id number], 1 tabs Oral BID,x30 days Start Date: 12/21/15 Stop Date: 06/18/16 Status: Ordered metFORMIN 500 mg oral tablet See Instructions, TAKE 1 TABLET (500MG) BY ORAL ROUTE 2 TIMES EVERY DAY WITH MORNING AND EVENING MEALS, # 60 unknown unit, 1 Refill(s), eRx: [facility] [id number], TAKE 1 TABLET (500MG) BY ORAL ROUTE 2 TIMES EVERY DAY WITH MORNING AND EVENING MEALS Start Date: 12/23/15 Status: Ordered One-A-Day Women 1 tabs, Oral, Daily, 0 Refill(s) Start Date: 04/28/14 Status: Ordered OXcarbazepine 600 mg oral tablet 600 mg 1 tabs, Oral, BID, # 60 tabs, 11 Refill(s), Pharmacy: [facility] 87201, 1 tabs Oral BID Start Date: 01/13/16 Status: Ordered pantoprazole 40 mg oral delayed release tablet 40 mg 1 tabs, Oral, Daily, Take at least 1 hour after other medications., # 30 tabs, 5 Refill(s), Pharmacy: [facility] [id number], 1 tabs Oral Daily,x30 days,Instr:Take at least 1 hour after other medications. Start Date: 01/20/16 Stop Date: 07/18/16 Status: Ordered Pulmicort Flexhaler 180 mcg/inh inhalation powder 1 puffs, Inhalation, BID, 0 Refill(s) Start Date: 04/28/14 Status: Ordered ranitidine 150 mg oral capsule 150 mg 1 caps, Oral, Bedtime (once a day), # 30 caps, 5 Refill(s), Pharmacy: [facility] 77677, 1 caps Oral Bedtime (once a day),x30 days Start Date: 01/20/16 Stop Date: 07/18/16 Status: Ordered Singulair 10 mg oral tablet 1 tabs, Oral, qPM, # 30 tabs, 11 Refill(s), Pharmacy: [facility] [id number] , 1 tabs Oral qPM Start Date: 01/17/15 Status: Ordered Sprintec 0.25 mg-35 mcg oral tablet 1 tabs, Oral, Daily, # 28 tabs, 11 Refill(s), Pharmacy: [facility] [id number] Start Date: 12/30/15 Status: Ordered Ventolin HFA 90 mcg/inh inhalation aerosol 2 puffs, Inhalation, q4hr, as needed for wheezing, # 18 g, 3 Refill(s), Pharmacy : [facility] 65120, 2 puffs Inhalation q4hr,PRN:as needed for wheezing [...]
--- OUTSIDE RECORDS SUMMARY | 2018-09-11 20:13 | XMS REPORT | Referral Summary ---
Author Author [facility] Organization [facility] Address Unknown Phone Unavailable Care Team Providers Care Buckshot Swage Operator Name Role Phone Dieter Goldstein PCP No PCP, Pt States PCP Encounter [facility] [id number] Date(s): 01/07/18 - 01/07/[address] [facility] [address] [facility] [address] [place], [place] [address] Encounter Diagnosis Partial symptomatic epilepsy with complex partial seizures, not intractable, without status epilepticus (Discharge Diagnosis) - 01/07/18 Discharge Disposition: 01-Home or Self Care Attending Physician: Lucrecia Oliva Admitting Physician: Lucrecia Oliva Vital Signs Most recent to 1 oldest [Reference Range]: Peripheral Pulse 80 bpm Rate [60-100 bpm] (01/07/18 8:59 AM) Blood Pressure 134/86 mmHg [90-140/60-90 mmHg] (01/07/18 8:59 AM) Problem List Condition Effective Dates Status [...] DAILY, # 30 tabs, 11 Refill(s), eRx: [facility] [id number] Start Date: 11/19/17 Status: Ordered butalbital/acetaminophen/caffeine 50 mg-325 mg-40 mg oral tablet See Instructions, TAKE 1 TABLET BY MOUTH FOUR TIMES DAILY NEEDED FOR HEADACHE , # 20 tabs, 2 Refill(s), eRx: [facility] [id number] Start Date: 12/02/17 Status: Ordered diazePAM 5 mg oral tablet 5 mg 1 tabs, Oral, BID, as needed for anxiety, # 15 tabs, 0 Refill(s), called to pharmacy (Rx) Start Date: 04/02/17 Status: Ordered escitalopram 10 mg oral tablet See Instructions, TAKE 1 TABLET BY MOUTH DAILY, # 30 tabs, 5 Refill(s), eRx: [facility] [id number] Start Date: 08/12/17 Status: Ordered ferrous sulfate 325 mg (65 mg elemental iron) oral delayed release tablet 325 mg 1 tabs, Oral, Daily, # 30 tabs, 0 Refill(s) Start Date: 02/14/17 Status: Ordered fluticasone 50 mcg/inh nasal spray See Instructions, INSTILL 2 SPRAYS IN EACH NOSTRIL TWICE DAILY, # 16 mL, 11 Refill(s), eRx: [facility] [id number] Start Date: 10/16/17 Status: Ordered folic acid 1 mg oral tablet See Instructions, TAKE 2 TABLETS BY MOUTH TWICE DAILY, # 120 tabs, 4 Refill(s), eRx: [facility] [id number], TAKE 2 TABLETS BY MOUTH TWICE DAILY Start Date: 05/02/17 Status: Ordered metFORMIN 500 mg oral tablet 500 mg 1 tabs, Oral, BID, # 60 tabs, 4 Refill(s), Pharmacy: [facility] 10794, 1 tabs Oral BID Start Date: 08/26/17 Status: Ordered montelukast 10 mg oral tablet See Instructions, TAKE 1 TABLET BY MOUTH EVERY EVENING, # 30 tabs, 5 Refill(s), eRx: [facility] [id number], TAKE 1 TABLET BY MOUTH EVERY EVENING Start Date: 12/12/17 Status: Ordered OXcarbazepine 600 mg oral tablet 600 mg 1 tabs, Oral, BID, # 60 tabs, 0 Refill(s), Pharmacy: [facility] 99908, 1 tabs Oral BID Start Date: 12/20/17 Status: Ordered pantoprazole 40 mg oral delayed release tablet See Instructions, TAKE 1 TABLET BY MOUTH ONCE DAILY AT LEAST 1 HOUR AFTER OTHER MEDICATIONS., # 30 tabs, eRx: [facility] [id number] Start Date: 12/30/17 Status: Ordered raNITIdine 150 mg oral capsule See Instructions, TAKE 1 CAPSULE BY MOUTH EVERY DAY AT BEDTIME FOR 30 DAYS, # 30 caps, 5 Refill(s), eRx: [facility] [id number], TAKE 1 CAPSULE BY MOUTH EVERY DAY [...] NEEDED FOR WHEEZING, # 18 g, eRx: [facility] [id number] Start Date: 2/5/18 Status: Ordered Results No data available for [...] smoker entered on: 05/24/14 Assessment and Plan Extracted from: Title: Office Visit Note Author: Lucrecia Oliva Date: 01/07/18 1.Partial symptomatic epilepsy with complex partial seizures, not intractable, without status epilepticus - Patient reports no seizure > 4 years, does have occasional aura -Patient reports difficulty with hyponatremia for almost one year; states her PCP has tried numerous treatments for this issue -Has not tried salt tablets, but if hyponatremia isn't resolved at next checkup, will potentially start these as well - PCP has ruled out other causes of hyponatremia and discussed may be from patient's current AED, oxcarbazepine -Discussed with patient that hyponatremia is a common side effect of oxcarbazepine but that typically until levels are under 130's or patient is extremely symptomatic, we do not change medication as she is seizure stable on current med - Patient would like to have repeatlab in 1 month to ascertain whether hyponatremia continues despite treatment - If so, she would like to try a medication change - She reports mild dizziness attimes and headaches which she attributes to the hyponatremia - Will obtain CBC, BMP, and oxcarbazepine level to check electrolytes, overall blood count and seewhat her current AED serum level is prior to medication changes - Discussed with patient that should we change medication, a period of no driving would be required and she would risk breakthrough seizure. Patient acknowledges risk. - Will see her back in 6 weeks and PRN Patient is in agreement with this plan and states all of her questions have been answered. More than half of30 minute visit encounter was spent in coordination of care and counseling the patient about the findings of the diagnostic studies and lab results, diagnosis, pathophysiology, treatment / follow up plan, medication side effects, seizure safety and answering questions. Discussed with preceptor. Addendum by Yoel, I have discussed and reviewed the patient with Lucrecia Oliva. I agree with the assessment Yuri Riley MD and plan documented above. on December People taking oxcarbazepine can have asymptomatic hyponatremia with sodium anat 2017 125-130. But agree can consider salt tablet through PCP if the patient is having 10:36:01 concerning hyponatremia. CLINICAL ENGINEER
--- OUTSIDE RECORDS SUMMARY | 2018-09-11 20:13 | XMS REPORT | Referral Summary ---
Author Organization Unknown Address Unknown Phone Unavailable Care Team Providers Care Die Fitter Name Role Phone Dieter Goldstein PCP Encounter [facility] Date(s): 12/29/14 - 12/29/[address] [address] Discharge Diagnosis: Missed ab Discharge Disposition: Home or Self Care Attending Physician: Bhupendra Nichols MD Admitting Physician: Bhupendra Nichols MD Vital Signs Most recent to 1 oldest [Reference Range]: Temperature Temporal 36.2 degC Artery [36.3-37.8 *LOW* degC] (12/29/14 2:35 PM) Apical Heart Rate 74 bpm [60-100 bpm] (12/29/14 11:19 AM) Peripheral Pulse 74 bpm Rate [60-100 bpm] (12/29/14 11:19 AM) Heart Rate Monitored 87 bpm [60-100 bpm] (12/29/14 3:35 PM) Respiratory Rate 14 br/min [14-20 br/min] (12/29/14 3:05 PM) Blood Pressure 122/81 mmHg [90-140/60-90 mmHg] (12/29/14 3:35 PM) Mean Arterial 90 mmHg Pressure, Cuff (12/29/14 3:35 PM) Most recent to 1 oldest [Reference Range]: SpO2 99 % (12/29/14 3:35 PM) Problem List Condition Effective Dates Status Health Status Informant Amenorrhea(Confirmed Active ) Anemia Active (disorder)(Confirmed ) Asthma(Confirmed) Active Complex partial Active seizures(Confirmed) Depression(Confirmed Active ) 22 wk SAB(Confirmed) 2006 Active Dizzy(Confirmed) Active History of chicken Active pox(Confirmed) H/O Active hypoglycemia(Confirm ed) H/O spina Active bifida(Confirmed) Irregular Active menses(Confirmed) Migraine Active headache(Confirmed) Spontaneous Active patient (Confirmed) Obesity Active (disorder)(Confirmed ) 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 (disorder)(Confirmed ) (Confirmed) 06/03/05 - 2005 Resolved Other Active convulsions(Confirme d) Sinus Active headache(Confirmed) Allergies, Adverse Reactions, Alerts Substance Reaction Severity Status topiramate burning,itching and closed airwa Active Medications Mary-D 12 Hour 60 mg-120 mg oral tablet, extended release 1 tabs, Oral, q12hr, 0 Refill(s) Start Date: 04/28/14 Status: Ordered Calcium Carbonate 500MG + D3 (1250 MG) 400 Unit Calcium Carbonate 500MG + D3 (1250 MG) 400 Unit, Take 1 Tablet by oral route every day, 0 Refill(s) Special Instructions: Take 1 Tablet by oral route every day Start Date: 04/28/14 Status: Ordered fluticasone 50 mcg/inh nasal spray 2 sprays, Nasal, Daily, 0 Refill(s) Start Date: 04/28/14 Status: Ordered folic acid 1 mg oral tablet See Instructions, TAKE TWO TABS TWICE A DAY, # 120 unknown unit, 5 Refill(s), eRx: [facility] [id number], TAKE TWO TABS TWICE A DAY Special Instructions: TAKE TWO TABS TWICE A DAY Start Date: 12/13/14 Status: Ordered levETIRAcetam 500 mg oral tablet See Instructions, TAKE 3 1/2 TABLETS BY MOUTH TWICE DAILY, # 210 tabs, 2 Refill( s), eRx: [facility] 24502, TAKE 3 1/2 TABLETS BY MOUTH TWICE DAILY Special Instructions: TAKE 3 1/2 TABLETS BY MOUTH TWICE DAILY Start Date: 12/13/14 Status: Ordered metFORMIN 500 mg oral tablet See Instructions, TAKE 1 TABLET (500MG) BY ORAL ROUTE 2 TIMES EVERY DAY WITH MORNING AND EVENING MEALS, # 60 unknown unit, 5 Refill(s), eRx: [facility] 23192, TAKE 1 TABLET (500MG) BY ORAL ROUTE 2 TIMES EVERY DAY WITH MORNING AND EVENING MEALS Special Instructions: TAKE 1 TABLET (500MG) BY ORAL ROUTE 2 TIMES EVERY DAY WITH MORNING AND EVENING MEALS Start Date: 12/13/14 Status: Ordered montelukast 10 mg oral tablet 1 tabs, Oral, qPM, # 30 tabs, 0 Refill(s) Start Date: 04/28/14 Status: Ordered One-A-Day Women 1 tabs, Oral, Daily, 0 Refill(s) Start Date: 04/28/14 Status: Ordered PARoxetine 10 mg oral tablet 1 tabs, Oral, Daily, # 30 tabs, 5 Refill(s), Pharmacy: [facility] 03105, 1 tabs Oral Daily Start Date: 08/26/14 Status: Ordered Pulmicort Flexhaler 180 mcg/inh inhalation powder 1 puffs, Inhalation, BID, 0 Refill(s) Start Date: 04/28/14 Status: Ordered Ventolin HFA 90 mcg/inh inhalation aerosol 2 puffs, Inhalation, q4hr, as needed for wheezing, # 8 g, 0 Refill(s) Start Date: 04/28/14 Status: Ordered Vimpat 50 mg oral tablet 1 tabs, Oral, BID, # 60 tabs, 6 Refill(s) Start Date: 09/07/14 Status: Ordered Vitamin C 100 mg, Oral, Daily, 0 Refill(s) Start Date: 04/28/14 Status: Ordered Results Hematology Most recent to 1 oldest [Reference Range]: Hgb [12.0-16.0 12.1 gm/dL gm/dL] (12/29/14 11:29 AM) Hct [37.0-47.0 %] 37.9 % (12/29/14 11:29 AM) Chemistry Most recent to 1 oldest [Reference Range]: Blood Glucose, 84 mg/dL Capillary [70-100 (12/29/14 11:27 AM) mg/dL] Blood Bank Results Most recent to 1 oldest [Reference Range]: ABO/Rh A POS (12/29/14 11:29 AM) Antibody Screen Tube NEG (12/29/14 11:29 AM) Immunizations Vaccine Date Refusal Reason influenza virus vaccine, inactivated1 08/26/14 1Result Comment: [09/10/2014] See Scanned Document Procedures Procedure Date Related Diagnosis Body Site Dilatation and Curettage (Suction)1 12/29/14 wisdom teeth removed 1auto-populated from documented surgical case Social History Social History Type Response Smoking Status Never smoker Assessment and Plan Extracted from: Title: H&P Author: Bhupendra Nichols MD Date: 12/29/14 Impression and Plan Diagnosis Missed ab (ICD9 632, Discharge, Medical). Plan: will proceed with suction d&c. r/b/a discussed. questions invited and answered to patient's satisfaction. .
--- OUTSIDE RECORDS SUMMARY | 2018-09-11 20:13 | XMS REPORT | Referral Summary ---
Author Author [facility] Organization [facility] Address Unknown Phone Unavailable Care Team Providers Care Skirt Trimmer Name Role Phone Dieter Goldstein PCP Encounter [facility] Date(s): 04/26/17 - 04/26/17 [facility] [address] [place], [place] [address] Discharge Disposition: 01-Home or Self Care [...] - 2005 Resolved Relative BMI greater < 121815 Resolved than 30(Confirmed) Other Active convulsions(Confirme d) [...] Daily, # 30 tabs, 11 Refill(s), Pharmacy: [facility] [id number], 1 tabs Oral Daily,x30 days Start Date: 08/20/16 Stop Date: 08/15/17 Status: Ordered diazePAM 5 mg oral tablet 5 mg 1 tabs, Oral, BID, as needed for anxiety, # 15 tabs, 0 Refill(s), called to pharmacy (Rx) Start Date: 04/02/17 Status: Ordered escitalopram 10 mg oral tablet 10 mg 1 tabs, Oral, Daily, # 30 tabs, 5 Refill(s), Pharmacy: [facility] 10062, 1 tabs Oral Daily,x30 days Start Date: [...] days, # 60 tabs, 11 Refill(s), Pharmacy: [facility] 20414, 1 tabs Oral BID,x30 days Start Date: 08/20/16 Stop Date: 08/15/17 Status: Ordered OXcarbazepine 600 mg oral tablet 600 mg 1 tabs, Oral, BID, # 60 tabs, 11 Refill(s), Pharmacy: [facility] 07404, 1 tabs Oral BID Start Date: 12/31/16 [...] Daily, # 28 tabs, 3 Refill(s), Pharmacy: [facility] 60224 Start Date: 12/20/16 Status: Ordered Symbicort 160 mcg-4.5 mcg/inh inhalation aerosol 2 puffs, Inhalation, BID, rinse mouth and throat after use, # 1 Each, 11 Refill( s) Start Date: 04/02/17 Stop Date: 03/28/18 Status: Ordered Ventolin HFA 90 mcg/inh inhalation aerosol 2 puffs, Inhalation, q4hr, as needed for wheezing, # 18 g, 6 Refill(s), Pharmacy : [facility] 90529, 2 puffs Inhalation q4hr,PRN:as needed for wheezing [...]
--- OUTSIDE RECORDS SUMMARY | 2018-09-11 20:13 | XMS REPORT | Referral Summary ---
Author Author [facility] Organization [facility] Address Unknown Phone Unavailable Care Team Providers Care Director Paid Media Name Role Phone Dieter Goldstein PCP Encounter [facility] [id number] Date(s): 07/03/17 - 07/03/17 [facility] [address], [facility] [address] [place], [place] [address] Discharge Diagnosis: Essential hypertension Discharge Diagnosis: Generalized anxiety disorder Discharge Diagnosis: Anemia (disorder) Discharge Disposition: 01-Home or Self Care Attending Physician: Dieter Goldstein MD Vital Signs Most recent to 1 oldest [Reference Range]: Blood Pressure 142/82 mmHg [90-140/60-90 mmHg] *HI* (07/03/17 9:01 AM) Problem List Condition Effective Dates Status [...] disorder Active 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 88483, 1 tabs Oral Daily,x30 days Start Date: 08/20/16 Stop Date: 08/15/17 Status: Ordered diazePAM 5 mg oral tablet 5 mg 1 tabs, Oral, BID, as needed for anxiety, # 15 tabs, 0 Refill(s), called to pharmacy (Rx) Start Date: 04/02/17 Status: Ordered escitalopram 10 mg oral tablet 10 mg 1 tabs, Oral, Daily, # 30 tabs, 5 Refill(s), Pharmacy: [facility] 79286, 1 tabs Oral Daily,x30 days Start Date: [...] DAILY, # 120 tabs, 4 Refill(s), eRx: [facility] 20999, TAKE 2 TABLETS BY MOUTH TWICE DAILY Start Date: 05/02/17 Status: Ordered metFORMIN 500 mg oral tablet 500 mg 1 tabs, Oral, BID, X 30 days, # 60 tabs, 11 Refill(s), Pharmacy: [facility] 97078, 1 tabs Oral BID,x30 days Start Date: 08/20/16 Stop Date: 08/15/17 Status: Ordered OXcarbazepine 600 mg oral tablet 600 mg 1 tabs, Oral, BID, # 60 tabs, 11 Refill(s), Pharmacy: [facility] 43559, 1 tabs Oral BID Start Date: 12/31/16 Status: Ordered pantoprazole 40 mg oral delayed release tablet See Instructions, TAKE 1 TABLET BY MOUTH ONCE DAILY AT LEAST 1 HOUR AFTER OTHER MEDICATIONS., # 30 tabs, 5 Refill(s), eRx: [facility] 47403, TAKE 1 TABLET BY MOUTH ONCE DAILY AT LEAST 1 HOUR AFTER OTHER MEDICATIONS. Start Date: 06/28/17 Status: Ordered raNITIdine 150 mg oral capsule See Instructions, TAKE 1 CAPSULE BY MOUTH EVERY DAY AT BEDTIME FOR 30 DAYS, # 30 caps, 5 Refill(s), eRx: [facility] 77219, TAKE 1 CAPSULE BY MOUTH EVERY DAY [...] # 18 g, 6 Refill(s), Pharmacy : [facility] 51828, 2 puffs Inhalation q4hr,PRN:as needed for wheezing Start Date: 12/12/16 Status: Ordered Results Hematology Most recent to 1 oldest [Reference Range]: WBC [4.8-10.8 7.3 10*3/uL 10*3/uL] (07/03/17 9:47 AM) RBC [4.00-5.20] 5.45 *HI* (07/03/17 9:47 AM) Hgb [12.0-16.0 11.8 gm/dL gm/dL] *LOW* (07/03/17 9:47 AM) Hct [37.0-47.0 %] 37.5 % (07/03/17 9:47 AM) MCV [82.0-99.0 fL] 68.8 fL *LOW* (07/03/17 9:47 AM) MCH [27.0-32.0 pg] 21.7 pg *LOW* (07/03/17:47 AM) MCHC [32.0-36.0 31.5 gm/dL gm/dL] *LOW* (07/03/17 9:47 AM) RDW [11.5-14.5 %] 15.3 % *HI* (07/03/17 9:47 AM) Platelet [150-400 384 10*3/uL 10*3/uL] (07/03/17 9:47 AM) MPV [8.8-14.8 fL] 10.4 fL (07/03/17 9:47 AM) Immature 0.3 % Granulocytes (07/03/17 9:47 AM) [0.0-1.0 %] Neutrophils [51-75 64 % %] (07/03/17 9:47 AM) Lymphocytes [20-46 24 % %] (07/03/17 9:47 AM) Monocytes [4-11 %] 10 % (07/03/17 9:47 AM) Eosinophils [0-4 %] 1 % (07/03/17 9:47 AM) Basophils [0-2 %] 0 % (07/03/17 9:47 AM) Neutro Absolute 4.64 [1.90-7.00] (07/03/17 9:47 AM) Lymph Absolute 1.77 [0.80-3.30] (07/03/17 9:47 AM) Grimes Absolute 0.75 [0.30-1.00] (07/03/17 9:47 AM) Eos Absolute 0.07 [0.00-0.50] (07/03/17 9:47 AM) Baso Absolute 0.02 [0.00-0.20] (07/03/17 9:47 AM) Immunizations Given and Recorded Vaccine Date Status Refusal Reason influenza virus vaccine, inactivated 08/20/16 Given influenza virus vaccine, inactivated 09/09/15 Given influenza virus vaccine, inactivated1 08/26/14 Recorded tetanus/diphth/pertuss (Tdap) adult/adol 09/30/15 Given 1Result Comment: [09/10/2014] See Scanned Document Procedures Procedure Date Related Diagnosis Body Site Collection of venous blood by venipuncture 07/03/17 delivery only; 11/12/15 Section1 11/12/15 Dilatation and Curettage (Suction)2 12/29/14 wisdom teeth removed 1auto-populated from documented surgical case 2auto-populated from documented surgical case Social History Social History Type Response Smoking Status Never smoker Assessment and Plan Extracted from: Title: Office Visit Note Author: Dieter Goldstein MD Date: 07/03/17 1.Essential hypertension Will decrease amlodipine to 5mg daily and have her check bps at home to make sure it is notgetting high. Low salt diet and weight loss encouraged. She will contact the stripe matcher and set up an appt. Recheck appt. in 3 months. Ordered: CBC w/ Differential Office Visit Level 4 Est 09112 2.Anemia (disorder) CBC today. If still anemic will increase iron to bid. Hopefully less periods due to Mirena will also help. Ordered: CBC w/ Differential Office Visit Level 4 Est 07693 3.Generalized anxiety disorder Continue lexapro 10mg daily Vivien reassured her she is doing a good job as a parent. Ordered: CBC w/ Differential Office Visit Level 4 Est 06179
--- OUTSIDE RECORDS SUMMARY | 2018-09-11 20:14 | XMS REPORT | Referral Summary ---
Author Author [facility] Organization [facility] Address Unknown Phone Unavailable Care Team Providers Care Illuminator Name Role Phone Dieter Goldstein PCP Encounter [facility] Date(s): 05/22/16 - 05/22/16 [facility] [address] [place], [place] [address] Discharge Diagnosis: Lightheadedness Discharge Diagnosis: Essential hypertension Discharge Diagnosis: Anemia (disorder) Discharge Diagnosis: Asthma Discharge Disposition: 01-Home or Self Care Attending Physician: Dieter Goldstein MD Vital Signs Most recent to 1 oldest [Reference Range]: Peripheral Pulse 64 bpm Rate [60-100 bpm] (05/22/16 11:42 AM) Blood Pressure 92/54 mmHg [90-140/60-90 mmHg] (05/22/16 11:42 AM) Problem List Condition Effective Dates Status [...] # 60 Each , 11 Refill(s), Pharmacy: [facility] 36032, 1 VIALS INHALATION Q4HR, PRN: NEEDED FOR WHEEZING Start Date: 05/22/16 Status: Ordered Mary-D 12 Hour 60 mg-120 mg oral tablet, extended release 1 tabs, Oral, q12hr, 0 Refill(s) Start Date: 04/28/14 Status: Ordered amLODIPine 5 mg oral tablet 5 mg 1 tabs, Oral, Daily, # 30 tabs, 11 Refill(s), Pharmacy: [facility] 42461, 1 tabs Oral Daily,x30 days Start Date: 04/20/16 Stop Date: 04/15/17 Status: Ordered Calcium Carbonate 500MG + D3 (1250 MG) 400 Unit Calcium Carbonate 500MG + D3 (1250 MG) 400 Unit, Take 1 Tablet by oral route every day, 0 Refill(s) Start Date: 04/28/14 Status: Ordered Flonase 50 mcg/inh nasal spray See Instructions, 2 SPRAYS NASAL BID, # 16 g, 5 Refill(s), eRx: [facility] 24754, 2 SPRAYS NASAL BID Start Date: 02/24/16 Status: Ordered folic acid 1 mg oral tablet 2 mg 2 tabs, Oral, BID, X 30 days, # 120 tabs, 11 Refill(s), Pharmacy: [facility] 70936, 2 tabs Oral BID,x30 days Start Date: 04/20/16 Stop Date: 04/15/17 Status: Ordered metFORMIN 500 mg oral tablet See Instructions, TAKE 1 TABLET (500MG) BY ORAL ROUTE 2 TIMES EVERY DAY WITH MORNING AND EVENING MEALS, # 60 unknown unit, 5 Refill(s), eRx: [facility] 51474, TAKE 1 TABLET (500MG) BY ORAL ROUTE 2 TIMES EVERY DAY WITH MORNING AND EVENING MEALS Start Date: 02/24/16 Status: Ordered OXcarbazepine 600 mg oral tablet 600 mg 1 tabs, Oral, BID, # 60 tabs, 11 Refill(s), Pharmacy: [facility] 33949, 1 tabs Oral BID Start Date: 01/13/16 Status: Ordered pantoprazole 40 mg oral delayed release tablet 40 mg 1 tabs, Oral, Daily, Take at least 1 hour after other medications., # 30 tabs, 5 Refill(s), Pharmacy: [facility] 12455, 1 tabs Oral Daily,x30 days,Instr:Take at least 1 hour after other medications. Start Date: 01/20/16 Stop Date: 07/18/16 Status: Ordered Pulmicort Flexhaler 180 mcg/inh inhalation powder 1 puffs, Inhalation, BID, 0 Refill(s) Start Date: 04/28/14 Status: Ordered ranitidine 150 mg oral capsule 150 mg 1 caps, Oral, Bedtime (once a day), # 30 caps, 5 Refill(s), Pharmacy: [facility] 44565, 1 caps Oral Bedtime (once a day),x30 days Start Date: 01/20/16 Stop Date: 07/18/16 Status: Ordered Singulair 10 mg oral tablet 10 mg 1 tabs, Oral, qPM, # 30 tabs, 11 Refill(s), Pharmacy: [facility] 71441, 1 tabs Oral qPM Start Date: 01/25/16 Status: Ordered Sprintec 0.25 mg-35 mcg oral tablet 1 tabs, Oral, Daily, # 28 tabs, 11 Refill(s), Pharmacy: [facility] 90602 Start Date: 12/30/15 Status: Ordered Ventolin HFA 90 mcg/inh inhalation aerosol 2 puffs, Inhalation, q4hr, as needed for wheezing, # 18 g, 3 Refill(s), Pharmacy : [facility] 44802, 2 puffs Inhalation q4hr,PRN:as needed for wheezing Start Date: 03/10/15 Status: Ordered Vitamin C 100 mg, Oral, Daily, 0 Refill(s) Start Date: 04/28/14 Status: Ordered Results Hematology Most recent to 1 oldest [Reference Range]: WBC [4.8-10.8 5.9 10*3/uL 10*3/uL] (05/22/16 12:02 PM) RBC [4.00-5.20] 5.44 *HI* (05/22/16 12: PM) Hgb [12.0-16.0 11.9 gm/dL gm/dL] *LOW* (05/22/16: PM) Hct [37.0-47.0 %] 35.5 % *LOW* (05/22/16: PM) MCV [82.0-99.0 fL] 65.3 fL *LOW* (05/22/16: PM) MCH [27.0-32.0 pg] 21.9 pg *LOW* (05/22/16: PM) MCHC [32.0-36.0 33.5 gm/dL gm/dL] (05/22/16 12:02 PM) RDW [11.5-14.5 %] 17.1 % *HI* (05/22/16 12: PM) Platelet [150-400 391 10*3/uL 10*3/uL] (05/22/16 12:02 PM) MPV [8.8-14.8 fL] 10.4 fL (05/22/16 12:02 PM) Neutrophils [51-75 70 % %] (05/22/16 12: PM) Lymphocytes [20-46 20 % %] (05/22/16 12: PM) Monocytes [4-11 %] 10 % (05/22/16 12:02 PM) Eosinophils [0-4 %] 0 % (05/22/16: PM) Basophils [0-2 %] 0 % (05/22/16: PM) Neutro Absolute 4.13 10*3 [1.90-7.00 10*3] (05/22/16 12:02 PM) Lymph Absolute 1.18 10*3 [0.80-3.30 10*3] (05/22/16 12: PM) Alfalfa Absolute 0.59 10*3 [0.30-1.00 10*3] (05/22/16 12:02 PM) Eos Absolute 0.00 10*3 [0.00-0.50 10*3] (05/22/16 12:02 PM) Baso Absolute 0.00 10*3 [0.00-0.20 10*3] (05/22/16 12:02 PM) Differential Manual *ABN* (05/22/16: PM) Chemistry Most recent to 1 oldest [Reference Range]: Sodium Lvl [135-144 137 mEq/L mEq/L] (05/22/16: PM) Potassium Lvl 4.3 mEq/L [3.5-5.2 mEq/L] (05/22/16: PM) Chloride [99-111 108 mEq/L mEq/L] (05/22/16: PM) CO2 [22-31 mEq/L] 18 mEq/L *LOW* (05/22/16: PM) AGAP [3-20] 11 (05/22/16: PM) BUN [7-19 mg/dL] 12 mg/dL (05/22/16 12:02 PM) Glucose Lvl [70-99 104 mg/dL mg/dL] *HI* (05/22/16 12: PM) Creatinine Lvl 0.74 mg/dL [0.57-1.11 mg/dL] (05/22/16 12: PM) eGFR [>60 mL/min] >60 mL/min 1 (05/22/16: PM) Calcium Lvl 9.0 mg/dL [8.9-10.5 mg/dL] (05/22/16: PM) Albumin Lvl [3.5-5.0 4.4 gm/dL gm/dL] (05/22/16 12:02 PM) Total Protein 7.0 gm/dL [6.4-8.3 gm/dL] (05/22/16 12: PM) Globulin [1.8-4.0 2.6 gm/dL gm/dL] (05/22/16 12:02 PM) ALT [0-55 U/L] 37 U/L (6/28/16 12:02 PM) AST [5-34 U/L] 22 U/L (05/22/16 12:02 PM) Alk Phos [40-150 73 U/L U/L] (05/22/16 12:02 PM) Bili Total [0.2-1.2 0.2 mg/dL mg/dL] (05/22/16 12:02 PM) TSH with Reflex Free 1.60 T4 [0.35-4.94] (05/22/16 12:02 PM) 1Result Comment: Multiply eGFR results by [...]
--- OUTSIDE RECORDS SUMMARY | 2018-09-11 20:14 | XMS REPORT | Referral Summary ---
Author Author [facility] Organization [facility] Address Unknown Phone Unavailable Care Team Providers Care Ethylene Plant Helper Name Role Phone Dieter Goldstein PCP Encounter [facility] [id number] Date(s): 10/13/15 - 10/13/15 [facility] [address] [place], [place] [address] Discharge Diagnosis: Discharge Diagnosis: Complex partial seizures Discharge Disposition: 01-Home or Self Care Attending Physician: Dieter Garay MD Admitting Physician: Dieter Garay MD Referring Physician: Bhupendra Nichols MD Vital Signs Most recent to 1 oldest [Reference Range]: Peripheral Pulse 87 bpm Rate [60-100 bpm] (10/13/15 9:01 AM) Blood Pressure 119/82 mmHg [90-140/60-90 mmHg] (10/13/15 9:29 AM) Problem List Condition Effective Dates Status [...] # 75 unknown unit, 2 Refill(s), eRx: [facility] [id number], 1 VIALS INHALATION Q4HR,PRN: NEEDED FOR WHEEZING [...] pain, # 30 tabs, 0 Refill(s), Pharmacy: [facility] 30029 Start Date: 10/05/15 Status: Ordered Flonase 50 mcg/inh nasal spray 2 sprays, Nasal, BID, # 16 g, 11 Refill(s), Pharmacy: [facility] 15625 Start Date: 01/17/15 Status: Ordered folic acid 1 mg oral tablet See Instructions, TAKE TWO TABS TWICE A DAY, # 120 unknown unit, 5 Refill(s), eRx: [facility] [id number], TAKE TWO TABS TWICE A DAY Start Date: 08/22/15 Status: Ordered levETIRAcetam 1000 mg oral tablet 1,000 mg 1 tabs, Oral, BID, # 60 tabs, 5 Refill(s), Pharmacy: [facility] 04980, 1 tabs Oral BID Start Date: 06/29/15 Status: Ordered metFORMIN 500 mg oral tablet See Instructions, TAKE 1 TABLET (500MG) BY ORAL ROUTE 2 TIMES EVERY DAY WITH MORNING AND EVENING MEALS, # 60 unknown unit, eRx: [facility] [id number], TAKE 1 TABLET (500MG) BY ORAL ROUTE [...] qPM, # 30 tabs, 11 Refill(s), Pharmacy: [facility] 38430 , 1 tabs Oral qPM Start Date: 01/17/15 Status: Ordered Ventolin HFA 90 mcg/inh inhalation aerosol 2 puffs, Inhalation, q4hr, as needed for wheezing, # 18 g, 3 Refill(s), Pharmacy : [facility] 44399, 2 puffs Inhalation q4hr,PRN:as needed for wheezing [...] from: Title: Office Visit Note Author: Dieter Garay MD Date: 10/13/15 Assessment/Plan Complex partial seizures Patient is currently stable from the perspective of seizure activity. No additional follow-up with MFM requested at this time. Interval growth has been appropriate. No additional ultrasound requested atthis time. Thank you for allowing me to participate in this patient's care and evaluation. I spent5 minutes [id number] with the patient at the time of this appointment of which greater than 50 percent was spent counseling and coordinating care.
--- OUTSIDE RECORDS SUMMARY | 2018-09-11 20:14 | XMS REPORT | Referral Summary ---
Author Author [facility] Organization [facility] Address Unknown Phone Unavailable Care Team Providers Care Learning And Development Analyst Name Role Phone Dieter Goldstein PCP No PCP, [facility] PCP Encounter [facility] [id number] Date(s): 01/17/18 - 01/17/18 [facility] [address], [facility] [address] [place], [place] [address] Discharge Disposition: 01-Home or Self Care Attending Physician: Lucrecia Oliva Admitting Physician: Lucrecia Oliva Vital Signs No data [...] DAILY, # 30 tabs, 11 Refill(s), eRx: [facility] [id number] Start Date: 11/19/17 Status: Ordered Augmentin 875 mg-125 mg oral tablet 1 tabs, Oral, q12hr, X 10 days, # 20 tabs, 0 Refill(s), Pharmacy: [facility] 95615 Start Date: 01/13/18 Stop Date: 01/23/18 Status: Ordered butalbital/acetaminophen/caffeine 50 mg-325 mg-40 mg oral tablet See Instructions, TAKE 1 TABLET BY MOUTH FOUR TIMES DAILY NEEDED FOR HEADACHE , # 20 tabs, 2 Refill(s), eRx: [facility] [id number] Start Date: 12/02/17 Status: Ordered diazePAM 5 mg oral tablet 5 mg 1 tabs, Oral, BID, as needed for anxiety, # 15 tabs, 0 Refill(s), called to pharmacy (Rx) Start Date: 04/02/17 Status: Ordered escitalopram 10 mg oral tablet See Instructions, TAKE 1 TABLET BY MOUTH DAILY, # 30 tabs, 5 Refill(s), eRx: [facility] [id number] Start Date: 08/12/17 Status: Ordered ferrous sulfate 325 mg (65 mg elemental iron) oral delayed release tablet 325 mg 1 tabs, Oral, Daily, # 30 tabs, 0 Refill(s) Start Date: 02/14/17 Status: Ordered fluticasone 50 mcg/inh nasal spray See Instructions, INSTILL 2 SPRAYS IN EACH NOSTRIL TWICE DAILY, # 16 mL, 11 Refill(s), eRx: [facility] [id number] Start Date: 10/16/17 Status: Ordered folic acid 1 mg oral tablet See Instructions, TAKE 2 TABLETS BY MOUTH TWICE DAILY, # 120 tabs, 4 Refill(s), eRx: [facility] [id number], TAKE 2 TABLETS BY MOUTH TWICE DAILY Start Date: 05/02/17 Status: Ordered metFORMIN 500 mg oral tablet See Instructions, TAKE 1 TABLET BY MOUTH TWICE DAILY, # 60 tabs, 4 Refill(s), eRx: [facility] [id number] Start Date: 01/08/18 Status: Ordered montelukast 10 mg oral tablet See Instructions, TAKE 1 TABLET BY MOUTH EVERY EVENING, # 30 tabs, 5 Refill(s), eRx: [facility] 36283, TAKE 1 TABLET BY MOUTH EVERY EVENING Start Date: 12/12/17 Status: Ordered OXcarbazepine 600 mg oral tablet 600 mg 1 tabs, Oral, BID, # 60 tabs, 0 Refill(s), Pharmacy: [facility] 68639, 1 tabs Oral BID Start Date: 12/20/17 Status: Ordered pantoprazole 40 mg oral delayed release tablet See Instructions, TAKE 1 TABLET BY MOUTH ONCE DAILY AT LEAST 1 HOUR AFTER OTHER MEDICATIONS., # 30 tabs, eRx: [facility] [id number] Start Date: 12/30/17 Status: Ordered raNITIdine 150 mg oral capsule See Instructions, TAKE 1 CAPSULE BY MOUTH EVERY DAY AT BEDTIME FOR 30 DAYS, # 30 caps, 5 Refill(s), eRx: [facility] [id number], TAKE 1 CAPSULE BY MOUTH EVERY DAY [...] NEEDED FOR WHEEZING, # 18 g, eRx: [facility] [id number] Start Date: 12/30/17 Status: Ordered Results Hematology Most recent to 1 oldest [Reference Range]: WBC [4.8-10.8 7.2 10*3/uL 10*3/uL] (01/17/18 11:03 AM) RBC [4.00-5.20] 5.43 *HI* (01/17/18:03 AM) Hgb [12.0-16.0 11.8 gm/dL gm/dL] *LOW* (01/17/18:03 AM) Hct [37.0-47.0 %] 38.9 % (01/17/18: AM) MCV [82.0-99.0 fL] 71.6 fL *LOW* (01/17/18: AM) MCH [27.0-32.0 pg] 21.7 pg *LOW* (01/17/18: AM) MCHC [32.0-36.0 30.3 gm/dL gm/dL] *LOW* (01/17/18:03 AM) RDW [11.5-14.5 %] 14.9 % *HI* (01/17/18 11:03 AM) Platelet [150-400 396 10*3/uL 10*3/uL] (01/17/18 11:03 AM) MPV [8.8-14.8 fL] 10.1 fL (01/17/18 11: AM) Chemistry Most recent to 1 oldest [Reference Range]: Sodium Lvl [135-144 137 mEq/L mEq/L] (01/17/18:03 AM) Potassium Lvl 4.4 mEq/L [3.5-5.2 mEq/L] (01/17/18: AM) Chloride [99-111 105 mEq/L mEq/L] (01/17/18: AM) CO2 [22-31 mEq/L] 24 mEq/L (01/17/18: AM) AGAP [3-20 mEq/L] 8 mEq/L (01/17/18: AM) BUN [7-19 mg/dL] 9 mg/dL (01/17/18:03 AM) Glucose Lvl [70-99 77 mg/dL mg/dL] (01/17/18: AM) Creatinine Lvl 0.69 mg/dL [0.57-1.11 mg/dL] (01/17/18 11:03 AM) eGFR [>60 mL/min] >60 mL/min 1 (01/17/18 11:03 AM) Calcium Lvl 9.5 mg/dL [8.4-10.2 mg/dL] (01/17/18 11:03 AM) 1Result Comment: Multiply eGFR results by [...] Status Collection of venous blood by venipuncture 01/17/18 Completed delivery only; 11/12/15 Completed Section1 11/12/15 Completed Dilatation and Curettage (Suction)2 12/29/14 Completed wisdom teeth removed Completed 1auto-populated from documented surgical case 2auto-populated from documented surgical case Social History Social History Type Response Smoking Status Never smoker entered on: 05/24/14 Assessment and Plan No data available for this section
--- OUTSIDE RECORDS SUMMARY | 2018-09-11 20:14 | XMS REPORT | Referral Summary ---
Author Author [facility] Organization [facility] Address Unknown Phone Unavailable Care Team Providers Care Senior Policy Associate Name Role Phone Dieter Goldstein PCP Encounter [facility] Date(s): 04/20/16 - 04/20/16 [facility] [address] [place], [place] [address] Discharge Diagnosis: Essential hypertension Discharge Diagnosis: H/O hypoglycemia Discharge Diagnosis: Hyponatremia Discharge Disposition: -Home or Self Care Attending Physician: Dieter Goldstein MD Vital Signs Most recent to 1 oldest [Reference Range]: Blood Pressure 127/86 mmHg [90-140/60-90 mmHg] (04/20/16 9:50 AM) Problem List Condition Effective Dates [...] # 75 unknown unit, 2 Refill(s), eRx: [facility] [id number], 1 VIALS INHALATION Q4HR,PRN: NEEDED FOR WHEEZING Start Date: 03/10/15 Status: Ordered Mary-D 12 Hour 60 mg-120 mg oral tablet, extended release 1 tabs, Oral, q12hr, 0 Refill(s) Start Date: 04/28/14 Status: Ordered amLODIPine 5 mg oral tablet 5 mg 1 tabs, Oral, Daily, # 30 tabs, 11 Refill(s), Pharmacy: [facility] [id number], 1 tabs Oral Daily,x30 days Start Date: 04/20/16 Stop Date: 04/15/17 Status: Ordered Calcium Carbonate 500MG + D3 (1250 MG) 400 Unit Calcium Carbonate 500MG + D3 (1250 MG) 400 Unit, Take 1 Tablet by oral route every day, 0 Refill(s) Start Date: 04/28/14 Status: Ordered Flonase 50 mcg/inh nasal spray See Instructions, 2 SPRAYS NASAL BID, # 16 g, 5 Refill(s), eRx: [facility] [id number], 2 SPRAYS NASAL BID Start Date: 02/24/16 Status: Ordered folic acid 1 mg oral tablet 2 mg 2 tabs, Oral, BID, X 30 days, # 120 tabs, 11 Refill(s), Pharmacy: [facility] 78519, 2 tabs Oral BID,x30 days Start Date: 04/20/16 Stop Date: 04/15/17 Status: Ordered metFORMIN 500 mg oral tablet See Instructions, TAKE 1 TABLET (500MG) BY ORAL ROUTE 2 TIMES EVERY DAY WITH MORNING AND EVENING MEALS, # 60 unknown unit, 5 Refill(s), eRx: [facility] [id number], TAKE 1 TABLET (500MG) BY ORAL ROUTE 2 TIMES EVERY DAY WITH MORNING AND EVENING MEALS Start Date: 02/24/16 Status: Ordered OXcarbazepine 600 mg oral tablet 600 mg 1 tabs, Oral, BID, # 60 tabs, 11 Refill(s), Pharmacy: [facility] [id number], 1 tabs Oral BID Start Date: 01/13/16 Status: Ordered pantoprazole 40 mg oral delayed release tablet 40 mg 1 tabs, Oral, Daily, Take at least 1 hour after other medications., # 30 tabs, 5 Refill(s), Pharmacy: [facility] 04443, 1 tabs Oral Daily,x30 days,Instr:Take at least 1 hour after other medications. Start Date: 01/20/16 Stop Date: 07/18/16 Status: Ordered Pulmicort Flexhaler 180 mcg/inh inhalation powder 1 puffs, Inhalation, BID, 0 Refill(s) Start Date: 04/28/14 Status: Ordered ranitidine 150 mg oral capsule 150 mg 1 caps, Oral, Bedtime (once a day), # 30 caps, 5 Refill(s), Pharmacy: [facility] 10409, 1 caps Oral Bedtime (once a day),x30 days Start Date: 01/20/16 Stop Date: 07/18/16 Status: Ordered Singulair 10 mg oral tablet 10 mg 1 tabs, Oral, qPM, # 30 tabs, 11 Refill(s), Pharmacy: [facility] 49826, 1 tabs Oral qPM Start Date: 01/25/16 Status: Ordered Sprintec 0.25 mg-35 mcg oral tablet 1 tabs, Oral, Daily, # 28 tabs, 11 Refill(s), Pharmacy: [facility] 87451 Start Date: 12/30/15 Status: Ordered Ventolin HFA 90 mcg/inh inhalation aerosol 2 puffs, Inhalation, q4hr, as needed for wheezing, # 18 g, 3 Refill(s), Pharmacy : [facility] 05054, 2 puffs Inhalation q4hr,PRN:as needed for wheezing Start Date: 03/10/15 Status: Ordered Vitamin C 100 mg, Oral, Daily, 0 Refill(s) Start Date: 04/28/14 Status: Ordered Results Hematology Most recent to 1 oldest [Reference Range]: WBC [4.8-10.8 4.3 10*3/uL 10*3/uL] *LOW* (04/20/16 10:06 AM) RBC [4.00-5.20] 5.41 *HI* (04/20/16 10:06 AM) Hgb [12.0-16.0 11.5 gm/dL gm/dL] *LOW* (04/20/16 10:06 AM) Hct [37.0-47.0 %] 35.9 % *LOW* (04/20/16 10:06 AM) MCV [82.0-99.0 fL] 66.4 fL *LOW* (04/20/16 10:06 AM) MCH [27.0-32.0 pg] 21.3 pg *LOW* (04/20/16 10:06 AM) MCHC [32.0-36.0 32.0 gm/dL gm/dL] (04/20/16 10:06 AM) RDW [11.5-14.5 %] 15.5 % *HI* (04/20/16 10:06 AM) Platelet [150-400 402 10*3/uL 10*3/uL] *HI* (04/20/16 10:06 AM) MPV [8.8-14.8 fL] 10.3 fL (04/20/16 10:06 AM) Immature 0.0 % Granulocytes (04/20/16 10:06 AM) [0.0-1.0 %] Neutrophils [51-75 52 % %] (04/20/16 10:06 AM) Lymphocytes [20-46 35 % %] (04/20/16 10:06 AM) Monocytes [4-11 %] 12 % *HI* (04/20/16 10:06 AM) Eosinophils [0-4 %] 1 % (04/20/16 10:06 AM) Basophils [0-2 %] 1 % (04/20/16 10:06 AM) Neutro Absolute 2.23 10*3 [1.90-7.00 10*3] (04/20/16 10:06 AM) Lymph Absolute 1.50 10*3 [0.80-3.30 10*3] (04/20/16 10:06 AM) [place] Absolute 0.53 10*3 [0.30-1.00 10*3] (04/20/16 10:06 AM) Eos Absolute 0.02 10*3 [0.00-0.50 10*3] (04/20/16 10:06 AM) Baso Absolute 0.02 10*3 [0.00-0.20 10*3] (04/20/16 10:06 AM) Microcyte Present *ABN* (04/20/16 10:06 AM) Differential Scanned Slide (04/20/16 10:06 AM) Chemistry Most recent to 1 oldest [Reference Range]: Sodium Lvl [135-144 135 mEq/L mEq/L] (04/20/16 10:06 AM) Potassium Lvl 4.4 mEq/L [3.5-5.2 mEq/L] (04/20/16 10:06 AM) Chloride [99-111 101 mEq/L mEq/L] (04/20/16 10:06 AM) CO2 [22-31 mEq/L] 23 mEq/L (04/20/16 10:06 AM) AGAP [3-20] 11 (04/20/16 10:06 AM) BUN [7-19 mg/dL] 11 mg/dL (04/20/16 10:06 AM) Glucose Lvl [70-99 80 mg/dL mg/dL] (04/20/16 10:06 AM) Creatinine Lvl 0.73 mg/dL [0.57-1.11 mg/dL] (04/20/16 10:06 AM) eGFR [>60 mL/min] >60 mL/min 1 (04/20/16 10:06 AM) Calcium Lvl 9.5 mg/dL [8.9-10.5 mg/dL] (04/20/16 10:06 AM) 1Result Comment: Multiply eGFR results by 1.21 for race. Immunizations Vaccine Date Refusal Reason tetanus/diphth/pertuss (Tdap) adult/adol 09/30/15 influenza virus vaccine, inactivated 09/09/15 influenza virus vaccine, inactivated1 08/26/14 1Result Comment: [09/10/2014] See Scanned Document Procedures Procedure Date Related Diagnosis Body Site Collection of venous blood by venipuncture 04/20/16 delivery only; 11/12/15 Section1 11/12/15 Dilatation and Curettage (Suction)2 12/29/14 wisdom teeth removed 1auto-populated from documented surgical case 2auto-populated from documented surgical case Social History Social History Type Response Smoking Status Never smoker Assessment and Plan Extracted from: Title: Office Visit Note Author: Dieter Goldstein MD Date: 04/20/16 Assessment/Plan 1.Essential hypertension Due to cough will switch to amlodipine daily instead of lisinopril. Recheck appt in 3 months. CBC and BMP today. Low salt diet, exercise and weight loss encouraged. Ordered: Basic Metabolic Panel CBC w/ Differential Office Visit Level 3 Est 80144 2.Hyponatremia BMP today. Decrease water intake. Ordered: Basic Metabolic Panel CBC w/ Differential Office Visit Level 3 Est 72720 3.H/O hypoglycemia Continue diabetic diet and exercise and weight loss encouraged. Continue Metformin bid. Recheck appt in 3 months. Ordered: Office Visit Level 3 Est 98269 Orders: amLODIPine, 5 mg 1 tabs, Oral, Daily, # 30 tabs, 11 Refill(s), Pharmacy: [facility] [id number], 1 tabs Oral Daily,x30 days folic acid, 2 mg 2 tabs, Oral, BID, X 30 days, # 120 tabs, 11 Refill(s), Pharmacy: [facility] [id number], 2 tabs Oral BID,x30 days
--- OUTSIDE RECORDS SUMMARY | 2018-09-11 20:14 | XMS REPORT | Referral Summary ---
Author Author [facility] Organization [facility] Address Unknown Phone Unavailable Care Team Providers Care Director Of Culture Name Role Phone Dieter Goldstein PCP Encounter [facility] Date(s): 12/16/15 - 12/16/15 [facility] [address], [place] [address] Discharge Diagnosis: Nonspecific chest pain Discharge Diagnosis: Acute gastritis Discharge Disposition: 01-Home or Self Care Attending Physician: Venkat Spain MD Admitting Physician: Venkat Spain MD Vital Signs Most recent to 1 oldest [Reference Range]: Temperature Oral 36.4 degC [35.8-37.3 degC] (12/16/15 10:41 AM) Peripheral Pulse 79 bpm Rate [60-100 bpm] (12/16/15 10:41 AM) Heart Rate Monitored 73 bpm [60-100 bpm] (12/16/15 1:00 PM) Respiratory Rate 16 br/min [14-20 br/min] (12/16/15 1:00 PM) Blood Pressure 147/85 mmHg [90-140/60-90 mmHg] *HI* (12/16/15 1:00 PM) Mean Arterial 103 mmHg Pressure, Cuff (12/16/15 1:00 PM) SpO2 99 % (12/16/15 1:00 PM) Problem List Condition Effective Dates Status [...] # 75 unknown unit, 2 Refill(s), eRx: [facility] 11933, 1 VIALS INHALATION Q4HR,PRN: NEEDED FOR WHEEZING Start Date: 03/10/15 Status: Ordered Mary-D 12 Hour 60 mg-120 mg oral tablet, extended release 1 tabs, Oral, q12hr, 0 Refill(s) Start Date: 04/28/14 Status: Ordered amoxicillin 500 mg oral tablet 500 mg 1 tabs, Oral, TID, X 10 days, # 30 tabs, 0 Refill(s), Pharmacy: [facility] 11076, 1 tabs Oral TID,x10 days Start Date: [...] pain, # 30 tabs, 0 Refill(s), Pharmacy: [facility] 67357 Start Date: 10/05/15 Status: Ordered Flonase 50 mcg/inh nasal spray 2 sprays, Nasal, BID, # 16 g, 11 Refill(s), Pharmacy: [facility] 05870 Start Date: 01/17/15 Status: Ordered folic acid 1 mg oral tablet See Instructions, TAKE TWO TABS TWICE A DAY, # 120 unknown unit, 5 Refill(s), eRx: [facility] 46597, TAKE TWO TABS TWICE A DAY Start Date: 08/22/15 Status: Ordered ibuprofen 800 mg oral tablet 800 mg 1 tabs, Oral, q8hr (scheduled), # 90 tabs, 0 Refill(s) Start Date: 11/14/15 Status: Ordered labetalol 100 mg oral tablet 100 mg 1 tabs, Oral, BID, # 60 tabs, 1 Refill(s), Pharmacy: [facility] 59604, 1 tabs Oral BID Start Date: 11/25/15 Status: Ordered levETIRAcetam 1000 mg oral tablet 1,000 mg 1 tabs, Oral, BID, # 60 tabs, 5 Refill(s), Pharmacy: [facility] 59498, 1 tabs Oral BID Start Date: 06/29/15 Status: Ordered lisinopril Oral, Daily, 0 Refill(s) Start Date: 12/16/15 Status: Ordered metFORMIN 500 mg oral tablet See Instructions, TAKE 1 TABLET (500MG) BY ORAL ROUTE 2 TIMES EVERY DAY WITH MORNING AND EVENING MEALS, # 60 unknown unit, eRx: [facility] 83496, TAKE 1 TABLET (500MG) BY ORAL ROUTE [...] Daily, # 30 tabs, 0 Refill(s), Pharmacy: [facility] 38371, 1 tabs Oral Daily Start Date: 11/17/15 Status: Ordered Pulmicort Flexhaler 180 mcg/inh inhalation powder 1 puffs, Inhalation, BID, 0 Refill(s) Start Date: 04/28/14 Status: Ordered Singulair 10 mg oral tablet 1 tabs, Oral, qPM, # 30 tabs, 11 Refill(s), Pharmacy: [facility] 84532 , 1 tabs Oral qPM Start Date: 01/17/15 Status: Ordered Ventolin HFA 90 mcg/inh inhalation aerosol 2 puffs, Inhalation, q4hr, as needed for wheezing, # 18 g, 3 Refill(s), Pharmacy : [facility] 52294, 2 puffs Inhalation q4hr,PRN:as needed for wheezing Start Date: 03/10/15 Status: Ordered Vitamin C 100 mg, Oral, Daily, 0 Refill(s) Start Date: 04/28/14 Status: Ordered Results Hematology Most recent to 1 oldest [Reference Range]: WBC [4.8-10.8 14.4 10*3/uL 10*3/uL] *HI* (12/16/15 11:40 AM) RBC [4.00-5.20] 5.33 *HI* (12/16/15 11:40 AM) Hgb [12.0-16.0 11.5 gm/dL gm/dL] *LOW* (12/16/15 11:40 AM) Hct [37.0-47.0 %] 38.1 % (12/16/15 11:40 AM) MCV [82.0-99.0 fL] 71.5 fL *LOW* (12/16/15 11:40 AM) MCH [27.0-32.0 pg] 21.6 pg *LOW* (12/16/15 11:40 AM) MCHC [32.0-36.0 30.2 gm/dL gm/dL] *LOW* (12/16/15 11:40 AM) RDW [11.5-14.5 %] 14.6 % *HI* (12/16/15 11:40 AM) Platelet [150-400 402 10*3/uL 10*3/uL] *HI* (12/16/15 11:40 AM) MPV [9.4-12.4 fL] 9.8 fL (12/16/15 11:40 AM) Immature 0.3 % Granulocytes (12/16/15 11:40 AM) [0.0-1.0 %] Neutrophils [51-75 76 % %] *HI* (12/16/15 11:40 AM) Lymphocytes [20-46 17 % %] *LOW* (12/16/15 11:40 AM) Monocytes [4-11 %] 6 % (12/16/15 11:40 AM) Eosinophils [0-4 %] 1 % (12/16/15 11:40 AM) Basophils [0-2 %] 0 % (12/16/15 11:40 AM) Neutro Absolute 10.92 10*3 [1.90-7.00 10*3] *HI* (12/16/15 11:40 AM) Lymph Absolute 2.46 10*3 [0.80-3.30 10*3] (12/16/15 11:40 AM) [place] Absolute 0.90 10*3 [0.30-1.00 10*3] (12/16/15 11:40 AM) Eos Absolute 0.07 10*3 [0.00-0.50 10*3] (12/16/15 11:40 AM) Baso Absolute 0.03 10*3 [0.00-0.20 10*3] (12/16/15 11:40 AM) Hypochrom Occasional *ABN* (12/16/15 11:40 AM) Microcyte Present *ABN* (12/16/15 11:40 AM) Ovalocytes Occasional *ABN* (12/16/15 11:40 AM) Nucleated RBC 0.0 /100 WBC Automated [0 /100 (12/16/15 11:40 AM) WBC] Differential Scanned Slide (12/16/15 11:40 AM) Chemistry Most recent to 1 oldest [Reference Range]: Sodium Lvl [136-144 140 mEq/L mEq/L] (12/16/15 11:40 AM) Potassium Lvl 4.1 mEq/L [3.6-5.1 mEq/L] (12/16/15 11:40 AM) Chloride [99-109 104 mEq/L mEq/L] (12/16/15 11:40 AM) CO2 [22-32 mEq/L] 27 mEq/L (12/16/15 11:40 AM) AGAP [3-20] 9 (12/16/15 11:40 AM) BUN [4-20 mg/dL] 12 mg/dL (12/16/15 11:40 AM) Glucose Lvl [70-100 93 mg/dL mg/dL] (12/16/15 11:40 AM) Creatinine Lvl 0.76 mg/dL [0.44-1.03 mg/dL] (12/16/15 11:40 AM) eGFR [>60] >60 1 (12/16/15 11:40 AM) Calcium Lvl 9.6 mg/dL [8.6-10.0 mg/dL] (12/16/15 11:40 AM) Albumin Lvl [3.5-4.8 4.1 gm/dL gm/dL] (12/16/15 11:40 AM) Total Protein 7.2 gm/dL [6.1-7.9 gm/dL] (12/16/15 11:40 AM) Globulin [1.9-4.3 3.1 gm/dL gm/dL] (12/16/15 11:40 AM) ALT [14-54 U/L] 50 U/L (12/16/15 11:40 AM) AST [15-41 U/L] 91 U/L *HI* (12/16/15 11:40 AM) Alk Phos [26-104 99 U/L U/L] (12/16/15 11:40 AM) Bili Total [0.2-1.2 0.5 mg/dL 2 mg/dL] (12/16/15 11:40 AM) Magnesium Lvl 2.0 mg/dL [1.8-2.5 mg/dL] (12/16/15 11:40 AM) Sodium Venous 139 mEq/L [136-144 mEq/L] (12/16/15 11:52 AM) Potassium Venous 4.1 mEq/L 3 [3.6-5.1 mEq/L] (12/16/15 11:52 AM) Calcium Ionized 1.25 mmol/L Venous [1.19-1.41 (12/16/15 11:52 AM) mmol/L] Total CO2 Venous 24 mEq/L [25-29 mEq/L] *LOW* (12/16/15 11:52 AM) HGB Venous NPT 13.6 gm/dL [12.0-16.0 gm/dL] (12/16/15 11:52 AM) HCT Venous 40.0 % [37.0-47.0 %] (12/16/15 11:52 AM) Glucose Venous 88 mg/dL [70-100 mg/dL] (12/16/15 11:52 AM) BUN Venous [4-20] 14 (12/16/15 11:52 AM) Creatinine Venous 0.8 mg/dL [0.4-1.0 mg/dL] (12/16/15 11:52 AM) Venous CL [99-109 104 mEq/L mEq/L] (12/16/15 11:52 AM) Anion Gap, Arnold 11 [3-20] (12/16/15 11:52 AM) Screen, Negative Urine NPT (12/16/15 11:50 AM) 1Result Comment: Multiply eGFR results by 1.21 for race. 2Result Comment: Naproxen, specifically the metabolite O-desmethylnaproxen, may cause spurious elevation in Total Bilirubin levels. 3Result Comment: This test was performed on a whole blood specimen. The presence or absence of hemolysis cannot be assessed. Hemolysis can falsely elevate potassium levels. Normals are for venous specimens only. Urinalysis Most recent to 1 oldest [Reference Range]: UA Color Yellow (12/16/15 11:40 AM) UA Appear Clear (12/16/15 11:40 AM) UA pH [5.0-8.0] 7.0 (12/16/15 11:40 AM) UA Leuk Est Negative [Negative] (12/16/15 11:40 AM) UA Nitrite Negative [Negative] (12/16/15 11:40 AM) UA Protein Negative [Negative] (12/16/15 11:40 AM) UA Glucose Negative [Negative] (12/16/15 11:40 AM) UA Ketones Negative [Negative] (12/16/15 11:40 AM) UA Urobilinogen Negative [<1.0] (12/16/15 11:40 AM) UA Bili [Negative] Negative (12/16/15 11:40 AM) UA Blood [Negative] Negative (12/16/15 11:40 AM) UA Spec Grav 1.015 [1.003-1.030] (12/16/15 11:40 AM) Type Clean Catch (12/16/15 11:40 AM) Immunizations Vaccine Date Refusal Reason tetanus/diphth/pertuss (Tdap) [...]
--- OUTSIDE RECORDS SUMMARY | 2018-09-11 20:15 | XMS REPORT | Referral Summary ---
Author Author [facility] Organization [facility] Address Unknown Phone Unavailable Care Team Providers Care Teacher Vocal Name Role Phone Dieter Goldstein PCP Encounter [facility] Date(s): 11/11/15 - 11/17/15 [facility] [address] [place], [place] [address] Discharge Diagnosis: Breech presentation, antepartum Discharge Diagnosis: S/P primary low transverse Discharge Diagnosis: Hypertension in , preeclampsia, severe, antepartum Discharge Diagnosis: Severe pre-eclampsia Discharge Diagnosis: Obesity Discharge Disposition: 01-Home or Self Care Attending Physician: Bhupendra Nichols MD Admitting Physician: Bhupendra Nichols MD Vital Signs Most recent to 1 oldest [Reference Range]: Temperature Oral 36.8 degC [35.8-37.3 degC] (11/17/15 9:08 AM) Peripheral Pulse 102 bpm Rate [60-100 bpm] *HI* (11/17/15 9:08 AM) Heart Rate Monitored 96 bpm [60-100 bpm] (11/17/15 4:43 AM) Respiratory Rate 17 br/min [14-20 br/min] (11/17/15 9:08 AM) Blood Pressure 141/91 mmHg [90-140/60-90 mmHg] *HI* (11/17/15 9:08 AM) Mean Arterial 101 mmHg Pressure, Cuff (11/12/15 2:30 PM) SpO2 98 % (11/14/15 1:30 PM) Problem List Condition Effective Dates Status [...] # 75 unknown unit, 2 Refill(s), eRx: [facility] [id number], 1 VIALS INHALATION Q4HR,PRN: NEEDED FOR WHEEZING [...] pain, # 30 tabs, 0 Refill(s), Pharmacy: [facility] [id number] Start Date: 10/05/15 Status: Ordered Flonase 50 mcg/inh nasal spray 2 sprays, Nasal, BID, # 16 g, 11 Refill(s), Pharmacy: [facility] [id number] Start Date: 01/17/15 Status: Ordered folic acid 1 mg oral tablet See Instructions, TAKE TWO TABS TWICE A DAY, # 120 unknown unit, 5 Refill(s), eRx: [facility] [id number], TAKE TWO TABS TWICE A DAY Start Date: 08/22/15 Status: Ordered ibuprofen 800 mg oral tablet 800 mg 1 tabs, Oral, q8hr (scheduled), # 90 tabs, 0 Refill(s) Start Date: 11/14/15 Status: Ordered Keflex 500 mg oral capsule 500 mg 1 caps, Oral, q8hr, X 14 days, # 42 caps, 0 Refill(s), Pharmacy: [facility] [id number], 1 caps Oral q8hr,x14 days Start Date: 11/17/15 Stop Date: 12/01/15 Status: Ordered levETIRAcetam 1000 mg oral tablet 1,000 mg 1 tabs, Oral, BID, # 60 tabs, 5 Refill(s), Pharmacy: [facility] [id number], 1 tabs Oral BID Start Date: 06/29/15 Status: Ordered metFORMIN 500 mg oral tablet See Instructions, TAKE 1 TABLET (500MG) BY ORAL ROUTE 2 TIMES EVERY DAY WITH MORNING AND EVENING MEALS, # 60 unknown unit, eRx: [facility] [id number], TAKE 1 TABLET (500MG) BY ORAL ROUTE 2 TIMES EVERY DAY WITH MORNING AND EVENING MEALS Start Date: 10/17/15 Status: Ordered nystatin 100,000 units/g topical powder 1 jose elias, Topical, TID, X 7 days, # 30 g, 1 Refill(s), Pharmacy: [facility] [id number] Start Date: 11/17/15 Stop Date: 12/01/15 Status: Ordered One-A-Day Women 1 tabs, Oral, Daily, 0 Refill(s) Start Date: 04/28/14 Status: Ordered oxyCODONE-acetaminophen 5 mg-325 mg oral tablet 1 tabs, Oral, q4hr, Pain Severe (7-10), Can take 1-2 tabs, # 30 tabs, 0 Refill(s ) Start Date: 11/14/15 Stop Date: 12/15/15 Status: Ordered Procardia XL 60 mg oral tablet, extended release 60 mg 1 tabs, Oral, Daily, # 30 tabs, 0 Refill(s), Pharmacy: [facility] [id number], 1 tabs Oral Daily Start Date: 11/17/15 Status: Ordered Pulmicort Flexhaler 180 mcg/inh inhalation powder 1 puffs, Inhalation, BID, 0 Refill(s) Start Date: 04/28/14 Status: Ordered Singulair 10 mg oral tablet 1 tabs, Oral, qPM, # 30 tabs, 11 Refill(s), Pharmacy: [facility] [id number] , 1 tabs Oral qPM Start Date: 01/17/15 Status: Ordered Ventolin HFA 90 mcg/inh inhalation aerosol 2 puffs, Inhalation, q4hr, as needed for wheezing, # 18 g, 3 Refill(s), Pharmacy : [facility] [id number], 2 puffs Inhalation q4hr,PRN:as needed for wheezing Start Date: 03/10/15 Status: Ordered Vitamin C 100 mg, Oral, Daily, 0 Refill(s) Start Date: 04/28/14 Status: Ordered Results Blood Gases Most recent to 1 oldest [Reference Range]: Arterial Cord Blood 7.22 PH [7.10-7.35] (11/12/15 11:55 AM) Arterial Cord Blood 67 mmHg PCO2 [5-15 mmHg] *HI* (11/12/15 11:55 AM) Arterial Cord Blood 11 mmHg PO2 [5-25 mmHg] (11/12/15 11:55 AM) Arterial Cord Blood 27 mEq/L Bicarbonate [22-26 *HI* mEq/L] (11/12/15 11:55 AM) Arterial Cord Blood -2 Base Excess (11/12/15 11:55 AM) Spec Site ACB Cord (11/12/15 11:55 AM) Venous Cord Blood PH 7.31 [7.20-7.45] (11/12/15 11:40 AM) Venous Cord Blood 49 mmHg PCO2 [5-15 mmHg] *HI* (11/12/15 11:40 AM) Venous Cord Blood 23 mmHg PO2 [5-25 mmHg] (11/12/15 11:40 AM) Venous Cord Blood 24 mEq/L Bicarbonate [21-25 (11/12/15 11:40 AM) mEq/L] Venous Cord Blood -2 Base Excess (11/12/15 11:40 AM) Spec Site CB Cord (11/12/15 11:40 AM) Hematology Most recent to 1 oldest [Reference Range]: WBC [4.8-10.8 9.3 10*3/uL 10*3/uL] (11/16/15 10:10 AM) RBC [4.00-5.20] 4.21 (11/16/15 10:10 AM) Hgb [12.0-16.0 9.0 gm/dL gm/dL] *LOW* (11/16/15 10:10 AM) Hct [37.0-47.0 %] 29.8 % *LOW* (11/16/15 10:10 AM) MCV [82.0-99.0 fL] 70.8 fL *LOW* (11/16/15 10:10 AM) MCH [27.0-32.0 pg] 21.4 pg *LOW* (11/16/15 10:10 AM) MCHC [32.0-36.0 30.2 gm/dL gm/dL] *LOW* (11/16/15 10:10 AM) RDW [11.5-14.5 %] 14.8 % *HI* (11/16/15 10:10 AM) Platelet [150-400 301 10*3/uL 10*3/uL] (11/16/15 10:10 AM) MPV [9.4-12.4 fL] 10.1 fL (11/16/15 10:10 AM) Coagulation Most recent to 1 oldest [Reference Range]: INR [0.9-1.2] 0.9 (11/14/15 4:49 AM) PTT [25.0-35.0 24.9 seconds seconds] *LOW* (11/14/15 4:49 AM) Chemistry Most recent to 1 oldest [Reference Range]: Sodium Lvl [136-144 135 mEq/L mEq/L] *LOW* (11/16/15 10:10 AM) Potassium Lvl 3.7 mEq/L [3.6-5.1 mEq/L] (11/16/15 10:10 AM) Chloride [99-109 101 mEq/L mEq/L] (11/16/15 10:10 AM) CO2 [22-32 mEq/L] 25 mEq/L (11/16/15 10:10 AM) AGAP [3-20] 9 (11/16/15 10:10 AM) BUN [4-20 mg/dL] 5 mg/dL (11/16/15 10:10 AM) Glucose Lvl [70-100 103 mg/dL mg/dL] *HI* (11/16/15 10:10 AM) Creatinine Lvl 0.65 mg/dL [0.44-1.03 mg/dL] (11/16/15 10:10 AM) eGFR [>60] >60 1 (11/16/15 10:10 AM) Calcium Lvl 8.5 mg/dL [8.6-10.0 mg/dL] *LOW* (11/16/15 10:10 AM) Albumin Lvl [3.5-4.8 2.3 gm/dL gm/dL] *LOW* (11/16/15 10:10 AM) Total Protein 5.4 gm/dL [6.1-7.9 gm/dL] *LOW* (11/16/15 10:10 AM) Globulin [1.9-4.3 3.1 gm/dL gm/dL] (11/16/15 10:10 AM) ALT [14-54 U/L] 17 U/L (11/16/15 10:10 AM) AST [15-41 U/L] 19 U/L (11/16/15 10:10 AM) Alk Phos [26-104 56 U/L U/L] (11/16/15 10:10 AM) Bili Total [0.2-1.2 0.6 mg/dL 2 mg/dL] (11/16/15 10:10 AM) LDH [98-192 U/L] 195 U/L *HI* (11/16/15 10:10 AM) Uric Acid [2.6-8.0 5.0 mg/dL mg/dL] (11/14/15 4:49 AM) Blood Glucose, 101 mg/dL Capillary [70-100 *HI* mg/dL] (11/12/15 10:32 AM) 1Result Comment: Multiply eGFR results by 1.21 for race. 2Result Comment: Naproxen, specifically the metabolite O-desmethylnaproxen, may cause spurious elevation in Total Bilirubin levels. Urinalysis Most recent to 1 oldest [Reference Range]: UA Color Straw (11/11/15 11:39 AM) UA Appear Clear (11/11/15 11:39 AM) UA pH [5.0-8.0] 7.0 (11/11/15 11:39 AM) UA Leuk Est Pos 1+ [Negative] *ABN* (11/11/15 11:39 AM) UA Nitrite Negative [Negative] (11/11/15 11:39 AM) UA Protein Negative [Negative] (11/11/15 11:39 AM) UA Glucose Negative [Negative] (11/11/15 11:39 AM) UA Ketones Negative [Negative] (11/11/15 11:39 AM) UA Urobilinogen Negative [<1.0] (11/11/15 11:39 AM) UA Bili [Negative] Negative (11/11/15 11:39 AM) UA Blood [Negative] Negative (11/11/15 11:39 AM) UA Spec Grav 1.005 [1.003-1.030] (11/11/15 11:39 AM) Type Clean Catch (11/11/15 11:39 AM) UA WBC [0-4] 2-5 (11/11/15 11:39 AM) UA RBC [0-2] 0-2 (11/11/15 11:39 AM) Epithelial Cells 0-2 (11/11/15 11:39 AM) UA Bacteria Rare (11/11/15 11:39 AM) Immunizations Vaccine Date Refusal Reason tetanus/diphth/pertuss (Tdap) adult/adol 09/30/15 influenza virus vaccine, inactivated 09/09/15 influenza virus vaccine, inactivated1 08/26/14 1Result Comment: [09/10/2014] See Scanned Document Procedures Procedure Date Related Diagnosis Body Site delivery only; 11/12/15 Section1 11/12/15 Vaginal delivery only (with or without 11/12/15 episiotomy and/or forceps); Dilatation and Curettage (Suction)2 12/29/14 wisdom teeth removed 1auto-populated from documented surgical case 2auto-populated from documented surgical case Social History Social History Type Response Smoking Status Never smoker Assessment and Plan No data available for this section
--- OUTSIDE RECORDS SUMMARY | 2018-09-11 20:15 | XMS REPORT | Referral Summary ---
Author Author [facility] Organization [facility] Address Unknown Phone Unavailable Care Team Providers Care Chief Of Service Name Role Phone Dieter Goldstein PCP Encounter [facility] [id number] Date(s): 05/19/15 - 05/19/15 [facility] [address] [place], [place] [address] Discharge Diagnosis: History of PROM in previous , currently Discharge Diagnosis: Obesity in , antepartum Discharge Diagnosis: Family history of open neural tube defect Discharge Diagnosis: Family history of open neural tube defect Discharge Diagnosis: Seizure disorder in , antepartum Discharge Disposition: 01-Home or Self Care Attending Physician: Dieter Garay MD Admitting Physician: Dieter Garay MD Referring Physician: Bhupendra Nichols MD Vital Signs Most recent to 1 oldest [Reference Range]: Peripheral Pulse 82 bpm Rate [60-100 bpm] (05/19/15 10:23 AM) Blood Pressure 140/84 mmHg [90-140/60-90 mmHg] (05/19/15 10:23 AM) Problem List Condition Effective Dates Status [...] # 75 unknown unit, 2 Refill(s), eRx: [facility] [id number], 1 VIALS INHALATION Q4HR,PRN: NEEDED FOR WHEEZING [...] pain, # 30 tabs, 0 Refill(s), Pharmacy: [facility] [id number] Start Date: 10/05/15 Status: Ordered Flonase 50 mcg/inh nasal spray 2 sprays, Nasal, BID, # 16 g, 11 Refill(s), Pharmacy: [facility] [id number] Start Date: 01/17/15 Status: Ordered folic acid 1 mg oral tablet See Instructions, TAKE TWO TABS TWICE A DAY, # 120 unknown unit, 5 Refill(s), eRx: [facility] [id number], TAKE TWO TABS TWICE A DAY Start Date: 08/22/15 Status: Ordered ibuprofen 800 mg oral tablet 800 mg 1 tabs, Oral, q8hr (scheduled), # 90 tabs, 0 Refill(s) Start Date: 11/14/15 Status: Ordered Keflex 500 mg oral capsule 500 mg 1 caps, Oral, q8hr, X 14 days, # 42 caps, 0 Refill(s), [id number], 1 caps Oral q8hr,x14 days Start Date: 11/17/15 Stop Date: 12/01/15 Status: Ordered labetalol 100 mg oral tablet 100 mg 1 tabs, Oral, BID, # 60 tabs, 1 Refill(s), [facility] 528[facility], 1 tabs Oral BID Start Date: 11/25/15 Status: Ordered levETIRAcetam 1000 mg oral tablet 1,000 mg 1 tabs, Oral, BID, # 60 tabs, 5 Refill(s), Pharmacy: [facility] [id number], 1 tabs Oral BID Start Date: 06/29/15 Status: Ordered metFORMIN 500 mg oral tablet See Instructions, TAKE 1 TABLET (500MG) BY ORAL ROUTE 2 TIMES EVERY DAY WITH MORNING AND EVENING MEALS, # 60 unknown unit, eRx: [facility] [id number], TAKE 1 TABLET (500MG) BY ORAL ROUTE 2 TIMES EVERY DAY WITH MORNING AND EVENING MEALS Start Date: 11/28/15 Status: Ordered nystatin 100,000 units/g topical powder 1 jose elias, Topical, TID, X 7 days, # 30 g, 1 Refill(s), [facility] Start Date: 11/17/15 Stop Date: 12/01/15 Status: [...] Daily, # 30 tabs, 0 Refill(s), Pharmacy: [facility] [id number], 1 tabs Oral Daily Start Date: 11/17/15 Status: Ordered Pulmicort Flexhaler 180 mcg/inh inhalation powder 1 puffs, Inhalation, BID, 0 Refill(s) Start Date: 04/28/14 Status: Ordered Singulair 10 mg oral tablet 1 tabs, Oral, qPM, # 30 tabs, 11 Refill(s), Pharmacy: [facility] 30418 , 1 tabs Oral qPM Start Date: 01/17/15 Status: Ordered Ventolin HFA 90 mcg/inh inhalation aerosol 2 puffs, Inhalation, q4hr, as needed for wheezing, # 18 g, 3 Refill(s), Pharmacy : [facility] [id number], 2 puffs Inhalation q4hr,PRN:as needed for wheezing [...]
--- OUTSIDE RECORDS SUMMARY | 2018-09-11 20:16 | XMS REPORT | Referral Summary ---
Author Author [facility] Organization [facility] Address Unknown Phone Unavailable Care Team Providers Care Milk Powder Grinder Name Role Phone Dieter Goldstein PCP Encounter [facility] [id number] Date(s): 01/09/16 - 01/09/16 [facility] [address] [place], [place] [address] Discharge Diagnosis: Acute bacterial sinusitis Discharge Disposition: 01-Home or Self Care Attending Physician: Dieter Goldstein MD Vital Signs Most recent to 1 oldest [Reference Range]: Temperature Oral 36.6 degC [35.8-37.3 degC] (01/09/16 10:34 AM) Blood Pressure 120/88 mmHg [90-140/60-90 mmHg] (01/09/16 10:34 AM) Problem List Condition Effective Dates [...] # 75 unknown unit, 2 Refill(s), eRx: [facility] [id number], 1 VIALS INHALATION Q4HR,PRN: NEEDED FOR WHEEZING [...] 0 Refill(s) Start Date: 04/28/14 Status: Ordered cefdinir 300 mg oral capsule 300 mg 1 caps, Oral, q12hr, X 10 days, # 20 caps, 0 Refill(s), Pharmacy: [facility] [id number], 1 caps Oral q12hr,x10 days Start Date: 01/09/16 Stop Date: 01/19/16 Status: Ordered Colace 50 mg oral capsule [...] pain, # 30 tabs, 0 Refill(s), Pharmacy: [facility] [id number] Start Date: 10/05/15 Status: Ordered Flonase 50 mcg/inh nasal spray 2 sprays, Nasal, BID, # 16 g, 11 Refill(s), Pharmacy: [facility] [id number] Start Date: 01/17/15 Status: Ordered folic acid 1 mg oral tablet See Instructions, TAKE TWO TABS TWICE A DAY, # 120 unknown unit, 5 Refill(s), eRx: [facility] [id number], TAKE TWO TABS TWICE A DAY Start Date: 08/22/15 Status: Ordered ibuprofen 800 mg oral tablet 800 mg 1 tabs, Oral, q8hr (scheduled), # 90 tabs, 0 Refill(s) Start Date: 11/14/15 Status: Ordered labetalol 100 mg oral tablet 100 mg 1 tabs, Oral, BID, # 60 tabs, 1 Refill(s), Pharmacy: [facility] [id number], 1 tabs Oral BID Start Date: 11/25/15 Status: Ordered levETIRAcetam 1000 mg oral tablet 1,000 mg 1 tabs, Oral, BID, # 60 tabs, 5 Refill(s), Pharmacy: [facility] 39851, 1 tabs Oral BID,x30 days Start Date: 12/21/15 Stop Date: 06/18/16 Status: Ordered metFORMIN 500 mg oral tablet See Instructions, TAKE 1 TABLET (500MG) BY ORAL ROUTE 2 TIMES EVERY DAY WITH MORNING AND EVENING MEALS, # 60 unknown unit, 1 Refill(s), eRx: [facility] [id number], TAKE 1 TABLET (500MG) BY ORAL ROUTE 2 TIMES EVERY DAY WITH MORNING AND EVENING MEALS Start Date: 12/23/15 Status: Ordered One-A-Day Women 1 tabs, Oral, Daily, 0 Refill(s) Start Date: 04/28/14 Status: Ordered OXcarbazepine 600 mg oral tablet 600 mg 1 tabs, Oral, BID, # 60 tabs, 0 Refill(s), other reason (Rx) Start Date: 12/21/15 Stop Date: 01/20/16 Status: Ordered Procardia XL 60 mg oral tablet, extended release 60 mg 1 tabs, Oral, Daily, # 30 tabs, 0 Refill(s), Pharmacy: [facility] [id number], 1 tabs Oral Daily Start Date: 11/17/15 Status: Ordered Pulmicort Flexhaler 180 mcg/inh inhalation powder 1 puffs, Inhalation, BID, 0 Refill(s) Start Date: 04/28/14 Status: Ordered Singulair 10 mg oral tablet 1 tabs, Oral, qPM, # 30 tabs, 11 Refill(s), Pharmacy: [facility] [id number] , 1 tabs Oral qPM Start Date: 01/17/15 Status: Ordered Sprintec 0.25 mg-35 mcg oral tablet 1 tabs, Oral, Daily, # 28 tabs, 11 Refill(s), Pharmacy: [facility] [id number] Start Date: 12/30/15 Status: Ordered Ventolin HFA 90 mcg/inh inhalation aerosol 2 puffs, Inhalation, q4hr, as needed for wheezing, # 18 g, 3 Refill(s), Pharmacy : [facility] [id number], 2 puffs Inhalation q4hr,PRN:as needed for wheezing [...] Visit Note Author: Dieter Goldstein MD Date: 01/09/16 Assessment/Plan 1.Acute bacterial sinusitis Cefdinir 300mg 2 daily x 10 days. Symptomatic treatment: tylenol or motrin prn fever based on weight, rest, encourage fluids.Let me know if not improving or if further problems develop , especially any trouble with breathing or keeping down fluids or if fever not resolving . Ordered: Office Visit Level 3 Est [id number] Orders: cefdinir, 300 mg 1 caps, Oral, q12hr, X 10 days, # 20 caps, 0 Refill(s ), Pharmacy: [facility] [id number], 1 caps Oral q12hr,x10 days
--- OUTSIDE RECORDS SUMMARY | 2018-09-11 20:16 | XMS REPORT | Referral Summary ---
Author Author [facility] Organization [facility] Address Unknown Phone Unavailable Care Team Providers Care Employment Trainer Name Role Phone Dieter Goldstein PCP Encounter [facility] Date(s): 06/29/15 - 06/29/[address] [facility] [address] [facility] [address] [place], [place] [address] Discharge Diagnosis: Epilepsy Discharge Disposition: [...] # 75 unknown unit, 2 Refill(s), eRx: [facility] [id number], 1 VIALS INHALATION Q4HR,PRN: NEEDED FOR WHEEZING [...] pain, # 30 tabs, 0 Refill(s), Pharmacy: [facility] [id number] Start Date: 08/21/15 Status: Ordered Flonase 50 mcg/inh nasal spray 2 sprays, Nasal, BID, # 16 g, 11 Refill(s), Pharmacy: [facility] 61909 Start Date: 01/17/15 Status: Ordered folic acid 1 mg oral tablet See Instructions, TAKE TWO TABS TWICE A DAY, # 120 unknown unit, 5 Refill(s), eRx: [facility] [id number], TAKE TWO TABS TWICE A DAY Start Date: 08/22/15 Status: Ordered levETIRAcetam 1000 mg oral tablet 1,000 mg 1 tabs, Oral, BID, # 60 tabs, 5 Refill(s), Pharmacy: [facility] 05425, 1 tabs Oral BID Start Date: 06/29/15 Status: Ordered metFORMIN 500 mg oral tablet See Instructions, TAKE 1 TABLET (500MG) BY ORAL ROUTE 2 TIMES EVERY DAY WITH MORNING AND EVENING MEALS, # 60 unknown unit, eRx: [facility] [id number], TAKE 1 TABLET (500MG) BY ORAL ROUTE [...] qPM, # 30 tabs, 11 Refill(s), Pharmacy: [facility] [id number] , 1 tabs Oral qPM Start Date: 01/17/15 Status: Ordered Ventolin HFA 90 mcg/inh inhalation aerosol 2 puffs, Inhalation, q4hr, as needed for wheezing, # 18 g, 3 Refill(s), Pharmacy : [facility] 25196, 2 puffs Inhalation q4hr,PRN:as needed for wheezing [...]
--- OUTSIDE RECORDS SUMMARY | 2018-09-11 20:16 | XMS REPORT | Referral Summary ---
Author Author [facility] Organization [facility] Address Unknown Phone Unavailable Care Team Providers Care Structures Engineer Name Role Phone Dieter Goldstein PCP Encounter [facility] Date(s): 07/23/16 - 07/23/16 [facility] [address] [place], [place] [address] Discharge Diagnosis: Nausea Discharge Diagnosis: Severe headache Discharge Disposition: 01-Home or Self Care Attending Physician: Dieter Goldstein MD Vital Signs Most recent to 1 oldest [Reference Range]: Temperature Oral 36.9 degC [35.8-37.3 degC] (07/23/16 10:47 AM) Peripheral Pulse 72 bpm Rate [60-100 bpm] (07/23/16 10:47 AM) Blood Pressure 140/94 mmHg [90-140/60-90 mmHg] (07/23/16 10:47 AM) Problem List Condition Effective Dates Status [...] hypertension(Confirm ed)1 (Confirmed) < 2/4/15 Resolved (Confirmed) 03/18/15 - 11/12/15 Resolved (Confirmed) [...] # 60 Each , 11 Refill(s), Pharmacy: [facility] [id number], 1 VIALS INHALATION Q4HR, PRN: NEEDED FOR WHEEZING Start Date: 05/22/16 Status: Ordered Mary-D 12 Hour 60 mg-120 mg oral tablet, extended release 1 tabs, Oral, q12hr, 0 Refill(s) Start Date: 04/28/14 Status: Ordered amLODIPine 5 mg oral tablet 5 mg 1 tabs, Oral, Daily, # 30 tabs, 11 Refill(s), Pharmacy: [facility] [id number], 1 tabs Oral Daily,x30 days Start Date: 04/20/16 Stop Date: 04/15/17 Status: Ordered Calcium Carbonate 500MG + D3 (1250 MG) 400 Unit Calcium Carbonate 500MG + D3 (1250 MG) 400 Unit, Take 1 Tablet by oral route every day, 0 Refill(s) Start Date: 04/28/14 Status: Ordered Flonase 50 mcg/inh nasal spray See Instructions, 2 SPRAYS NASAL BID, # 16 g, 5 Refill(s), eRx: [facility] [id number], 2 SPRAYS NASAL BID Start Date: 02/24/16 Status: Ordered folic acid 1 mg oral tablet 2 mg 2 tabs, Oral, BID, X 30 days, # 120 tabs, 11 Refill(s), Pharmacy: [facility] [id number], 2 tabs Oral BID,x30 days Start Date: 04/20/16 Stop Date: 04/15/17 Status: Ordered hydrochlorothiazide 25 mg oral tablet 25 mg 1 tabs, Oral, Daily, In AM, # 30 tabs, 11 Refill(s), Pharmacy: [facility] 46831, 1 tabs Oral Daily,Instr:In AM Start Date: 07/20/16 Status: Ordered metFORMIN 500 mg oral tablet See Instructions, TAKE 1 TABLET (500MG) BY ORAL ROUTE 2 TIMES EVERY DAY WITH MORNING AND EVENING MEALS, # 60 unknown unit, 5 Refill(s), eRx: [facility] [id number], TAKE 1 TABLET (500MG) BY ORAL ROUTE 2 TIMES EVERY DAY WITH MORNING AND EVENING MEALS Start Date: 02/24/16 Status: Ordered OXcarbazepine 600 mg oral tablet 600 mg 1 tabs, Oral, BID, # 60 tabs, 11 Refill(s), Pharmacy: [facility] [id number], 1 tabs Oral BID Start Date: 01/13/16 Status: Ordered pantoprazole 40 mg oral delayed release tablet See Instructions, TAKE 1 TABLET BY MOUTH ONCE DAILY AT LEAST 1 HOUR AFTER OTHER MEDICATIONS., # 30 tabs, 11 Refill(s), eRx: [facility] [id number], TAKE 1 TABLET BY MOUTH ONCE DAILY AT LEAST 1 HOUR AFTER OTHER MEDICATIONS. Start Date: 07/10/16 Status: Ordered Pulmicort Flexhaler 180 mcg/inh inhalation powder 1 puffs, Inhalation, BID, 0 Refill(s) Start Date: 04/28/14 Status: Ordered ranitidine 150 mg oral capsule See Instructions, TAKE 1 CAPSULE BY MOUTH EVERY DAY AT BEDTIME FOR 30 DAYS, # 30 caps, 11 Refill(s), eRx: [facility] [id number], TAKE 1 CAPSULE BY MOUTH EVERY DAY AT BEDTIME FOR 30 DAYS Start Date: 07/10/16 Status: Ordered Singulair 10 mg oral tablet 10 mg 1 tabs, Oral, qPM, # 30 tabs, 11 Refill(s), Pharmacy: [facility] [id number], 1 tabs Oral qPM Start Date: 01/25/16 Status: Ordered Sprintec 0.25 mg-35 mcg oral tablet 1 tabs, Oral, Daily, # 28 tabs, 11 Refill(s), Pharmacy: [facility] [id number] Start Date: 12/30/15 Status: Ordered Ventolin HFA 90 mcg/inh inhalation aerosol 2 puffs, Inhalation, q4hr, as needed for wheezing, # 18 g, 3 Refill(s), Pharmacy : [facility] 38659, 2 puffs Inhalation q4hr,PRN:as needed for wheezing Start Date: 03/10/15 Status: Ordered Vitamin C 100 mg, Oral, Daily, 0 Refill(s) Start Date: 04/28/14 Status: Ordered Zofran ODT 8 mg oral tablet, disintegrating 8 mg 1 tabs, Oral, q8hr, as needed for nausea/vomiting, X 3 days, # 9 tabs, 0 Refill(s), Pharmacy: [facility] [id number], 1 tabs Oral q8hr,x3 days,PRN: as needed for nausea/vomiting Start Date: 07/23/16 Stop Date: 07/26/16 Status: Ordered Results No data available for [...]
--- OUTSIDE RECORDS SUMMARY | 2018-09-11 20:17 | XMS REPORT | Referral Summary ---
Author Author [facility] Organization [facility] Address Unknown Phone Unavailable Care Team Providers Care Sprinkler Driver Name Role Phone Dieter Goldstein PCP Encounter [facility] [id number] Date(s): 04/29/18 - 04/29/18 [facility] [address] [facility] [address] [place], [place] [address] Encounter Diagnosis Partial symptomatic epilepsy with complex partial seizures, not intractable, without status epilepticus (Discharge Diagnosis) - 04/29/18 Medication management (Discharge Diagnosis) - 04/29/18 Discharge Disposition: 01-Home or Self Care Attending Physician: Lucrecia Oliva Admitting Physician: Lucrecia Oliva Vital Signs Most recent to 1 oldest [Reference Range]: Peripheral Pulse 88 bpm Rate [60-100 bpm] (04/29/18 9:38 AM) Blood Pressure 138/89 mmHg [90-140/60-90 mmHg] (04/29/18 9:38 AM) Problem List Condition Effective Dates Status [...] DAILY, # 30 tabs, 11 Refill(s), eRx: [facility] [id number] Start Date: 11/19/17 Status: Ordered butalbital/acetaminophen/caffeine 50 mg-325 mg-40 mg oral tablet See Instructions, TAKE 1 TABLET BY MOUTH FOUR TIMES DAILY NEEDED FOR HEADACHE , # 20 tabs, 3 Refill(s), eRx: [facility] [id number] Start Date: 02/07/18 Status: Ordered diazePAM 5 mg oral tablet [...] DAILY, # 16 mL, 11 Refill(s), eRx: [facility] [id number] Start Date: 10/16/17 Status: Ordered folic acid 1 mg oral tablet See Instructions, TAKE 2 TABLETS BY MOUTH TWICE DAILY, # 120 tabs, 4 Refill(s), eRx: [facility] [id number], TAKE 2 TABLETS BY MOUTH TWICE DAILY Start Date: 05/02/17 Status: Ordered metFORMIN 500 mg oral tablet See Instructions, TAKE 1 TABLET BY MOUTH TWICE DAILY, # 60 tabs, 5 Refill(s), eRx: [facility] [id number] Start Date: 02/07/18 Status: Ordered montelukast 10 mg oral tablet See Instructions, TAKE 1 TABLET BY MOUTH EVERY EVENING, # 30 tabs, 5 Refill(s), eRx: [facility] [id number], TAKE 1 TABLET BY MOUTH EVERY EVENING Start Date: 12/12/17 Status: Ordered Oxtellar XR 600 mg oral tablet, extended release 1,200 mg 2 tabs, Oral, Daily, # 60 tabs, 11 Refill(s), Pharmacy: [facility] 92597, 2 tabs Oral Daily Start Date: 04/29/18 Status: Ordered pantoprazole 40 mg oral delayed release tablet See Instructions, TAKE 1 TABLET BY MOUTH ONCE DAILY AT LEAST 1 HOUR AFTER OTHER MEDICATIONS., # 30 tabs, 6 Refill(s), eRx: [facility] [id number] Start Date: 01/29/18 Status: Ordered raNITIdine 150 mg oral capsule See Instructions, TAKE 1 CAPSULE BY MOUTH EVERY DAY AT BEDTIME FOR 30 DAYS, # 30 caps, 4 Refill(s), eRx: [facility] [id number] Start Date: 02/28/18 Status: Ordered Symbicort 160 mcg-4.5 mcg/inh inhalation aerosol 2 puffs, Inhalation, BID, rinse mouth and throat after use, # 1 Each, 11 Refill( s) Start Date: 04/02/17 Stop Date: 03/28/18 Status: Ordered Ventolin HFA 90 mcg/inh inhalation aerosol See Instructions, INHALE 2 PUFFS BY MOUTH EVERY 4 HOURS NEEDED FOR WHEEZING, # 18 g, 5 Refill(s), eRx: [facility] [id number] Start Date: 01/28/18 Status: Ordered Results No [...] Office Visit Note Author: Lucrecia Oliva Date: 04/29/18 1.Partial symptomatic epilepsy with complex partial seizures, not intractable, without status epilepticus - No seizure reported since last office visit - Patient does report continued aura sensations, typically during stressful periods - She has missed a few doses "here and there" and isn't sure if the aura sensations were related or not - To increase medication compliance, we will switch from oxcarbazepine to Oxtellar XR and have instructed patient to take 1200mg at HS - Copay card given to patient for $0 copay for 12 months - We will also obtain BMP today per patient request; she is not reporting continued dizziness which was a sign of hyponatremia in the past - We will see her back in clinic in 2 months and PRN Ordered: Basic Metabolic Panel 2.Medication management - senior care AED use - Switching to Oxtellar XR to increase medication compliance Patient is in agreement with this plan and denies having questions today. Discussed with preceptor. Addendum by Yoel, I have discussed and reviewed the patient with Lucrecia Oliva. I agree with the assessment Yuri Riley MD and plan documented above. on April 29, 2018 11:40:26 CDT
--- OUTSIDE RECORDS SUMMARY | 2018-09-11 20:18 | XMS REPORT | Referral Summary ---
Author Author [facility] Organization [facility] Address Unknown Phone Unavailable Care Team Providers Care Habilitation Training Specialist Name Role Phone Dieter Goldstein PCP Encounter [facility] [id number] Date(s): 08/12/15 - 08/12/15 [facility] [address] [place], [place] [address] Discharge Diagnosis: Encounter for anatomic survey Discharge Diagnosis: Family history of open neural tube defect Discharge Diagnosis: Medication exposure during first trimester of Discharge Diagnosis: Asthma Discharge Diagnosis: Complex partial seizures Discharge Disposition: 01-Home or Self Care Attending Physician: Dieter Garay MD Referring Physician: Bhupendra Nichols MD Vital Signs Most recent to 1 oldest [Reference Range]: Peripheral Pulse 88 bpm Rate [60-100 bpm] (08/12/15 8:04 AM) Blood Pressure 130/85 mmHg [90-140/60-90 mmHg] (08/12/15 8:04 AM) Problem List Condition Effective Dates Status [...] # 75 unknown unit, 2 Refill(s), eRx: [facility] 26382, 1 VIALS INHALATION Q4HR,PRN: NEEDED FOR WHEEZING [...] pain, # 30 tabs, 0 Refill(s), Pharmacy: [facility] [id number] Start Date: 10/05/15 Status: Ordered Flonase 50 mcg/inh nasal spray 2 sprays, Nasal, BID, # 16 g, 11 Refill(s), Pharmacy: [facility] 35097 Start Date: 01/17/15 Status: Ordered folic acid 1 mg oral tablet See Instructions, TAKE TWO TABS TWICE A DAY, # 120 unknown unit, 5 Refill(s), eRx: [facility] 22129, TAKE TWO TABS TWICE A DAY Start Date: 08/22/15 Status: Ordered ibuprofen 800 mg oral tablet 800 mg 1 tabs, Oral, q8hr (scheduled), # 90 tabs, 0 Refill(s) Start Date: 11/14/15 Status: Ordered labetalol 100 mg oral tablet 100 mg 1 tabs, Oral, BID, # 60 tabs, 1 Refill(s), Pharmacy: [facility] 54152, 1 tabs Oral BID Start Date: 11/25/15 Status: Ordered metFORMIN 500 mg oral tablet See Instructions, TAKE 1 TABLET (500MG) BY ORAL ROUTE 2 TIMES EVERY DAY WITH MORNING AND EVENING MEALS, # 60 unknown unit, 1 Refill(s), eRx: [facility] 13927, TAKE 1 TABLET (500MG) BY ORAL ROUTE 2 TIMES EVERY DAY WITH MORNING AND EVENING MEALS Start Date: 12/23/15 Status: Ordered One-A-Day Women 1 tabs, Oral, Daily, 0 Refill(s) Start Date: 04/28/14 Status: Ordered OXcarbazepine 600 mg oral tablet 600 mg 1 tabs, Oral, BID, # 60 tabs, 11 Refill(s), Pharmacy: [facility] 64535, 1 tabs Oral BID Start Date: 01/13/16 Status: Ordered pantoprazole 40 mg oral delayed release tablet 40 mg 1 tabs, Oral, Daily, Take at least 1 hour after other medications., # 30 tabs, 5 Refill(s), Pharmacy: [facility] 01700, 1 tabs Oral Daily,x30 days,Instr:Take at least 1 hour after other medications. Start Date: 01/20/16 Stop Date: 07/18/16 Status: Ordered Pulmicort Flexhaler 180 mcg/inh inhalation powder 1 puffs, Inhalation, BID, 0 Refill(s) Start Date: 04/28/14 Status: Ordered ranitidine 150 mg oral capsule 150 mg 1 caps, Oral, Bedtime (once a day), # 30 caps, 5 Refill(s), Pharmacy: [facility] 93063, 1 caps Oral Bedtime (once a day),x30 days Start Date: 01/20/16 Stop Date: 07/18/16 Status: Ordered Singulair 10 mg oral tablet 10 mg 1 tabs, Oral, qPM, # 30 tabs, 11 Refill(s), Pharmacy: [facility] 43163, 1 tabs Oral qPM Start Date: 01/25/16 Status: Ordered Sprintec 0.25 mg-35 mcg oral tablet 1 tabs, Oral, Daily, # 28 tabs, 11 Refill(s), Pharmacy: [facility] 09423 Start Date: 12/30/15 Status: Ordered Ventolin HFA 90 mcg/inh inhalation aerosol 2 puffs, Inhalation, q4hr, as needed for wheezing, # 18 g, 3 Refill(s), Pharmacy : [facility] 11280, 2 puffs Inhalation q4hr,PRN:as needed for wheezing [...] Visit Note Author: Dieter Garay MD Date: 08/12/15 Assessment/Plan Asthma Patient reports this has been under good control. Complex partial seizures Follow-up for interval growth recommended and scheduledin 9 weeks due tomaternal medical conditions including asthma and seizure disorderand medication exposures. Encounter for anatomic survey Limitations and results of ultrasound discussed with patient. Family history of open neural tube defect spine and posterior fossa appear within normal limits. Medication exposure during first trimester of No sonographic abnormalities identified. Orders: US Follow Up Thank you for allowing me to participate in this patient's care and evaluation. I spent5 minutes [id number] with the patient at the time of this appointment of which greater than 50 percent was spent counseling and coordinating care.
--- OUTSIDE RECORDS SUMMARY | 2018-09-11 20:18 | XMS REPORT | Referral Summary ---
Author Author [facility] Organization [facility] Address Unknown Phone Unavailable Care Team Providers Care Awning Finisher Name Role Phone Dieter Goldstein PCP Encounter [facility] [id number] Date(s): 12/10/17 - 12/10/17 [facility] [address] [place], [place] [address] Discharge Diagnosis: Dizziness Discharge Diagnosis: Urinary frequency Discharge Diagnosis: Essential hypertension Discharge Disposition: 01-Home or Self Care Attending Physician: Dieter Goldstein MD Vital Signs Most recent to 1 oldest [Reference Range]: Peripheral Pulse 81 bpm Rate [60-100 bpm] (12/10/17 11:29 AM) Blood Pressure 143/84 mmHg [90-140/60-90 mmHg] *HI* (12/10/17 11:29 AM) SpO2 99 % (12/10/17 11:29 AM) Problem List Condition Effective Dates Status [...] WHEEZING, # 180 mL, 3 Refill(s), eRx: [facility] [id number] Start Date: 10/29/17 Status: Ordered amLODIPine 10 mg oral tablet See Instructions, TAKE 1 TABLET BY MOUTH DAILY, # 30 tabs, 11 Refill(s), eRx: [facility] 12114 Start Date: 11/19/17 Status: Ordered butalbital/acetaminophen/caffeine 50 mg-325 mg-40 mg oral tablet See Instructions, TAKE 1 TABLET BY MOUTH FOUR TIMES DAILY NEEDED FOR HEADACHE , # 20 tabs, 2 Refill(s), eRx: [facility] [id number] Start Date: 12/02/17 Status: Ordered diazePAM 5 mg oral tablet 5 mg 1 tabs, Oral, BID, as needed for anxiety, # 15 tabs, 0 Refill(s), called to pharmacy (Rx) Start Date: 04/02/17 Status: Ordered escitalopram 10 mg oral tablet See Instructions, TAKE 1 TABLET BY MOUTH DAILY, # 30 tabs, 5 Refill(s), eRx: [facility] 88833 Start Date: 08/12/17 Status: Ordered ferrous sulfate 325 mg (65 mg elemental iron) oral delayed release tablet 325 mg 1 tabs, Oral, Daily, # 30 tabs, 0 Refill(s) Start Date: 3/23/17 Status: Ordered fluticasone 50 mcg/inh nasal spray See Instructions, INSTILL 2 SPRAYS IN EACH NOSTRIL TWICE DAILY, # 16 mL, 11 Refill(s), eRx: [facility] [id number] Start Date: 10/16/17 Status: Ordered folic acid 1 mg oral tablet See Instructions, TAKE 2 TABLETS BY MOUTH TWICE DAILY, # 120 tabs, 4 Refill(s), eRx: [facility] [id number], TAKE 2 TABLETS BY MOUTH TWICE DAILY Start Date: 05/02/17 Status: Ordered metFORMIN 500 mg oral tablet 500 mg 1 tabs, Oral, BID, # 60 tabs, 4 Refill(s), Pharmacy: [facility] 54643, 1 tabs Oral BID Start Date: 08/26/17 Status: Ordered OXcarbazepine 600 mg oral tablet 600 mg 1 tabs, Oral, BID, # 60 tabs, 11 Refill(s), Pharmacy: [facility] 95251, 1 tabs Oral BID Start Date: 12/31/16 Status: Ordered pantoprazole 40 mg oral delayed release tablet See Instructions, TAKE 1 TABLET BY MOUTH ONCE DAILY AT LEAST 1 HOUR AFTER OTHER MEDICATIONS., # 30 tabs, 5 Refill(s), eRx: [facility] [id number], TAKE 1 TABLET BY MOUTH ONCE DAILY AT LEAST 1 HOUR AFTER OTHER MEDICATIONS. Start Date: 06/28/17 Status: Ordered raNITIdine 150 mg oral capsule See Instructions, TAKE 1 CAPSULE BY MOUTH EVERY DAY AT BEDTIME FOR 30 DAYS, # 30 caps, 5 Refill(s), eRx: [facility] 86825, TAKE 1 CAPSULE BY MOUTH EVERY DAY AT BEDTIME FOR 30 DAYS Start Date: 06/28/17 Status: Ordered Singulair 10 mg, Oral, Daily, 0 Refill(s) Start Date: 02/12/17 Status: Ordered Symbicort 160 mcg-4.5 mcg/inh inhalation aerosol 2 puffs, Inhalation, BID, rinse mouth and throat after use, # 1 Each, 11 Refill( s) Start Date: 04/02/17 Stop Date: 03/28/18 Status: Ordered Results Hematology Most recent to 1 oldest [Reference Range]: WBC [4.8-10.8 7.8 10*3/uL 10*3/uL] (12/10/17 12:15 PM) RBC [4.00-5.20] 5.22 *HI* (12/10/17 12:15 PM) Hgb [12.0-16.0 11.4 gm/dL gm/dL] *LOW* (12/10/17 12:15 PM) Hct [37.0-47.0 %] 37.9 % (12/10/17 12:15 PM) MCV [82.0-99.0 fL] 72.6 fL *LOW* (12/10/17 12:15 PM) MCH [27.0-32.0 pg] 21.8 pg *LOW* (12/10/17 12:15 PM) MCHC [32.0-36.0 30.1 gm/dL gm/dL] *LOW* (12/10/17 12:15 PM) RDW [11.5-14.5 %] 14.4 % (12/10/17 12:15 PM) Platelet [150-400 359 10*3/uL 10*3/uL] (12/10/17 12:15 PM) MPV [8.8-14.8 fL] 10.1 fL (12/10/17 12:15 PM) Immature 0.3 % Granulocytes (12/10/17 12:15 PM) [0.0-1.0 %] Neutrophils [51-75 61 % %] (12/10/17 12:15 PM) Lymphocytes [20-46 28 % %] (12/10/17 12:15 PM) Monocytes [4-11 %] 10 % (12/10/17 12:15 PM) Eosinophils [0-4 %] 1 % (12/10/17 12:15 PM) Basophils [0-2 %] 1 % (12/10/17 12:15 PM) Neutro Absolute 4.70 [1.90-7.00] (12/10/17 12:15 PM) Lymph Absolute 2.17 [0.80-3.30] (12/10/17 12:15 PM) [place] Absolute 0.77 [0.30-1.00] (12/10/17 12:15 PM) Eos Absolute 0.07 [0.00-0.50] (12/10/17 12:15 PM) Baso Absolute 0.04 [0.00-0.20] (12/10/17 12:15 PM) Nucleated RBC 0.0 /100 WBC Automated [0 /100 (12/10/17 12:15 PM) WBC] Chemistry Most recent to 1 oldest [Reference Range]: Sodium Lvl [135-144 130 mEq/L mEq/L] *LOW* (12/10/17 12:15 PM) Potassium Lvl 4.0 mEq/L [3.5-5.2 mEq/L] (12/10/17 12:15 PM) Chloride [99-111 97 mEq/L mEq/L] *LOW* (12/10/17 12:15 PM) CO2 [22-31 mEq/L] 26 mEq/L (12/10/17 12:15 PM) AGAP [3-20 mEq/L] 7 mEq/L (12/10/17 12:15 PM) BUN [7-19 mg/dL] 8 mg/dL (12/10/17 12:15 PM) Glucose Lvl [70-99 81 mg/dL mg/dL] (12/10/17 12:15 PM) Creatinine Lvl 0.67 mg/dL [0.57-1.11 mg/dL] (12/10/17 12:15 PM) eGFR [>60 mL/min] >60 mL/min 1 (12/10/17 12:15 PM) Calcium Lvl 9.0 mg/dL [8.4-10.2 mg/dL] (12/10/17 12:15 PM) Albumin Lvl [3.5-5.0 4.5 gm/dL gm/dL] (12/10/17 12:15 PM) Total Protein 7.1 gm/dL [6.1-7.7 gm/dL] (12/10/17 12:15 PM) Globulin [1.8-4.0 2.6 gm/dL gm/dL] (12/10/17 12:15 PM) ALT [0-55 U/L] 23 U/L (12/10/17 12:15 PM) AST [5-34 U/L] 17 U/L (12/10/17 12:15 PM) Alk Phos [40-150 82 U/L U/L] (12/10/17 12:15 PM) Bili Total [0.2-1.2 0.2 mg/dL mg/dL] (12/10/17 12:15 PM) 1Result Comment: Multiply eGFR results by 1.21 for race. Urinalysis Most recent to 1 oldest [Reference Range]: Leukocytes Urine Negative Dipstick (12/10/17 11:54 AM) Nitrite Urine Negative Dipstick (12/10/17 11:54 AM) Urobilinogen Urine 0.2 mg/dl Dipstick (12/10/17 11:54 AM) Protein Urine Negative Dipstick (12/10/17 11:54 AM) pH Urine Dipstick 6 (12/10/17 11:54 AM) Ketones Urine Negative Dipstick (12/10/17 11:54 AM) Blood Urine Dipstick Trace (12/10/17 11:54 AM) Bilirubin Urine Negative Dipstick (12/10/17 11:54 AM) Specific [place] 1.025 Urine Dipstick (12/10/17 11:54 AM) Glucose Urine Negative Dipstick (12/10/17 11:54 AM) Urine Color Urine Yellow Dipstick (12/10/17 11:54 AM) Urine Appearance Clear Urine Dipstick (12/10/17 11:54 AM) Urine Dipstick Sent UA micro Comments (12/10/17 11:54 AM) UA WBC [0-4] 0-2 (12/10/17 11:57 AM) UA RBC [0-4] 0-4 (12/10/17 11:57 AM) Epithelial Cells 5-10 (12/10/17 11:57 AM) Immunizations Given and Recorded Vaccine Date Status Refusal Reason influenza virus vaccine, inactivated 09/23/17 Given influenza virus vaccine, inactivated 08/20/16 Given influenza virus vaccine, inactivated 09/09/15 Given influenza virus vaccine, inactivated1 08/26/14 Recorded tetanus/diphth/pertuss (Tdap) adult/adol 09/30/15 Given 1Result Comment: [09/10/2014] See Scanned Document Procedures Procedure Date Related Diagnosis Body Site Collection of venous blood by venipuncture 12/10/17 delivery only; 11/12/15 Section1 11/12/15 Dilatation and Curettage (Suction)2 12/29/14 wisdom teeth removed 1auto-populated from documented surgical case 2auto-populated from documented surgical case Social History Social History Type Response Smoking Status Never smoker entered on: 05/24/14 Assessment and Plan Extracted from: Title: Office Visit Note Author: Dieter Goldstein MD Date: 12/10/17 1.Dizziness Uncertain etiology. Will check a cbc and cmp today. Avoid climbing. Rest and drink plenty of fluids. Let me know if not improving. Ordered: CBC w/ Differential CBC w/ Differential Collection Of Venous Blood By Venipuncture [id number] Comprehensive Metabolic Panel Comprehensive Metabolic Panel 2.Urinary frequency Continue diabeticdiet and metformin bid. Ordered: CBC w/ Differential CBC w/ Differential Comprehensive Metabolic Panel Comprehensive Metabolic Panel Urinalysis Microscopic 3.Essential hypertension Continue amlodipine daily. Ordered: CBC w/ Differential CBC w/ Differential Collection Of Venous Blood By Venipuncture [id number] Comprehensive Metabolic Panel Comprehensive Metabolic Panel
--- OUTSIDE RECORDS SUMMARY | 2018-09-11 20:19 | XMS REPORT | Referral Summary ---
Author Organization Unknown Address Unknown Phone Unavailable Care Team Providers Care Hair Baler Name Role Phone Dieter Goldstein PCP Encounter [facility] Date(s): 01/14/15 - 01/14/15 [facility], [facility] [address] [facility] [address] [place], [place] [address] Discharge Diagnosis: Surgery follow-up Discharge Disposition: Home or Self Care Attending Physician: Bhupendra Nichols MD Admitting Physician: Bhupendra Nichols MD Vital Signs Most recent to 1 oldest [Reference Range]: Blood Pressure 130/80 mmHg [90-140/60-90 mmHg] (01/14/15 8:55 AM) Problem List Condition Effective Dates Status Health Status Informant Amenorrhea(Confirmed Active ) Anemia Active (disorder)(Confirmed ) Asthma(Confirmed) Active Complex partial Active seizures(Confirmed) Depression(Confirmed Active ) 22 wk SAB(Confirmed) 2005 Active Dizzy(Confirmed) Active History of chicken Active [...] # 120 unknown unit, 5 Refill(s), eRx: [facility] 06586, TAKE TWO TABS TWICE A DAY Special Instructions: TAKE TWO TABS TWICE A DAY Start Date: 12/13/14 Status: Ordered levETIRAcetam 500 mg oral tablet See Instructions, TAKE 3 1/2 TABLETS BY MOUTH TWICE DAILY, # 210 tabs, 2 Refill( s), eRx: [facility] 01678, TAKE 3 1/2 TABLETS BY MOUTH TWICE DAILY Special Instructions: TAKE 3 1/2 TABLETS BY MOUTH TWICE DAILY Start Date: 12/13/14 Status: Ordered metFORMIN 500 mg oral tablet See Instructions, TAKE 1 TABLET (500MG) BY ORAL ROUTE 2 TIMES EVERY DAY WITH MORNING AND EVENING MEALS, # 60 unknown unit, 5 Refill(s), eRx: [facility] 12605, TAKE 1 TABLET (500MG) BY ORAL ROUTE [...] Daily, # 30 tabs, 5 Refill(s), Pharmacy: [facility] 39423, 1 tabs Oral Daily Start Date: 08/26/14 [...] smoker Assessment and Plan Extracted from: Title: Gynecology Visit- Author: Bhupendra Nichols MD Date: 01/14/15 Impression and Plan Diagnosis Surgery follow-up (ICD9 V67.00, Discharge, Medical). Plan: Satisfactory healing. s/p d&c for missed AB. Daily folic acid. Recommend waiting 2 months prior to conception. Recommended she inform neurologist she will be attempting so meds can be adjusted to the most safest. .
--- OUTSIDE RECORDS SUMMARY | 2018-09-11 20:19 | XMS REPORT | Referral Summary ---
Author Organization Unknown Address Unknown Phone Unavailable Care Team Providers Care Furnace Packer Name Role Phone Dieter Goldstein PCP Encounter [facility] Date(s): 12/29/14 - 12/29/14 [facility] [place] [address] [address] [place], [place] [address] Discharge Diagnosis: Incomplete spontaneous with complication Discharge Disposition: Home or Self Care Attending Physician: Bhupendra Nichols MD Admitting Physician: Bhupendra Nichols MD Vital Signs Most recent to 1 oldest [Reference Range]: Blood Pressure 122/80 mmHg [90-140/60-90 mmHg] (12/29/14 9:44 AM) Problem List Condition Effective Dates Status [...] # 120 unknown unit, 5 Refill(s), eRx: [facility] 33880, TAKE TWO TABS TWICE A DAY Special Instructions: TAKE TWO TABS TWICE A DAY Start Date: 12/13/14 Status: Ordered levETIRAcetam 500 mg oral tablet See Instructions, TAKE 3 1/2 TABLETS BY MOUTH TWICE DAILY, # 210 tabs, 2 Refill( s), eRx: [facility] 12537, TAKE 3 1/2 TABLETS BY MOUTH TWICE DAILY Special Instructions: TAKE 3 1/2 TABLETS BY MOUTH TWICE DAILY Start Date: 12/13/14 Status: Ordered metFORMIN 500 mg oral tablet See Instructions, TAKE 1 TABLET (500MG) BY ORAL ROUTE 2 TIMES EVERY DAY WITH MORNING AND EVENING MEALS, # 60 unknown unit, 5 Refill(s), eRx: [facility] 75880, TAKE 1 TABLET (500MG) BY ORAL ROUTE [...] Daily, # 30 tabs, 5 Refill(s), Pharmacy: [facility] 57233, 1 tabs Oral Daily Start Date: 08/26/14 [...]
--- OUTSIDE RECORDS SUMMARY | 2018-09-11 20:19 | XMS REPORT | Referral Summary ---
Author Organization Unknown Address Unknown Phone Unavailable Care Team Providers Care Patient Assistant Name Role Phone Dieter Goldstein PCP Encounter VC Date(s): 12/28/14 - 12/29/[address] [facility] [address] [place] [id number] Discharge Diagnosis: Retained products of conception, not following spontaneous or induced or delivery Final: MISSED Discharge Diagnosis: demise Discharge Disposition: Home or Self Care Attending Physician: Erika López DO Admitting Physician: Erika López DO Vital Signs Most recent to 1 oldest [Reference Range]: Temperature Oral 37.1 degC [35.8-37.3 degC] (12/28/14 9:52 PM) Peripheral Pulse 89 bpm Rate [60-100 bpm] (12/28/14 11:17 PM) Heart Rate Monitored 87 bpm [60-100 bpm] (12/29/14 4:00 AM) Respiratory Rate 18 br/min [14-20 br/min] (12/29/14 4:00 AM) Blood Pressure 155/111 mmHg [90-140/60-90 mmHg] *HI* (12/29/14 4:00 AM) Mean Arterial 125 mmHg Pressure, Cuff (12/29/14 4:00 AM) Most recent to 1 oldest [Reference Range]: SpO2 96 % (12/29/14 4:00 AM) Problem List Condition Effective Dates Status [...] # 120 unknown unit, 5 Refill(s), eRx: [facility] [id number], TAKE TWO TABS TWICE A DAY Special Instructions: TAKE TWO TABS TWICE A DAY Start Date: 12/13/14 Status: Ordered levETIRAcetam 500 mg oral tablet See Instructions, TAKE 3 1/2 TABLETS BY MOUTH TWICE DAILY, # 210 tabs, 2 Refill( s), eRx: [facility] [id number], TAKE 3 1/2 TABLETS BY MOUTH TWICE DAILY Special Instructions: TAKE 3 1/2 TABLETS BY MOUTH TWICE DAILY Start Date: 12/13/14 Status: Ordered metFORMIN 500 mg oral tablet See Instructions, TAKE 1 TABLET (500MG) BY ORAL ROUTE 2 TIMES EVERY DAY WITH MORNING AND EVENING MEALS, # 60 unknown unit, 5 Refill(s), eRx: [facility] [id number], TAKE 1 TABLET (500MG) BY ORAL ROUTE [...] Daily, # 30 tabs, 5 Refill(s), Pharmacy: [facility] [id number], 1 tabs Oral Daily Start Date: 08/26/14 [...] to 1 oldest [Reference Range]: WBC [4.8-10.8 K/uL] 9.7 K/uL (12/28/14 11:45 PM) RBC [4.00-5.20 M/uL] 5.49 M/uL *HI* (12/28/14 11:45 PM) Hgb [12.0-16.0 12.0 gm/dL gm/dL] (12/28/14 11:45 PM) Hct [37.0-47.0 %] 37.5 % (12/28/14 11:45 PM) MCV [82.0-99.0 fL] 68.3 fL *LOW* (12/28/14 11:45 PM) MCH [27.0-32.0 pg] 21.9 pg *LOW* (12/28/14 11:45 PM) MCHC [32.0-36.0 32.0 gm/dL gm/dL] (12/28/14 11:45 PM) RDW [11.5-14.5 %] 14.8 % *HI* (12/28/14 11:45 PM) Platelet [150-400 384 K/uL K/uL] (12/28/1445 PM) MPV [9.4-12.4 fL] 10.1 fL (12/28/1445 PM) Immature 0.2 % Granulocytes (12/28/1445 PM) [0.0-1.0 %] Neutrophils [51-75 56 % %] (12/28/1445 PM) Lymphocytes [20-46 34 % %] (12/28/1445 PM) Monocytes [4-11 %] 9 % (12/28/1445 PM) Eosinophils [0-4 %] 1 % (12/28/1445 PM) Basophils [0-2 %] 0 % (12/28/1445 PM) Neutro Absolute 5.41 THOUS [1.90-7.00 THOUS] (12/28/1445 PM) Lymph Absolute 3.30 THOUS [0.80-3.30 THOUS] (12/28/1445 PM) [place]rens Absolute 0.91 THOUS [0.30-1.00 THOUS] (12/28/1445 PM) Eos Absolute 0.07 THOUS [0.00-0.50 THOUS] (12/28/1445 PM) Baso Absolute 0.03 THOUS [0.00-0.20 THOUS] (12/28/1445 PM) Differential Scanned Slide (12/28/1445 PM) Chemistry Most recent to 1 oldest [Reference Range]: Sodium Lvl [136-144 137 mEq/L mEq/L] (12/28/1445 PM) Potassium Lvl 3.7 mEq/L [3.6-5.1 mEq/L] (12/28/1445 PM) Chloride [99-109 102 mEq/L mEq/L] (12/28/1445 PM) CO2 [22-32 mEq/L] 24 mEq/L (12/28/1445 PM) AGAP [3-20] 11 (12/28/14 11:45 PM) BUN [4-20 mg/dL] 8 mg/dL (12/28/1445 PM) Glucose Lvl [70-100 85 mg/dL mg/dL] (12/28/14 11:45 PM) Creatinine Lvl 0.67 mg/dL [0.44-1.03 mg/dL] (12/28/14 11:45 PM) eGFR [>60] >60 2 (12/28/14 11:45 PM) Calcium Lvl 9.1 mg/dL [8.6-10.0 mg/dL] (12/28/14:45 PM) Albumin Lvl [3.5-4.8 4.2 gm/dL gm/dL] (12/28/14 1145 PM) Total Protein 7.2 gm/dL [6.1-7.9 gm/dL] (12/28/1445 PM) Globulin [1.9-4.3 3.0 gm/dL gm/dL] (12/28/14 1145 PM) ALT [14-54 unit/L] 20 unit/L (12/28/1445 PM) AST [15-41 unit/L] 18 unit/L (12/28/14:45 PM) Alk Phos [26-104 71 unit/L unit/L] (12/28/14 11:45 PM) Bili Total [0.2-1.2 0.5 mg/dL 1 mg/dL] (12/28/14 11:45 PM) 1Result Comment: Naproxen, specifically the metabolite O-desmethylnaproxen, may cause spurious elevation in Total Bilirubin levels. 2Result Comment: Multiply eGFR results by 1.21 for race. Urinalysis Most recent to 1 oldest [Reference Range]: UA Color Lt Yellow (12/29/14 12:00 AM) UA Appear Clear (12/29/14 12:00 AM) UA pH [5.0-8.0] 6.5 (12/29/14 12:00 AM) UA Leuk Est Negative [Negative] (12/29/14 12:00 AM) UA Nitrite Negative [Negative] (12/29/14 12:00 AM) UA Protein Negative [Negative] (12/29/14 12:00 AM) UA Glucose Negative [Negative] (12/29/14 12:00 AM) UA Ketones Negative [Negative] (12/29/14 12:00 AM) UA Urobilinogen Negative [<1.0] (12/29/14 12:00 AM) UA Bili [Negative] Negative (12/29/14 12:00 AM) UA Blood [Negative] Negative (12/29/14 12:00 AM) UA Spec Grav 1.009 [1.003-1.030] (12/29/14 12:00 AM) Type Clean Catch (12/29/14 12:00 AM) Microbiology Reports PROCEDURE: Affirm Vaginitis Panel STATUS: Auth (Verified) BODY SITE: SOURCE: Cervical COLLECTED DATE/TIME: 12/28/14 11:45 PM Immunizations Vaccine Date Refusal Reason influenza virus vaccine, inactivated1 08/26/14 1Result Comment: [09/10/2014] See Scanned Document Procedures Procedure Date Related Diagnosis Body Site Dilatation and Curettage (Suction)1 12/29/14 wisdom teeth removed 1auto-populated from documented surgical case Social History Social History Type Response Smoking Status Never smoker Assessment and Plan No data available for this section
--- OUTSIDE RECORDS SUMMARY | 2018-09-11 20:19 | XMS REPORT | Referral Summary ---
Author Organization Unknown Address Unknown Phone Unavailable Care Team Providers Care Director Of Early Childhood Education Name Role Phone Dieter Goldstein PCP Encounter VC Date(s): 01/17/15 - 01/17/15 [facility], [facility] [address] [place], [place] [address] Discharge Diagnosis: H/O hypoglycemia Discharge Diagnosis: Disease Discharge Diagnosis: Other convulsions Discharge Diagnosis: Asthma Discharge Diagnosis: Right ovarian cyst Discharge Disposition: Home or Self Care Attending Physician: Dieter Goldstein MD Admitting Physician: Dieter Goldstein MD Vital Signs Most recent to 1 oldest [Reference Range]: Peripheral Pulse 85 bpm Rate [60-100 bpm] (01/17/15 9:44 AM) Blood Pressure 130/90 mmHg [90-140/60-90 mmHg] (01/17/15 9:44 AM) Problem List Condition Effective Dates [...] every day Start Date: 04/28/14 Status: Ordered Flonase 50 mcg/inh nasal spray 2 sprays, Nasal, BID, # 16 g, 11 Refill(s), Pharmacy: [facility] [id number] Start Date: 01/17/15 Status: Ordered folic acid 1 mg oral tablet See Instructions, TAKE TWO TABS TWICE A DAY, # 120 unknown unit, 5 Refill(s), eRx: [facility] [id number], TAKE TWO TABS TWICE A DAY Special Instructions: TAKE TWO TABS TWICE A DAY Start Date: 12/13/14 Status: Ordered levETIRAcetam 500 mg oral tablet See Instructions, TAKE 3 1/2 TABLETS BY MOUTH TWICE DAILY, # 210 tabs, 2 Refill( s), eRx: [facility] [id number], TAKE 3 1/2 TABLETS BY MOUTH TWICE DAILY Special Instructions: TAKE 3 1/2 TABLETS BY MOUTH TWICE DAILY Start Date: 12/13/14 Status: Ordered metFORMIN 500 mg oral tablet See Instructions, TAKE 1 TABLET (500MG) BY ORAL ROUTE 2 TIMES EVERY DAY WITH MORNING AND EVENING MEALS, # 60 unknown unit, 5 Refill(s), eRx: [facility] [id number], TAKE 1 TABLET (500MG) BY ORAL ROUTE 2 TIMES EVERY DAY WITH MORNING AND EVENING MEALS Special Instructions: TAKE 1 TABLET (500MG) BY ORAL ROUTE 2 TIMES EVERY DAY WITH MORNING AND EVENING MEALS Start Date: 12/13/14 Status: Ordered One-A-Day Women 1 tabs, Oral, Daily, 0 Refill(s) Start Date: 04/28/14 Status: Ordered PARoxetine 10 mg oral tablet 1 tabs, Oral, Daily, # 30 tabs, 5 Refill(s), Pharmacy: [facility] [id number], 1 tabs Oral Daily Start Date: 08/26/14 Status: Ordered Pulmicort Flexhaler 180 mcg/inh inhalation powder 1 puffs, Inhalation, BID, 0 Refill(s) Start Date: 04/28/14 Status: Ordered Singulair 10 mg oral tablet 1 tabs, Oral, qPM, # 30 tabs, 11 Refill(s), Pharmacy: [facility] [id number] , 1 tabs Oral qPM Start Date: [...]
--- OUTSIDE RECORDS SUMMARY | 2018-09-11 20:20 | XMS REPORT | Continuity of Care Document ---
Author Author Geovani Garcia [facility] Ambulatory Address [address] [place] [id number] Phone Unavailable Care Team Providers Care Sand Mixer Name Role Phone GoldsteinDieter PP Unavailable Marci Milton RP Unavailable Payers Payer name Insurance type Covered green party ID Authorization(s) Unknown Problems Condition Effective Dates (start - stop) Clinical Status Fatigue / Malaise - *Acute Allergic rhinitis, cause unspecified - *Chronic Asthma - *Chronic Seizure / Convulsions - *Fair Control Routine Medical Exam - *Routine Asthma - *Chronic Allergic rhinitis, cause unspecified - *Chronic Hypoglycemia, unspecified - *Chronic Hypoglycemia, unspecified - *Chronic Obesity, unspecified - *Chronic Bronchitis, Acute - Acute Seizure / Convulsions - *Chronic Sinusitis, Acute - *Acute ASTHMA, UNSPECIFIED TYPE, WITH (ACUTE) EXACERBATION - *Acute Routine gynecological examination - *Routine Acute maxillary sinusitis - *Acute Acute tonsillitis - *Acute Other convulsions - *Chronic Routine gynecological examination - *Routine Hypoglycemia, unspecified - *Chronic Obesity, unspecified - *Chronic Acute maxillary sinusitis - *Acute VARICELLA UNCOMPLICATED - OVERWEIGHT - IRON DEFIC ANEMIA NOS - 311 - DEPRESSIVE DISORDER NEC - PART EPIL W/O INTR EPIL - CONVULSIONS NEC - HEADACHE - Acute maxillary sinusitis - *Acute Wheezing - *Acute Decreased libido - *Acute ASTHMA, UNSPECIFIED TYPE, WITH (ACUTE) EXACERBATION - Acute Acute tonsillitis - *Acute Acute tonsillitis - *Acute Acute maxillary sinusitis - *Acute Persistent disorder of initiating or maintaining sleep - Improved Sinusitis, Acute - Acute Asthma - *Chronic Allergic rhinitis, cause unspecified - *Chronic Seizure / Convulsions - *Controlled Sinusitis, Acute - Acute Hypoglycemia, unspecified - *Chronic Anemia - *Acute Seizure / Convulsions - *Chronic Low libido - *Chronic Sinusitis, Acute - *Acute Headache - *Acute Anemia, unspecified - *Chronic Obesity, unspecified - *Chronic Other convulsions - *Chronic Panic disorder without agoraphobia - *Chronic Family History Family Member Diagnosis Age At Onset Status Mother (Unknown) Epilepsy Yes Sister (Unknown) Asthma Yes Grandparents x 3 (Unknown) Diabetes Yes Father (Unknown) CAD Yes Social History Social History Element Description Quantity Unknown Allergies, Adverse Reactions, Alerts Substance Reaction Severity Status TOPIRAMATE burning,itching and closed airwa Unknown Medications Medication Instructions Dosage Effective Dates (start - stop) Status iron ER 325 mg (65 mg iron) capsule,extended release 1 tab daily 2007 - Active calcium carbonate-vitamin D3 500 mg (1,250 mg)-400 unit tablet 1 tab daily - Active Mary-D 12 Hour 60 mg-120 mg tablet,extended release take 1 tablet by oral route 2 times every day 0 - Active Benadryl Severe Allergy-Sinus 25 mg-5 mg-325 mg tablet take 1 tab at bedtime - Active Ventolin HFA 90 mcg/actuation aerosol inhaler inhale 2 puff by INHALATION route 4 - 6 hours as needed 0 - Active One-A-Day Womens Formula 18 mg iron-400 mcg-500 mg Ca tablet take 1 Tablet by Oral route every day 0 - Active Vitamin C 100 mg tablet take 1 Tablet by Oral route every day 0 - Active Vitamin D3 400 unit tablet take 1 Tablet by Oral route every day 0 - Active Unisom 25 mg tablet - Active Pulmicort Flexhaler 180 mcg/actuation breath activated inhale 1 puff (180MCG) by inhalation route 2 times every day 180 MCG - Active Keppra 500 mg tablet Take 3.5 tablets by mouth twice a day. - Active metformin 500 mg tablet take 1 tablet (500MG) by ORAL route 2 times every day with morning and evening meals 500 MG - Active folic acid 1 mg tablet Take two tabs twice a day - Active inhale 1 Vial by Inhalation route every 4 hours as needed for wheezing 0 - Active prednisone 20 mg tablet take 2 by Oral route every day for 5 days then take 1 daily for 5 days - Active Flonase 50 mcg/actuation nasal spray,suspension 2 sprays each nostril daily - Active multivitamin tablet take 1 tablet by oral route every day with food 0 - Active Ambien 10 mg tablet take 1 tablet (10MG) by oral route every day at bedtime as needed for sleep 10 MG - Active Singulair 10 mg tablet take 1 tablet (10MG) by oral route every day in the evening 10 MG - Active Immunizations Vaccine Date Status Comments Unknown Results Test Name Date and Time Measure Units Reference Range Abnormal Flag Comments Panel Description: HCG Quantitative HCG Quantitative 15:42:00 <2 mIU/mL Normal Ranges for Quantitative HCG are as follows: Gestation Weeks 95% Range 1 - 10 1 - 417,430 11 - 15 16,996 - 247,465 16 - 22 6, 860 - 50,239 23 - 40 1,583 - 65,911 Panel Description: CBC With Platelet and Differential WBC 15:42:00 7.8 K/uL 4.8-10.8 RBC 15:42:00 5.44 M/uL 4.00-5.20 H HGB 15:42:00 11.9 g/dl 12.0-16.0 L HCT 15:42:00 37.7 % 37.0-47.0 MCV 15:42:00 69.3 fL 82.0-99.0 L MCH 15:42:00 21.9 pg 27.0-32.0 L MCHC 15:42:00 31.6 g/dL 32.0-36.0 L RDW 15:42:00 15.2 % 11.5-14.5 H MPV 15:42:00 10.8 fL 8.8-14.8 Platelet Count 15:42:00 410 K/uL 150-400 H Immature Granulocytes 15:42:00 0.3 % 0.0-1.0 Absolute Neutrophils 15:42:00 4.25 THOUS 1.90-7.00 Absolute Lymphocytes 15:42:00 2.58 THOUS 0.80-3.30 Absolute Monocytes 15:42:00 0.83 THOUS 0.30-1.00 Absolute Eosinophils 15:42:00 0.05 THOUS 0.00-0.50 Absolute Basophils 15:42:00 0.02 THOUS 0.00-0.20 Neutrophils 15:42:00 55 % 51-75 Lymphocytes 15:42:00 33 % 20-46 Monocytes 15:42:00 11 % 4-11 Eosinophils 15:42:00 1 % 0-4 Basophils 15:42:00 0 % 0-2 Differential 15:42:00 Scanned Slide Microcytes 15:42:00 Present A Panel Description: Heterophile Ab Screen Heterophile Ab Screen 15:42:00 Negative Negative Vital Signs Date / Time: Height Weight Pulse Rate Blood Pressure Temperature /15:28:00 59.80 in 225.50 lbs 100/74 mm[Hg] Procedures Procedure Date Unknown Encounters Encounter Location Date Patient Visit [facility] Patient Visit [facility] [place] Patient Visit [facility] Neuro Patient Visit [facility] Patient Visit [facility] Patient Visit [facility] Neuro Patient Visit [facility] [place] [facility] [place] [facility] [place] [facility] [place] [facility] Patient Visit [facility] [place] [facility] [place] [facility] [place] Patient [facility] [place] Patient Visit [facility] Patient [facility] [place] Patient Visit [facility] Patient Visit [facility] [place] [facility] Visit [facility] [place] Patient Visit [facility] Neuro Patient Visit [facility] Patient Visit [facility] Patient Visit [facility] Patient Visit [facility] Advance Directives Directive Effective Date Unknown
--- OUTSIDE RECORDS SUMMARY | 2018-09-11 20:20 | XMS REPORT | Continuity of Care Document ---
Author Author Triston MOYA, Dieter [facility] Amb[facility] Address [address], [address] [place] [address] Phone Care Team Providers Care Prenatal Nurse Name Role Phone Dieter Goldstein PP Unavailable Marci Milton RP Unavailable Payers Payer name Insurance type Covered alliance party ID Authorization(s) Unknown Problems Condition Effective Dates (start - stop) Clinical Status Routine Medical Exam - *Routine Asthma - *Chronic Allergic rhinitis, cause unspecified - *Chronic Hypoglycemia, unspecified - *Chronic Allergic rhinitis, cause unspecified - *Chronic Asthma - *Chronic Seizure / Convulsions - *Fair Control Asthma - *Chronic Allergic rhinitis, cause unspecified [...] sleep - Improved Sinusitis, Acute - Acute Seizure / Convulsions - *Controlled Sinusitis, Acute [...] Dosage Effective Dates (start - stop) Status metformin 500 mg tablet take 1 tablet (500MG) by ORAL route 2 times every day with morning and evening meals 500 MG - Active folic acid 1 mg tablet Take two tabs twice a day - Active inhale 1 Vial by Inhalation route every 4 hours as needed for wheezing 0 - Active iron ER 325 mg (65 mg iron) [...] Oral route every day 0 - Active Singulair 10 mg tablet take 1 tablet (10MG) by oral route every day in the evening 10 MG - Active Unisom 25 mg tablet - Active Pulmicort Flexhaler 180 mcg/actuation breath activated inhale 1 puff (180MCG) by inhalation route 2 times every day 180 MCG - Active Ambien 10 mg tablet take 1 tablet (10MG) by oral route every day at bedtime as needed for sleep 10 MG - Active Keppra 500 mg tablet Take 3.5 tablets by mouth twice a day. - Active prednisone 20 mg tablet take 2 by Oral route every day for 5 days then take 1 daily for 5 days - Active Flonase 50 mcg/actuation nasal spray,suspension 2 sprays each nostril daily - Active Immunizations Vaccine Date Status Comments Unknown Results Test Name Date and Time Measure Units Reference Range Abnormal Flag Comments Panel Description: PAP (Liquid Base Pap) PAP (Liquid Base Pap) 15:00:00 Patient: ERMA LA : 1985 [id number] Page 1 of 1SPECIMEN DATE: 11/27/2013RECEIVED DATE: 2013REPORTED DATE: 12/01/2013 16:28GYN CYTOLOGY REPORT (Final) Page 1 of 1ACCESSION: [id number]/RESULTS:NEGATIVE FOR INTRAEPITHELIAL LESION OR MALIGNANCY.SPECIMEN ADEQUACY:Satisfactory for Evaluation. Endocervical cells/transformation zonecomponent present.SPECIMEN DESCRIPTION: LIQUID BASE CX PAP W/REFLEX HI HPV IF ASCUS WITH AUTOMATED SCREENING AND MANUAL REVIEW.CLINICAL INFORMATION: LMP: 11/11/2013Hormonal TX: N/ APrev.normal: 12/24/2011Screened at: [address] [id number] # [id number] by: CHRISTY Signed out by: <Sign Out Dr. Alvarez> LUZ MARINA CURRAN (ASCP) KATECRUZ JACOBSEN Patient:[address] [place] Requested by :[id number]- DIETER GOLDSTEIN MD Vital Signs Date / Time: Height Weight Pulse Rate Blood Pressure Temperature /15:02:00 59.80 in 228.80 lbs 68 /min 120/84 mm[Hg] Procedures Procedure Date Unknown Encounters Encounter Location Date Patient Visit [facility] Patient Visit [facility] Patient Visit [facility] Patient Visit [facility] Patient Visit [facility] Neuro Patient Visit [facility] Patient Visit [facility] Patient Visit [facility] Patient Visit [facility] Patient Visit [facility] Patient Visit [facility] Patient Visit [facility] Patient Visit [facility] Patient Visit [facility] Patient Visit [facility] Neuro Patient Visit [facility] Patient Visit [facility] Patient Visit [facility] Patient Visit [facility] Patient Visit [facility] Patient Visit [facility] Patient Visit [facility] Patient Visit [facility] Patient Visit [facility] Patient Visit [facility] Patient Visit [facility] Patient Visit [facility] Patient Visit [facility] Neuro Patient Visit [facility] Patient Visit [facility] Patient Visit [facility] [place] Patient Visit [facility] [place] Advance Directives Directive Effective Date Unknown
--- OUTSIDE RECORDS SUMMARY | 2018-09-11 20:22 | XMS REPORT | Continuity of Care Document ---
Author Author [facility] Organization [facility] Address Unknown Phone Unavailable Allergies Active Description Code Type Severity Reaction Onset Reported/Identified Relationship to Patient Clinical Status Yes No Known Drug Intolerances No Known Drug Intolerances Drug Allergy Unknown N/A 09/23/2006 Yes No Known Contrast Allergies No Known Contrast Allergies Drug Allergy Unknown N/A 02/28/2008 Yes No Known Drug Allergies No Known Drug Allergies Drug Allergy Unknown N/A Yes No Known Food Allergies No Known Food Allergies Drug Allergy Unknown N/A Yes NO KNOWN LATEX ALLERGY/SENSITI NO KNOWN LATEX ALLERGY /SENSITI Drug Allergy Unknown N/A 02/28/2008 Yes topiramate NKMA N/A burning,itching and closed air 03/24/2014 Yes topiramate NKMA N/A burning,itching and closed air 03/24/2014 Medications Medication Packaging Start Date Stop Date Route Dosage Sig fluticasone nasal(fluticasone 50 mcg/inh nasal spray) 2 sprays 04/28/2014 01/17/2015 Nasal 2 sprays, Nasal, Daily metFORMIN(metFORMIN 500 mg oral tablet) 1 tabs 04/28/2014 12/13/2014 Oral 500 mg 1 tabs, Oral, BID, with morning and evening meals, 60 tabs zolpidem(zolpidem 10 mg oral tablet) 1 tabs 04/28/2014 04/28/2014 Oral 10 mg 1 tabs, Oral, Bedtime (once a day), PRN: as needed for sleep levETIRAcetam(levETIRAcetam 500 mg oral tablet) 04/28/2014 09/15/2014 Oral 3.5 tablets, Oral, BID folic acid(folic acid 1 mg oral tablet) 2 tabs 04/28/2014 12/13/2014 Oral 2 mg 2 tabs, Oral, BID montelukast(montelukast 10 mg oral tablet) 1 tabs 04/28/2014 01/17/2015 Oral 10 mg 1 tabs, Oral, qPM, 30 tabs fexofenadine-pseudoephedrine(Mary-D 12 Hour 60 mg-120 mg oral tablet, extended release) 1 tabs 04/28/2014 08/20/2016 Oral 1 tabs, Oral, q12hr albuterol(Ventolin HFA 90 mcg/inh inhalation aerosol) 2 puffs 04/28/2014 03/10/2015 Inhalation 2 puffs, Inhalation, q4hr, 8 g, PRN: as needed for wheezing budesonide(Pulmicort Flexhaler 180 mcg/inh inhalation powder) 1 puffs 04/28/2014 02/12/2017 Inhalation 1 puffs, Inhalation, BID albuterol(albuterol 2.5 mg/3 mL (0.083%) inhalation solution) 1 vials 04/28/2014 12/08/2014 Inhalation 1 vials, Inhalation, q4hr, 25 Each, PRN: as needed for wheezing multivitamin(multivitamin) 201308/26/2014 Oral 1 tablet, Oral, Daily zolpidem(zolpidem 10 mg oral tablet) 1 tabs 04/28/2014 08/26/2014 Oral 10 mg 1 tabs, Oral, Bedtime (once a day), 30 tabs, PRN: as needed for sleep amoxicillin-clavulanate(Augmentin 875 mg-125 mg oral tablet) 1 tabs 05/24/2014 06/03/2014 Oral 1 tabs, Oral, q12hr, 20 tabs lacosamide(Vimpat 50 mg oral tablet) 1 tabs 08/26/2014 11/24/2014 Oral 50 mg 1 tabs, Oral, BID, 60 tabs PARoxetine(PARoxetine 10 mg oral tablet) 1 tabs 08/26/2014 02/15/2015 Oral 10 mg 1 tabs, Oral, Daily, 30 tabs albuterol(albuterol 2.5 mg/3 mL (0.083%) inhalation solution) 1 vials 12/08/2014 12/29/2014 Inhalation 1 vials, Inhalation, q4hr, 75 Each, PRN: as needed for wheezing levETIRAcetam(levETIRAcetam 500 mg oral tablet) 12/13/2014 04/22/2015 See Instructions, TAKE 3 1/2 TABLETS BY MOUTH TWICE DAILY, 210 tabs folic acid(folic acid 1 mg oral tablet) 12/13/2014 07/13/2015 See Instructions, TAKE TWO TABS TWICE A DAY, 120 unknown unit metFORMIN(metFORMIN 500 mg oral tablet) 12/13/2014 05/20/2015 See Instructions, TAKE 1 TABLET (500MG) BY ORAL ROUTE 2 TIMES EVERY DAY WITH MORNING AND EVENING MEALS, 60 unknown unit HYDROcodone-acetaminophen([place] 5 mg-325 mg oral tablet) 1 tabs 12/29/2014 12/29/2014 Oral 1 tabs, Oral, Once Lactated Ringers Injection(Lactated Ringers Injection 1,000 mL) 1,000 mL 12/29/2014 12/29/2014 IV 20 mL/hr, IV Lactated Ringers Injection(Lactated Ringers Injection 1,000 mL) 1,000 mL 12/29/2014 12/29/2014 IV 10 mL/hr, IV midazolam(Versed) 2 mL 12/29/2014 12/29/2014 IV Push 2 mg 2 mg, IV Push, Once fentaNYL(Sublimaze) 2 mL 201412/29/2014 IV Push 100 mcg 100 mcg, IV Push, Once albuterol(albuterol 5 mg/mL (0.5%) inhalation solution) 0.5 mL 12/29/2014 12/29/2014 NEB 2.5 mg 2.5 mg, 0.5 mL, NEB, q6hr HYDROmorphone(Dilaudid) 1 mL 201412/29/2014 IV Push 1 mg 1 mg, IV Push, q15min, PRN: Pain Dextrose 5% in Lactated Ringers Injectio(Dextrose 5% in Lactated Ringers Injection 1,000 mL) 1,000 mL 12/29/2014 12/29/2014 IV 125 mL/ hr, IV ondansetron(Zofran) 2 mL 201412/29/2014 IV Push 4 mg 4 mg, IV Push, q6hr, PRN: Nausea or Vomiting ibuprofen(ibuprofen) 1 tabs 201412/29/2014 Oral 800 mg 800 mg, Oral, q8hr, PRN: Pain Mild (1-3) diphenhydrAMINE(Benadryl) 1 tabs 12/29/2014 Oral 25 mg 25 mg, Oral, q6hr, PRN: Pruritus/Itching oxyCODONE-acetaminophen(Percocet 5/325 oral tablet) 2 tabs 12/29/2014 12/29/2014 Oral 2 tabs, Oral, q4hr, PRN: Pain Moderate (4-6) fluticasone nasal(Flonase 50 mcg/inh nasal spray) 2 sprays 01/17/2015 02/24/2016 Nasal 2 sprays, Nasal, BID, 16 g montelukast(Singulair 10 mg oral tablet) 1 tabs 01/17/2015 01/25/2016 Oral 10 mg 10 mg=1 tabs, Oral, qPM, 30 tabs, 11 Refill(s) PARoxetine(PARoxetine 10 mg oral tablet) 02/15/2015 05/02/2015 See Instructions, 1 TABS ORAL DAILY, 30 tabs albuterol(albuterol 2.5 mg/3 mL (0.083%) inhalation solution) 03/10/2015 05/22/2016 See Instructions, 1 VIALS INHALATION Q4HR,PRN: NEEDED FOR WHEEZING, 75 unknown unit, 2 Refill(s) lacosamide(Vimpat 50 mg oral tablet) 1 tabs 03/17/2015 05/19/2015 Oral 50 mg 1 tabs, Oral, BID, 60 tabs levETIRAcetam(levETIRAcetam 500 mg oral tablet) 04/22/2015 06/29/2015 See Instructions, Take 2 tablets twice daily, 210 tabs, 11 Refill(s) metFORMIN(metFORMIN 500 mg oral tablet) 05/20/2015 08/22/2015 See Instructions, TAKE 1 TABLET (500MG) BY ORAL ROUTE 2 TIMES EVERY DAY WITH MORNING AND EVENING MEALS, 60 unknown unit, 2 Refill(s) levETIRAcetam(levETIRAcetam 1000 mg oral tablet) 1 tabs 06/29/2015 12/21/2015 Oral 1,000 mg 1,000 mg=1 tabs, Oral, BID, 60 tabs, 5 Refill (s) folic acid(folic acid 1 mg oral tablet) 07/13/2015 08/22/2015 See Instructions, TAKE TWO TABS TWICE A DAY, 120 unknown unit predniSONE(predniSONE 20 mg oral tablet) 1 tabs 08/04/2015 08/09/2015 Oral 20 mg 20 mg=1 tabs, Oral, Daily, for 5 days, 5 tabs, 0 Refill(s) metFORMIN(metFORMIN 500 mg oral tablet) 08/22/2015 09/21/2015 See Instructions, TAKE 1 TABLET (500MG) BY ORAL ROUTE 2 TIMES EVERY DAY WITH MORNING AND EVENING MEALS, 60 unknown unit folic acid(folic acid 1 mg oral tablet) 08/22/2015 02/24/2016 See Instructions, TAKE TWO TABS TWICE A DAY, 120 unknown unit, 5 Refill(s) influenza virus vaccine, inactivated(influenza virus vaccine, inactivated) 0.5 mL 09/09/20152014 IntraMuscular 0.5 mL, IntraMuscular, Once metFORMIN(metFORMIN 500 mg oral tablet) 09/21/2015 10/17/2015 See Instructions, TAKE 1 TABLET (500MG) BY ORAL ROUTE 2 TIMES EVERY DAY WITH MORNING AND EVENING MEALS, 60 unknown unit metFORMIN(metFORMIN 500 mg oral tablet) 10/17/2015 11/28/2015 See Instructions, TAKE 1 TABLET (500MG) BY ORAL ROUTE 2 TIMES EVERY DAY WITH MORNING AND EVENING MEALS, 60 unknown unit docusate(Colace 50 mg oral capsule) 1 caps 11/11/2015 02/28/2016 Oral 50 mg 50 mg=1 caps, Oral, BID, PRN: as needed for constipation, 60 caps, 0 Refill(s) butalbital/acetaminophen/caffeine(butalbital/acetaminophen/ caffeine 50 mg-325 mg-40 mg oral tablet) 1 tabs 11/11/2015 11/17/2015 Oral 1 tabs, Oral, q6hr, PRN: Headache levETIRAcetam(levETIRAcetam) 2 tabs 11/11/2015 11/17/2015 Oral 1,000 mg 1,000 mg=2 tabs, Oral, BID budesonide(Pulmicort Flexhaler 180 mcg/inh inhalation powder) 1 puffs 11/11/2015 11/17/2015 Inhalation 180 mcg 180 mcg=1 puffs, Inhalation , BID docusate(Colace) 1 caps 11/11/2015 11/12/2015 Oral 100 mg 100 mg=1 caps, Oral, BID ondansetron(Zofran) 2 mL 201411/12/2015 IV Push 4 mg 4 mg=2 mL, IV Push, q6hr, PRN: Nausea or Vomiting magnesium sulfate(magnesium sulfate) 100 mL 11/11/2015 11/11/2015 IV Piggyback 4 g 4 g=100 mL, 300 mL/hr, IV Piggyback, Once Al hydroxide/Mg hydroxide/simethicone(Maalox Advanced Maximum Strength oral suspension) 30 mL 11/11/2015 11/13/2015 Oral 30 mL, Oral, q6hr, PRN: GERD/Heartburn calcium gluconate(calcium gluconate) 10 mL 11/11/2015 11/13/2015 IV Push 1,000 mg 1,000 mg=10 mL, IV Push, Once, PRN: Other (See Comment ) acetaminophen(acetaminophen) 2 tabs 11/11/2015 11/13/2015 Oral 650 mg 650 mg=2 tabs, Oral, q4hr, PRN: Headache labetalol(Trandate) 4 mL 201411/11/2015 IV Push 20 mg 20 mg=4 mL, IV Push, Once, PRN: Hypertension/High Blood Pressure Dextrose 5% in Lactated Ringers Injectio(Dextrose 5% in Lactated Ringers Injection 1,000 mL) 1,000 mL 11/11/2015 11/12/2015 IV 125 mL/ hr, IV montelukast(Singulair) 1 tabs 11/1111/11/2015 Oral 10 mg 10 mg=1 tabs, Oral, qPM montelukast(Singulair) 1 tabs 11/1111/17/2015 Oral 10 mg 10 mg=1 tabs, Oral, Daily hydrALAZINE(hydrALAZINE) 0.25 mL 11/13/2015 IV Push 5 mg 5 mg=0.25 mL, IV Push, q20min, PRN: Hypertension/High Blood Pressure labetalol(Trandate) 4 mL 201411/12/2015 IV Push 20 mg 20 mg=4 mL, IV Push, Once, PRN: Hypertension/High Blood Pressure labetalol(Trandate) 4 mL 201411/12/2015 IV Push 20 mg 20 mg=4 mL, IV Push, Once, PRN: Hypertension/High Blood Pressure diphenhydrAMINE(Benadryl) 1 tabs 11/17/2015 Oral 25 mg 25 mg=1 tabs, Oral, q4hr, PRN: Seasonal Allergy Symptoms labetalol(labetalol) 4 mL 201411/12/2015 IV Push 20 mg 20 mg=4 mL, IV Push, Once, PRN: Hypertension/High Blood Pressure labetalol(labetalol) 8 mL 201411/17/2015 IV Push 40 mg 40 mg=8 mL, IV Push, q1hr, PRN: Hypertension/High Blood Pressure Lactated Ringers Injection(Lactated Ringers Injection 1,000 mL) 1,000 mL 11/12/2015 11/12/2015 IV 10 mL/hr, IV sodium citrate-citric acid(sodium citrate-citric acid 500 mg-334 mg /5 mL oral solution) 30 mL 11/12/2015 11/12/2015 Oral 30 mL, Oral, Once ceFAZolin(ceFAZolin) 20 mL 201411/12/2015 IV Push 2 g 2 g=20 mL, IV Push, PREOP ceFAZolin(ceFAZolin) 30 mL 201411/12/2015 IV Push 3 g 3 g=30 mL, IV Push, Once Dextrose 5% in Lactated Ringers Injectio(Dextrose 5% in Lactated Ringers Injection 1,000 mL) 1,000 mL 11/12/2015 11/17/2015 IV 150 mL/ hr, IV ibuprofen(ibuprofen) 1 tabs 201411/17/2015 Oral 800 mg 800 mg=1 tabs, Oral, q8hr (scheduled) docusate(Colace) 1 caps 11/12/2015 11/17/2015 Oral 100 mg 100 mg=1 caps, Oral, BID ondansetron(Zofran) 2 mL 201411/17/2015 IV Push 4 mg 4 mg=2 mL, IV Push, q6hr, PRN: Nausea oxyCODONE-acetaminophen(oxyCODONE-acetaminophen 5 mg-325 mg oral tablet) 1 tabs 11/12/2015 11/17/2015 Oral 1 tabs, Oral, q3hr, PRN: Pain Moderate (4-6) ferrous sulfate(ferrous sulfate) 1 tabs 11/13/2015 11/17/2015 Oral 325 mg 325 mg=1 tabs, Oral, Daily oxyCODONE(oxyCODONE) 2 tabs 201411/13/2015 Oral 10 mg 10 mg=2 tabs, Oral, q4hr, PRN: Pain Severe (7-10) oxyCODONE-acetaminophen(Percocet 5/325 oral tablet range dose) 2 tabs 11/13/2015 11/17/2015 Oral 2 tabs, Oral, q4hr, PRN: Pain Severe (7 -10) ferrous sulfate(ferrous sulfate 325 mg (65 mg elemental iron) oral delayed release tablet) 1 tabs 11/14/2015 02/28/2016 Oral 325 mg 325 mg =1 tabs, Oral, Daily, 30 tabs, 0 Refill(s) ibuprofen(ibuprofen 800 mg oral tablet) 1 tabs 11/14/2015 02/28/2016 Oral 800 mg 800 mg=1 tabs, Oral, q8hr (scheduled), 90 tabs, 0 Refill(s) oxyCODONE-acetaminophen(oxyCODONE-acetaminophen 5 mg-325 mg oral tablet) 1 tabs 11/14/2015 11/24/2015 Oral 1 tabs, Oral, q4hr, Can take 1-2 tabs, PRN: Pain Severe (7-10), 30 tabs, 0 Refill(s) fluticasone nasal(Flonase) 1 sprays 11/15/2015 11/17/2015 Nasal 50 mcg 50 mcg=1 sprays, Nasal, BID cephalexin(Keflex) 1 caps 201411/17/2015 Oral 500 mg 500 mg=1 caps, Oral, q8hr miconazole topical(miconazole 2% topical powder) 1 jose elias 11/17/2015 11/17/2015 Topical 1 jose elias, Topical, BID, PRN: Pruritus/Itching miconazole topical(miconazole 2% topical powder) 1 jose elias 11/17/2015 11/17/2015 Topical 1 jose elias, Topical, BID fluconazole(Diflucan) 1 tabs 201411/17/2015 Oral 150 mg 150 mg=1 tabs, Oral, Once fluconazole(Diflucan) 1 tabs 201411/17/2015 Oral 150 mg 150 mg=1 tabs, Oral, Once cephalexin(Keflex 500 mg oral capsule) 1 caps 11/17/2015 12/01/2015 Oral 500 mg 500 mg=1 caps, Oral, q8hr, for 14 days, 42 caps, 0 Refill (s) nystatin topical(nystatin 100,000 units/g topical powder) 1 jose elias 11/17/2015 12/01/2015 Topical 1 jose elias, Topical, TID, for 7 days, 30 g, 1 Refill(s) NIFEdipine(Procardia XL 60 mg oral tablet, extended release) 1 tabs 11/17/2015 01/20/2016 Oral 60 mg 60 mg=1 tabs, Oral, Daily, 30 tabs , 0 Refill(s) oxyCODONE-acetaminophen(oxyCODONE-acetaminophen 5 mg-325 mg oral tablet) 1 tabs 11/24/2015 01/09/2016 Oral 1 tabs, Oral, q6hr, Can take 1-2 tabs, PRN: Pain Severe (7-10), 30 tabs, 0 Refill(s) labetalol(labetalol 100 mg oral tablet) 1 tabs 11/25/2015 02/28/2016 Oral 100 mg 100 mg=1 tabs, Oral, BID, 60 tabs, 1 Refill(s) metFORMIN(metFORMIN 500 mg oral tablet) 11/28/2015 12/23/2015 See Instructions, TAKE 1 TABLET (500MG) BY ORAL ROUTE 2 TIMES EVERY DAY WITH MORNING AND EVENING MEALS, 60 unknown unit famotidine(Pepcid) 1 tabs 201512/16/2015 Oral 20 mg 20 mg=1 tabs, Oral, Once lisinopril(lisinopril) 201501/09/2016 Oral Oral, Daily, 0 Refill(s) ondansetron(Zofran ODT 4 mg oral tablet, disintegrating) 1 tabs 12/16/2015 12/16/2015 Oral 4 mg 4 mg=1 tabs, Oral, q8hr, PRN: as needed for nausea/vomiting, 10 tabs, 0 Refill(s) metroNIDAZOLE(Flagyl 500 mg oral tablet) 1 tabs 12/16/2015 12/16/2015 Oral 500 mg 500 mg=1 tabs, Oral, q12hr, for 7 days, 14 tabs, 0 Refill(s) levETIRAcetam(levETIRAcetam 1000 mg oral tablet) 1 tabs 12/21/2015 02/15/2016 Oral 1,000 mg 1,000 mg=1 tabs, Oral, BID, for 30 days, 60 tabs, 5 Refill(s) OXcarbazepine(OXcarbazepine 600 mg oral tablet) 1 tabs 12/21/2015 01/13/2016 Oral 600 mg 600 mg=1 tabs, Oral, BID, for 30 days, 60 tabs, 0 Refill(s) metFORMIN(metFORMIN 500 mg oral tablet) 12/23/2015 02/24/2016 See Instructions, TAKE 1 TABLET (500MG) BY ORAL ROUTE 2 TIMES EVERY DAY WITH MORNING AND EVENING MEALS, 60 unknown unit, 1 Refill(s) norgestimate-ethinyl estradiol(Sprintec 0.25 mg-35 mcg oral tablet ) 1 tabs 12/30/2015 12/20/2016 Oral 1 tabs, Oral, Daily, 28 tabs, 11 Refill(s) cefdinir(cefdinir 300 mg oral capsule) 1 caps 01/09/2016 01/19/2016 Oral 300 mg 300 mg=1 caps, Oral, q12hr, for 10 days, 20 caps, 0 Refill(s) pantoprazole(pantoprazole 40 mg oral delayed release tablet) 1 tabs 01/20/2016 07/10/2016 Oral 40 mg 40 mg=1 tabs, Oral, Daily, for 30 days, Take at least 1 hour after other medications., 30 tabs, 5 Refill(s) ranitidine(ranitidine 150 mg oral capsule) 1 caps 01/20/2016 07/10/2016 Oral 150 mg 150 mg=1 caps, Oral, Bedtime (once a day), for 30 days , 30 caps, 5 Refill(s) montelukast(Singulair 10 mg oral tablet) 1 tabs 01/25/2016 01/10/2017 Oral 10 mg 10 mg=1 tabs, Oral, qPM, 30 tabs, 11 Refill(s) fluticasone nasal(Flonase 50 mcg/inh nasal spray) 02/24/2016 10/22/2016 See Instructions, 2 SPRAYS NASAL BID, 16 g, 5 Refill(s) fluticasone nasal(Flonase 50 mcg/inh nasal spray) 02/24/2016 See Instructions, 2 SPRAYS NASAL BID, 16 g, 5 Refill(s) folic acid(folic acid 1 mg oral tablet) 02/24/2016 04/20/2016 See Instructions, TAKE TWO TABS TWICE A DAY, 120 unknown unit metFORMIN(metFORMIN 500 mg oral tablet) 02/24/2016 08/20/2016 See Instructions, TAKE 1 TABLET (500MG) BY ORAL ROUTE 2 TIMES EVERY DAY WITH MORNING AND EVENING MEALS, 60 unknown unit, 5 Refill(s) lisinopril(lisinopril 5 mg oral tablet) 1 tabs 03/20/2016 04/20/2016 Oral 5 mg 5 mg=1 tabs, Oral, Daily, for 30 days, 30 tabs, 11 Refill(s) folic acid(folic acid 1 mg oral tablet) 2 tabs 04/20/2016 04/15/2017 Oral 2 mg 2 mg=2 tabs, Oral, BID, for 30 days, 120 tabs, 11 Refill(s) amLODIPine(amLODIPine 5 mg oral tablet) 1 tabs 04/20/2016 08/22/2016 Oral 5 mg 5 mg=1 tabs, Oral, Daily, for 30 days, 30 tabs, 11 Refill(s) albuterol(albuterol 2.5 mg/3 mL (0.083%) inhalation solution) 05/22/2016 02/12/2017 See Instructions, 1 VIALS INHALATION Q4HR,PRN: NEEDED FOR WHEEZING, 60 Each, 11 Refill(s) pantoprazole(pantoprazole 40 mg oral delayed release tablet) 07/10/2016 02/12/2017 See Instructions, TAKE 1 TABLET BY MOUTH ONCE DAILY AT LEAST 1 HOUR AFTER OTHER MEDICATIONS., 30 tabs, 11 Refill(s) ranitidine(ranitidine 150 mg oral capsule) 07/10/2016 02/12/2017 See Instructions, TAKE 1 CAPSULE BY MOUTH EVERY DAY AT BEDTIME FOR 30 DAYS, 30 caps, 11 Refill(s) ondansetron(Zofran ODT 8 mg oral tablet, disintegrating) 1 tabs 07/23/2016 07/26/2016 Oral 8 mg 8 mg=1 tabs, Oral, q8hr, for 3 days, PRN : as needed for nausea/vomiting, 9 tabs, 0 Refill(s) promethazine(promethazine) 201507/23/2016 IntraMuscular 25 mg 25 mg, IntraMuscular, Once, PRN: Nausea or Vomiting ketorolac(ketorolac) 07/23/2016 07/23/2016 IntraMuscular 60 mg 60 mg, IntraMuscular, Once amLODIPine(amLODIPine 10 mg oral tablet) 1 tabs 08/20/2016 08/15/2017 Oral 10 mg 10 mg=1 tabs, Oral, Daily, for 30 days, 30 tabs, 11 Refill(s) metFORMIN(metFORMIN 500 mg oral tablet) 1 tabs 08/20/2016 08/15/2017 Oral 500 mg 500 mg=1 tabs, Oral, BID, for 30 days, 60 tabs, 11 Refill(s) influenza virus vaccine, inactivated(influenza virus vaccine, inactivated) 0.5 mL 08/20/20162015 IntraMuscular 0.5 mL, IntraMuscular, Once butalbital/acetaminophen/caffeine(Fioricet oral tablet) 08/20/2016 09/28/2016 See Instructions, 1 tab po QID prn Headache, 20 tabs , 2 Refill(s) butalbital/acetaminophen/caffeine(butalbital/acetaminophen/ caffeine 50 mg-325 mg-40 mg oral tablet) 09/2812/05/2016 See Instructions, TAKE 1 TABLET BY MOUTH FOUR TIMES DAILY NEEDED FOR HEADACHE , 20 tabs, 2 Refill(s) methylPREDNISolone(Medrol Dosepak 4 mg oral tablet) 1 packets 10/09/2016 10/09/2016 Oral 1 packets, Oral, Once, as directed on package labeling, 21 tabs, 0 Refill(s) azithromycin(Zithromax Z-Bg 250 mg oral tablet) 1 packets 10/09/2016 10/09/2016 Oral 1 packets, Oral, Once, as directed on package labeling, 6 tabs, 0 Refill(s) fluticasone nasal(fluticasone 50 mcg/inh nasal spray) 10/22/2016 02/12/2017 See Instructions, INSTILL 2 SPRAYS IN EACH NOSTRIL TWICE DAILY, 16 mL, 10 Refill(s) levofloxacin(Levaquin 750 mg oral tablet) 1 tabs 10/23/2016 10/30/2016 Oral 750 mg 750 mg=1 tabs, Oral, q24hr, for 7 days, 7 tabs, 0 Refill(s) fluconazole(Diflucan 150 mg oral tablet) 1 tabs 10/23/2016 10/31/2016 Oral 150 mg 150 mg=1 tabs, Oral, qWeek, 2 tabs, 0 Refill(s) codeine-guaiFENesin(Cheratussin AC 10 mg-100 mg/5 mL oral syrup) 10 mL 10/23/2016 10/30/2016 Oral 10 mL, Oral, q4hr, PRN: as needed for cough, 180 mL, 0 Refill(s) sulfamethoxazole-trimethoprim(Bactrim DS 800 mg-160 mg oral tablet ) 1 tabs 11/15/2016 11/25/2016 Oral 1 tabs, Oral, BID, for 10 days, 20 tabs, 0 Refill(s) butalbital/acetaminophen/caffeine(butalbital/acetaminophen/ caffeine 50 mg-325 mg-40 mg oral tablet) 12/0502/12/2017 See Instructions, TAKE 1 TABLET BY MOUTH FOUR TIMES DAILY NEEDED FOR HEADACHE , 20 tabs, 2 Refill(s) montelukast(montelukast 10 mg oral tablet) 01/10/2017 02/12/2017 See Instructions, TAKE 1 TABLET BY MOUTH EVERY EVENING, 30 tabs, 10 Refill(s) fluconazole(fluconazole 150 mg oral tablet) 01/21/2017 02/12/2017 See Instructions, TAKE 1 TABLET BY MOUTH EVERY WEEK, 2 tabs promethazine(promethazine 25 mg rectal suppository) 1 supp 02/11/2017 02/12/2017 Rectal 25 mg 25 mg=1 supp, Rectal, q4hr, PRN: as needed for nausea/vomiting, 12 supp, 0 Refill(s) ondansetron(Zofran) 2 mL 201602/12/2017 IV Push 4 mg 4 mg=2 mL, IV Push, q30min, PRN: Nausea or Vomiting HYDROmorphone(Dilaudid range dose) 0.5 mL 02/12/2017 02/13/2017 IV Push 0.5 mg 0.5 mg=0.5 mL, IV Push, q30min, PRN: Pain Severe (7-10) potassium chloride(potassium chloride 10 mEq/50 mL intravenous solution) 50 mL 02/12/20172016 IV Piggyback 10 mEq 10 mEq=50 mL, 50 mL/hr, IV Piggyback, q1hr magnesium sulfate(magnesium sulfate) 100 mL 02/12/2017 02/12/2017 IV Piggyback 1 g 1 g=100 mL, 100 mL/hr, IV Piggyback, Once albuterol(albuterol 2.5 mg/3 mL (0.083%) inhalation solution) 3 mL 02/12/2017 Inhalation 2.5 mg 2.5 mg=3 mL, Inhalation, q6hr, PRN: as needed for wheezing, 0 Refill(s) butalbital/acetaminophen/caffeine(Fioricet) 1 tabs 02/12/2017 Oral 1 tabs, Oral, q4hr, 0 Refill(s) diazepam(diazepam) 02/12/2017 Oral 5 mg 5 mg, Oral, q4hr, PRN: as needed for anxiety, 0 Refill(s) fluticasone nasal(Flonase 50 mcg/inh nasal spray) 2 sprays 02/12/2017 Nasal 2 sprays, Nasal, BID, 0 Refill(s) montelukast(Singulair) 2016 Oral 10 mg 10 mg , Oral, Daily, 0 Refill(s) ranitidine(ranitidine) 201606/28/2017 Oral 150 mg 150 mg, Oral, Bedtime (once a day), 0 Refill(s) pantoprazole(pantoprazole) 201606/28/2017 Oral 40 mg 40 mg, Oral, Daily, 0 Refill(s) doxylamine(Unisom) 02/12/2017 02/20/2017 Oral 25 mg 25 mg, Oral, Daily, 0 Refill(s) diphenhydrAMINE(Benadryl) 201604/02/2017 Oral 25 mg 25 mg, Oral, Bedtime (once a day), 0 Refill(s) amoxicillin-clavulanate(amoxicillin-clavulanate 875 mg-125 mg oral tablet) 1 tabs 02/12/2017 02/14/2017 Oral 1 tabs, Oral, q12hr, 0 Refill(s) ondansetron(Zofran) 2 mL 201602/12/2017 IV Push 4 mg 4 mg=2 mL, IV Push, Once potassium chloride(potassium chloride 20 mEq/15 mL oral liquid) 30 mL 02/12/2017 02/12/2017 Oral 40 mEq 40 mEq=30 mL, Oral, Once potassium chloride(potassium chloride 20 mEq oral tablet, extended release) 2 tabs 02/12/20172016 Oral 40 mEq 40 mEq=2 tabs, Oral, Once potassium chloride(potassium chloride 20 mEq oral tablet, extended release) 2 tabs 02/12/20172016 Oral 40 mEq 40 mEq=2 tabs, Oral, Once ondansetron(Zofran) 2 mL 201602/14/2017 IV Push 4 mg 4 mg=2 mL, IV Push, q6hr, PRN: Nausea acetaminophen(acetaminophen) 2 tabs 02/12/2017 02/14/2017 Oral 650 mg 650 mg=2 tabs, Oral, q4hr, PRN: Pain Mild (1-3) albuterol(ProAir HFA 90 mcg/inh inhalation aerosol) 2 puffs 02/12/2017 02/13/2017 Inhalation 180 mcg 180 mcg=2 puffs, Inhalation , q6hr, PRN: Wheezing amLODIPine(amLODIPine) 1 tabs 02/1202/14/2017 Oral 10 mg 10 mg=1 tabs, Oral, Daily diphenhydrAMINE(Benadryl) 1 tabs 02/14/2017 Oral 25 mg 25 mg=1 tabs, Oral, Bedtime (once a day), PRN: Insomnia fluticasone nasal(Flonase) 2 sprays 02/12/2017 02/13/2017 Nasal 100 mcg 100 mcg=2 sprays, Nasal, BID metFORMIN(metFORMIN) 1 tabs 201602/14/2017 Oral 500 mg 500 mg=1 tabs, Oral, BID montelukast(Singulair) 1 tabs 02/1202/14/2017 Oral 10 mg 10 mg=1 tabs, Oral, Daily pantoprazole(pantoprazole) 1 tabs 02/12/2017 02/14/2017 Oral 40 mg 40 mg=1 tabs, Oral, Daily hydrALAZINE(hydrALAZINE) 0.5 mL 02/14/2017 IV Push 10 mg 10 mg=0.5 mL, IV Push, q2hr, PRN: Hypertension/High Blood Pressure traMADol(Ultram) 1 tabs 02/12/2017 02/13/2017 Oral 50 mg 50 mg=1 tabs, Oral, q6hr, PRN: Pain Moderate (4-6) ferrous sulfate(ferrous sulfate) 1 tabs 02/12/2017 02/14/2017 Oral 325 mg 325 mg=1 tabs, Oral, Daily potassium chloride(potassium chloride 20 mEq oral tablet, extended release) 2 tabs 02/13/20172016 Oral 40 mEq 40 mEq=2 tabs, Oral, Once ipratropium-albuterol(DuoNeb 0.5 mg-2.5 mg/3 mL inhalation solution ) 3 mL 02/13/2017 02/14/2017 NEB 3 mL, NEB, q2hr (scheduled), PRN: Bronchospasms fluticasone nasal(Flonase) 1 sprays 02/13/2017 02/14/2017 Nasal 50 mcg 50 mcg=1 sprays, Nasal, BID potassium chloride(potassium chloride 10 mEq oral tablet, extended release) 1 tabs 02/13/20172016 Oral 10 mEq 10 mEq=1 tabs, Oral, q1hr HYDROcodone-acetaminophen(HYDROcodone-acetaminophen 5 mg-325 mg oral tablet) 1 tabs 02/13/20172016 Oral 1 tabs, Oral, q6hr, PRN : Pain Moderate (4-6) OXcarbazepine(OXcarbazepine) 2 tabs 02/13/2017 02/14/2017 Oral 600 mg 600 mg=2 tabs, Oral, BID HYDROcodone-acetaminophen(HYDROcodone-acetaminophen 5 mg-325 mg oral tablet) 1 tabs 02/13/20172016 Oral 1 tabs, Oral, q6hr, PRN : Pain Moderate (4-6) HYDROmorphone(Dilaudid range dose) 0.5 mL 02/13/2017 02/14/2017 IV Push 0.5 mg 0.5 mg=0.5 mL, IV Push, q30min, PRN: Pain Severe (7-10) LORazepam(Ativan) 1 tabs 201602/14/2017 Oral 1 mg 1 mg=1 tabs, Oral, Once ferrous sulfate(ferrous sulfate 325 mg (65 mg elemental iron) oral delayed release tablet) 1 tabs 02/14/2017 Oral 325 mg 325 mg=1 tabs, Oral, Daily, 30 tabs, 0 Refill(s) diazepam(diazePAM 5 mg oral tablet) 1 tabs 02/20/2017 04/02/2017 Oral 5 mg 5 mg=1 tabs, Oral, BID, PRN: as needed for anxiety, 15 tabs, 0 Refill(s) escitalopram(escitalopram 10 mg oral tablet) 1 tabs 02/20/2017 08/19/2017 Oral 10 mg 10 mg=1 tabs, Oral, Daily, for 30 days, 30 tabs, 5 Refill(s) budesonide-formoterol(Symbicort 160 mcg-4.5 mcg/inh inhalation aerosol) 2 puffs 04/02/20172017 Inhalation 2 puffs, Inhalation, BID, for 30 days, rinse mouth and throat after use, 1 Each, 11 Refill(s) diazepam(diazePAM 5 mg oral tablet) 1 tabs 04/02/2017 Oral 5 mg 5 mg=1 tabs, Oral, BID, PRN: as needed for anxiety, 15 tabs, 0 Refill(s ) levonorgestrel(Mirena 52 mg intrauteral device) 04/12/2017 04/12/2017 IntraUteral 52 mg 52 mg, IntraUteral, Once folic acid(folic acid 1 mg oral tablet) 05/02/2017 See Instructions, TAKE 2 TABLETS BY MOUTH TWICE DAILY, 120 tabs, 4 Refill(s) pantoprazole(pantoprazole 40 mg oral delayed release tablet) 06/28/2017 See Instructions, TAKE 1 TABLET BY MOUTH ONCE DAILY AT LEAST 1 HOUR AFTER OTHER MEDICATIONS., 30 tabs, 5 Refill(s) ranitidine(raNITIdine 150 mg oral capsule) 06/28/2017 See Instructions, TAKE 1 CAPSULE BY MOUTH EVERY DAY AT BEDTIME FOR 30 DAYS , 30 caps, 5 Refill(s) escitalopram(escitalopram 10 mg oral tablet) 08/12/2017 See Instructions, TAKE 1 TABLET BY MOUTH DAILY, 30 tabs, 5 Refill(s) metFORMIN(metFORMIN 500 mg oral tablet) 08/26/2017 08/26/2017 See Instructions, TAKE 1 TABLET BY MOUTH TWICE DAILY, 60 tabs, 4 Refill(s) metFORMIN(metFORMIN 500 mg oral tablet) 1 tabs 08/26/2017 Oral 500 mg 500 mg=1 tabs, Oral, BID, 60 tabs, 4 Refill(s) fluticasone nasal(fluticasone 50 mcg/inh nasal spray) 09/09/2017 See Instructions, INSTILL 2 SPRAYS IN EACH NOSTRIL TWICE DAILY, 16 mL amoxicillin-clavulanate(Augmentin 875 mg-125 mg oral tablet) 1 tabs 09/23/2017 10/03/2017 Oral 1 tabs, Oral, q12hr, for 10 days, 20 tabs, 0 Refill(s) amLODIPine(amLODIPine 10 mg oral tablet) 09/24/2017 See Instructions, TAKE 1 TABLET BY MOUTH DAILY, 30 tabs promethazine(promethazine) 1 mL 10/09/2017 IntraMuscular 25 mg 25 mg=1 mL, IntraMuscular, Once ketorolac(ketorolac) 2 mL 201610/09/2017 IntraMuscular 60 mg 60 mg=2 mL, IntraMuscular, Once fluticasone nasal(fluticasone 50 mcg/inh nasal spray) 10/16/2017 See Instructions, INSTILL 2 SPRAYS IN EACH NOSTRIL TWICE DAILY, 16 mL, 11 Refill(s) amLODIPine(amLODIPine 10 mg oral tablet) 10/25/2017 11/19/2017 See Instructions, TAKE 1 TABLET BY MOUTH DAILY, 30 tabs albuterol(albuterol 2.5 mg/3 mL (0.083%) inhalation solution) 10/29/2017 See Instructions, INHALE THE CONTENTS OF 1 VIAL PER NEBULIZER EVERY 4 HOURS NEEDED FOR WHEEZING, 180 mL, 3 Refill(s) butalbital/acetaminophen/caffeine(butalbital/acetaminophen/ caffeine 50 mg-325 mg-40 mg oral tablet) 11/1112/02/2017 See Instructions, TAKE 1 TABLET BY MOUTH FOUR TIMES DAILY NEEDED FOR HEADACHE , 20 tabs amLODIPine(amLODIPine 10 mg oral tablet) 11/19/2017 See Instructions, TAKE 1 TABLET BY MOUTH DAILY, 30 tabs, 11 Refill(s) butalbital/acetaminophen/caffeine(butalbital/acetaminophen/ caffeine 50 mg-325 mg-40 mg oral tablet) 12/02 See Instructions, TAKE 1 TABLET BY MOUTH FOUR TIMES DAILY NEEDED FOR HEADACHE, 20 tabs, 2 Refill(s) montelukast(montelukast 10 mg oral tablet) 12/12/2017 See Instructions, TAKE 1 TABLET BY MOUTH EVERY EVENING, 30 tabs, 5 Refill(s ) metFORMIN(metFORMIN 500 mg oral tablet) 01/08/2018 See Instructions, TAKE 1 TABLET BY MOUTH TWICE DAILY, 60 tabs, 4 Refill(s) metFORMIN(metFORMIN 500 mg oral tablet) 02/07/2018 See Instructions, TAKE 1 TABLET BY MOUTH TWICE DAILY, 60 tabs, 5 Refill(s) butalbital/acetaminophen/caffeine(butalbital/acetaminophen/ caffeine 50 mg-325 mg-40 mg oral tablet) 02/07 See Instructions, TAKE 1 TABLET BY MOUTH FOUR TIMES DAILY NEEDED FOR HEADACHE, 20 tabs, 3 Refill(s) OXcarbazepine(Oxtellar XR 600 mg oral tablet, extended release) 2 tabs 04/29/2018 Oral 1,200 mg 1,200 mg=2 tabs, Oral, Daily, 60 tabs, 11 Refill(s) butalbital/acetaminophen/caffeine(butalbital/acetaminophen/ caffeine 50 mg-325 mg-40 mg oral tablet) 05/1306/25/2018 See Instructions, TAKE 1 TABLET BY MOUTH FOUR TIMES DAILY NEEDED FOR HEADACHE , 20 tabs, 3 Refill(s) montelukast(montelukast 10 mg oral tablet) 06/09/2018 07/09/2018 See Instructions, TAKE 1 TABLET BY MOUTH EVERY EVENING, 30 tabs butalbital/acetaminophen/caffeine(butalbital/acetaminophen/ caffeine 50 mg-325 mg-40 mg oral tablet) 06/2507/09/2018 See Instructions, TAKE 1 TABLET BY MOUTH FOUR TIMES DAILY NEEDED FOR HEADACHE , 20 tabs montelukast(montelukast 10 mg oral tablet) 07/09/2018 See Instructions, TAKE 1 TABLET BY MOUTH EVERY EVENING, 30 tabs, 10 Refill( s) butalbital/acetaminophen/caffeine(butalbital/acetaminophen/ caffeine 50 mg-325 mg-40 mg oral tablet) 07/0908/08/2018 See Instructions, TAKE 1 TABLET BY MOUTH FOUR TIMES DAILY NEEDED FOR HEADACHE , 20 tabs, 2 Refill(s) metFORMIN(metFORMIN 500 mg oral tablet) 08/08/2018 See Instructions, TAKE 1 TABLET BY MOUTH TWICE DAILY, 60 tabs, 5 Refill(s) butalbital/acetaminophen/caffeine(butalbital/acetaminophen/ caffeine 50 mg-325 mg-40 mg oral tablet) 08/08 See Instructions, TAKE 1 TABLET BY MOUTH FOUR TIMES DAILY NEEDED FOR HEADACHE, 20 tabs, 2 Refill(s) triamterene-hydroCHLOROthiazide(triamterene-hydrochlorothiazide 37.5 mg-25 mg oral capsule) 1 caps 08/20/2018 02/16/2019 Oral 1 caps , Oral, Daily, for 30 days, 30 caps, 5 Refill(s) Problems Date Dx Coded Attending Type Code Diagnosis Diagnosed By 12/29/2014 Erika López Reason 625.9 UNSPECIFIED SYMPTOM ASSOCIATED WITH FEMALE GENITAL ORGANS 12/29/2014 Erika López Final 632 MISSED 12/30/2014 Bhupendra Nichols MD Final 278.00 OBESITY, UNSPECIFIED 12/30/2014 Bhupendra Nichols MD Final 285.9 ANEMIA, UNSPECIFIED 12/30/2014 Bhupendra Nichols MD Final 493.90 Asthma, unspecified 12/30/2014 Bhupendra Nichols MD Final 632 MISSED 12/30/2014 Bhupendra Nichols MD Reason 634.90 SPONTANEOUS , UNSPECIFIED, WITHOUT MENTION OF COMPLICATION 12/30/2014 Bhupendra Nichols MD Final 780.39 OTHER CONVULSIONS 12/30/2014 Bhupendra Nichols MD Reason 634.90 SPONTANEOUS , UNSPECIFIED, WITHOUT MENTION OF COMPLICATION 12/09/2015 Bhupendra Nichols MD Final E66.9 Obesity, unspecified 12/09/2015 Bhupendra Nichols MD Final F41.9 Anxiety disorder, unspecified 12/09/2015 Bhupendra Nichols MD Final G40.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-related (focal) (partial) symptomatic epilepsy and epileptic s 12/09/2015 Bhupendra Nichols MD Final G43.909 Migraine, unspecified, not intractable, without status migrainosus 12/09/2015 Bhupendra Nichols MD Final J45.909 Unspecified asthma, uncomplicated 12/09/2015 Bhupendra Nichols MD Final L76.22 Postprocedural hemorrhage and hematoma of skin and subcutaneous tissue foll 12/09/2015 Bhupendra Nichols MD Final O14.13 Severe pre-eclampsia, third trimester 12/09/2015 Bhupendra Nichols MD Final O32.1XX0 Maternal care for breech presentation, not applicable or unspecified 12/09/2015 Bhupendra Nichols MD Final O99.214 Obesity complicating childbirth 12/09/2015 Bhupendra Nichols MD Final O99.344 Other mental disorders complicating childbirth 12/09/2015 Bhupendra Nichols MD Final O99.354 Diseases of the nervous system complicating childbirth 12/09/2015 Bhupendra Nichols MD Final O99.52 Diseases of the respiratory system complicating childbirth 12/09/2015 Bhupendra Nichols MD Final O99.73 Diseases of the skin and subcutaneous tissue complicating the puerperium 12/09/2015 Bhupendra Nichols MD Final Z37.0 Single live 12/09/2015 Bhupendra Nichols MD Final Z3A.34 34 weeks gestation of 12/09/2015 Bhupendra Nichols MD Final Z68.42 Body mass index (BMI) 45.0-49.9, adult 12/22/2015 Final K29.00 Acute gastritis without bleeding 12/22/2015 Final O99.63 Diseases of the digestive system complicating the puerperium 12/22/2015 Reason O99.89 Other specified diseases and conditions complicating , childbirth 12/22/2015 Final R07.9 Chest pain , unspecified 04/20/2016 Dieter Goldstein Final E87.1 Hypo-osmolality and hyponatremia 04/20/2016 Dieter Goldstein Final I10 Essential (primary) hypertension 04/20/2016 Dieter Goldstein Final Z86.39 Personal history of other endocrine, nutritional and metabolic disease 05/22/2016 Dieter Goldstein I10 Essential (primary) hypertension 05/22/2016 Dieter Goldstein Final D64.9 Anemia, unspecified 05/22/2016 Dieter Goldstein Final J45.909 Unspecified asthma, uncomplicated 05/22/2016 Dieter Goldstein Final R42 Dizziness and giddiness 06/05/2016 Dieter Goldstein I10 Essential (primary) hypertension 06/05/2016 Dieter Goldstein R42 Dizziness and giddiness 07/23/2016 Dieter Goldstein R51 Headache 07/23/2016 Dieter Goldstein R11.0 Nausea 08/20/2016 Dieter Goldstein I10 Essential (primary) hypertension 08/20/2016 Dieter Goldstein J30.2 Other seasonal allergic rhinitis 08/20/2016 Dieter Goldstein J30.9 Allergic rhinitis, unspecified 08/20/2016 Dieter Goldstein G43.909 Migraine, unspecified, not intractable, without status migrainosus 08/22/2016 Final 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, not intractable, without status epilepticus 10/09/2016 Clark Jacobs Final J04.10 Acute tracheitis without obstruction 10/09/2016 Clark Jacobs Final Z87.09 Personal history of other diseases of the respiratory system 10/23/2016 Dieter Goldstein R05 Cough 10/23/2016 Dieter Goldstein J20.8 Acute bronchitis due to other specified organisms 10/23/2016 Dieter Goldstein J45.41 Moderate persistent asthma with (acute) exacerbation 02/11/2017 Ritchie Guerrero Final A09 Infectious gastroenteritis and colitis, unspecified 02/12/2017 Foote Carolyn Admitting E87.1 02/19/2017 Foote Carolyn Final A08.4 Viral intestinal infection, unspecified 02/19/2017 Foote Carolyn Final D50.9 Iron deficiency anemia, unspecified 02/19/2017 Foote Carolyn Final E11.9 Type 2 diabetes mellitus without complications 02/19/2017 Foote Carolyn Final E83.42 Hypomagnesemia 02/19/2017 Foote Carolyn Admitting E87.1 Hypo-osmolality and hyponatremia 02/19/2017 Foote Carolyn Final E87.6 Hypokalemia 02/19/2017 Foote Carolyn Final G40.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-related (focal) (partial) symptomatic epilepsy and epileptic s 02/19/2017 oFote Carolyn Final G43.909 Migraine, unspecified, not intractable, without status migrainosus 02/19/2017 Foote Carolyn Final I10 Essential (primary) hypertension 02/19/2017 Foote Carolyn Final J45.909 Unspecified asthma, uncomplicated 02/19/2017 Foote Carolyn Final Z68.42 Body mass index (BMI) 45.0-49.9, adult 02/19/2017 Dary,Fela Final E87.1 Hypo-osmolality and hyponatremia 02/19/2017 Foote Carolyn Final E66.9 Obesity, unspecified 02/20/2017 Dieter Goldstein E87.1 Hypo-osmolality and hyponatremia 02/20/2017 Dieter Goldstein Final 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, not intractable, without status epilepticus 02/20/2017 Dieter Goldstein I10 Essential (primary) hypertension 02/20/2017 Dieter Goldstein F41.1 Generalized anxiety disorder 02/20/2017 Dieter Goldstein J45.909 Unspecified asthma, uncomplicated 04/02/2017 Dieter Goldstein F41.1 Generalized anxiety disorder 04/02/2017 Dieter Goldstein I10 Essential (primary) hypertension 04/02/2017 Dieter Goldstein J45.909 Unspecified asthma, uncomplicated 04/02/2017 Dieter Goldstein Final Z86.39 Personal history of other endocrine, nutritional and metabolic disease 04/02/2017 Dieter Goldstein E66.9 Obesity, unspecified 04/04/2017 Bhupendra Nichols Final Z01.419 Encounter for gynecological examination (general) (routine) without abnormal findings 04/13/2017 Soraya Guido Final Z30.430 Encounter for insertion of intrauterine contraceptive device 07/03/2017 Dieter Goldtsein D64.9 Anemia, unspecified 07/03/2017 Dieter Goldstein I10 Essential (primary) hypertension 07/03/2017 Dieter Goldstein F41.1 Generalized anxiety disorder 09/23/2017 Goldstein, Dieter D Final J01.00 Acute maxillary sinusitis, unspecified 09/23/2017 Dieter Goldstein Final M77.11 Lateral epicondylitis, right elbow 09/23/2017 Dieter Goldstein Final Z23 Encounter for immunization 10/01/2017 Dieter Goldstein Final K12.0 Recurrent oral aphthae 10/01/2017 Dieter Goldstein Final J32.9 Chronic sinusitis, unspecified 10/22/2017 Jones Jacob Final F32.9 Major depressive disorder, single episode, unspecified 10/22/2017 Robert,Rosendo Final F41.1 Generalized anxiety disorder 10/22/2017 Robert,Rosendo Final G40.909 Epilepsy, unspecified, not intractable, without status epilepticus 10/22/2017 Jones Jacob Final I10 Essential (primary) hypertension 10/22/2017 Robert,Rosendo Final J45.901 Unspecified asthma with (acute) exacerbation 10/22/2017 Robert,Rosendo Final M94.0 Chondrocostal junction syndrome [Tietze] 10/22/2017 Jones Jacob Reason R51 Headache 10/22/2017 Robert,Rosendo Final Z32.02 Encounter for test, result negative 10/22/2017 Jones Jacob Final 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 10/22/2017 Jones Jacob Final Z87.59 Personal history of other complications of , childbirth and the pu 10/22/2017 Jones Jacob Final Z98.818 Other dental procedure status 12/04/2017 Jones Jacob Final R42 Dizziness and giddiness 12/04/2017 Jones Jacob Reason R52 Pain, unspecified 12/10/2017 Dieter Goldstein Final R42 Dizziness and giddiness 12/10/2017 Dieter Goldstein Final I10 Essential (primary) hypertension 12/10/2017 Dieter Goldstein Final R35.0 Frequency of micturition 01/07/2018 Lucrecia Oliva Final 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, not intractable, without status epilepticus 04/29/2018 Lucrecia Oliva Final 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, not intractable, without status epilepticus 04/29/2018 Lucrecia Oliva Final 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 08/20/2018 Dieter Goldstein Z01.419 Encounter for gynecological examination (general) (routine) without abnormal findings 08/22/2018 Dieter Goldstein 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, not intractable, without status epilepticus 08/22/2018 Dieter Goldstein I10 Essential (primary) hypertension 08/22/2018 Dieter Goldstein F32.9 Major depressive disorder, single episode, unspecified 08/22/2018 Dieter Goldstein J45.909 Unspecified asthma, uncomplicated 08/22/2018 Dieter Goldstein R73.9 Hyperglycemia, unspecified Procedures Code Description [place] [address] Treatment of missed , completed surgically; first trimester 2014 [id number] Extraction of Products of Conception, Low Cervical, Open Approach 2014 92500 Office or other outpatient visit for the evaluation and management of an established patient, which requires at least 2 of these 3 ch components: An expanded problem focused history; An expanded prob 06/05/2016 06916 Office or other outpatient visit for the evaluation and management of an established patient, which requires at least 2 of these 3 ch components: A detailed history; A detailed examination; Medical d 08/22/2016 75570 Radiologic examination, chest, 2 views, frontal and lateral; 2015 98106 Office or other outpatient visit for the evaluation and management of an established patient, which requires at least 2 of these 3 ch components: An expanded problem focused history; An expanded prob 10/23/2016 45383 Periodic comprehensive preventive medicine reevaluation and management of an individual including an age and gender appropriate history, examination, counseling/anticipatory guidance/risk factor reduc 04/04/2017 45421 Insertion of intrauterine device (IUD) 04/12/2017 16558 Immunization administration (includes percutaneous, intradermal, subcutaneous, or intramuscular injections) ; 1 vaccine (single or combination vaccine/toxoid).. 09/23/2017 74489 Influenza virus vaccine, trivalent, split virus, preservativ 2016 19762 Office or other outpatient visit for the evaluation and management of an established patient, which requires at least 2 of these 3 ch components: An expanded problem focused history; An expanded prob 09/23/2017 24808 Collection Of Venous Blood By Venipuncture 12/19/2017 71576 Basic metabolic panel ( Calcium, total) This panel must include the following: Calcium, total (17772) Carbon dioxide (bicarbonate) (91268) Chloride (96243) Creatinine (17201) Glucose (11060) Potassium 12/19/2017 30116 Office or other outpatient visit for the evaluation and management of an established patient, which requires at least 2 of these 3 ch components: A detailed history; A detailed examination; Medical d 01/07/2018 49567 Collection Of Venous Blood By Venipuncture 01/17/2018 22108 Basic metabolic panel ( Calcium, total) This panel must include the following: Calcium, total (57229) Carbon dioxide (bicarbonate) (06047) Chloride (59187) Creatinine (30443) Glucose (82873) Potassium 01/17/2018 94649 Oxcarbazepine. 01/17/2018 88127 Blood count; complete (CBC) , automated (Hgb, Hct, RBC, WBC and platelet count) 01/17/2018 31227 Office or other outpatient visit for the evaluation and management of an established patient, which requires at least 2 of these 3 ch components: A detailed history; A detailed examination; Medical d 04/29/2018 57354 Immunization administration (includes percutaneous, intradermal, subcutaneous, or intramuscular injections) ; 1 vaccine (single or combination vaccine/toxoid).. 08/20/2018 85807 Influenza virus vaccine, quadrivalent (IIV4), split virus, p 2017 07957 Periodic comprehensive preventive medicine reevaluation and management of an individual including an age and gender appropriate history, examination, counseling/anticipatory guidance/risk factor reduc 08/20/2018 Results Test Result Range CBC With Platelet and Differential - 04/20/16 10:06 Absolute Basophils 0.02 10*3 0.00-0.20 Absolute Eosinophils 0.02 10*3 0.00-0.50 Absolute Lymphocytes 1.50 10*3 0.80-3.30 Absolute Monocytes 0.53 10*3 0.30-1.00 Absolute Neutrophils 2.23 10*3 1.90-7.00 Basophils 1 % 0-2 Differential Scanned Slide NA Eosinophils 1 % 0-4 HCT 35.9 % 37.0-47.0 HGB 11.5 g/dL 12.0-16.0 Immature Granulocytes 0.0 % 0.0-1.0 Lymphocytes 35 % 20-46 MCH 21.3 pg 27.0-32.0 MCHC 32.0 g/dL 32.0-36.0 MCV 66.4 fL 82.0-99.0 Microcytes Present NA Monocytes 12 % 4-11 MPV 10.3 fL 8.8-14.8 Neutrophils 52 % 51-75 Platelet Count 402 K/uL 150-400 RBC 5.41 10*6/uL 4.00-5.20 RDW 15.5 % 11.5-14.5 WBC 4.3 K/uL 4.8-10.8 Basic Metabolic Panel (BMP) - 04/20/16 10:06 Anion Gap 11 NA 3-20 BUN 11 mg/dL 7-19 Calcium 9.5 mg/dL 8.9-10.5 Chloride 101 mEq/L 99-111 CO2 23 mEq/L 22-31 Creatinine 0.73 mg/dL 0.57-1.11 Glucose 80 mg/dL 70-99 Potassium 4.4 mEq/L 3.5-5.2 Sodium 135 mEq/L 135-144 eGFR - 04/20/16 10:06 eGFR >60 mL/min >60 Comprehensive Metabolic Panel (CMP) - 05/22/16 12:02 Albumin 4.4 g/dL 3.5-5.0 Alkaline Phosphatase 73 U/L 40-150 ALT (SGPT) 37 U/L 0-55 Anion Gap 11 NA 3-20 AST (SGOT) 22 U/L 5-34 Bilirubin Total 0.2 mg/dL 0.2-1.2 BUN 12 mg/dL 7-19 Calcium 9.0 mg/dL 8.9-10.5 Chloride 108 mEq/L 99-111 CO2 18 mEq/L 22-31 Creatinine 0.74 mg/dL 0.57-1.11 Globulin 2.6 g/dL 1.8-4.0 Glucose 104 mg/dL 70-99 Potassium 4.3 mEq/L 3.5-5.2 Protein 7.0 g/dL 6.4-8.3 Sodium 137 mEq/L 135-144 eGFR - 05/22/16 12:02 eGFR >60 mL/min >60 TSH with Reflex Free T4 - 05/22/16 12:02 TSH with Reflex Free T4 1.60 uIU/mL 0.35-4.94 CBC With Platelet and Differential - 05/22/16 12:02 Absolute Basophils 0.00 10*3 0.00-0.20 Absolute Eosinophils 0.00 10*3 0.00-0.50 Absolute Lymphocytes 1.18 10*3 0.80-3.30 Absolute Monocytes 0.59 10*3 0.30-1.00 Absolute Neutrophils 4.13 10*3 1.90-7.00 Basophils 0 % 0-2 Differential Manual NA Eosinophils 0 % 0-4 HCT 35.5 % 37.0-47.0 HGB 11.9 g/dL 12.0-16.0 Lymphocytes 20 % 20-46 MCH 21.9 pg 27.0-32.0 MCHC 33.5 g/dL 32.0-36.0 MCV 65.3 fL 82.0-99.0 Monocytes 10 % 4-11 MPV 10.4 fL 8.8-14.8 Neutrophils 70 % 51-75 Platelet Count 391 K/uL 150-400 RBC 5.44 10*6/uL 4.00-5.20 RDW 17.1 % 11.5-14.5 WBC 5.9 K/uL 4.8-10.8 Glucose NPT - 02/12/17 16:12 Glucose NPT 135 mg/dL 70-100 Urinalysis with reflex microscopic - 02/12/17 17:22 Appearance Clear NA Bilirubin Negative NA Negative Blood Pos 2+ NA Negative Color Straw NA Glucose, Urine Negative Negative Ketones Negative Negative Leukocyte Esterase Negative NA Negative Nitrites Negative NA Negative pH 7.0 NA 5.0-8.0 Protein Negative NA Negative Specific Industry 1.005 NA 1.003-1.030 UA Collection type Catheter NA Urobilinogen Negative mg/dL <1.0 Urine Microscopic - 02/12/17 17:22 Bacteria None Seen NA Epithelial Cells 0 /HPF RBC, Urine None Seen /HPF 0-2 WBC, Urine 0 /HPF 0-4 Sodium Random Urine - 02/12/17 17:22 Sodium Random Urine 46 mEq/L Osmolality, Urine - 02/12/17 17:22 Osmolality, Urine 234 mOsm/kg 38-1400 Screen, Urine NPT - 02/12/17 17:25 Screen, Urine NPT Negative NA CBC With Platelet and Differential - 02/12/17 18:21 Absolute Basophils 0.01 10*3/uL 0.00-0.20 Absolute Eosinophils 0.01 10*3/uL 0.00-0.50 Absolute Lymphocytes 1.17 10*3/uL 0.80-3.30 Absolute Monocytes 1.01 10*3/uL 0.30-1.00 Absolute Neutrophils 3.19 10*3/uL 1.90-7.00 Basophils 0 % 0-2 Eosinophils 0 % 0-4 HCT 34.3 % 37.0-47.0 HGB 12.0 g/dL 12.0-16.0 Immature Granulocytes 0.0 % 0.0-1.0 Lymphocytes 22 % 20-46 MCH 22.2 pg 27.0-32.0 MCHC 35.0 g/dL 32.0-36.0 MCV 63.4 fL 82.0-99.0 Monocytes 19 % 4-11 MPV 10.2 fL 9.4-12.4 Neutrophils 59 % 51-75 Platelet Count 348 K/uL 150-400 RBC 5.41 10*6/uL 4.00-5.20 RDW 12.8 % 11.5-14.5 WBC 5.4 K/uL 4.8-10.8 Comprehensive Metabolic Panel (CMP) - 02/12/17 18:21 Albumin 4.4 g/dL 3.5-4.8 Alkaline Phosphatase 59 U/L 26-104 ALT (SGPT) 41 U/L 14-54 Anion Gap 12 NA 3-20 AST (SGOT) 47 U/L 15-41 Bilirubin Total 0.8 mg/dL 0.2-1.2 BUN 2 mg/dL 4-20 Calcium 8.9 mg/dL 8.6-10.0 Chloride 73 mEq/L 99-109 CO2 28 mEq/L 22-32 Creatinine 0.55 mg/dL 0.44-1.03 Globulin 2.9 g/dL 1.9-4.3 Glucose 117 mg/dL 70-100 Potassium 2.5 mEq/L 3.6-5.1 Protein 7.3 g/dL 6.1-7.9 Sodium 113 mEq/L 136-144 Lipase - 02/12/17 18:21 Lipase 27 U/L 8-48 eGFR - 02/12/17 18:21 eGFR >60 NA >60 Magnesium - 02/12/17 18:21 Magnesium 1.7 mg/dL 1.8-2.5 Osmolality - 02/12/17 18:21 Osmolality 230 mOsm/kg 275-300 Basic Metabolic Panel (BMP) - 02/12/17 22:34 Anion Gap 14 NA 3-20 BUN 3 mg/dL 4-20 Calcium 8.6 mg/dL 8.6-10.0 Chloride 78 mEq/L 99-109 CO2 25 mEq/L 22-32 Creatinine 0.45 mg/dL 0.44-1.03 Glucose 97 mg/dL 70-100 Potassium 2.5 mEq/L 3.6-5.1 Sodium 117 mEq/L 136-144 eGFR - 02/12/17 22:34 eGFR >60 NA >60 TSH with Reflex Free T4 - 02/12/17 22:34 TSH with Reflex Free T4 1.00 uIU/mL 0.35-5.50 Oxcarbazepine, S - 02/12/17 22:34 Oxcarbazepine, S 13 mcg/mL 3 - 35 Renal Function Panel - 02/13/17 00:43 Albumin 3.8 g/dL 3.5-4.8 Anion Gap 13 NA 3-20 BUN 2 mg/dL 4-20 Calcium 8.6 mg/dL 8.6-10.0 Chloride 79 mEq/L 99-109 CO2 26 mEq/L 22-32 Creatinine 0.62 mg/dL 0.44-1.03 Glucose 129 mg/dL 70-100 Phosphorus 2.5 mg/dL 2.4-4.7 Potassium 2.9 mEq/L 3.6-5.1 Sodium 118 mEq/L 136-144 eGFR - 02/13/17 00:43 eGFR >60 NA >60 Renal Function Panel - 02/13/17 04:30 Albumin 4.0 g/dL 3.5-4.8 Anion Gap 13 NA 3-20 BUN 4 mg/dL 4-20 Calcium 8.7 mg/dL 8.6-10.0 Chloride 81 mEq/L 99-109 CO2 27 mEq/L 22-32 Creatinine 0.54 mg/dL 0.44-1.03 Glucose 96 mg/dL 70-100 Phosphorus 2.9 mg/dL 2.4-4.7 Potassium 3.1 mEq/L 3.6-5.1 Sodium 121 mEq/L 136-144 Magnesium - 02/13/17 04:30 Magnesium 2.0 mg/dL 1.8-2.5 CBC With Platelet and Differential - 02/13/17 04:30 Absolute Basophils 0.01 10*3/uL 0.00-0.20 Absolute Eosinophils 0.03 10*3/uL 0.00-0.50 Absolute Lymphocytes 1.36 10*3/uL 0.80-3.30 Absolute Monocytes 1.16 10*3/uL 0.30-1.00 Absolute Neutrophils 3.45 10*3/uL 1.90-7.00 Basophils 0 % 0-2 Differential Scanned Slide NA Eosinophils 1 % 0-4 HCT 34.9 % 37.0-47.0 HGB 12.0 g/dL 12.0-16.0 Immature Granulocytes 0.2 % 0.0-1.0 Lymphocytes 23 % 20-46 MCH 22.6 pg 27.0-32.0 MCHC 34.4 g/dL 32.0-36.0 MCV 65.6 fL 82.0-99.0 Monocytes 19 % 4-11 MPV 9.5 fL 9.4-12.4 Neutrophils 57 % 51-75 Nucleated RBC Automated 0.0 /100 WBC Platelet Count 290 K/uL 150-400 RBC 5.32 10*6/uL 4.00-5.20 RDW 13.4 % 11.5-14.5 WBC 6.0 K/uL 4.8-10.8 eGFR - 02/13/17 04:30 eGFR >60 NA >60 Renal Function Panel - 02/13/17 08:45 Albumin 3.9 g/dL 3.5-4.8 Anion Gap 14 NA 3-20 BUN 5 mg/dL 4-20 Calcium 8.9 mg/dL 8.6-10.0 Chloride 84 mEq/L 99-109 CO2 25 mEq/L 22-32 Creatinine 0.82 mg/dL 0.44-1.03 Glucose 104 mg/dL 70-100 Phosphorus 2.5 mg/dL 2.4-4.7 Potassium 3.7 mEq/L 3.6-5.1 Sodium 123 mEq/L 136-144 eGFR - 02/13/17 08:45 eGFR >60 NA >60 Renal Function Panel - 02/13/17 12:19 Albumin 4.0 g/dL 3.5-4.8 Anion Gap 12 NA 3-20 BUN 5 mg/dL 4-20 Calcium 8.9 mg/dL 8.6-10.0 Chloride 87 mEq/L 99-109 CO2 25 mEq/L 22-32 Creatinine 0.78 mg/dL 0.44-1.03 Glucose 125 mg/dL 70-100 Phosphorus 2.1 mg/dL 2.4-4.7 Potassium 3.8 mEq/L 3.6-5.1 Sodium 124 mEq/L 136-144 eGFR - 02/13/17 12:19 eGFR >60 NA >60 Renal Function Panel - 02/13/17 16:40 Albumin 4.1 g/dL 3.5-4.8 Anion Gap 13 NA 3-20 BUN 5 mg/dL 4-20 Calcium 9.0 mg/dL 8.6-10.0 Chloride 91 mEq/L 99-109 CO2 23 mEq/L 22-32 Creatinine 0.71 mg/dL 0.44-1.03 Glucose 116 mg/dL 70-100 Phosphorus 1.9 mg/dL 2.4-4.7 Potassium 4.1 mEq/L 3.6-5.1 Sodium 127 mEq/L 136-144 eGFR - 02/13/17 16:40 eGFR >60 NA >60 Renal Function Panel - 02/13/17 20:20 Anion Gap 10 NA 3-20 Phosphorus 2.2 mg/dL 2.4-4.7 eGFR - 02/13/17 20:20 eGFR >60 NA >60 Glucose NPT - 02/14/17 01:11 Glucose NPT 84 mg/dL 70-100 CBC With Platelet No Differential - 02/14/17 01:27 HCT 37.7 % 37.0-47.0 HGB 12.5 g/dL 12.0-16.0 MCH 22.6 pg 27.0-32.0 MCHC 33.2 g/dL 32.0-36.0 MCV 68.1 fL 82.0-99.0 MPV 9.9 fL 9.4-12.4 Platelet Count 356 K/uL 150-400 RBC 5.54 10*6/uL 4.00-5.20 RDW 14.1 % 11.5-14.5 WBC 6.1 K/uL 4.8-10.8 Renal Function Panel - 02/14/17 01:27 Albumin 4.2 g/dL 3.5-4.8 Anion Gap 14 NA 3-20 BUN 7 mg/dL 4-20 Calcium 9.4 mg/dL 8.6-10.0 Chloride 90 mEq/L 99-109 CO2 27 mEq/L 22-32 Creatinine 0.79 mg/dL 0.44-1.03 Glucose 97 mg/dL 70-100 Phosphorus 2.5 mg/dL 2.4-4.7 Potassium 3.9 mEq/L 3.6-5.1 Sodium 131 mEq/L 136-144 eGFR - 02/14/17 01:27 eGFR >60 NA >60 Renal Function Panel - 02/14/17 05:08 Albumin 4.0 g/dL 3.5-4.8 Anion Gap 13 NA 3-20 BUN 8 mg/dL 4-20 Calcium 9.2 mg/dL 8.6-10.0 Chloride 94 mEq/L 99-109 CO2 24 mEq/L 22-32 Creatinine 0.67 mg/dL 0.44-1.03 Glucose 119 mg/dL 70-100 Phosphorus 2.7 mg/dL 2.4-4.7 Potassium 3.8 mEq/L 3.6-5.1 Sodium 131 mEq/L 136-144 Magnesium - 02/14/17 05:08 Magnesium 2.0 mg/dL 1.8-2.5 eGFR - 02/14/17 05:08 eGFR >60 NA >60 CBC With Platelet and Differential - 02/20/17 16:04 Absolute Basophils 0.03 10*3/uL 0.00-0.20 Absolute Eosinophils 0.04 10*3/uL 0.00-0.50 Absolute Lymphocytes 2.59 10*3/uL 0.80-3.30 Absolute Monocytes 0.81 10*3/uL 0.30-1.00 Absolute Neutrophils 6.24 10*3/uL 1.90-7.00 Basophils 0 % 0-2 Eosinophils 0 % 0-4 HCT 32.0 % 37.0-47.0 HGB 10.3 g/dL 12.0-16.0 Immature Granulocytes 0.3 % 0.0-1.0 Lymphocytes 27 % 20-46 MCH 21.9 pg 27.0-32.0 MCHC 32.2 g/dL 32.0-36.0 MCV 67.9 fL 82.0-99.0 Monocytes 8 % 4-11 MPV 9.9 fL 8.8-14.8 Neutrophils 64 % 51-75 Platelet Count 400 K/uL 150-400 RBC 4.71 10*6/uL 4.00-5.20 RDW 14.7 % 11.5-14.5 WBC 9.7 K/uL 4.8-10.8 Comprehensive Metabolic Panel (CMP) - 02/20/17 16:04 Albumin 4.4 g/dL 3.5-5.0 Alkaline Phosphatase 62 U/L 40-150 ALT (SGPT) 28 U/L 0-55 Anion Gap 12 NA 3-20 AST (SGOT) 14 U/L 5-34 Bilirubin Total 0.2 mg/dL 0.2-1.2 BUN 8 mg/dL 7-19 Calcium 8.9 mg/dL 8.4-10.2 Chloride 102 mEq/L 99-111 CO2 21 mEq/L 22-31 Creatinine 0.72 mg/dL 0.57-1.11 Globulin 2.4 g/dL 1.8-4.0 Glucose 109 mg/dL 70-99 Potassium 3.5 mEq/L 3.5-5.2 Protein 6.8 g/dL 6.1-7.7 Sodium 135 mEq/L 135-144 eGFR - 02/20/17 16:04 eGFR >60 mL/min >60 Lipid Panel - 04/26/17 10:32 Cardiac Risk 3.1 0.0-5.0 Cholesterol 238 mg/dL 0-199 LDL Cholesterol 135 mg/dL 0-130 VLDL Cholesterol 27 mg/dL 0-28 CBC With Platelet and Differential - 07/03/17 09:47 Absolute Basophils 0.02 10*3/uL 0.00-0.20 Absolute Eosinophils 0.07 10*3/uL 0.00-0.50 Absolute Lymphocytes 1.77 10*3/uL 0.80-3.30 Absolute Monocytes 0.75 10*3/uL 0.30-1.00 Absolute Neutrophils 4.64 10*3/uL 1.90-7.00 Basophils 0 % 0-2 Eosinophils 1 % 0-4 HCT 37.5 % 37.0-47.0 HGB 11.8 g/dL 12.0-16.0 Immature Granulocytes 0.3 % 0.0-1.0 Lymphocytes 24 % 20-46 MCH 21.7 pg 27.0-32.0 MCHC 31.5 g/dL 32.0-36.0 MCV 68.8 fL 82.0-99.0 Monocytes 10 % 4-11 MPV 10.4 fL 8.8-14.8 Neutrophils 64 % 51-75 Platelet Count 384 K/uL 150-400 RBC 5.45 10*6/uL 4.00-5.20 RDW 15.3 % 11.5-14.5 WBC 7.3 K/uL 4.8-10.8 Urinalysis with reflex microscopic - 10/09/17 12:39 Appearance Sl Cloudy NA Bilirubin Negative NA Negative Blood Negative NA Negative Color Yellow NA Glucose, Urine Negative Negative Ketones Negative Negative Leukocyte Esterase Negative NA Negative Nitrites Negative NA Negative pH 5.0 NA 5.0-8.0 Protein Negative NA Negative Specific Industry 1.025 NA 1.003-1.030 UA Collection type Clean Catch NA Urobilinogen Negative mg/dL <1.0 Screen, Urine - 10/09/17 12:39 Screen, Urine Negative NA Hemoglobin and Hematocrit - 10/09/17 13:19 HCT 37.1 % 37.0-47.0 HGB 12.0 g/dL 12.0-16.0 Basic Metabolic Panel (BMP) - 10/09/17 13:20 Anion Gap 10 mEq/L 3-20 BUN 9 mg/dL 4-20 Calcium 9.2 mg/dL 8.6-10.0 Chloride 98 mEq/L 99-109 CO2 22 mEq/L 22-32 Creatinine 0.58 mg/dL 0.44-1.03 Glucose 81 mg/dL 70-100 Potassium 3.9 mEq/L 3.6-5.1 Sodium 130 mEq/L 136-144 eGFR - 10/09/17 13:20 eGFR >60 mL/min >60 Urine Microscopic - 12/10/17 11:57 Epithelial Cells 5 /HPF WBC, Urine 0 /HPF 0-4 CBC With Platelet and Differential - 12/10/17 12:15 Absolute Basophils 0.04 10*3/uL 0.00-0.20 Absolute Eosinophils 0.07 10*3/uL 0.00-0.50 Absolute Lymphocytes 2.17 10*3/uL 0.80-3.30 Absolute Monocytes 0.77 10*3/uL 0.30-1.00 Absolute Neutrophils 4.70 10*3/uL 1.90-7.00 Basophils 1 % 0-2 Eosinophils 1 % 0-4 HCT 37.9 % 37.0-47.0 HGB 11.4 g/dL 12.0-16.0 Immature Granulocytes 0.3 % 0.0-1.0 Lymphocytes 28 % 20-46 MCH 21.8 pg 27.0-32.0 MCHC 30.1 g/dL 32.0-36.0 MCV 72.6 fL 82.0-99.0 Monocytes 10 % 4-11 MPV 10.1 fL 8.8-14.8 Neutrophils 61 % 51-75 Nucleated RBC Automated 0.0 /100 WBC Platelet Count 359 K/uL 150-400 RBC 5.22 10*6/uL 4.00-5.20 RDW 14.4 % 11.5-14.5 WBC 7.8 K/uL 4.8-10.8 Comprehensive Metabolic Panel (CMP) - 12/10/17 12:15 Albumin 4.5 g/dL 3.5-5.0 Alkaline Phosphatase 82 U/L 40-150 ALT (SGPT) 23 U/L 0-55 Anion Gap 7 mEq/L 3-20 AST (SGOT) 17 U/L 5-34 Bilirubin Total 0.2 mg/dL 0.2-1.2 BUN 8 mg/dL 7-19 Calcium 9.0 mg/dL 8.4-10.2 Chloride 97 mEq/L 99-111 CO2 26 mEq/L 22-31 Creatinine 0.67 mg/dL 0.57-1.11 Globulin 2.6 g/dL 1.8-4.0 Glucose 81 mg/dL 70-99 Potassium 4.0 mEq/L 3.5-5.2 Protein 7.1 g/dL 6.1-7.7 Sodium 130 mEq/L 135-144 eGFR - 12/10/17 12:15 eGFR >60 mL/min >60 Basic Metabolic Panel (BMP) - 12/19/17 08:29 Anion Gap 9 mEq/L 3-20 BUN 9 mg/dL 7-19 Calcium 9.3 mg/dL 8.4-10.2 Chloride 98 mEq/L 99-111 CO2 23 mEq/L 22-31 Creatinine 0.66 mg/dL 0.57-1.11 Glucose 84 mg/dL 70-99 Potassium 4.4 mEq/L 3.5-5.2 Sodium 130 mEq/L 135-144 eGFR - 12/19/17 08:29 eGFR >60 mL/min >60 CBC With Platelet No Differential - 01/17/18 11:03 HCT 38.9 % 37.0-47.0 HGB 11.8 g/dL 12.0-16.0 MCH 21.7 pg 27.0-32.0 MCHC 30.3 g/dL 32.0-36.0 MCV 71.6 fL 82.0-99.0 MPV 10.1 fL 8.8-14.8 Platelet Count 396 K/uL 150-400 RBC 5.43 10*6/uL 4.00-5.20 RDW 14.9 % 11.5-14.5 WBC 7.2 K/uL 4.8-10.8 Basic Metabolic Panel (BMP) - 01/17/18 11:03 Anion Gap 8 mEq/L 3-20 BUN 9 mg/dL 7-19 Calcium 9.5 mg/dL 8.4-10.2 Chloride 105 mEq/L 99-111 CO2 24 mEq/L 22-31 Creatinine 0.69 mg/dL 0.57-1.11 Glucose 77 mg/dL 70-99 Potassium 4.4 mEq/L 3.5-5.2 Sodium 137 mEq/L 135-144 eGFR - 01/17/18 11:03 eGFR >60 mL/min >60 Oxcarbazepine, S - 01/17/18 11:03 Oxcarbazepine, S 20 mcg/mL 3 - 35 Basic Metabolic Panel (BMP) - 05/29/18 12:22 Anion Gap 9 mEq/L 3-20 BUN 10 mg/dL 7-19 Calcium 9.3 mg/dL 8.4-10.2 Chloride 104 mEq/L 99-111 CO2 25 mEq/L 22-31 Creatinine 0.70 mg/dL 0.57-1.11 Glucose 101 mg/dL 70-99 Potassium 4.7 mEq/L 3.5-5.2 Sodium 138 mEq/L 135-144 eGFR - 05/29/18 12:22 eGFR >60 mL/min >60 Encounters ACCT No. Visit Date/Time Discharge Status Pt. Type Provider Facility Loc./Unit Complaint [id number] 01/07/2014 15:28:00 01/07/2014 23:59:59 CLS Outpatient [id number] 11/27/2013 15:01:00 11/27/2013 23:59:59 CLS Outpatient [id number] 12/03/2017 16:38:00 12/03/2017 18:16:00 DIS Emergency Robert,Rosendo [facility] ED flu like symptoms [id number] 10/09/2017 12:09:00 10/09/2017 15:19:00 DIS Emergency Jones Jacob [facility] ED high bp, dizziness [id number] 02/12/2017 16:08:00 02/14/2017 12:43:00 DIS Inpatient Foote Carolyn [facility] J6E Hyponatremia [id number] 11/11/2015 10:30:00 11/17/2015 13:31:00 DIS Inpatient Bhupendra Nichols MD [facility] J4W obstetrics [id number] 12/29/2014 10:53:00 12/29/2014 16:00:00 DIS Outpatient Bhupendra Nichols MD [facility] JACU Spontaneous AB [id number] 12/28/2014 21:45:00 12/29/2014 04:15:00 DIS Emergency Erika López [facility] ED products of conception retention - vaginal discharge [id number] 10/10/2017 05:18:18 Document Registration [id number] 06/29/2017 05:17:32 Document Registration [id number] 05/03/2017 05:23:43 Document Registration [id number] 04/13/2017 05:16:21 Document Registration [id number] 04/03/2017 05:16:22 Document Registration [id number] 02/21/2017 05:16:15 Document Registration [id number] 02/15/2017 05:17:31 Document Registration [id number] 02/14/2017 05:16:10 Document Registration [id number] 02/13/2017 05:17:28 Document Registration [id number] 02/12/2017 05:17:50 Document Registration [id number] 01/22/2017 05:15:56 Document Registration [id number] 01/11/2017 05:16:10 Document Registration [id number] 12/06/2016 05:16:07 Document Registration [id number] 11/16/2016 05:16:30 Document Registration [id number] 10/24/2016 05:15:58 Document Registration [id number] 10/23/2016 05:17:39 Document Registration [id number] 10/10/2016 05:16:52 Document Registration [id number] 09/29/2016 05:18:08 Document Registration [id number] 08/21/2016 05:17:22 Document Registration [id number] 07/24/2016 05:19:46 Document Registration [id number] 07/11/2016 05:17:20 Document Registration [id number] 05/23/2016 05:17:42 Document Registration [id number] 04/21/2016 05:16:57 Document Registration [id number] 03/21/2016 05:16:30 Document Registration [id number] 02/25/2016 05:17:26 Document Registration [id number] 01/26/2016 05:18:17 Document Registration [id number] 01/21/2016 05:17:10 Document Registration [id number] 01/10/2016 05:17:55 Document Registration [id number] 12/31/2015 05:17:38 Document Registration [id number] 12/24/2015 05:17:20 Document Registration [id number] 12/22/2015 05:16:19 Document Registration [id number] 12/17/2015 05:17:25 Document Registration [id number] 12/16/2015 10:31:00 Document Registration [id number] 11/29/2015 05:17:06 Document Registration [id number] 11/26/2015 05:16:27 Document Registration [id number] 11/25/2015 05:16:52 Document Registration [id number] 11/18/2015 05:16:20 Document Registration [id number] 11/17/2015 05:17:06 Document Registration [id number] 11/16/2015 05:16:48 Document Registration [id number] 11/15/2015 05:17:35 Document Registration [id number] 11/14/2015 05:15:48 Document Registration [id number] 11/13/2015 05:15:35 Document Registration [id number] 11/12/2015 05:17:09 Document Registration [id number] 10/18/2015 05:18:14 Document Registration [id number] 09/22/2015 05:16:04 Document Registration [id number] 09/14/2015 14:28:30 Document Registration [id number] 09/14/2015 14:07:36 Document Registration [id number] 09/14/2015 13:52:48 Document Registration [id number] 09/14/2015 13:29:50 Document Registration [id number] 09/14/2015 13:21:50 Document Registration [id number] 09/14/2015 12:45:37 Document Registration [id number] 09/14/2015 12:30:32 Document Registration [id number] 09/14/2015 12:23:30 Document Registration [id number] 09/14/2015 11:55:41 Document Registration [id number] 09/14/2015 11:43:05 Document Registration [id number] 09/14/2015 11:22:51 Document Registration [id number] 09/14/2015 11:11:01 Document Registration [id number] 09/14/2015 10:56:55 Document Registration [id number] 09/14/2015 10:51:08 Document Registration [id number] 09/14/2015 10:12:17 Document Registration [id number] 09/14/2015 09:59:52 Document Registration [id number] 09/14/2015 09:15:32 Document Registration [id number] 09/14/2015 08:54:14 Document Registration [id number] 08/20/2018 10:54:00 08/20/2018 23:59:00 DIS Outpatient Dieter Goldstein [facility] N [facility] FM WWE YEARLY [id number] 05/29/2018 12:19:00 05/29/2018 23:59:00 DIS Outpatient Rice Lucrecia Jesu [facility] N [facility] FM for lab [id number] 05/29/2018 10:36:00 05/29/2018 23:59:00 DIS Outpatient Dieter Goldstein [facility] N [facility] FM OUTSIDE LAB NEUROLOGIST [id number] 04/29/2018 09:29:00 04/29/2018 23:59:00 DIS Outpatient Pj Lucrecia Jesu [facility] N SF Epil 3 MO FU [id number] 01/17/2018 11:35:00 01/17/2018 23:59:00 DIS Outpatient Lucrecia Oliva Jesu [facility] N [facility] FM LAB [id number] 01/17/2018 11:04:00 01/17/2018 23:59:00 DIS Outpatient Dieter Goldstein [facility] N [facility] FM LAB [id number] 01/07/2018 08:48:00 01/07/2018 23:59:00 DIS Outpatient Pj Lucrecia Jesu [facility] N SF Epil NTY FROM CALISTA [id number] 12/19/2017 08:18:00 12/19/2017 23:59:00 DIS Outpatient Dieter Goldstein [facility] N [facility] FM LAB [id number] 12/10/2017 11:12:00 12/10/2017 23:59:00 DIS Outpatient Dieter Goldstein [facility] N [facility] FM DIZZY FATIGUE [id number] 10/01/2017 10:24:00 10/01/2017 23:59:00 DIS Outpatient Dieter Goldstein [facility] N [facility] FM exposed to strep, sore throat chills [id number] 09/23/2017 09:40:00 09/23/2017 23:59:00 DIS Outpatient Dieter Goldstein [facility] N [facility] FM ACC R ELBOW PAIN [id number] 07/03/2017 08:48:00 07/03/2017 23:59:00 DIS Outpatient Dieter Goldstein [facility] N [facility] FM 3 MO RCYSTAL WT LOSS [id number] 04/26/2017 10:28:00 04/26/2017 23:59:00 DIS Out[facility]da [facility] [id number] 04/26/2017 09:38:00 04/26/2017 23:59:00 DIS Outpatient Dieter Goldstein [facility] N [facility] FM mdg, lab [id number] 04/12/2017 13:32:00 04/12/2017 23:59:00 DIS Outpatient Soraya Guido [facility] S [facility] OBG IUD. ON CYCLE. [facility] PT [id number] 04/04/2017 14:55:00 04/04/2017 23:59:00 DIS Outpatient Magdalena Bhupendra Cyr [facility] S [facility] OBG WWE AND DISCUSS IUD [id number] 04/02/2017 09:33:00 04/02/2017 23:59:00 DIS Outpatient Dieter Goldstein [facility] N [facility] FM 6 week recheck [id number] 02/20/2017 15:09:00 02/20/2017 23:59:00 DIS Outpatient Dieter Goldstein [facility] N [facility] FM TCM [id number] 02/11/2017 13:25:00 02/11/2017 23:59:00 DIS Outpatient Ritchie Guerrero [facility] N [place] FM VOMITING CHILLS STOMACH UPSET DIZZY [id number] 10/23/2016 08:54:00 10/23/2016 23:59:00 DIS Outpatient Dieter Goldstein [facility] N [facility] FM 2 mo recheck [id number] 10/09/2016 08:49:00 10/09/2016 23:59:00 DIS Outpatient Clark Jacobs [facility] N [facility] FM TCPA, SINUS CONGESTION, [id number] 08/22/2016 09:23:00 08/22/2016 23:59:00 DIS Outpatient [facility] N SF Epil SOV MED FU [id number] 08/20/2016 14:36:00 08/20/2016 23:59:00 DIS Outpatient Dieter Goldstein [facility] N [facility] FM Blood Pressure [id number] 07/23/2016 10:37:00 07/23/2016 23:59:59 CLS Outpatient Dieter Goldstein [facility] N [facility] FM TCPA- headaches for 4 days [id number] 06/05/2016 09:41:00 06/05/2016 23:59:00 DIS Outpatient Dieter Goldstein [facility] N [facility] FM 2 week recheck [id number] 05/22/2016 10:44:00 05/22/2016 23:59:00 DIS Outpatient Dieter Goldstein [facility] N [facility] FM Crystal BP, dizziness [id number] 04/20/2016 09:43:00 04/20/2016 23:59:00 DIS Outpatient Dieter Goldstein [facility] N [facility] FM 1 month recheck [id number] 03/20/2016 09:43:00 03/20/2016 23:59:00 DIS Outpatient Dieter Goldstein [facility] N [facility] FM CONCERNED WITH BLOOD SUGAR [id number] 02/28/2016 08:11:00 02/28/2016 23:59:00 DIS Outpatient Reginaldo Wolf [facility] Mur Gasto GERD [id number] 02/15/2016 09:55:00 02/15/2016 23:59:00 DIS Outpatient [facility] N SF Epil 2 MO FU [id number] 01/20/2016 10:24:00 01/20/2016 23:59:00 DIS Outpatient Dieter Goldstein [facility] N [facility] FM acid reflux [id number] 01/09/2016 10:27:00 01/09/2016 23:59:00 DIS Outpatient Dieter Goldstein [facility] N [facility] FM sinus infection sx [id number] 12/30/2015 08:58:00 12/30/2015 23:59:00 DIS Outpatient Bhupendra Nichols [facility] S [facility] OBG 6 wks pp [id number] 12/23/2015 09:05:00 12/23/2015 23:59:00 DIS Outpatient Bhupendra Nichols [facility] S [facility] OBG wound check [id number] 12/16/2015 09:04:00 12/16/2015 23:59:00 DIS Outpatient Bhupendra Nichols [facility] S [facility] OBG WOUND RE-PACK [id number] 12/09/2015 13:22:00 12/09/2015 23:59:00 DIS Outpatient VoBhupendra arteaga Ger [facility] S [facility] OBG WOUND RE-PACK [id number] 12/09/2015 13:01:00 12/09/2015 23:59:00 DIS Outpatient VojenniBhupendra Ger [facility] S [facility] OBG wound re-pack [id number] 11/24/2015 15:05:00 11/24/2015 23:59:00 DIS Outpatient VothBhupendra Ger [facility] S [facility] OBG WOUND CHECK [id number] 11/11/2015 09:33:00 11/11/2015 23:59:00 DIS Outpatient Vojenni, Bhupendra Ger [facility] S [facility] OBG 34 WK OB F/U [id number] 10/28/2015 09:16:00 10/28/2015 23:59:00 DIS Outpatient VojenniBhupendra Ger [facility] S [facility] OBG 32 WK OB F/U [id number] 10/14/2015 09:32:00 10/14/2015 23:59:00 DIS Outpatient White Margret B [facility] OBG 30 WK OB F/U [id number] 10/13/2015 08:58:00 10/13/2015 23:59:00 DIS Outpatient Dieter Garay [facility] S Jackie MFM 9 wks f/u growth alonso 1.29.16 [id number] 09/30/2015 14:02:00 09/30/2015 23:59:00 DIS Outpatient White, Margret B [facility] OBG 28 wk ob fu [id number] 09/09/2015 11:31:00 09/09/2015 23:59:00 DIS Outpatient VoBhupendra arteaga [facility] OBG 25 wk ob fu [id number] 08/12/2015 09:06:00 08/12/2015 23:59:00 DIS Outpatient VoBhupendra arteaga [facility] S [facility] OBG 17 wk ob fu [id number] 08/12/2015 07:59:00 08/12/2015 23:59:00 DIS Outpatient Dieter Garay [facility] S Jackie MFM f/u anatomy alonso 1.29.16 [id number] 08/04/2015 10:24:00 08/04/2015 23:59:00 DIS Outpatient Dieter Goldstein [facility] N [facility] FM LT SIDED CHEST PAIN PER GERALD [id number] 07/15/2015 08:37:00 07/15/2015 23:59:00 DIS Outpatient VoBhupendra arteaga [facility] S [facility] OBG 16 wk ob fu [id number] 06/29/2015 14:11:00 06/29/2015 23:59:00 DIS Outpatient Della Jerrymr Felipe [facility] N SF Epil NPV [id number] 06/23/2015 08:27:00 06/23/2015 23:59:00 DIS Outpatient Dieter Goldstein [facility] N [facility] FM See per [id number] 06/16/2015 10:53:00 06/16/2015 23:59:00 DIS Outpatient Bhupendra Nichols [facility] OBG OB CRYSTAL [id number] 05/19/2015 11:17:00 05/19/2015 23:59:00 DIS Outpatient Bhupendra Nichols [facility] OBG 8wk ob crystal [id number] 05/19/2015 10:13:00 05/19/2015 23:59:00 DIS Outpatient Dieter Garay [facility] S [facility] 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, 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 alonso 1.29.16 [id number] 12/29/2014 09:40:00 12/29/2014 23:59:00 DIS Outpatient VoBhupendra arteaga [facility] W ST OBGYN NO HEART TONES, NEEDS D+C [id number] 12/03/2014 14:13:00 12/03/2014 23:59:00 DIS Outpatient Dieter Goldstein [facility] N [facility] FM PER JASON [id number] 11/24/2014 09:45:00 11/24/2014 23:59:00 DIS Outpatient Dieter Goldstein [facility] N [facility] FM Rx recheck [id number] 08/21/2018 05:18:31 Document Registration [id number] 08/09/2018 05:19:42 Document Registration [id number] 07/10/2018 05:22:24 Document Registration [id number] 06/26/2018 05:19:22 Document Registration [id number] 06/10/2018 08:23:02 Document Registration [id number] 05/14/2018 05:18:16 Document Registration [id number] 04/30/2018 05:18:07 Document Registration [id number] 02/08/2018 05:18:14 Document Registration [id number] 01/09/2018 05:18:19 Document Registration [id number] 12/13/2017 05:17:51 Document Registration [id number] 12/03/2017 05:20:34 Document Registration [id number] 11/20/2017 05:18:46 Document Registration [id number] 11/12/2017 05:18:30 Document Registration [id number] 10/30/2017 05:19:35 Document Registration [id number] 10/26/2017 05:17:44 Document Registration [id number] 10/17/2017 05:18:03 Document Registration [id number] 09/25/2017 05:18:35 Document Registration [id number] 09/24/2017 05:19:05 Document Registration [id number] 09/10/2017 05:17:38 Document Registration [id number] 08/27/2017 05:20:23 Document Registration [id number] 08/13/2017 05:18:54 Document Registration [id number] 02/12/2017 16:08:00 Document Registration [id number] 05/02/2015 15:56:00 Document Registration [id number] 04/21/2015 09:15:00 Document Registration [id number] 01/17/2015 09:35:00 Document Registration [id number] 01/14/2015 08:46:00 Document Registration [id number] 11/10/2016 23:06:00 11/11/2016 00:50:00 DIS Emergency Nevaeh MOYA, Alexei Edward [facility] WED
[2018-09-11] MEDS ORDERED: LACTATED RINGERS 1,000 ML IV ONE (21:44)
[2018-09-11] MEDS ORDERED: ONDANSETRON 4 MG/2 ML (SDV) Z0FRAN IVP ONE (21:45)
[2018-09-11 22:10] LABS: BASOPHILS % (AUTO) 0 % (0-10); EOSINOPHILS % (AUTO) 0 % (0-10); HEMATOCRIT 37 % (35-52); HEMOGLOBIN 12.4 G/DL (11.5-16.0); LYMPHOCYTES # (AUTO) 1.6 X 10^3 (1.0-4.0); LYMPHOCYTES % (AUTO) 14 % (12-44); MEAN CORPUSCULAR HEMOGLOBIN 22 PG (25-34); MEAN CORPUSCULAR HGB CONC 34 G/DL (32-36); MEAN CORPUSCULAR VOLUME 67 FL (80-99); MEAN PLATELET VOLUME 9.5 FL (7.4-10.4); MONOCYTES # (AUTO) 0.9 X 10^3 (0.0-1.0); MONOCYTES % (AUTO) 8 % (0-12); NEUTROPHILS # (AUTO) 9.1 X 10^3 (1.8-7.8); NEUTROPHILS % (AUTO) 78 % (42-75); PLATELET COUNT 408 10^3/uL (130-400); RED BLOOD COUNT 5.53 10^6/uL (4.35-5.85); RED CELL DISTRIBUTION WIDTH 14.3 % (10.0-14.5); WHITE BLOOD COUNT 11.6 10^3/uL (4.3-11.0)
[2018-09-11 22:23] LABS: BILIRUBIN,URINE NEGATIVE (NEGATIVE); CLARITY,URINE CLEAR; COLOR,URINE YELLOW; GLUCOSE, URINE (UA) NEGATIVE (NEGATIVE); KETONES,URINE 1+ (NEGATIVE); LEUKOCYTE ESTERASE ,URINE 1+ (NEGATIVE); NITRITE,URINE NEGATIVE (NEGATIVE); PH,URINE 7 (5-9); PROTEIN,URINE 1+ (NEGATIVE); UROBILINOGEN,URINE NORMAL (NORMAL)
[2018-09-11 22:28] LABS: ALANINE AMINOTRANSFERASE 34 U/L (0-55); ALBUMIN 4.9 GM/DL (3.2-4.5); ALKALINE PHOSPHATASE 85 U/L (40-136); AMYLASE 59 U/L (25-125); BILIRUBIN,TOTAL 0.3 MG/DL (0.1-1.0); BUN/CREATININE RATIO 10; CARBON DIOXIDE 20 MMOL/L (21-32); CHLORIDE 88 MMOL/L (98-107); CREATININE SERUM 0.68 MG/DL (0.60-1.30); GFR ESTIMATED > 60; GLUCOSE 107 MG/DL (70-105); LIPASE 11 U/L (8-78); MAGNESIUM 2.2 MG/DL (1.8-2.4); POTASSIUM 3.3 MMOL/L (3.6-5.0)
[2018-09-11] MEDS ORDERED: KETOROLAC 30 MG/ML VIAL IVP ONE (22:30)
[2018-09-11 22:33] LABS: SQUAMOUS EPITHELIAL CELL,UR 0-2 /HPF; WBC,URINE 0-2 /HPF
[2018-09-11 22:34] LABS: SODIUM 125 MMOL/L (135-145)
[2018-09-11] MEDS ORDERED: KCL 10 MEQ TAB (MICRO K) PO ONE (22:45)
[2018-09-11 22:46] LABS: SMEAR SCAN COMMENT YES
[2018-09-12] VITALS (8 sets, daily range): BP systolic 119–147; BP diastolic 64–84
--- OUTSIDE RECORDS SUMMARY | 2018-09-12 00:13 | XMS REPORT | Continuity of Care Document ---
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 10/22/2017 [...] epilepticus 04/29/2018 Lucrecia Oliva Final Z79.899 Other 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 (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) drug therapy 08/20/2018 Dieter Goldstein Z01.419 [...] Procedures Code Description [place] [address] Treatment of missed , completed surgically; first trimester 2014 [id number] Extraction of Products of Conception, Low Cervical, Open Approach 2014 64766 Office or other outpatient visit for the evaluation and management of an established patient, which requires at least 2 of these 3 ch components: An expanded problem focused history; An expanded prob 06/05/2016 47715 Office or other outpatient visit for the evaluation and management of an established patient, which requires at least 2 of these 3 ch components: A detailed history; A detailed examination; Medical d 08/22/2016 78234 Radiologic examination, chest, 2 views, frontal and lateral; 2015 28421 Office or other outpatient visit for the evaluation and management of an established patient, which requires at least 2 of these 3 ch components: An expanded problem focused history; An expanded prob 10/23/2016 13493 Periodic comprehensive preventive medicine reevaluation and management of an individual including an age and gender appropriate history, examination, counseling/anticipatory guidance/risk factor reduc 04/04/2017 54364 Insertion of intrauterine device (IUD) 04/12/2017 60090 Immunization administration (includes percutaneous, intradermal, subcutaneous, or intramuscular injections) ; 1 vaccine (single or combination vaccine/toxoid).. 09/23/2017 64773 Influenza virus vaccine, trivalent, split virus, preservativ 2016 62690 Office or other outpatient visit for the evaluation and management of an established patient, which requires at least 2 of these 3 ch components: An expanded problem focused history; An expanded prob 09/23/2017 55722 Collection Of Venous Blood By Venipuncture 12/19/2017 43923 Basic metabolic panel ( Calcium, total) This panel must include the following: Calcium, total (10061) Carbon dioxide (bicarbonate) (57762) Chloride (97686) Creatinine (07673) Glucose (90978) Potassium 12/19/2017 75306 Office or other outpatient visit for the evaluation and management of an established patient, which requires at least 2 of these 3 ch components: A detailed history; A detailed examination; Medical d 01/07/2018 13072 Collection Of Venous Blood By Venipuncture 01/17/2018 92516 Basic metabolic panel ( Calcium, total) This panel must include the following: Calcium, total (99305) Carbon dioxide (bicarbonate) (88346) Chloride (63310) Creatinine (01315) Glucose (74982) Potassium 01/17/2018 38984 Oxcarbazepine. 01/17/2018 41803 Blood count; complete (CBC) , automated (Hgb, Hct, RBC, WBC and platelet count) 01/17/2018 59683 Office or other outpatient visit for the evaluation and management of an established patient, which requires at least 2 of these 3 ch components: A detailed history; A detailed examination; Medical d 04/29/2018 73348 Immunization administration (includes percutaneous, intradermal, subcutaneous, or intramuscular injections) ; 1 vaccine (single or combination vaccine/toxoid).. 08/20/2018 85968 Influenza virus vaccine, quadrivalent (IIV4), split virus, p 2017 46104 Periodic comprehensive preventive medicine reevaluation and management [...] NA 5.0-8.0 Protein Negative NA Negative Specific [place] 1.005 NA 1.003-1.030 UA Collection type Catheter [...] NA 5.0-8.0 Protein Negative NA Negative Specific [place] 1.025 NA 1.003-1.030 UA Collection type Clean [...] Status Pt. Type Provider Facility Loc./Unit Complaint [id number] 01/07/2014 15:28:00 01/07/2014 23:59:59 CLS Outpatient [id number] 11/27/2013 15:01:00 11/27/2013 23:59:59 CLS Outpatient [id number] 12/03/2017 16:38:00 12/03/2017 18:16:00 DIS Emergency Robert,Rosendo [facility] on [facility] ED flu like symptoms [id number] 10/09/2017 12:09:00 10/09/2017 15:19:00 DIS Emergency Jones Jacob [facility] on [facility] ED high bp, dizziness [id number] 02/12/2017 16:08:00 02/14/2017 12:43:00 DIS Inpatient Foote Carolyn [facility] on [facility] J6E Hyponatremia [id number] 11/11/2015 10:30:00 11/17/2015 13:31:00 DIS Inpatient Bhupendra Nichols MD [facility] on [facility] J4W obstetrics [id number] 12/29/2014 10:53:00 12/29/2014 16:00:00 DIS Outpatient Bhupendra Nichols MD [facility] on [facility] JACU Spontaneous AB [id number] 12/28/2014 21:45:00 12/29/2014 04:15:00 DIS Emergency Erika López [facility] on [facility] ED products of conception retention - vaginal discharge [id number] 10/10/2017 05:18:18 Document Registration [id number] 06/29/2017 05:17:32 Document Registration [id number] 05/03/2017 05:23:43 Document Registration [id number] 04/13/2017 05:16:21 Document Registration [id number] 04/03/2017 05:16:22 Document Registration [id number] 02/21/2017 05:16:15 Document Registration [id number] 02/15/2017 05:17:31 Document Registration [id number] 02/14/2017 05:16:10 Document Registration [id number] 02/13/2017 05:17:28 Document Registration [id number] 02/12/2017 05:17:50 Document Registration [id number] 01/22/2017 05:15:56 Document Registration [id number] 01/11/2017 05:16:10 Document Registration [id number] 12/06/2016 05:16:07 Document Registration [id number] 11/16/2016 05:16:30 Document Registration [id number] 10/24/2016 05:15:58 Document Registration [id number] 10/23/2016 05:17:39 Document Registration [id number] 10/10/2016 05:16:52 Document Registration [id number] 09/29/2016 05:18:08 Document Registration [id number] 08/21/2016 05:17:22 Document Registration [id number] 07/24/2016 05:19:46 Document Registration [id number] 07/11/2016 05:17:20 Document Registration [id number] 05/23/2016 05:17:42 Document Registration [id number] 04/21/2016 05:16:57 Document Registration [id number] 03/21/2016 05:16:30 Document Registration [id number] 02/25/2016 05:17:26 Document Registration [id number] 01/26/2016 05:18:17 Document Registration [id number] 01/21/2016 05:17:10 Document Registration [id number] 01/10/2016 05:17:55 Document Registration [id number] 12/31/2015 05:17:38 Document Registration [id number] 12/24/2015 05:17:20 Document Registration [id number] 12/22/2015 05:16:19 Document Registration [id number] 12/17/2015 05:17:25 Document Registration [id number] 12/16/2015 10:31:00 Document Registration [id number] 11/29/2015 05:17:06 Document Registration [id number] 11/26/2015 05:16:27 Document Registration [id number] 11/25/2015 05:16:52 Document Registration [id number] 11/18/2015 05:16:20 Document Registration [id number] 11/17/2015 05:17:06 Document Registration [id number] 11/16/2015 05:16:48 Document Registration [id number] 11/15/2015 05:17:35 Document Registration [id number] 11/14/2015 05:15:48 Document Registration [id number] 11/13/2015 05:15:35 Document Registration [id number] 11/12/2015 05:17:09 Document Registration [id number] 10/18/2015 05:18:14 Document Registration [id number] 09/22/2015 05:16:04 Document Registration [id number] 09/14/2015 14:28:30 Document Registration [id number] 09/14/2015 14:07:36 Document Registration [id number] 09/14/2015 13:52:48 Document Registration [id number] 09/14/2015 13:29:50 Document Registration [id number] 09/14/2015 13:21:50 Document Registration [id number] 09/14/2015 12:45:37 Document Registration [id number] 09/14/2015 12:30:32 Document Registration [id number] 09/14/2015 12:23:30 Document Registration [id number] 09/14/2015 11:55:41 Document Registration [id number] 09/14/2015 11:43:05 Document Registration [id number] 09/14/2015 11:22:51 Document Registration [id number] 09/14/2015 11:11:01 Document Registration [id number] 09/14/2015 10:56:55 Document Registration [id number] 09/14/2015 10:51:08 Document Registration [id number] 09/14/2015 10:12:17 Document Registration [id number] 09/14/2015 09:59:52 Document Registration [id number] 09/14/2015 09:15:32 Document Registration [id number] 09/14/2015 08:54:14 Document Registration [id number] 08/20/2018 10:54:00 08/20/2018 23:59:00 DIS Outpatient Dieter Goldstein [facility] N Amid FM WWE YEARLY [id number] 05/29/2018 12:19:00 05/29/2018 23:59:00 DIS Outpatient Rice Lucrecia Jesu [facility] N Amid FM for lab [id number] 05/29/2018 10:36:00 05/29/2018 23:59:00 DIS Outpatient Dieter Goldstein [facility] N Amid FM OUTSIDE LAB NEUROLOGIST [id number] 04/29/2018 09:29:00 04/29/2018 23:59:00 DIS Outpatient Pj Lucrecia Jesu [facility] N SF Epil 3 MO FU [id number] 01/17/2018 11:35:00 01/17/2018 23:59:00 DIS Outpatient Lucrecia Oliva Jesu [facility] N Amid FM LAB [id number] 01/17/2018 11:04:00 01/17/2018 23:59:00 DIS Outpatient Dieter Goldstein [facility] N Amid FM LAB [id number] 01/07/2018 08:48:00 01/07/2018 23:59:00 DIS Outpatient Pj Lucrecia Jesu [facility] N SF Epil NTY FROM CALISTA [id number] 12/19/2017 08:18:00 12/19/2017 23:59:00 DIS Outpatient Dieter Goldstein [facility] N Amid FM LAB [id number] 12/10/2017 11:12:00 12/10/2017 23:59:00 DIS Outpatient Dieter Goldstein [facility] N Amid FM DIZZY FATIGUE [id number] 10/01/2017 10:24:00 10/01/2017 23:59:00 DIS Outpatient Dieter Goldstein [facility] N Amid FM exposed to strep, sore throat chills [id number] 09/23/2017 09:40:00 09/23/2017 23:59:00 DIS Outpatient Dieter Goldstein [facility] N Amid FM ACC R ELBOW PAIN [id number] 07/03/2017 08:48:00 07/03/2017 23:59:00 DIS Outpatient Dieter Goldstein [facility] N Amid FM 3 MO CRYSTAL WT LOSS [id number] 04/26/2017 10:28:00 04/26/2017 23:59:00 DIS [facility] [id number] 04/26/2017 09:38:00 04/26/2017 23:59:00 DIS Outpatient Dieter Goldstein [facility] N Amid FM mdg, lab [id number] 04/12/2017 13:32:00 04/12/2017 23:59:00 DIS Outpatient Soraya Guido [facility] S Jackie OBG IUD. ON [facility]. [facility] PT [id number] 04/04/2017 14:55:00 04/04/2017 23:59:00 DIS Outpatient Magdalena Bhupendra Cyr [facility] S Jackie OBG WWE AND DISCUSS IUD [id number] 04/02/2017 09:33:00 04/02/2017 23:59:00 DIS Outpatient Dieter Goldstein [facility] N Amid FM 6 week recheck [id number] 02/20/2017 15:09:00 02/20/2017 23:59:00 DIS Outpatient Dieter Goldstein [facility] N Amid FM TCM [id number] 02/11/2017 13:25:00 02/11/2017 23:59:00 DIS Outpatient Ritchie Guerrero [facility] N Amid FM VOMITING CHILLS STOMACH UPSET DIZZY [id number] 10/23/2016 08:54:00 10/23/2016 23:59:00 DIS Outpatient Dieter Goldstein [facility] N Amid FM 2 mo recheck [id number] 10/09/2016 08:49:00 10/09/2016 23:59:00 DIS Outpatient Clark Jacobs [facility] N Amid FM TCPA, SINUS CONGESTION, [id number] 08/22/2016 09:23:00 08/22/2016 23:59:00 DIS Outpatient [facility] N SF Epil SOV MED FU [id number] 08/20/2016 14:36:00 08/20/2016 23:59:00 DIS Outpatient Dieter Goldstein [facility] N Amid FM Blood Pressure [id number] 07/23/2016 10:37:00 07/23/2016 23:59:59 CLS Outpatient Dieter Goldstein [facility] N Amid FM TCPA- headaches for 4 days [id number] 06/05/2016 09:41:00 06/05/2016 23:59:00 DIS Outpatient Dieter Goldstein [facility] N Amid FM 2 week recheck [id number] 05/22/2016 10:44:00 05/22/2016 23:59:00 DIS Outpatient Dieter Goldstein [facility] N Amid FM Crystal BP, dizziness [id number] 04/20/2016 09:43:00 04/20/2016 23:59:00 DIS Outpatient Dieter Goldstein [facility] N Amid FM 1 month recheck [id number] 03/20/2016 09:43:00 03/20/2016 23:59:00 DIS Outpatient Dieter Goldstein [facility] N Amid FM CONCERNED WITH BLOOD SUGAR [id number] 02/28/2016 08:11:00 02/28/2016 23:59:00 DIS Outpatient Reginaldo Wolf [facility] Mur Gasto GERD [id number] 02/15/2016 09:55:00 02/15/2016 23:59:00 DIS Outpatient [facility] N SF Epil 2 MO FU [id number] 01/20/2016 10:24:00 01/20/2016 23:59:00 DIS Outpatient Dieter Goldstein [facility] N Amid FM acid reflux [id number] 01/09/2016 10:27:00 01/09/2016 23:59:00 DIS Outpatient Dieter Goldstein [facility] N Amid FM sinus infection sx [id number] 12/30/2015 08:58:00 12/30/2015 23:59:00 DIS Outpatient Bhupendra Nichols [facility] S Jackie OBG 6 wks pp [id number] 12/23/2015 09:05:00 12/23/2015 23:59:00 DIS Outpatient Bhupendra Nichols [facility] S Jackie OBG wound check [id number] 12/16/2015 09:04:00 12/16/2015 23:59:00 DIS Outpatient Bhupendra Nichols [facility] S Jackie OBG WOUND RE-PACK [id number] 12/09/2015 13:22:00 12/09/2015 23:59:00 DIS Outpatient VoBhupendra arteaga Ger [facility] S Jackie OBG WOUND RE-PACK [id number] 12/09/2015 13:01:00 12/09/2015 23:59:00 DIS Outpatient VojenniBhupendra Ger [facility] S Jackie OBG wound re-pack [id number] 11/24/2015 15:05:00 11/24/2015 23:59:00 DIS Outpatient VothBhupendra Ger [facility] S Jackie OBG WOUND CHECK [id number] 11/11/2015 09:33:00 11/11/2015 23:59:00 DIS Outpatient Vojenni, Bhupendra Ger [facility] S Jackie OBG 34 WK OB F/U [id number] 10/28/2015 09:16:00 10/28/2015 23:59:00 DIS Outpatient VojenniBhupendra Ger [facility] S Jackie OBG 32 WK OB F/U [id number] 10/14/2015 09:32:00 10/14/2015 23:59:00 DIS Outpatient White Margret B [facility] S Jackie OBG 30 WK OB F/U [id number] 10/13/2015 08:58:00 10/13/2015 23:59:00 DIS Outpatient Dieter Garay [facility] S Jackie MFM 9 wks f/u growth alonso 1.29.16 [id number] 09/30/2015 14:02:00 09/30/2015 23:59:00 DIS Outpatient White, Margret B [facility] S Jackie OBG 28 wk ob fu [id number] 09/09/2015 11:31:00 09/09/2015 23:59:00 DIS Outpatient VoBhupendra arteaga [facility] S Jackie OBG 25 wk ob fu [id number] 08/12/2015 09:06:00 08/12/2015 23:59:00 DIS Outpatient VoBhupendra arteaga [facility] S Jackie OBG 17 wk ob fu [id number] 08/12/2015 07:59:00 08/12/2015 23:59:00 DIS Outpatient Dieetr Garay [facility] S Jackie MFM f/u anatomy alonso 1.29.16 [id number] 08/04/2015 10:24:00 08/04/2015 23:59:00 DIS Outpatient Dieter Goldstein [facility] N Amid FM LT SIDED CHEST PAIN PER GERALD [id number] 07/15/2015 08:37:00 07/15/2015 23:59:00 DIS Outpatient VoBhupendra arteaga [facility] S Jackie OBG 16 wk ob fu [id number] 06/29/2015 14:11:00 06/29/2015 23:59:00 DIS Outpatient Della Jerrymr Felipe [facility] N SF Epil NPV [id number] 06/23/2015 08:27:00 06/23/2015 23:59:00 DIS Outpatient Dieter Goldstein [facility] N Amid FM See per [id number] 06/16/2015 10:53:00 06/16/2015 23:59:00 DIS Outpatient Bhupendra Nichols [facility] S Jackie OBG OB CRYSTAL [id number] 05/19/2015 11:17:00 05/19/2015 23:59:00 DIS Outpatient Bhupendra Nichols [facility] S Jackie OBG 8wk ob crystal [id number] 05/19/2015 10:13:00 05/19/2015 23:59:00 DIS Outpatient Dieter Garay [facility] S 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, 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 alonso 1.29.16 [id number] 12/29/2014 09:40:00 12/29/2014 23:59:00 DIS Outpatient VoBhupendra arteaga [facility] W ST OBGYN NO HEART TONES, NEEDS D+C [id number] 12/03/2014 14:13:00 12/03/2014 23:59:00 DIS Outpatient Dieter Goldstein [facility] N Amid FM PER JASON [id number] 11/24/2014 09:45:00 11/24/2014 23:59:00 DIS Outpatient Dieter Goldstein [facility] N Amid FM Rx recheck [id number] 08/21/2018 05:18:31 Document Registration [id number] 08/09/2018 05:19:42 Document Registration [id number] 07/10/2018 05:22:24 Document Registration [id number] 06/26/2018 05:19:22 Document Registration [id number] 06/10/2018 08:23:02 Document Registration [id number] 05/14/2018 05:18:16 Document Registration [id number] 04/30/2018 05:18:07 Document Registration [id number] 02/08/2018 05:18:14 Document Registration [id number] 01/09/2018 05:18:19 Document Registration [id number] 12/13/2017 05:17:51 Document Registration [id number] 12/03/2017 05:20:34 Document Registration [id number] 11/20/2017 05:18:46 Document Registration [id number] 11/12/2017 05:18:30 Document Registration [id number] 10/30/2017 05:19:35 Document Registration [id number] 10/26/2017 05:17:44 Document Registration [id number] 10/17/2017 05:18:03 Document Registration [id number] 09/25/2017 05:18:35 Document Registration [id number] 09/24/2017 05:19:05 Document Registration [id number] 09/10/2017 05:17:38 Document Registration [id number] 08/27/2017 05:20:23 Document Registration [id number] 08/13/2017 05:18:54 Document Registration [id number] 02/12/2017 16:08:00 Document Registration [id number] 05/02/2015 15:56:00 Document Registration [id number] 04/21/2015 09:15:00 Document Registration [id number] 01/17/2015 09:35:00 Document Registration [id number] 01/14/2015 08:46:00 Document Registration [id number] 11/10/2016 23:06:00 11/11/2016 00:50:00 DIS Emergency Nevaeh MOYA, Alexei [facility] WED
[2018-09-12] MEDS ORDERED: ONDANSETRON 4 MG/2 ML (SDV) Z0FRAN IV PRN (01:15)
[2018-09-12] MEDS ORDERED: PROMETHAZINE INJ 25 MG/ML (PHENERGAN) AMP IVP PRN (01:30)
[2018-09-12] MEDS ORDERED: SCOPOLAMINE 1.5 MG (TRANSDERM-SCOP) PATCH TD ONE (01:30)
[2018-09-12] MEDS: ACETAMINOPHEN 500 MG TAB (TYLENOL) PO PRN ×2 (01:32→08:13)
[2018-09-12] MEDS: NS W/KCL 20 MEQ/L 1,000 ML IV SCH ×5 (01:33→21:38)
[2018-09-12] MEDS: inSUlin ASPART (NovoLOG) 1 UNIT/0.01 ML (CHARGE PER UNIT) SC SCH ×4 (05:30→20:53)
[2018-09-12] MEDS: KETOROLAC 30 MG/ML VIAL IVP PRN ×2 (05:35→21:41)
[2018-09-12 06:09] LABS: BASOPHILS % (AUTO) 0 % (0-10); EOSINOPHILS # (AUTO) 0.1 10^3/uL (0.0-0.3); EOSINOPHILS % (AUTO) 1 % (0-10); HEMATOCRIT 34 % (35-52); HEMOGLOBIN 11.5 G/DL (11.5-16.0); LYMPHOCYTES # (AUTO) 2.4 X 10^3 (1.0-4.0); LYMPHOCYTES % (AUTO) 26 % (12-44); MEAN CORPUSCULAR HEMOGLOBIN 23 PG (25-34); MEAN CORPUSCULAR HGB CONC 34 G/DL (32-36); MEAN CORPUSCULAR VOLUME 67 FL (80-99); MEAN PLATELET VOLUME 9.9 FL (7.4-10.4); MONOCYTES # (AUTO) 0.9 X 10^3 (0.0-1.0); MONOCYTES % (AUTO) 10 % (0-12); NEUTROPHILS # (AUTO) 5.7 X 10^3 (1.8-7.8); NEUTROPHILS % (AUTO) 64 % (42-75); PLATELET COUNT 360 10^3/uL (130-400); RED CELL DISTRIBUTION WIDTH 13.9 % (10.0-14.5)
[2018-09-12 06:30] LABS: ALANINE AMINOTRANSFERASE 28 U/L (0-55); ALBUMIN 4.2 GM/DL (3.2-4.5); ALKALINE PHOSPHATASE 75 U/L (40-136); BILIRUBIN,TOTAL 0.4 MG/DL (0.1-1.0); BUN/CREATININE RATIO 8; CALCIUM 8.4 MG/DL (8.5-10.1); CARBON DIOXIDE 21 MMOL/L (21-32); CHLORIDE 92 MMOL/L (98-107); CREATININE SERUM 0.59 MG/DL (0.60-1.30); GFR ESTIMATED > 60; GLUCOSE 87 MG/DL (70-105); POTASSIUM 3.5 MMOL/L (3.6-5.0); TOTAL PROTEIN 6.6 GM/DL (6.4-8.2)
[2018-09-12 06:32] LABS: SODIUM 125 MMOL/L (135-145)
--- NOTE | 2018-09-12 07:05 | ED General ---
General Chief Complaint: Abdominal/GI Problems Stated Complaint: HYPONATREMIA;HYPOKALEMIA,TAVERA;N/V Nursing Triage Note: Pt ambulated to ED. Pt c/o TAVERA that began 2 days ago. Vomiting began today. Pt c/o weakness and stomach pain. Pt tool zofran right before coming to ED. Nursing Sepsis Screen: No Definite Risk Source of Information: Patient Exam Limitations: No Limitations History of Present Illness Date Seen by Provider: Sep 11, 2018 Time Seen by Provider: 21:38 Initial Comments PT ARRIVES VIA POV --PT IS HERE VISITING HER SISTER, PT IS FROM [place] PT STATES SHE STARTED HAVING A MILD HEADACHE 2-3 DAYS AGO, AND STATES "AND I HAVE MIGRAINES" STATES TODAY SHE BEGAN HAVING NAUSEA AND VOMITING--STATES SHE HAS VOMITING BETWEEN 5 AND 10 TIMES AND CANNOT KEEP ANYTHING DOWN NO DIARRHEA NO ABDOMINAL PAIN NO FEVER NO PROBLEMS URINATING--STATES SHE IS ON A DIURETIC AND SHE IS URINATING MORE THAN NORMAL NO DIZZINESS NO VISION CHANGES NO CHEST PAIN OR SHORTNESS OF BREATH AND NO PALPITATIONS STATES SHE FEELS VERY WEAK NO SICK CONTACTS OR SUSPICIOUS FOODS PT STATES SHE HAD THESE PROBLEMS A YEAR AGO AND WAS TOLD SHE HAD LOW SODIUM AND POTASSIUM AND HAD TO BE IN THE HOSPITAL PT LATER STATES THAT SHE HAD BEEN STARTED ON A DIURETIC, PRIOR TO ONSET OF SYMPTOMS AND WAS STOPPED AT THAT TIME. PT STATES SHE WAS RESTARTED ON A DIURETIC TRIAMTERENE 37.5/ HCTZ 25 MG DAILY 2 WEEKS AGO ON 08/20/18 NOW IS HAVING THE EXACT SAME SYMPTOMS THAT SHE WAS HAVING THEN PT STATES SHE TOOK FIORCET AT 1700, AND IBUPROFEN AT 1800. IS WANTING SOMETHING FOR HER HEADACHE Allergies and Home Medications Allergies Coded Allergies: topiramate (Verified Allergy, Unknown, 09/12/18) Patient Home Medication List Home Medication List Reviewed: Yes Review of Systems Review of Systems Constitutional: No chills, No diaphoresis, No dizziness, No fever; malaise, weakness EENTM: no symptoms reported; No blurred vision, No double vision Respiratory: no symptoms reported; No dyspnea on exertion Cardiovascular: no symptoms reported; No chest pain, No edema, No palpitations , No syncope, No vascular heart diseas Gastrointestinal: see HPI; No abdominal pain, No constipation, No diarrhea; nausea, vomiting Genitourinary: see HPI Musculoskeletal: no symptoms reported Skin: no symptoms reported Psychiatric/Neurological: See HPI, Headache; Denies Numbness, Denies Paresthesia, Denies Seizure, Denies Tingling, Denies Tremors Hematologic/Lymphatic: No Symptoms Reported Immunological/Allergic: no symptoms reported Past Oqjwxqt-Dcziop-Byvukb Hx Patient Social History Alcohol Use: Denies Use Recreational Drug Use: No Smoking Status: Never a Smoker Recent Foreign Travel: No Contact w/Someone Who Travel: No Recent Infectious Disease Expo: No Seasonal Allergies Seasonal Allergies: No Past Medical History Surgeries: Yes (D&C, WISDOM TEETH) Respiratory: Yes Asthma Currently Using CPAP: No Currently Using BIPAP: No Cardiac: Yes Hypertension Neurological: Yes Headaches /Migraines, Seizure Disorder : No (IUD IN PLACE) Last Menstrual Period: Sep 11, 2018 Female Reproductive Disorders: Denies Sexually Transmitted Disease: No Genitourinary: No Gastrointestinal: No Musculoskeletal: No Endocrine: Yes (OBESITY, HYPOGLYCEMIA) Are Your Blood Sugars Over 250: No HEENT: No Cancer: No Psychosocial: No Integumentary: No Blood Disorders: No Adverse Reaction/Blood Tranf: No Physical Exam Vital Signs Vital Signs - First Documented 09/11/18 21:30 Temp 98.4 Pulse 72 Resp 19 B/P (MAP) 173/100 (124) Pulse Ox 100 O2 Delivery Room Air Capillary Refill : Less Than 3 Seconds Height, Weight, BMI Height: 4'10.00" Weight: 243lbs. 7.0oz. 110.139175ua; 50.9 BMI Method:Stated General Appearance: No Apparent Distress, Obese HEENT: PERRL/EOMI Neck: Full Range of Motion, Normal Inspection, Non Tender, Supple Respiratory: Normal Breath Sounds, No Accessory Muscle Use, No Respiratory Distress Cardiovascular: Regular Rate, Rhythm, No Edema, No JVD, No Murmur, Normal Peripheral Pulses Gastrointestinal: Normal Bowel Sounds, No Organomegaly, No Pulsatile Mass, Non Tender, Soft Back: Normal Inspection, No CVA Tenderness, No Vertebral Tenderness Extremity: Normal Capillary Refill, Normal Inspection, Normal Range of Motion, Non Tender, No Calf Tenderness, No Pedal Edema Neurologic/Psychiatric: Alert, Oriented x3, No Motor/Sensory Deficits, Normal Mood/Affect, 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 II-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 Norm as Tested Skin: Normal Color, Warm/Dry Progress/Results/Core Measures Suspected Sepsis Recent Fever Within 48 Hours: No Infection Criteria Present: None New/Unexplained Altered Menta: No Sepsis Screen: No Definite Risk SIRS Temperature:98.0 Pulse: 70 Respiratory Rate: 18 Laboratory Tests 09/11/18 22:03: White Blood Count 11.6H 09/12/18 05:28: White Blood Count 9.0 Blood Pressure 144 /76 Mean: 98 Laboratory Tests 09/11/18 22:03: Creatinine 0.68, Platelet Count 408H, Total Bilirubin 0.3 09/12/18 05:28: Creatinine 0.59L, Platelet Count 360, Total Bilirubin 0.4 Results/Orders Lab Results Laboratory Tests Test 09/11/18 22:03 09/11/18 22:17 09/12/18 05:12 09/12/18 05:28 Range/Units White Blood Count 11.6 H 9.0 4.3-11.0 10^3/uL Red Blood Count 5.53 5.00 4.35-5.85 10^6/uL Hemoglobin 12.4 11.5 11.5-16.0 G/DL Hematocrit 37 34 L 35-52 % Mean Corpuscular Volume 67 L 67 L 80-99 FL Mean Corpuscular Hemoglobin 22 L 23 L 25-34 PG Mean Corpuscular Hemoglobin Concent 34 34 32-36 G/DL Red Cell Distribution Width 14.3 13.9 10.0-14.5 % Platelet Count 408 H 360 130-400 10^3/uL Mean Platelet Volume 9.5 9.9 7.4-10.4 FL Neutrophils (%) (Auto) 78 H 64 42-75 % Lymphocytes (%) (Auto) 14 26 12-44 % Monocytes (%) (Auto) 8 10 0-12 % Eosinophils (%) (Auto) 0 1 0-10 % Basophils (%) (Auto) 0 0 0-10 % Neutrophils # (Auto) 9.1 H 5.7 1.8-7.8 X 10^3 Lymphocytes # (Auto) 1.6 2.4 1.0-4.0 X 10^3 Monocytes # (Auto) 0.9 0.9 0.0-1.0 X 10^3 Eosinophils # (Auto) 0.0 0.1 0.0-0.3 10^3/uL Basophils # (Auto) 0.0 0.0 0.0-0.1 10^3/uL Sodium Level 125 *L 125 *L 135-145 MMOL/L Potassium Level 3.3 L 3.5 L 3.6-5.0 MMOL/L Chloride Level 88 L 92 L 98-107 MMOL/L Carbon Dioxide Level 20 L 21 21-32 MMOL/L Anion Gap 17 H 12 5-14 MMOL/L Blood Urea Nitrogen 7 5 L 7-18 MG/DL Creatinine 0.68 0.59 L 0.60-1.30 MG/DL Estimat Glomerular Filtration Rate > 60 > 60 BUN/Creatinine Ratio 10 8 Glucose Level 107 H 87 70-105 MG/DL Calcium Level 9.0 8.4 L 8.5-10.1 MG/DL Corrected Calcium 8.2 L 8.5-10.1 MG/DL Magnesium Level 2.2 1.8-2.4 MG/DL Total Bilirubin 0.3 0.4 0.1-1.0 MG/DL Aspartate Amino Transf (AST/SGOT) 21 18 5-34 U/L Alanine Aminotransferase (ALT/SGPT) 34 28 0-55 U/L Alkaline Phosphatase 85 75 40-136 U/L Total Protein 8.0 6.6 6.4-8.2 GM/DL Albumin 4.9 H 4.2 3.2-4.5 GM/DL Amylase Level 59 25-125 U/L Lipase 11 8-78 U/L Serum Test, Qualitative NEGATIVE NEGATIVE Smear Scan YES Urine Color YELLOW Urine Clarity CLEAR Urine pH 7 5-9 Urine Specific [place] 1.010 L 1.016-1.022 Urine Protein 1+ H NEGATIVE Urine Glucose (UA) NEGATIVE NEGATIVE Urine Ketones 1+ H NEGATIVE Urine Nitrite NEGATIVE NEGATIVE Urine Bilirubin NEGATIVE NEGATIVE Urine Urobilinogen NORMAL NORMAL MG/DL Urine Leukocyte Esterase 1+ H NEGATIVE Urine RBC (Auto) NEGATIVE NEGATIVE Urine RBC NONE /HPF Urine WBC 0-2 /HPF Urine Squamous Epithelial Cells 0-2 /HPF Urine Crystals NONE /LPF Urine Bacteria NONE /HPF Urine Casts NONE /LPF Urine Mucus NEGATIVE /LPF Urine Culture Indicated NO Glucometer 90 70-110 MG/DL Micro Results Microbiology 09/11/18 Influenza Types A,B Antigen (ANOOP) - Final, Complete My Orders Orders - ALTON GARCIA DO Saline Lock/Iv-Start (09/11/18 21:44) Monitor-Rhythm Ecg Trace Only (09/11/18 21:44) Straight Cath For Spec.-Adult (09/11/18 21:44) Amylase (09/11/18 21:44) Cbc With Automated Diff (09/11/18 21:44) Comprehensive Metabolic Panel (09/11/18 21:44) Hcg,Qualitative Serum (09/11/18 21:44) Lipase (09/11/18 21:44) Magnesium (09/11/18 21:44) Ua Culture If Indicated (09/11/18:44) Influenza A And B Antigens (09/11/18 21:44) Saline Lock/Iv-Start (09/11/18 21:44) Ondansetron Injection (Zofran Injectio (09/11/18 21:45) Saline Lock/Iv-Start (09/11/18 21:44) Lactated Ringers (Lr 1000 Ml Iv Solution (09/11/18 21:44) Ketorolac Injection (Toradol Injection) (09/11/18 22:30) Potassium Chloride (Tablet) (Klor Con Ta (09/11/18 22:45) Medications Given in ED Current Medications Medications Dose Ordered Sig/Brea Route Start Time Stop Time Status Last Admin Dose Admin Ketorolac Tromethamine 30 mg ONCE ONCE IVP 09/11/18 22:30 09/11/18 22:32 DC 09/11/18 22:43 30 MG Lactated Ringer's 1,000 ml @ 0 mls/hr Q0M ONCE IV 09/11/18 21:44 09/11/18 21:47 DC 09/11/18 22:09 1,000 MLS/HR Ondansetron HCl 4 mg ONCE ONCE IVP 09/11/18 21:45 09/11/18 21:47 DC 09/11/18 22:08 4 MG Potassium Chloride 40 meq ONCE ONCE PO 09/11/18 22:45 09/11/18 22:46 DC 09/11/18 23:10 40 MEQ Vital Signs/I&O 09/11/18 09/12/18 09/12/18 09/12/18 21:30 00:45 02:27 02:45 Temp 98.4 98.6 98.0 Pulse 72 78 76 70 Resp 18 B/P (MAP) 173/100 (124) 138/70 (92) 144/76 (98) Pulse Ox 100 98 100 O2 Delivery Room Air Room Air Room Air Capillary Refill : Less Than 3 Seconds Blood Pressure Mean: 98 Progress Note : Progress Note SYMPTOMS MUCH IMPROVED WITH FLUIDS AND MEDICATIONS NO DETERIORATION IN PT'S CONDITION DURING ER STAY NO VOMITING DURING ER STAY Departure Communication (Admissions) [id number]--SPOKE WITH DR. GAINES, ACCEPTS PT FOR ADMIT Impression Primary Impression: Hyponatremia Additional Impressions: Hypokalemia Nausea & vomiting Head ache RECENTLY STARTED DIURETIC MEDICATION Disposition: ADMITTED INPATIENT Condition: Improved Admissions Decision to Admit Reason: Admit from ER (General) Decision to Admit/Date: Sep 11, 2018 Time/Decision to Admit Time: 22:45 Departure-Patient Inst. Referrals: NO,LOCAL PHYSICIAN (PCP) Primary Care Physician ALTON GARCIA DO Sep 12, 2018 07:05
[2018-09-12] MEDS ORDERED: FLU QUADRIvalent (5+ YOA) 2018-2019 (AFLURIA) 0.5 ML IM ONE (08:00)
[2018-09-12] MEDS ORDERED: AMLO10TA6 PO (08:43)
[2018-09-12] MEDS ORDERED: METF-397 PO (08:43)
[2018-09-12] MEDS ORDERED: RANI150C4 PO (08:43)
[2018-09-12] MEDS ORDERED: FERR-84 PO (08:43)
[2018-09-12] MEDS ORDERED: BUTA1TAB9 PO (08:43)
[2018-09-12] MEDS ORDERED: DIPH-639 PO (08:43)
[2018-09-12] MEDS ORDERED: [UNRECOGNIZED DRUG - CODE] PO (08:43)
[2018-09-12] MEDS ORDERED: TRIA1CAP4 PO (08:43)
[2018-09-12] MEDS ORDERED: PANT40TA3 PO (08:43)
[2018-09-12] MEDS ORDERED: DIPH25TA65 PO (08:43)
[2018-09-12] MEDS ORDERED: MONT10TA24 PO (08:43)
[2018-09-12] MEDS ORDERED: ESCI10TA55 PO (08:43)
[2018-09-12] MEDS ORDERED: PSYL0.5244 PO (08:43)
[2018-09-12] MEDS ORDERED: FLUT16SP22 NS (08:43)
[2018-09-12] MEDS ORDERED: FEXO180T84 PO (08:43)
[2018-09-12] MEDS ORDERED: fentaNYL INJECTION 100 MCG/2 ML AMP IVP NR (10:15)
--- NOTE | 2018-09-12 10:15 | History & Physical-Hospitalist ---
History of Present Illness HPI/Chief Complaint CC: N/V with severe hyponatremia HPI: This is a 32-year-old white female patient of Dr. Goldstein in [place] who is in town for vacation who presented to the ER with nausea and vomiting similar to one year ago when her sodium became very low and potassium became very low. She was found to have hyponatremia of 125 and severely low potassium requiring IV fluid resuscitation and electrolyte replacement. She reports that she has been on a diuretic different than the one that she was on last year when the same situation occurred but it appears that she has significant risk for electrolyte abnormality from diuretics. She currently is improved since scopolamine patch was placed and is able to tolerate clear liquid diet and we are advancing her diet and placing on fluid restriction. Source: patient Exam Limitations: no limitations Date Seen 09/12/18 Time Seen by a Provider: 10:00 Attending Physician Mary Guido DO PCP No,Local Physician Referring Physician Date of Admission Sep 11, 2018 at 22:45 Home Medications & Allergies Home Medications Reviewed patient Home Medication Reconciliation performed by pharmacy medication reconciliations highway traffic control technician and/or nursing. Patients Allergies have been reviewed. 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[place]) Alcohol Use: Denies Use Recreational Drug Use: No Smoking Status: Never a Smoker 2nd Hand Smoke Exposure: No Physical Abuse Screen: No Sexual Abuse: No Recent Foreign Travel: No Contact w/other who traveled: No Recent Hopitalizations: No Recent Infectious Disease Expo: No Immunizations Up To Date Date of Influenza Vaccine: Aug 28, 2018 Seasonal Allergies Seasonal Allergies: No Past Medical History Respiratory: Asthma Currently Using CPAP: No Currently Using BIPAP: No Cardiac: Hypertension Neurological: Headaches /Migraines, Seizure Disorder : No (IUD IN PLACE) Sexually Transmitted Disease: No Female Reproductive Disorders: Denies Are Your Blood Sugars Over 250: No History of Blood Disorders: No Adverse Reaction to Blood Parra: No Review of Systems Constitutional: see HPI, dizziness, weakness EENTM: no symptoms reported Respiratory: no symptoms reported Cardiovascular: no symptoms reported Gastrointestinal: diarrhea, loss of appetite, nausea, vomiting Genitourinary: decreased output Musculoskeletal: no symptoms reported Skin: no symptoms reported Psychiatric/Neurological: No Symptoms Reported All Other Systems Reviewed Negative Unless Noted: Yes Physical Exam Physical Exam Vital Signs Vital Signs - First Documented 09/11/18 21:30 Temp 98.4 Pulse 72 Resp 19 B/P (MAP) 173/100 (124) Pulse Ox 100 O2 Delivery Room Air Capillary Refill : Less Than 3 Seconds Height, Weight, BMI Height: 4'10.00" Weight: 265lbs. 5.0oz. 120.522858tp; 50.9 BMI Method:Stated General Appearance: No Apparent Distress, WD/WN, Obese Eyes: Bilateral Eye Normal Inspection, Bilateral Eye PERRL HEENT: PERRL/EOMI, TMs Normal, Normal ENT Inspection, Pharynx Normal Neck: Full Range of Motion, Normal Inspection, Non Tender, Supple, Carotid Bruit Respiratory: Chest Non Tender, Lungs Clear, Normal Breath Sounds, No Accessory Muscle Use, No Respiratory Distress Cardiovascular: Regular Rate, Rhythm, No Edema, No Gallop, No JVD, No Murmur, Normal Peripheral Pulses Gastrointestinal: Normal Bowel Sounds, No Organomegaly, No Pulsatile Mass, Non Tender, Soft Back: Normal Inspection, No CVA Tenderness, No Vertebral Tenderness Extremity: Normal Capillary Refill, Normal Inspection, Normal Range of Motion, Non Tender, No Calf Tenderness, No Pedal Edema Neurologic/Psychiatric: Alert, Oriented x3, No Motor/Sensory Deficits, Normal Mood/Affect Skin: Normal Color, Warm/Dry Lymphatic: No Adenopathy Results Results/Procedures Labs Laboratory Tests 09/11/18 22:03 09/12/18 05:28 Patient resulted labs reviewed. Assessment/Plan Admission Diagnosis Assessment: Severe N/V Severe hyponatremia Severe hypokalemia Asthma Seizure d/o Plan: IVF Anti-emetics Potassium supplement IV Advance diet Admission Status: Observation Diagnosis/Problems Diagnosis/Problems (1) Hyponatremia Status: Acute (2) Asthma Status: Chronic Qualifiers: Asthma severity: mild Asthma persistence: intermittent Asthma complication type: unspecified Qualified Codes: J45.20 - Mild intermittent asthma, uncomplicated (3) Seizure disorder Status: Chronic (4) Obesity Qualifiers: Obesity classification: adult class 3 (BMI >= 40) Serious obesity comorbidity presence: without serious comorbidity Body mass index: BMI 50.0- 59.9 (5) Hypertension Status: Chronic Qualifiers: Hypertension type: essential hypertension Qualified Codes: I10 - Essential (primary) hypertension (6) Nausea & vomiting Status: Acute Qualifiers: Vomiting type: unspecified Vomiting Intractability: intractable Qualified Codes: R11.2 - Nausea with vomiting, unspecified (7) Head ache Status: Acute Qualifiers: Headache type: unspecified Headache chronicity pattern: acute headache Intractability: intractable Qualified Codes: R51 - Headache (8) Hypokalemia Status: Acute Clinical Quality Measures DVT/VTE Risk/Contraindication: Risk Factor Score Per Nursin RFS Level Per Nursing on Admit: 1=Low/No VTE PPX MARY GUIDO DO Sep 12, 2018 10:15
[2018-09-12] MEDS ORDERED: PATIENT MAY USE OWN MEDS, ALL MC SCH (10:45)
[2018-09-12] MEDS: POTASSIUM CL 10MEQ/50ML IVPB 50 ML IV SCH ×4 (10:49→14:25)
[2018-09-12] MEDS: MAGNESIUM 1 GM/100 ML IVPB 100 ML IV SCH ×2 (10:49→11:56)
[2018-09-12] MEDS: PANTOPRAZOLE 40 MG (PROTONIX) TAB PO SCH (11:32)
[2018-09-12] MEDS: [UNRECOGNIZED DRUG - REMARK] PO SCH (11:33)
[2018-09-12] MEDS: FERROUS SULF 325 MG (IRON) TAB PO SCH (11:33)
[2018-09-12] MEDS: OXCARBAZEPINE 600 MG PO SCH (11:34)
[2018-09-12] MEDS: Escitalopram Oxalate 10 MG PO SCH (11:34)
[2018-09-12] MEDS: amLODIPine 10 MG (NORVASC) TAB PO SCH (11:35)
[2018-09-12] MEDS: FLUTICASONE NASAL SPRAY (FLONASE) 16 GM BTL NS SCH (11:36)
[2018-09-12] MEDS: HYDROcodone/APAP 5 MG/325 MG (LORTAB) TAB PO PRN ×3 (11:41→20:49)
[2018-09-12] MEDS: PSYLLIUM HUSK PO SCH (14:58)
[2018-09-12] MEDS: ACET/BUTAL/CAFF (FIORICET) TAB PO PRN (15:00)
[2018-09-12] MEDS ORDERED: diphenhydrAMINE 25 MG TAB (BENADRYL) PO SCH (21:00)
[2018-09-12] MEDS ORDERED: MONTELUKAST 10 MG (SINGULAIR) TAB PO SCH (21:00)
[2018-09-12] MEDS ORDERED: DIPHENHYDRAMINE HCL 50 MG PO SCH (21:00)
[2018-09-12] MEDS ORDERED: raNItidine (ZANTAC) 150 MG TAB NON-FORMULARY PO SCH (21:00)
[2018-09-13] VITALS: BP 127/80
[2018-09-13] MEDS: NS W/KCL 20 MEQ/L 1,000 ML IV SCH ×2 (03:06→08:17)
[2018-09-13] MEDS: HYDROcodone/APAP 5 MG/325 MG (LORTAB) TAB PO PRN ×2 (03:08→08:25)
[2018-09-13 04:00] VITALS: BP 137/72
[2018-09-13] MEDS: PANTOPRAZOLE 40 MG (PROTONIX) TAB PO SCH (06:30)
[2018-09-13] MEDS: inSUlin ASPART (NovoLOG) 1 UNIT/0.01 ML (CHARGE PER UNIT) SC SCH (06:30)
[2018-09-13] MEDS: FERROUS SULF 325 MG (IRON) TAB PO SCH (06:31)
[2018-09-13] MEDS: ACET/BUTAL/CAFF (FIORICET) TAB PO PRN (06:35)
[2018-09-13 07:46] LABS: BASOPHILS % (AUTO) 0 % (0-10); EOSINOPHILS % (AUTO) 1 % (0-10); HEMATOCRIT 33 % (35-52); HEMOGLOBIN 10.6 G/DL (11.5-16.0); LYMPHOCYTES % (AUTO) 38 % (12-44); MEAN CORPUSCULAR HEMOGLOBIN 22 PG (25-34); MEAN CORPUSCULAR HGB CONC 32 G/DL (32-36); MEAN CORPUSCULAR VOLUME 69 FL (80-99); MEAN PLATELET VOLUME 9.6 FL (7.4-10.4); MONOCYTES # (AUTO) 0.7 X 10^3 (0.0-1.0); MONOCYTES % (AUTO) 13 % (0-12); NEUTROPHILS # (AUTO) 2.6 X 10^3 (1.8-7.8); NEUTROPHILS % (AUTO) 49 % (42-75); PLATELET COUNT 385 10^3/uL (130-400); RED BLOOD COUNT 4.73 10^6/uL (4.35-5.85); RED CELL DISTRIBUTION WIDTH 15.2 % (10.0-14.5); WHITE BLOOD COUNT 5.4 10^3/uL (4.3-11.0)
[2018-09-13 08:00] VITALS: BP 139/72
[2018-09-13 08:05] LABS: ALANINE AMINOTRANSFERASE 26 U/L (0-55); ALBUMIN 3.9 GM/DL (3.2-4.5); ALKALINE PHOSPHATASE 67 U/L (40-136); BILIRUBIN,TOTAL 0.2 MG/DL (0.1-1.0); BUN/CREATININE RATIO 10; CALCIUM 8.3 MG/DL (8.5-10.1); CARBON DIOXIDE 22 MMOL/L (21-32); CHLORIDE 108 MMOL/L (98-107); GFR ESTIMATED > 60; GLUCOSE 81 MG/DL (70-105); POTASSIUM 4.4 MMOL/L (3.6-5.0); SODIUM 137 MMOL/L (135-145); TOTAL PROTEIN 6.3 GM/DL (6.4-8.2)
[2018-09-13] MEDS: FLUTICASONE NASAL SPRAY (FLONASE) 16 GM BTL NS SCH (08:18)
[2018-09-13] MEDS: amLODIPine 10 MG (NORVASC) TAB PO SCH (08:20)
[2018-09-13] MEDS: OXCARBAZEPINE 600 MG PO SCH (08:21)
[2018-09-13] MEDS: Escitalopram Oxalate 10 MG PO SCH (08:22)
[2018-09-13] MEDS: [UNRECOGNIZED DRUG - REMARK] PO SCH (08:22)
[2018-09-13] MEDS: PSYLLIUM HUSK PO SCH (11:39)
--- NOTE | 2018-09-13 11:53 | Discharge Summary-Hospitalist ---
Diagnosis/Chief Complaint Date of Admission Sep 11, 2018 at 22:45 Date of Discharge Discharge Date: Sep 13, 2018 Admission Diagnosis Assessment: Severe N/V Severe hyponatremia Severe hypokalemia Asthma Seizure d/o Plan: IVF Anti-emetics Potassium supplement IV Advance diet Discharge Diagnosis (1) Hyponatremia Status: Resolved (2) Asthma Status: Chronic (3) Seizure disorder Status: Chronic (4) Obesity Status: Chronic (5) Hypertension Status: Chronic (6) Nausea & vomiting Status: Resolved (7) Head ache Status: Resolved (8) Hypokalemia Status: Resolved Discharge Summary Discharge Physical Exam Allergies: Coded Allergies: topiramate (Verified Allergy, Unknown, 09/12/18) Vitals & I&Os Vital Signs Date Time Temp Pulse Resp B/P (MAP) Pulse Ox O2 Delivery O2 Flow Rate FiO2 09/13/18 08:11 99 Room Air 09/13/18 08:00 97.1 87 18 139/72 (94) General Appearance: No Apparent Distress, WD/WN Neurologic/Psychiatric: Alert, Oriented x3, No Motor/Sensory Deficits, Normal Mood/Affect Hospital Course Hospital course: Patient was admitted for observation due to severe refractory nausea and vomiting along with severe hyponatremia of 125 and severe hypokalemia prompting IV fluid resuscitation and IV potassium supplementation. Dyazide was held. All home medication for otherwise restarted. IV fluids were maintained and repeat labs today showed all levels resolved to normal range and she was asymptomatic and agreed with discharge. Labs (last 24 hrs) Laboratory Tests 09/12/18 16:30: Glucometer 115H 09/12/18 20:53: Glucometer 112H 09/13/18 06:06: Glucometer 97 09/13/18 07:30: White Blood Count 5.4, Red Blood Count 4.73, Hemoglobin 10.6L, Hematocrit 33L, Mean Corpuscular Volume 69L, Mean Corpuscular Hemoglobin 22L, Mean Corpuscular Hemoglobin Concent 32, Red Cell Distribution Width 15.2H, Platelet Count 385, Mean Platelet Volume 9.6, Neutrophils (%) (Auto) 49, Lymphocytes (%) (Auto) 38, Monocytes (%) (Auto) 13H, Eosinophils (%) (Auto) 1, Basophils (%) (Auto) 0, Neutrophils # (Auto) 2.6, Lymphocytes # (Auto) 2.0, Monocytes # (Auto) 0.7, Eosinophils # (Auto) 0.0, Basophils # (Auto) 0.0, Sodium Level 137, Potassium Level 4.4, Chloride Level 108H, Carbon Dioxide Level 22, Anion Gap 7, Blood Urea Nitrogen 6L, Creatinine 0.60, Estimat Glomerular Filtration Rate > 60, BUN/ Creatinine Ratio 10, Glucose Level 81, Calcium Level 8.3L, Corrected Calcium 8.4L, Total Bilirubin 0.2, Aspartate Amino Transf (AST/SGOT) 14, Alanine Aminotransferase (ALT/SGPT) 26, Alkaline Phosphatase 67, Total Protein 6.3L, Albumin 3.9 09/13/18 11:03: Glucometer 107 Microbiology 09/11/18 Influenza Types A,B Antigen (ANOOP) - Final, Complete Patient resulted labs reviewed. Pending Labs Laboratory Tests 09/13/18 06:06: Glucometer 97 09/13/18 07:30: White Blood Count 5.4, Red Blood Count 4.73, Hemoglobin 10.6, Hematocrit 33, Mean Corpuscular Volume 69, Mean Corpuscular Hemoglobin 22, Mean Corpuscular Hemoglobin Concent 32, Red Cell Distribution Width 15.2, Platelet Count 385, Mean Platelet Volume 9.6, Neutrophils (%) (Auto) 49, Lymphocytes (%) (Auto) 38, Monocytes (%) (Auto) 13, Eosinophils (%) (Auto) 1, Basophils (%) (Auto) 0, Neutrophils # (Auto) 2.6, Lymphocytes # (Auto) 2.0, Monocytes # (Auto) 0.7, Eosinophils # (Auto) 0.0, Basophils # (Auto) 0.0, Sodium Level 137, Potassium Level 4.4, Chloride Level 108, Carbon Dioxide Level 22, Anion Gap 7, Blood Urea Nitrogen 6, Creatinine 0.60, Estimat Glomerular Filtration Rate > 60, BUN/ Creatinine Ratio 10, Glucose Level 81, Calcium Level 8.3, Corrected Calcium 8.4 , Total Bilirubin 0.2, Aspartate Amino Transf (AST/SGOT) 14, Alanine Aminotransferase (ALT/SGPT) 26, Alkaline Phosphatase 67, Total Protein 6.3, Albumin 3.9 09/13/18 11:03: Glucometer 107 Discussion & Recommendations Discharge Planning: <30 minutes discharge planning Discharge Home Medications: Active Scripts Active Reported Sleep-Aid (Diphenhydramine HCl) 25 Mg Capsule 50 Mg PO HS Mary Allergy (Fexofenadine HCl) 180 Mg Tablet 180 Mg PO DAILY Benadryl Allergy (Diphenhydramine HCl) 25 Mg Tablet 25 Mg PO HS Daily Fiber (Psyllium Husk) 0.52 Gm Capsule 1 Cap PO DAILY Iron (Ferrous Sulfate) 325 Mg Tablet 325 Mg PO DAILY Oxtellar Xr (Oxcarbazepine) 600 Mg Tab.er.24h 1,200 Mg PO DAILY Fluticasone Propionate 16 Gm [place].susp 2 Sprays NS DAILY Pantoprazole Sodium 40 Mg Tablet.dr 40 Mg PO DAILY Escitalopram Oxalate 10 Mg Tablet 10 Mg PO DAILY Montelukast Sodium 10 Mg Tablet 10 Mg PO HS Amlodipine Besylate 10 Mg Tablet 10 Mg PO DAILY Metformin HCl 500 Mg Tablet 500 Mg PO BID Phemye-Hcakjlez-Zxwj 50-325-40 (Butalb/Acetaminophen/Caffeine) 1 Each Tablet 1 Tab PO Q4H PRN Ranitidine HCl 150 Mg Capsule 150 Mg PO HS Instructions to patient/family Please see electronic discharge instructions given to patient. Clinical Quality Measures DVT/VTE Risk/Contraindication: Risk Factor Score Per Nursin RFS Level Per Nursing on Admit: 1=Low/No VTE PPX Problem Qualifiers (1) Asthma: Asthma severity: mild Asthma persistence: intermittent Asthma complication type: unspecified Qualified Codes: J45.20 - Mild intermittent asthma, uncomplicated (2) Obesity: Obesity classification: adult class 3 (BMI >= 40) Serious obesity comorbidity presence: without serious comorbidity Body mass index: BMI 50.0-59.9 (3) Hypertension: Hypertension type: essential hypertension Qualified Codes: I10 - Essential ( primary) hypertension (4) Nausea & vomiting: Vomiting type: unspecified Vomiting Intractability: intractable Qualified Codes: R11.2 - Nausea with vomiting, unspecified (5) Head ache: Headache type: unspecified Headache chronicity pattern: acute headache Intractability: intractable Qualified Codes: R51 - Headache TASHI GAINES DO Sep 13, 2018 11:53
[2018-09-13 12:30] VITALS: BP 139/72
== END 2018-09-13 12:30 | disposition home or self-care (01) ==
LOC: EDUNIT# 19:58 → ER 19:59 → 4TH 22:45
PROVIDERS: ADMIT Internal Medicine; ATTEND Internal Medicine
DX: E87.1 Hypo-osmolality and hyponatremia (principal); J45.20 Mild intermittent asthma, uncomplicated; G40.909 Epilepsy, unspecified, not intractable, without status epilepticus; E66.9 Obesity, unspecified; I10 Essential (primary) hypertension; R11.2 Nausea with vomiting, unspecified; R51 Headache; E87.6 Hypokalemia; Z79.899 Other long term (current) drug therapy; Z68.43 Body mass index [BMI] 50.0-59.9, adult
CPT/HCPCS: 36415; 80053; 81000; 82150; 82962; 83690; 83735; 84703; 85025; 87804; 93041; 96361; 96374; 96375; G0378